=== PATIENT | female | born 1970 | race Caucasian/White ===

== ENCOUNTER 2016-11-12 10:07 | Inpatient (IN) | payer MEDICARE, MEDICAID ==
[~2016-11-12] VITALS: Ht 167.6 cm; Wt 102.9 kg
[~2016-11-12 10:07] MED LIST: CHOL200018 PO; FLUT1AER IH; MUPI15CR TP; OLAN10TA3 PO; OXYB5 PO; ROPI1TAB11 PO
[2016-11-12 12:05] LABS: BASOPHILS # (AUTO) 0.02 K/uL (0.00-0.20); BASOPHILS % (AUTO) 0.2 % (0.0-2.0); EOSINOPHILS # (AUTO) 0.03 K/uL (0.00-0.70); EOSINOPHILS % (AUTO) 0.24 % (1.0-6.0); HEMATOCRIT 42.4 % (36-46); HEMOGLOBIN 14.1 g/dL (12.0-16.0); LYMPHOCYTES # (AUTO) 2.1 K/uL (1.0-4.8); LYMPHOCYTES % (AUTO) 17.7 % (22.0-44.0); MEAN CORPUSCULAR HEMOGLOBIN 29.7 pg (26.0-34.0); MEAN CORPUSCULAR HGB CONC 33.2 G/dL (31.0-37.0); MEAN CORPUSCULAR VOLUME 90 fL (80-100); MONOCYTES # (AUTO) 0.5 K/uL (0.1-1.0); MONOCYTES % (AUTO) 3.9 % (2.0-9.0); NEUTROPHILS # (AUTO) 9.1 K/uL (1.8-7.7); PLATELET COUNT (AUTO) 277 K/uL (150-450); RED BLOOD CELL COUNT(AUTO) 4.73 MIL/uL (4.00-5.20); RED CELL DISTRIBUTION WIDTH 15.2 % (11.5-14.5); WHITE BLOOD COUNT (AUTO) 11.7 K/uL (4.5-11.0)
[2016-11-12 12:47] LABS: ANION GAP 8 mmol/L (8-16); CALCIUM, TOTAL 9.6 mg/dL (8.8-10.5); CARBON DIOXIDE 30 mmol/L (22-29); CHLORIDE 99 mmol/L (98-107); CREATININE 0.68 mg/dL (0.60-1.30); GLOMERULAR FILTR. RATE CALC > 60 mL/min (>60); POTASSIUM 3.7 mmol/L (3.5-5.1); SODIUM SERUM 137 mmol/L (136-145); UREA NITROGEN, BLOOD 5 mg/dL (7-18)
[2016-11-12 12:52] LABS: ALANINE AMINOTRANSFERASE 9 U/L (12-78); ALBUMIN 3.6 g/dL (3.4-5.0); ASPARTATE AMINOTRANSFERASE 16 U/L (15-37); BILIRUBIN,TOTAL 0.2 mg/dL (0.1-1.0); TOTAL PROTEIN, SERUM 7.5 g/dL (6.4-8.2)
[2016-11-12] MEDS ORDERED: LORazepam 2 MG TABLET PO ONE (13:30)
[2016-11-12] MEDS ORDERED: HALOPERIDOL LACTATE 5 MG/ML VIAL IM ONE (14:30)
[2016-11-12] MEDS ORDERED: DiphenhydrAMINE HCL 50 MG/ML VIAL IM ONE (14:30)
[2016-11-12 15:29] LABS: APPEARANCE,URINE CLOUDY (CLEAR); GLUCOSE, URINE (UA) NEGATIVE (NEGATIVE); KETONES,URINE NEGATIVE (NEGATIVE); LEUKOCYTE ESTERASE ,URINE MODERATE (NEGATIVE); OCCULT BLOOD,URINE NEGATIVE (NEGATIVE); PROTEIN,URINE NEGATIVE (NEGATIVE)
[2016-11-12 15:31] LABS: ADD UA MICROSCOPIC YES
[2016-11-12 15:37] LABS: SQUAMOUS EPITHELIAL CELL,UR Many /LPF (None Seen)
[2016-11-12 15:38] LABS: RBC,URINE 0-2 /HPF (0-2)
[2016-11-12] MEDS ORDERED: LEVOFLOXACIN 500 MG TABLET PO ONE (16:00)
[2016-11-12 16:23] VITALS: BP 146/89
[2016-11-12] MEDS: DIVALPROEX SODIUM 500 MG DR TABLET PO SCH (16:58)
[2016-11-12] MEDS: OLANZapine 7.5 MG TABLET PO SCH (20:32)
[2016-11-13] MEDS: ZOLPIDEM TARTRATE 10 MG TABLET PO PRN (00:21)
[2016-11-13] MEDS: LORazepam 2 MG TABLET PO PRN ×4 (00:21→19:53)
[2016-11-13 08:00] VITALS: BP 131/95
[2016-11-13] MEDS: FLUTICASONE/VILANTEROL 100-25 MCG/INH INHALER [14] IH SCH (08:14)
[2016-11-13] MEDS: HALOPERIDOL 5 MG TABLET PO PRN ×3 (08:15→16:38)
[2016-11-13] MEDS: CHOLECALCIFEROL (VIT D3) 2,000 UNITS TABLET PO SCH (08:15)
[2016-11-13] MEDS: OXYBUTYNIN CHLORIDE 5 MG TABLET PO SCH ×2 (08:15→16:38)
[2016-11-13] MEDS: DIVALPROEX SODIUM 500 MG DR TABLET PO SCH ×2 (09:00→16:38)
[2016-11-13] MEDS: NICOTINE 21 MG/24 HOUR PATCH TD SCH (10:06)
[2016-11-13] MEDS: BACITRACIN 28.4 GM OINTMENT TP SCH (10:07)
[2016-11-13] MEDS: LEVOFLOXACIN 500 MG TABLET PO SCH (13:24)
[2016-11-13 16:55] VITALS: BP 139/98
[2016-11-13] MEDS: OLANZapine 7.5 MG TABLET PO SCH (20:45)
[2016-11-14] MEDS: HALOPERIDOL 5 MG TABLET PO PRN ×4 (01:56→17:46)
[2016-11-14] MEDS: ZOLPIDEM TARTRATE 10 MG TABLET PO PRN (01:56)
[2016-11-14] MEDS: DENTURE ADHESIVE 68 GM CREAM DT PRN ×2 (07:37→11:48)
[2016-11-14] MEDS: LORazepam 2 MG TABLET PO PRN ×3 (07:37→17:47)
[2016-11-14 08:00] VITALS: BP 141/100
[2016-11-14] MEDS: OXYBUTYNIN CHLORIDE 5 MG TABLET PO SCH ×2 (08:08→16:14)
[2016-11-14] MEDS: LEVOFLOXACIN 500 MG TABLET PO SCH (08:08)
[2016-11-14] MEDS: CHOLECALCIFEROL (VIT D3) 2,000 UNITS TABLET PO SCH (08:08)
[2016-11-14] MEDS: NICOTINE 21 MG/24 HOUR PATCH TD SCH (08:09)
[2016-11-14] MEDS: FLUTICASONE/VILANTEROL 100-25 MCG/INH INHALER [14] IH SCH (08:10)
[2016-11-14] MEDS: BACITRACIN 28.4 GM OINTMENT TP SCH (08:10)
[2016-11-14] MEDS: DIVALPROEX SODIUM 500 MG DR TABLET PO SCH ×2 (09:00→16:33)
[2016-11-14] MEDS ORDERED: TraMADol HCL 50 MG TABLET PO PRN (16:00)
[2016-11-14] MEDS: IBUPROFEN 600 MG TABLET PO PRN (16:14)
[2016-11-14 16:19] VITALS: BP 118/64
[2016-11-14] MEDS: OLANZapine 7.5 MG TABLET PO SCH (20:21)
[2016-11-15] MEDS: LORazepam 2 MG TABLET PO PRN ×2 (00:25→08:07)
[2016-11-15] MEDS: ZOLPIDEM TARTRATE 10 MG TABLET PO PRN (00:25)
[2016-11-15 02:45] VITALS: BP 135/76
[2016-11-15] MEDS: IBUPROFEN 600 MG TABLET PO PRN (02:45)
[2016-11-15] MEDS: HALOPERIDOL 5 MG TABLET PO PRN (06:03)
[2016-11-15] MEDS: NICOTINE 21 MG/24 HOUR PATCH TD SCH (08:07)
[2016-11-15] MEDS: LEVOFLOXACIN 500 MG TABLET PO SCH (08:07)
[2016-11-15] MEDS: CHOLECALCIFEROL (VIT D3) 2,000 UNITS TABLET PO SCH (08:07)
[2016-11-15] MEDS: OXYBUTYNIN CHLORIDE 5 MG TABLET PO SCH (08:08)
[2016-11-15] MEDS: DIVALPROEX SODIUM 500 MG DR TABLET PO SCH (09:00)
[2016-11-15] MEDS: FLUTICASONE/VILANTEROL 100-25 MCG/INH INHALER [14] IH SCH (09:00)
[2016-11-15] MEDS ORDERED: LEVO500 PO (11:26)
[2016-11-15] MEDS ORDERED: DIVA500T35 PO (11:26)
[2016-11-15] MEDS: DENTURE ADHESIVE 68 GM CREAM DT PRN (11:27)
[2016-11-15] MEDS ORDERED: BACI3.5O22 TP (11:29)
[2017-03-25] MEDS ORDERED: GABA-531 PO (18:50)
== END 2016-11-15 13:45 | disposition home or self-care (01) | DRG 885 ==
LOC: EMS 10:10 → 3EC 15:51
PROVIDERS: ADMIT Psychiatry & Neurology Psychiatry; ATTEND Psychiatry & Neurology Psychiatry
DX: F25.9 Schizoaffective disorder, unspecified (principal); R45.851 Suicidal ideations; R45.850 Homicidal ideations; J45.909 Unspecified asthma, uncomplicated; E11.9 Type 2 diabetes mellitus without complications; I10 Essential (primary) hypertension; G89.29 Other chronic pain; G47.33 Obstructive sleep apnea (adult) (pediatric); G40.909 Epilepsy, unspecified, not intractable, without status epilepticus; J44.9 Chronic obstructive pulmonary disease, unspecified; E66.9 Obesity, unspecified; K21.9 Gastro-esophageal reflux disease without esophagitis; E55.9 Vitamin D deficiency, unspecified; R32 Unspecified urinary incontinence; F17.210 Nicotine dependence, cigarettes, uncomplicated; F15.90 Other stimulant use, unspecified, uncomplicated; Z88.0 Allergy status to penicillin; Z71.6 Tobacco abuse counseling; Z71.51 Drug abuse counseling and surveillance of drug abuser; Z88.1 Allergy status to other antibiotic agents; Z88.8 Allergy status to other drugs, medicaments and biological substances; Z79.899 Other long term (current) drug therapy; Z79.51 Long term (current) use of inhaled steroids; Z90.49 Acquired absence of other specified parts of digestive tract; Z98.890 Other specified postprocedural states; Z98.1 Arthrodesis status; Z91.5 Personal history of self-harm; Z68.36 Body mass index [BMI] 36.0-36.9, adult
CPT/HCPCS: 87086; 94660; 96372; 99285; G0480; J1200; J1630

== ENCOUNTER 2016-11-26 12:11 | Inpatient (IN) | payer MEDICARE, MEDICAID ==
[~2016-11-26] VITALS: Ht 167.6 cm; Wt 105.3 kg
[~2016-11-26 12:11] MED LIST changes: +BACI3.5O22 TP; +DIVA500T35 PO; +LEVO500 PO; -MUPI15CR TP; -ROPI1TAB11 PO
[2016-11-26 13:18] LABS: BASOPHILS % (AUTO) 1.4 % (0.0-2.0); EOSINOPHILS % (AUTO) 1.4 % (1.0-6.0); HEMATOCRIT 39.6 % (36-46); HEMOGLOBIN 12.8 g/dL (12.0-16.0); LYMPHOCYTES # (AUTO) 2.8 K/uL (1.0-4.8); LYMPHOCYTES % (AUTO) 24.1 % (22.0-44.0); MEAN CORPUSCULAR HEMOGLOBIN 29.2 pg (26.0-34.0); MEAN CORPUSCULAR HGB CONC 32.2 G/dL (31.0-37.0); MEAN CORPUSCULAR VOLUME 91 fL (80-100); MONOCYTES # (AUTO) 0.8 K/uL (0.1-1.0); MONOCYTES % (AUTO) 6.9 % (2.0-9.0); NEUTROPHILS # (AUTO) 7.6 K/uL (1.8-7.7); NEUTROPHILS % (AUTO) 66.2 % (40.0-70.0); PLATELET COUNT (AUTO) 293 K/uL (150-450); RED BLOOD CELL COUNT(AUTO) 4.37 MIL/uL (4.00-5.20); RED CELL DISTRIBUTION WIDTH 15.6 % (11.5-14.5); WHITE BLOOD COUNT (AUTO) 11.4 K/uL (4.5-11.0)
[2016-11-26 13:20] LABS: ANION GAP 9 mmol/L (8-16); CALCIUM, TOTAL 8.3 mg/dL (8.8-10.5); CARBON DIOXIDE 28 mmol/L (22-29); CHLORIDE 101 mmol/L (98-107); CREATININE 0.55 mg/dL (0.60-1.30); GLOMERULAR FILTR. RATE CALC > 60 mL/min (>60); POTASSIUM 3.5 mmol/L (3.5-5.1); SODIUM SERUM 138 mmol/L (136-145); UREA NITROGEN, BLOOD 4 mg/dL (7-18)
[2016-11-26 13:26] LABS: ALANINE AMINOTRANSFERASE 12 U/L (12-78); ALBUMIN 3.3 g/dL (3.4-5.0); ASPARTATE AMINOTRANSFERASE 21 U/L (15-37); BILIRUBIN,TOTAL 0.2 mg/dL (0.1-1.0); TOTAL PROTEIN, SERUM 6.9 g/dL (6.4-8.2)
[2016-11-26 13:36] LABS: ACETAMINOPHEN < 2 mcg/mL (10-30)
[2016-11-26 13:53] LABS: SALICYLATE 6.4 mg/dL (2.8-20.0)
[2016-11-26] MEDS ORDERED: BACI30OI6 TP (14:43)
[2016-11-26] MEDS ORDERED: OLAN7.5T2 PO (14:43)
[2016-11-26] MEDS ORDERED: HALOPERIDOL LACTATE 5 MG/ML VIAL IM ONE (14:45)
[2016-11-26] MEDS ORDERED: LORazepam 2 MG/ML VIAL IM ONE (14:45)
[2016-11-26] MEDS ORDERED: DiphenhydrAMINE HCL 50 MG/ML VIAL IM ONE (14:45)
[2016-11-26] MEDS: DIVALPROEX SODIUM 500 MG DR TABLET PO SCH (18:58)
[2016-11-26] MEDS: OLANZapine 10 MG TABLET PO SCH (20:50)
[2016-11-26] MEDS: ZOLPIDEM TARTRATE 10 MG TABLET PO PRN (20:51)
[2016-11-27] MEDS: LORazepam 2 MG TABLET PO PRN ×3 (01:56→14:42)
[2016-11-27] MEDS: HALOPERIDOL 5 MG TABLET PO PRN ×3 (01:56→14:42)
[2016-11-27] MEDS ORDERED: HALOPERIDOL LACTATE 5 MG/ML VIAL IM ONE ×3 (06:15→19:30)
[2016-11-27] MEDS ORDERED: DiphenhydrAMINE HCL 50 MG/ML VIAL IM ONE ×2 (06:15→19:30)
[2016-11-27] MEDS ORDERED: LORazepam 2 MG/ML VIAL IM ONE ×2 (06:15→19:30)
[2016-11-27] MEDS: DIVALPROEX SODIUM 500 MG DR TABLET PO SCH ×2 (09:00→16:18)
[2016-11-27] MEDS: NICOTINE 21 MG/24 HOUR PATCH TD SCH (09:07)
[2016-11-27 09:14] VITALS: BP 145/100
[2016-11-27] MEDS: TraMADol HCL 50 MG TABLET PO PRN (09:14)
[2016-11-27] MEDS ORDERED: MAG HYDROX/AL HYDROX/SIMETH ES 30 ML SUSPENSION UDCUP PO PRN (09:15)
[2016-11-27] MEDS ORDERED: ONDANSETRON HCL 4 MG TABLET PO PRN (09:15)
[2016-11-27] MEDS ORDERED: PETROLATUM,WHITE 71 GM JELLY TP PRN (09:15)
[2016-11-27] MEDS ORDERED: MAGNESIUM HYDROXIDE SUSPENSION 30 ML UDCUP PO PRN (09:15)
[2016-11-27] MEDS ORDERED: BENZOCAINE/MENTHOL LOZENGE MM PRN (09:15)
[2016-11-27] MEDS ORDERED: DENTURE ADHESIVE 68 GM CREAM DT PRN (09:15)
[2016-11-27] MEDS ORDERED: ACETAMINOPHEN 325 MG TABLET PO PRN (09:15)
[2016-11-27] MEDS ORDERED: LOPERAMIDE HCL 2 MG CAPSULE PO PRN (09:15)
[2016-11-27] MEDS ORDERED: BACITRACIN 28.4 GM OINTMENT TP PRN (09:15)
[2016-11-27] MEDS ORDERED: CloNIDine HCL 0.1 MG TABLET PO PRN (09:15)
[2016-11-27] MEDS ORDERED: ALBUTEROL SULFATE HFA 90 MCG/PUFF 8 GM INHALER IH PRN (09:15)
[2016-11-27] MEDS: FLUTICASONE/VILANTEROL 100-25 MCG/INH INHALER [14] IH SCH (11:06)
[2016-11-27] MEDS: CHOLECALCIFEROL (VIT D3) 2,000 UNITS TABLET PO SCH (11:06)
[2016-11-27] MEDS: OXYBUTYNIN CHLORIDE 5 MG TABLET PO SCH ×2 (11:07→16:19)
[2016-11-27] MEDS: IBUPROFEN 600 MG TABLET PO PRN (14:44)
[2016-11-27 17:57] VITALS: BP 116/75
[2016-11-27] MEDS ORDERED: LORazepam 2 MG/ML VIAL ONE (19:36)
[2016-11-27] MEDS ORDERED: HALOPERIDOL LACTATE 5 MG/ML VIAL ONE (19:37)
[2016-11-27] MEDS ORDERED: DiphenhydrAMINE HCL 50 MG/ML VIAL ONE (19:37)
[2016-11-27] MEDS: OLANZapine 10 MG TABLET PO SCH (20:43)
[2016-11-27] MEDS: ZOLPIDEM TARTRATE 10 MG TABLET PO PRN (20:46)
[2016-11-28] MEDS: LORazepam 2 MG TABLET PO PRN ×4 (00:59→20:26)
[2016-11-28] MEDS: HALOPERIDOL 5 MG TABLET PO PRN ×3 (05:49→20:47)
[2016-11-28] MEDS: FLUTICASONE/VILANTEROL 100-25 MCG/INH INHALER [14] IH SCH (09:00)
[2016-11-28] MEDS ORDERED: HALOPERIDOL LACTATE 5 MG/ML VIAL IM ONE ×2 (09:15→21:00)
[2016-11-28] MEDS ORDERED: LORazepam 2 MG/ML VIAL IM ONE ×2 (09:15→21:00)
[2016-11-28] MEDS ORDERED: DiphenhydrAMINE HCL 50 MG/ML VIAL IM ONE (09:15)
[2016-11-28] MEDS: OXYBUTYNIN CHLORIDE 5 MG TABLET PO SCH ×2 (09:33→16:36)
[2016-11-28] MEDS: OMEPRAZOLE 20 MG CAPSULE PO SCH (09:33)
[2016-11-28] MEDS: CHOLECALCIFEROL (VIT D3) 2,000 UNITS TABLET PO SCH (09:33)
[2016-11-28] MEDS: DIVALPROEX SODIUM 500 MG DR TABLET PO SCH ×2 (09:34→16:36)
[2016-11-28] MEDS: DOCUSATE SODIUM 100 MG CAPSULE PO SCH (09:34)
[2016-11-28] MEDS: TraMADol HCL 50 MG TABLET PO PRN ×2 (09:39→17:44)
[2016-11-28] MEDS: NICOTINE 21 MG/24 HOUR PATCH TD SCH (09:47)
[2016-11-28 16:39] VITALS: BP 115/81
[2016-11-28] MEDS: OLANZapine 10 MG TABLET PO SCH (20:23)
[2016-11-28 21:02] VITALS: BP 124/82
[2016-11-29] MEDS: LORazepam 2 MG TABLET PO PRN ×3 (05:14→20:06)
[2016-11-29] MEDS: HALOPERIDOL 5 MG TABLET PO PRN ×3 (05:14→20:06)
[2016-11-29] MEDS: FLUTICASONE/VILANTEROL 100-25 MCG/INH INHALER [14] IH SCH (08:36)
[2016-11-29] MEDS: OMEPRAZOLE 20 MG CAPSULE PO SCH (08:37)
[2016-11-29] MEDS: CHOLECALCIFEROL (VIT D3) 2,000 UNITS TABLET PO SCH (08:37)
[2016-11-29] MEDS: DIVALPROEX SODIUM 500 MG DR TABLET PO SCH ×2 (08:37→16:29)
[2016-11-29] MEDS: OXYBUTYNIN CHLORIDE 5 MG TABLET PO SCH ×2 (08:37→16:29)
[2016-11-29] MEDS: DOCUSATE SODIUM 100 MG CAPSULE PO SCH (08:37)
[2016-11-29] MEDS: NICOTINE 21 MG/24 HOUR PATCH TD SCH (08:38)
[2016-11-29 08:40] VITALS: BP 111/82
[2016-11-29] MEDS: TraMADol HCL 50 MG TABLET PO PRN (08:40)
[2016-11-29 16:09] VITALS: BP 117/78
[2016-11-29] MEDS: OLANZapine 10 MG TABLET PO SCH (22:13)
[2016-11-29] MEDS: ZOLPIDEM TARTRATE 10 MG TABLET PO PRN (22:35)
[2016-11-30 03:27] VITALS: BP 114/73
[2016-11-30] MEDS: HALOPERIDOL 5 MG TABLET PO PRN ×4 (03:28→17:58)
[2016-11-30] MEDS: LORazepam 2 MG TABLET PO PRN ×4 (03:29→17:58)
[2016-11-30] MEDS: DOCUSATE SODIUM 100 MG CAPSULE PO SCH (08:01)
[2016-11-30] MEDS: FLUTICASONE/VILANTEROL 100-25 MCG/INH INHALER [14] IH SCH (08:01)
[2016-11-30] MEDS: OMEPRAZOLE 20 MG CAPSULE PO SCH (08:01)
[2016-11-30] MEDS: OXYBUTYNIN CHLORIDE 5 MG TABLET PO SCH ×2 (08:01→17:19)
[2016-11-30] MEDS: CHOLECALCIFEROL (VIT D3) 2,000 UNITS TABLET PO SCH (08:02)
[2016-11-30] MEDS: DIVALPROEX SODIUM 500 MG DR TABLET PO SCH ×2 (08:02→17:18)
[2016-11-30] MEDS: NICOTINE 21 MG/24 HOUR PATCH TD SCH (08:07)
[2016-11-30 10:10] VITALS: BP 122/93
[2016-11-30] MEDS: TraMADol HCL 50 MG TABLET PO PRN (10:12)
[2016-11-30] MEDS: IBUPROFEN 600 MG TABLET PO PRN (12:48)
[2016-11-30 16:12] VITALS: BP 118/81
[2016-11-30] MEDS: ZOLPIDEM TARTRATE 10 MG TABLET PO PRN (20:15)
[2016-11-30] MEDS: OLANZapine 10 MG TABLET PO SCH (20:15)
[2016-12-01] MEDS: IBUPROFEN 600 MG TABLET PO PRN (01:36)
[2016-12-01] MEDS: LORazepam 2 MG TABLET PO PRN ×2 (03:40→09:19)
[2016-12-01] MEDS: HALOPERIDOL 5 MG TABLET PO PRN ×2 (03:51→09:20)
[2016-12-01] MEDS: OMEPRAZOLE 20 MG CAPSULE PO SCH (09:20)
[2016-12-01] MEDS: DIVALPROEX SODIUM 500 MG DR TABLET PO SCH (09:20)
[2016-12-01] MEDS: DOCUSATE SODIUM 100 MG CAPSULE PO SCH (09:20)
[2016-12-01] MEDS: TraMADol HCL 50 MG TABLET PO PRN (09:20)
[2016-12-01] MEDS: CHOLECALCIFEROL (VIT D3) 2,000 UNITS TABLET PO SCH (09:21)
[2016-12-01] MEDS: FLUTICASONE/VILANTEROL 100-25 MCG/INH INHALER [14] IH SCH (09:21)
[2016-12-01] MEDS: NICOTINE 21 MG/24 HOUR PATCH TD SCH (09:21)
[2016-12-01] MEDS: OXYBUTYNIN CHLORIDE 5 MG TABLET PO SCH (09:21)
[2016-12-01] MEDS ORDERED: OMEP20 PO (11:08)
[2016-12-01] MEDS ORDERED: DSS100 PO (11:09)
[2017-03-25] MEDS ORDERED: GABA-531 PO (18:50)
== END 2016-12-01 11:00 | disposition home or self-care (01) | DRG 885 ==
LOC: EMS 12:14 → EEVIPCON 12:14 → 3EC 18:45
PROVIDERS: ADMIT Psychiatry & Neurology Psychiatry; ATTEND Psychiatry & Neurology Psychiatry
DX: F25.9 Schizoaffective disorder, unspecified (principal); R45.851 Suicidal ideations; E11.9 Type 2 diabetes mellitus without complications; E55.9 Vitamin D deficiency, unspecified; E66.9 Obesity, unspecified; F17.210 Nicotine dependence, cigarettes, uncomplicated; G40.909 Epilepsy, unspecified, not intractable, without status epilepticus; G47.33 Obstructive sleep apnea (adult) (pediatric); G89.29 Other chronic pain; I10 Essential (primary) hypertension; J44.9 Chronic obstructive pulmonary disease, unspecified; Z87.440 Personal history of urinary (tract) infections; J45.909 Unspecified asthma, uncomplicated; K59.00 Constipation, unspecified; L30.9 Dermatitis, unspecified; M19.90 Unspecified osteoarthritis, unspecified site; R32 Unspecified urinary incontinence; Z90.49 Acquired absence of other specified parts of digestive tract; Z71.6 Tobacco abuse counseling; Z91.5 Personal history of self-harm; Z98.1 Arthrodesis status; Z98.890 Other specified postprocedural states; Z88.0 Allergy status to penicillin; Z88.8 Allergy status to other drugs, medicaments and biological substances; Z79.899 Other long term (current) drug therapy; Z56.0 Unemployment, unspecified; Z72.89 Other problems related to lifestyle; Z68.37 Body mass index [BMI] 37.0-37.9, adult; F31.9 Bipolar disorder, unspecified
CPT/HCPCS: 87081; 94660; 96372; 99285; 99406; G0480; G0481; J1200; J1630; J2060; J3535

== ENCOUNTER 2016-12-06 18:29 | Inpatient (IN) | payer MEDICARE, OTHER ==
[~2016-12-06] VITALS: Ht 165.1 cm; Wt 106.6 kg
[~2016-12-06 18:29] MED LIST changes: -BACI3.5O22 TP; +DSS100 PO; -LEVO500 PO; -OLAN10TA3 PO; +OLAN7.5T2 PO; +OMEP20 PO
[2016-12-06 18:56] LABS: GLUCOSE COMMENT 1 Doctor Notified; GLUCOSE,POINT OF CARE 137 MG/DL (70-110)
[2016-12-06] MEDS ORDERED: SODIUM CHLORIDE 0.9% 1,000 ML IV ONE (19:00)
[2016-12-06] MEDS ORDERED: OLAN10TA3 PO (19:04)
[2016-12-06 19:22] LABS: BASOPHILS % (AUTO) 0.7 % (0.0-2.0); EOSINOPHILS % (AUTO) 0.6 % (1.0-6.0); HEMATOCRIT 39.6 % (36-46); HEMOGLOBIN 12.7 g/dL (12.0-16.0); LYMPHOCYTES # (AUTO) 3.6 K/uL (1.0-4.8); LYMPHOCYTES % (AUTO) 26.6 % (22.0-44.0); MEAN CORPUSCULAR HEMOGLOBIN 28.9 pg (26.0-34.0); MEAN CORPUSCULAR VOLUME 90 fL (80-100); MONOCYTES # (AUTO) 0.5 K/uL (0.1-1.0); MONOCYTES % (AUTO) 3.7 % (2.0-9.0); NEUTROPHILS # (AUTO) 9.2 K/uL (1.8-7.7); NEUTROPHILS % (AUTO) 68.4 % (40.0-70.0); RED CELL DISTRIBUTION WIDTH 15.4 % (11.5-14.5); WHITE BLOOD COUNT (AUTO) 13.5 K/uL (4.5-11.0)
[2016-12-06 19:36] LABS: SALICYLATE 4.1 mg/dL (2.8-20.0)
[2016-12-06 19:47] LABS: PLATELET COUNT (AUTO) 232 K/uL (150-450)
[2016-12-06 19:50] LABS: ALANINE AMINOTRANSFERASE 9 U/L (12-78); ALBUMIN 3.4 g/dL (3.4-5.0); ANION GAP 13 mmol/L (8-16); ASPARTATE AMINOTRANSFERASE 15 U/L (15-37); BILIRUBIN,TOTAL 0.2 mg/dL (0.1-1.0); CALCIUM, TOTAL 8.5 mg/dL (8.8-10.5); CARBON DIOXIDE 25 mmol/L (22-29); CHLORIDE 102 mmol/L (98-107); CREATININE 0.57 mg/dL (0.60-1.30); GLOMERULAR FILTR. RATE CALC > 60 mL/min (>60); SODIUM SERUM 140 mmol/L (136-145); UREA NITROGEN, BLOOD 7 mg/dL (7-18)
[2016-12-06 19:57] LABS: POTASSIUM 2.9 mmol/L (3.5-5.1)
[2016-12-06 19:58] LABS: ACETAMINOPHEN < 2 mcg/mL (10-30); VALPROIC ACID 3 mcg/mL (50-100)
[2016-12-06] MEDS ORDERED: POTASSIUM CHL 20 MEQ/D5-0.45NS 1,000 ML IV ONE (20:30)
[2016-12-07] MEDS ORDERED: POTASSIUM CHLORIDE 20 MEQ ER TABLET PO PRN (04:00)
[2016-12-07] MEDS ORDERED: MAGNESIUM HYDROXIDE SUSPENSION 30 ML UDCUP PO PRN (04:00)
[2016-12-07] MEDS: SODIUM CHLORIDE 0.9% 1,000 ML IV SCH ×3 (04:00→21:28)
[2016-12-07] MEDS ORDERED: POTASSIUM CHL 10 MEQ/WATER 50 ML IV PRN (04:00)
[2016-12-07] MEDS ORDERED: ONDANSETRON HCL 4 MG/2 ML VIAL IVP PRN (04:00)
[2016-12-07] MEDS ORDERED: ACETAMINOPHEN 325 MG TABLET PO PRN (04:00)
[2016-12-07] MEDS ORDERED: 0.9% SODIUM CHLORIDE 10 ML SYRINGE IVP PRN (04:00)
[2016-12-07] MEDS: PANTOPRAZOLE SODIUM 40 MG/VIAL IVP SCH (08:49)
[2016-12-07] MEDS: DOCUSATE SODIUM 100 MG CAPSULE PO SCH ×2 (08:50→21:34)
[2016-12-07 11:22] LABS: GLUCOSE,POINT OF CARE 102 MG/DL (70-110)
[2016-12-07 15:52] VITALS: BP 120/74
[2016-12-07] MEDS ORDERED: DENTURE ADHESIVE 68 GM CREAM DT ONE (16:00)
[2016-12-07 17:27] LABS: GLUCOSE,POINT OF CARE 96 MG/DL (70-110)
[2016-12-07 18:59] VITALS: BP 109/64
[2016-12-07 21:09] VITALS: BP 118/68
[2016-12-07 21:26] LABS: ANION GAP 7 mmol/L (8-16); CALCIUM, TOTAL 8.4 mg/dL (8.8-10.5); CARBON DIOXIDE 30 mmol/L (22-29); CHLORIDE 105 mmol/L (98-107); CREATININE 0.63 mg/dL (0.60-1.30); GLOMERULAR FILTR. RATE CALC > 60 mL/min (>60); POTASSIUM 4.2 mmol/L (3.5-5.1); SODIUM SERUM 142 mmol/L (136-145); UREA NITROGEN, BLOOD 7 mg/dL (7-18)
[2016-12-07] MEDS: OxyCODONE HCL/ACETAMINOPHEN 5-325 MG TABLET PO PRN ×2 (21:28→21:33)
[2016-12-07 21:31] LABS: ALANINE AMINOTRANSFERASE 11 U/L (12-78); ASPARTATE AMINOTRANSFERASE 12 U/L (15-37); BILIRUBIN,TOTAL 0.3 mg/dL (0.1-1.0); TOTAL PROTEIN, SERUM 6.4 g/dL (6.4-8.2)
[2016-12-07 23:21] VITALS: BP 116/69
[2016-12-08] VITALS (7 sets, daily range): BP systolic 106–132; BP diastolic 56–76
[2016-12-08 06:33] LABS: BASOPHILS % (AUTO) 0.5 % (0.0-2.0); EOSINOPHILS % (AUTO) 1.5 % (1.0-6.0); HEMATOCRIT 38.2 % (36-46); HEMOGLOBIN 12.3 g/dL (12.0-16.0); LYMPHOCYTES # (AUTO) 3.1 K/uL (1.0-4.8); LYMPHOCYTES % (AUTO) 34.2 % (22.0-44.0); MEAN CORPUSCULAR HEMOGLOBIN 29.7 pg (26.0-34.0); MEAN CORPUSCULAR HGB CONC 32.1 G/dL (31.0-37.0); MEAN CORPUSCULAR VOLUME 92 fL (80-100); MONOCYTES # (AUTO) 0.4 K/uL (0.1-1.0); MONOCYTES % (AUTO) 4.9 % (2.0-9.0); NEUTROPHILS # (AUTO) 5.3 K/uL (1.8-7.7); NEUTROPHILS % (AUTO) 58.9 % (40.0-70.0); PLATELET COUNT (AUTO) 214 K/uL (150-450); RED BLOOD CELL COUNT(AUTO) 4.13 MIL/uL (4.00-5.20); RED CELL DISTRIBUTION WIDTH 16.1 % (11.5-14.5); WHITE BLOOD COUNT (AUTO) 8.9 K/uL (4.5-11.0)
[2016-12-08 06:47] LABS: ANION GAP 4 mmol/L (8-16); CALCIUM, TOTAL 8.4 mg/dL (8.8-10.5); CARBON DIOXIDE 33 mmol/L (22-29); CHLORIDE 106 mmol/L (98-107); GLOMERULAR FILTR. RATE CALC > 60 mL/min (>60); POTASSIUM 4.3 mmol/L (3.5-5.1); SODIUM SERUM 143 mmol/L (136-145); UREA NITROGEN, BLOOD 8 mg/dL (7-18)
[2016-12-08] MEDS: OxyCODONE HCL/ACETAMINOPHEN 5-325 MG TABLET PO PRN ×4 (06:57→20:04)
[2016-12-08] MEDS: SODIUM CHLORIDE 0.9% 1,000 ML IV SCH ×2 (07:01→20:03)
[2016-12-08 07:54] LABS: ALANINE AMINOTRANSFERASE 12 U/L (12-78); ALBUMIN 2.9 g/dL (3.4-5.0); ASPARTATE AMINOTRANSFERASE 19 U/L (15-37); BILIRUBIN,TOTAL 0.4 mg/dL (0.1-1.0); TOTAL PROTEIN, SERUM 6.4 g/dL (6.4-8.2)
[2016-12-08] MEDS: PANTOPRAZOLE SODIUM 40 MG/VIAL IVP SCH (09:19)
[2016-12-08] MEDS: DOCUSATE SODIUM 100 MG CAPSULE PO SCH ×2 (09:19→20:03)
[2016-12-08] MEDS: NICOTINE 21 MG/24 HOUR PATCH TD SCH (10:27)
[2016-12-09 00:28] VITALS: BP 125/85
[2016-12-09] MEDS: OxyCODONE HCL/ACETAMINOPHEN 5-325 MG TABLET PO PRN ×4 (00:31→14:25)
[2016-12-09 05:15] VITALS: BP 134/81
[2016-12-09] MEDS: SODIUM CHLORIDE 0.9% 1,000 ML IV SCH (05:16)
[2016-12-09 07:16] VITALS: BP 136/87
[2016-12-09] MEDS: DOCUSATE SODIUM 100 MG CAPSULE PO SCH (08:16)
[2016-12-09] MEDS: NICOTINE 21 MG/24 HOUR PATCH TD SCH (08:17)
[2016-12-09] MEDS: PANTOPRAZOLE SODIUM 40 MG/VIAL IVP SCH (08:17)
[2016-12-09 11:04] VITALS: BP 142/84
[2017-03-25] MEDS ORDERED: GABA-531 PO (18:50)
== END 2016-12-09 16:24 | disposition home or self-care (01) | DRG 917 ==
LOC: EMS 18:33 → AHU 12-07 15:12 → 5S 12-07 20:40
PROVIDERS: ADMIT Internal Medicine; ATTEND Internal Medicine
DX: T43.591A Poisoning by other antipsychotics and neuroleptics, accidental (unintentional), initial encounter (principal); G92 Toxic encephalopathy; T14.91 Suicide attempt; F29 Unspecified psychosis not due to a substance or known physiological condition; F10.129 Alcohol abuse with intoxication, unspecified; D72.829 Elevated white blood cell count, unspecified; E11.9 Type 2 diabetes mellitus without complications; E87.6 Hypokalemia; F17.210 Nicotine dependence, cigarettes, uncomplicated; F20.9 Schizophrenia, unspecified; I10 Essential (primary) hypertension; J45.909 Unspecified asthma, uncomplicated; F41.9 Anxiety disorder, unspecified; F31.9 Bipolar disorder, unspecified; Z91.5 Personal history of self-harm; Z98.1 Arthrodesis status; Z98.890 Other specified postprocedural states; Z88.0 Allergy status to penicillin; Z88.8 Allergy status to other drugs, medicaments and biological substances; Z79.899 Other long term (current) drug therapy; Z91.09 Other allergy status, other than to drugs and biological substances; Z90.49 Acquired absence of other specified parts of digestive tract; Y92.89 Other specified places as the place of occurrence of the external cause; Y93.89 Activity, other specified; Y99.8 Other external cause status
CPT/HCPCS: 82962; 87081; 93005; 94660; 96361; 96374; 99285; C9113; G0480; G0481; J3480; J7030

== ENCOUNTER 2016-12-10 19:07 | Inpatient (IN) | payer MEDICARE, MEDICAID ==
[~2016-12-10] VITALS: Ht 167.6 cm; Wt 102.7 kg
[~2016-12-10 19:07] MED LIST changes: +OLAN10TA3 PO; -OLAN7.5T2 PO
[2016-12-10] MEDS ORDERED: HALOPERIDOL LACTATE 5 MG/ML VIAL IM ONE (19:45)
[2016-12-10] MEDS ORDERED: LORazepam 2 MG/ML VIAL IM ONE (19:45)
[2016-12-10] MEDS ORDERED: DiphenhydrAMINE HCL 50 MG/ML VIAL IM ONE (19:45)
[2016-12-10 19:56] LABS: BASOPHILS % (AUTO) 0.6 % (0.0-2.0); EOSINOPHILS # (AUTO) 0.06 K/uL (0.00-0.70); EOSINOPHILS % (AUTO) 0.38 % (1.0-6.0); HEMOGLOBIN 16.3 g/dL (12.0-16.0); LYMPHOCYTES % (AUTO) 33.8 % (22.0-44.0); MEAN CORPUSCULAR HGB CONC 33.3 G/dL (31.0-37.0); MEAN CORPUSCULAR VOLUME 90 fL (80-100); MONOCYTES # (AUTO) 0.7 K/uL (0.1-1.0); MONOCYTES % (AUTO) 4.7 % (2.0-9.0); NEUTROPHILS % (AUTO) 60.4 % (40.0-70.0); PLATELET COUNT (AUTO) 55 K/uL (150-450); RED BLOOD CELL COUNT(AUTO) 5.44 MIL/uL (4.00-5.20); RED CELL DISTRIBUTION WIDTH 15.3 % (11.5-14.5); WHITE BLOOD COUNT (AUTO) 14.9 K/uL (4.5-11.0)
[2016-12-10 20:04] LABS: ANION GAP 16 mmol/L (8-16); CALCIUM, TOTAL 9.9 mg/dL (8.8-10.5); CARBON DIOXIDE 26 mmol/L (22-29); CHLORIDE 102 mmol/L (98-107); CREATININE 0.73 mg/dL (0.60-1.30); GLOMERULAR FILTR. RATE CALC > 60 mL/min (>60); POTASSIUM 5.5 mmol/L (3.5-5.1); SODIUM SERUM 144 mmol/L (136-145); UREA NITROGEN, BLOOD 8 mg/dL (7-18)
[2016-12-10 20:09] LABS: ALANINE AMINOTRANSFERASE 13 U/L (12-78); ALBUMIN 4.4 g/dL (3.4-5.0); ASPARTATE AMINOTRANSFERASE 33 U/L (15-37); BILIRUBIN,TOTAL 0.3 mg/dL (0.1-1.0); TOTAL PROTEIN, SERUM 9.1 g/dL (6.4-8.2)
[2016-12-11] MEDS ORDERED: SODIUM POLYSTYRENE SULFONATE 15 GM/60 ML SUSPENSION BOTTLE PO ONE (01:30)
[2016-12-11 06:12] LABS: APPEARANCE,URINE CLOUDY (CLEAR); GLUCOSE, URINE (UA) NEGATIVE (NEGATIVE); KETONES,URINE NEGATIVE (NEGATIVE); LEUKOCYTE ESTERASE ,URINE NEGATIVE (NEGATIVE); OCCULT BLOOD,URINE NEGATIVE (NEGATIVE); PROTEIN,URINE NEGATIVE (NEGATIVE)
[2016-12-11 06:17] LABS: ADD UA MICROSCOPIC NO
[2016-12-11] MEDS ORDERED: HALOPERIDOL LACTATE 5 MG/ML VIAL IM ONE (12:15)
[2016-12-11] MEDS ORDERED: LORazepam 2 MG/ML VIAL IM ONE (12:15)
[2016-12-11 14:56] LABS: GLUCOSE,POINT OF CARE 133 MG/DL (70-110)
[2016-12-11] MEDS: LORazepam 2 MG TABLET PO PRN (20:36)
[2016-12-11] MEDS ORDERED: INFLUENZA VIRUS VACCINE QVS 2016-17 (3YR+)/PF 60 MCG/0.5 ML SYRINGE IM ONE (22:45)
[2016-12-11 23:02] VITALS: BP 138/90
[2016-12-11] MEDS ORDERED: IBUPROFEN 600 MG TABLET PO PRN (23:45)
[2016-12-11] MEDS ORDERED: ACETAMINOPHEN 325 MG TABLET PO PRN (23:45)
[2016-12-12 00:21] VITALS: BP 121/77
[2016-12-12] MEDS ORDERED: MAGNESIUM HYDROXIDE SUSPENSION 30 ML UDCUP PO PRN (08:15)
[2016-12-12] MEDS ORDERED: IBUPROFEN 600 MG TABLET PO PRN (08:15)
[2016-12-12] MEDS ORDERED: BENZOCAINE/MENTHOL LOZENGE MM PRN (08:15)
[2016-12-12] MEDS ORDERED: CloNIDine HCL 0.1 MG TABLET PO PRN (08:15)
[2016-12-12] MEDS ORDERED: MAG HYDROX/AL HYDROX/SIMETH ES 30 ML SUSPENSION UDCUP PO PRN (08:15)
[2016-12-12] MEDS ORDERED: PETROLATUM,WHITE 71 GM JELLY TP PRN (08:15)
[2016-12-12] MEDS ORDERED: BACITRACIN 28.4 GM OINTMENT TP PRN (08:15)
[2016-12-12] MEDS ORDERED: ALBUTEROL SULFATE HFA 90 MCG/PUFF 8 GM INHALER IH PRN (08:15)
[2016-12-12] MEDS ORDERED: ONDANSETRON HCL 4 MG TABLET PO PRN (08:15)
[2016-12-12] MEDS ORDERED: LOPERAMIDE HCL 2 MG CAPSULE PO PRN (08:15)
[2016-12-12] MEDS ORDERED: ACETAMINOPHEN 325 MG TABLET PO PRN (08:15)
[2016-12-12] MEDS: DOCUSATE SODIUM 100 MG CAPSULE PO SCH (08:17)
[2016-12-12] MEDS: FLUTICASONE/VILANTEROL 100-25 MCG/INH INHALER [14] IH SCH (08:17)
[2016-12-12] MEDS: CHOLECALCIFEROL (VIT D3) 1,000 UNITS TABLET PO SCH (08:18)
[2016-12-12] MEDS: OMEPRAZOLE 20 MG CAPSULE PO SCH (08:18)
[2016-12-12] MEDS: OXYBUTYNIN CHLORIDE 5 MG TABLET PO SCH ×2 (08:18→16:14)
[2016-12-12] MEDS: NICOTINE 21 MG/24 HOUR PATCH TD SCH (08:19)
[2016-12-12] MEDS: LORazepam 2 MG TABLET PO PRN (08:20)
[2016-12-12] MEDS ORDERED: SODIUM POLYSTYRENE SULFONATE 15 GM/60 ML SUSPENSION BOTTLE PO ONE (15:00)
[2016-12-12 16:19] VITALS: BP 126/72
[2016-12-12] MEDS ORDERED: DiphenhydrAMINE HCL 50 MG/ML VIAL IM ONE (17:15)
[2016-12-12] MEDS ORDERED: HALOPERIDOL LACTATE 5 MG/ML VIAL IM ONE (17:15)
[2016-12-12] MEDS ORDERED: LORazepam 2 MG/ML VIAL IM ONE (17:15)
[2016-12-13 07:13] LABS: ANION GAP 8 mmol/L (8-16); CALCIUM, TOTAL 9.1 mg/dL (8.8-10.5); CARBON DIOXIDE 33 mmol/L (22-29); CHLORIDE 100 mmol/L (98-107); CREATININE 0.72 mg/dL (0.60-1.30); GLOMERULAR FILTR. RATE CALC > 60 mL/min (>60); POTASSIUM 4.1 mmol/L (3.5-5.1); SODIUM SERUM 141 mmol/L (136-145); UREA NITROGEN, BLOOD 11 mg/dL (7-18)
[2016-12-13 07:17] LABS: BASOPHILS # (AUTO) 0.03 K/uL (0.00-0.20); BASOPHILS % (AUTO) 0.3 % (0.0-2.0); EOSINOPHILS # (AUTO) 0.18 K/uL (0.00-0.70); EOSINOPHILS % (AUTO) 1.56 % (1.0-6.0); HEMATOCRIT 42.2 % (36-46); HEMOGLOBIN 14.6 g/dL (12.0-16.0); MEAN CORPUSCULAR HEMOGLOBIN 30.9 pg (26.0-34.0); MEAN CORPUSCULAR HGB CONC 34.5 G/dL (31.0-37.0); MEAN CORPUSCULAR VOLUME 90 fL (80-100); MONOCYTES # (AUTO) 0.8 K/uL (0.1-1.0); NEUTROPHILS # (AUTO) 7.5 K/uL (1.8-7.7); NEUTROPHILS % (AUTO) 65.2 % (40.0-70.0); PLATELET COUNT (AUTO) 220 K/uL (150-450); RED BLOOD CELL COUNT(AUTO) 4.71 MIL/uL (4.00-5.20); RED CELL DISTRIBUTION WIDTH 16.2 % (11.5-14.5); WHITE BLOOD COUNT (AUTO) 11.5 K/uL (4.5-11.0)
[2016-12-13] MEDS: OMEPRAZOLE 20 MG CAPSULE PO SCH (08:53)
[2016-12-13] MEDS: DOCUSATE SODIUM 100 MG CAPSULE PO SCH (08:53)
[2016-12-13] MEDS: OXYBUTYNIN CHLORIDE 5 MG TABLET PO SCH ×2 (08:54→17:16)
[2016-12-13] MEDS: CHOLECALCIFEROL (VIT D3) 1,000 UNITS TABLET PO SCH (08:54)
[2016-12-13] MEDS: LITHIUM CARBONATE 300 MG CAPSULE PO SCH ×2 (08:55→17:17)
[2016-12-13] MEDS: NICOTINE 21 MG/24 HOUR PATCH TD SCH (09:02)
[2016-12-13] MEDS: FLUTICASONE/VILANTEROL 100-25 MCG/INH INHALER [14] IH SCH (09:32)
[2016-12-13 11:12] VITALS: BP 118/80
[2016-12-13] MEDS: LORazepam 2 MG TABLET PO PRN (12:54)
[2016-12-13] MEDS ORDERED: HALOPERIDOL LACTATE 5 MG/ML VIAL IM ONE (15:30)
[2016-12-13] MEDS ORDERED: LORazepam 2 MG/ML VIAL IM ONE (15:30)
[2016-12-13] MEDS ORDERED: DiphenhydrAMINE HCL 50 MG/ML VIAL IM ONE (15:30)
[2016-12-13] MEDS ORDERED: LORazepam 2 MG/ML VIAL ONE (15:31)
[2016-12-13] MEDS ORDERED: HALOPERIDOL LACTATE 5 MG/ML VIAL ONE (15:31)
[2016-12-13] MEDS ORDERED: DiphenhydrAMINE HCL 50 MG/ML VIAL ONE (15:31)
[2016-12-13 16:00] VITALS: BP 124/82
[2016-12-13] MEDS: ZOLPIDEM TARTRATE 10 MG TABLET PO PRN (22:56)
[2016-12-14] MEDS: DOCUSATE SODIUM 100 MG CAPSULE PO SCH (08:35)
[2016-12-14] MEDS: OMEPRAZOLE 20 MG CAPSULE PO SCH (08:36)
[2016-12-14] MEDS: OXYBUTYNIN CHLORIDE 5 MG TABLET PO SCH ×2 (08:36→15:54)
[2016-12-14] MEDS: CHOLECALCIFEROL (VIT D3) 1,000 UNITS TABLET PO SCH (08:36)
[2016-12-14] MEDS: LITHIUM CARBONATE 300 MG CAPSULE PO SCH ×2 (08:36→15:56)
[2016-12-14] MEDS: FLUTICASONE/VILANTEROL 100-25 MCG/INH INHALER [14] IH SCH (08:37)
[2016-12-14] MEDS: NICOTINE 21 MG/24 HOUR PATCH TD SCH (08:43)
[2016-12-14] MEDS: LORazepam 2 MG TABLET PO PRN ×3 (08:44→21:28)
[2016-12-14 08:45] VITALS: BP 122/81
[2016-12-14] MEDS: TraMADol HCL 50 MG TABLET PO PRN ×2 (08:45→19:26)
[2016-12-14 16:09] VITALS: BP 123/74
[2016-12-14] MEDS: HALOPERIDOL 5 MG TABLET PO PRN ×2 (17:54→23:29)
[2016-12-14] MEDS ORDERED: DICLOFENAC SODIUM 1% 100 GM GEL [2GM] TP PRN (18:30)
[2016-12-14 19:27] VITALS: BP 129/72
[2016-12-14] MEDS: ZOLPIDEM TARTRATE 10 MG TABLET PO PRN (20:22)
[2016-12-15 06:13] VITALS: BP 127/73
[2016-12-15 08:00] VITALS: BP 115/76
[2016-12-15] MEDS: FLUTICASONE/VILANTEROL 100-25 MCG/INH INHALER [14] IH SCH (09:00)
[2016-12-15] MEDS: OXYBUTYNIN CHLORIDE 5 MG TABLET PO SCH (10:08)
[2016-12-15] MEDS: LITHIUM CARBONATE 300 MG CAPSULE PO SCH (10:08)
[2016-12-15] MEDS: DOCUSATE SODIUM 100 MG CAPSULE PO SCH (10:08)
[2016-12-15] MEDS: OMEPRAZOLE 20 MG CAPSULE PO SCH (10:09)
[2016-12-15] MEDS: CHOLECALCIFEROL (VIT D3) 1,000 UNITS TABLET PO SCH (10:10)
[2016-12-15] MEDS: NICOTINE 21 MG/24 HOUR PATCH TD SCH (10:14)
[2016-12-15] MEDS ORDERED: LITH300C3 PO (10:46)
[2017-03-25] MEDS ORDERED: GABA-531 PO (18:50)
== END 2016-12-15 11:00 | disposition home or self-care (01) | DRG 885 ==
LOC: EMS 19:10 → 3EC 12-11 21:16
PROVIDERS: ADMIT Psychiatry & Neurology Psychiatry; ATTEND Psychiatry & Neurology Psychiatry
DX: F25.9 Schizoaffective disorder, unspecified (principal); G40.909 Epilepsy, unspecified, not intractable, without status epilepticus; G47.33 Obstructive sleep apnea (adult) (pediatric); F17.210 Nicotine dependence, cigarettes, uncomplicated; F10.10 Alcohol abuse, uncomplicated; E87.5 Hyperkalemia; E66.9 Obesity, unspecified; F31.9 Bipolar disorder, unspecified; F22 Delusional disorders; E55.9 Vitamin D deficiency, unspecified; E11.9 Type 2 diabetes mellitus without complications; I10 Essential (primary) hypertension; D69.6 Thrombocytopenia, unspecified; J44.9 Chronic obstructive pulmonary disease, unspecified; J45.909 Unspecified asthma, uncomplicated; K59.00 Constipation, unspecified; R32 Unspecified urinary incontinence; F15.90 Other stimulant use, unspecified, uncomplicated; M17.11 Unilateral primary osteoarthritis, right knee; Z78.1 Physical restraint status; Z90.49 Acquired absence of other specified parts of digestive tract; Z91.5 Personal history of self-harm; Z98.1 Arthrodesis status; Z88.0 Allergy status to penicillin; Z88.2 Allergy status to sulfonamides; Z98.890 Other specified postprocedural states; Z68.36 Body mass index [BMI] 36.0-36.9, adult; Z28.21 Immunization not carried out because of patient refusal
CPT/HCPCS: 51702; 82962; 87081; 94660; 96372; 99285; 99406; G0480; J1200; J1630; J2060; J3535

== ENCOUNTER 2016-12-24 18:09 | Inpatient (IN) | payer MEDICARE, MEDICAID ==
[~2016-12-24] VITALS: Ht 167.6 cm; Wt 105.0 kg
[~2016-12-24 18:09] MED LIST changes: -DIVA500T35 PO; -FLUT1AER IH; +LITH300C3 PO; -OLAN10TA3 PO
[2016-12-24 19:17] LABS: GLUCOSE COMMENT 1 Doctor Notified; GLUCOSE,POINT OF CARE 132 MG/DL (70-110)
[2016-12-24 19:22] LABS: BASOPHILS % (AUTO) 0.5 % (0.0-2.0); EOSINOPHILS % (AUTO) 1.6 % (1.0-6.0); HEMATOCRIT 38.3 % (36-46); HEMOGLOBIN 12.3 g/dL (12.0-16.0); LYMPHOCYTES # (AUTO) 4.9 K/uL (1.0-4.8); LYMPHOCYTES % (AUTO) 27.7 % (22.0-44.0); MEAN CORPUSCULAR HEMOGLOBIN 29.2 pg (26.0-34.0); MEAN CORPUSCULAR HGB CONC 32.2 G/dL (31.0-37.0); MEAN CORPUSCULAR VOLUME 91 fL (80-100); MONOCYTES % (AUTO) 5.4 % (2.0-9.0); NEUTROPHILS # (AUTO) 11.4 K/uL (1.8-7.7); NEUTROPHILS % (AUTO) 64.8 % (40.0-70.0); PLATELET COUNT (AUTO) 222 K/uL (150-450); RED BLOOD CELL COUNT(AUTO) 4.21 MIL/uL (4.00-5.20); RED CELL DISTRIBUTION WIDTH 15.7 % (11.5-14.5); WHITE BLOOD COUNT (AUTO) 17.7 K/uL (4.5-11.0)
[2016-12-24 19:33] LABS: PROTHROMBIN TIME 10.7 SEC (9.4-11.6)
[2016-12-24 19:35] LABS: ANION GAP 14 mmol/L (8-16); CALCIUM, TOTAL 7.9 mg/dL (8.8-10.5); CARBON DIOXIDE 22 mmol/L (22-29); CHLORIDE 108 mmol/L (98-107); CREATININE 0.76 mg/dL (0.60-1.30); GLOMERULAR FILTR. RATE CALC > 60 mL/min (>60); POTASSIUM 3.2 mmol/L (3.5-5.1); SODIUM SERUM 144 mmol/L (136-145); UREA NITROGEN, BLOOD 9 mg/dL (7-18)
[2016-12-24 19:37] LABS: SALICYLATE 3.4 mg/dL (2.8-20.0)
[2016-12-24 19:42] LABS: BILIRUBIN,TOTAL 0.1 mg/dL (0.1-1.0)
[2016-12-24 19:43] LABS: ACETAMINOPHEN < 2 mcg/mL (10-30); ALANINE AMINOTRANSFERASE 10 U/L (12-78); ALBUMIN 3.1 g/dL (3.4-5.0); ASPARTATE AMINOTRANSFERASE 15 U/L (15-37); TOTAL PROTEIN, SERUM 6.4 g/dL (6.4-8.2)
[2016-12-24 19:55] LABS: LITHIUM 0.26 mmol/L (0.60-1.20)
[2016-12-24] MEDS ORDERED: POTASSIUM CHLORIDE 10% 40 MEQ/30 ML LIQUID UDCUP PO ONE (20:15)
[2016-12-24 20:43] LABS: APPEARANCE,URINE CLEAR (CLEAR); GLUCOSE, URINE (UA) NEGATIVE (NEGATIVE); KETONES,URINE NEGATIVE (NEGATIVE); LEUKOCYTE ESTERASE ,URINE NEGATIVE (NEGATIVE); OCCULT BLOOD,URINE NEGATIVE (NEGATIVE); PH,URINE 6.5 (5.0-8.0); PROTEIN,URINE NEGATIVE (NEGATIVE)
[2016-12-24 21:17] LABS: RBC,URINE 0-2 /HPF (0-2); SQUAMOUS EPITHELIAL CELL,UR Few /LPF (None Seen); WBC,URINE 0-2 /HPF (0-5)
[2016-12-24] MEDS ORDERED: SODIUM CHLORIDE 0.9% 1,000 ML IV ONE (22:30)
[2016-12-25] MEDS ORDERED: SODIUM CHLORIDE 0.9% 1,000 ML IV ONE (02:00)
[2016-12-25] MEDS: LORazepam 2 MG TABLET PO PRN ×2 (10:54→17:47)
[2016-12-25] MEDS: HALOPERIDOL 5 MG TABLET PO PRN ×2 (10:54→17:47)
[2016-12-26 01:48] VITALS: BP 108/59
[2016-12-26] MEDS ORDERED: PETROLATUM,WHITE 71 GM JELLY TP PRN (07:45)
[2016-12-26] MEDS ORDERED: ONDANSETRON HCL 4 MG TABLET PO PRN (07:45)
[2016-12-26] MEDS ORDERED: MAGNESIUM HYDROXIDE SUSPENSION 30 ML UDCUP PO PRN (07:45)
[2016-12-26] MEDS ORDERED: ALBUTEROL SULFATE HFA 90 MCG/PUFF 8 GM INHALER IH PRN (07:45)
[2016-12-26] MEDS ORDERED: CloNIDine HCL 0.1 MG TABLET PO PRN (07:45)
[2016-12-26] MEDS ORDERED: POTASSIUM CHLORIDE 20 MEQ ER TABLET PO ONE (07:45)
[2016-12-26] MEDS ORDERED: BENZOCAINE/MENTHOL LOZENGE [8 LOZENGES/PACKET] MM PRN (07:45)
[2016-12-26] MEDS ORDERED: BACITRACIN 28.4 GM OINTMENT TP PRN (07:45)
[2016-12-26] MEDS ORDERED: MAG HYDROX/AL HYDROX/SIMETH ES 30 ML SUSPENSION UDCUP PO PRN (07:45)
[2016-12-26] MEDS ORDERED: LOPERAMIDE HCL 2 MG CAPSULE PO PRN (07:45)
[2016-12-26] MEDS ORDERED: ACETAMINOPHEN 325 MG TABLET PO PRN (07:45)
[2016-12-26 08:23] VITALS: BP 116/74
[2016-12-26] MEDS ORDERED: DENTURE ADHESIVE 68 GM CREAM DT PRN (08:45)
[2016-12-26] MEDS ORDERED: CHOLECALCIFEROL (VIT D3) 1,000 UNITS TABLET PO SCH (09:00)
[2016-12-26] MEDS: OXYBUTYNIN CHLORIDE 5 MG TABLET PO SCH ×2 (10:08→16:35)
[2016-12-26] MEDS: OMEPRAZOLE 20 MG CAPSULE PO SCH (10:09)
[2016-12-26] MEDS: CHOLECALCIFEROL (VIT D3) 2,000 UNITS TABLET PO SCH (10:09)
[2016-12-26] MEDS: DOCUSATE SODIUM 100 MG CAPSULE PO SCH (10:10)
[2016-12-26] MEDS ORDERED: HALOPERIDOL LACTATE 5 MG/ML VIAL IM ONE ×2 (11:00→15:45)
[2016-12-26] MEDS ORDERED: DiphenhydrAMINE HCL 50 MG/ML VIAL IM ONE (11:00)
[2016-12-26] MEDS ORDERED: LORazepam 2 MG/ML VIAL IM ONE ×2 (11:00→15:45)
[2016-12-26 16:09] VITALS: BP 110/74
[2016-12-26] MEDS: LITHIUM CARBONATE 300 MG CAPSULE PO SCH (16:35)
[2016-12-26] MEDS ORDERED: DiphenhydrAMINE HCL 50 MG/ML VIAL ONE (20:00)
[2016-12-26] MEDS ORDERED: HALOPERIDOL LACTATE 5 MG/ML VIAL ONE (20:00)
[2016-12-26] MEDS ORDERED: LORazepam 2 MG/ML VIAL ONE (20:00)
[2016-12-26] MEDS: ZOLPIDEM TARTRATE 10 MG TABLET PO PRN (22:09)
[2016-12-27] MEDS: LORazepam 2 MG TABLET PO PRN ×4 (01:42→23:51)
[2016-12-27 01:43] VITALS: BP 101/58
[2016-12-27] MEDS: HALOPERIDOL 5 MG TABLET PO PRN ×4 (02:32→23:51)
[2016-12-27 07:07] LABS: BASOPHILS % (AUTO) 0.8 % (0.0-2.0); HEMATOCRIT 36.2 % (36-46); HEMOGLOBIN 11.6 g/dL (12.0-16.0); LYMPHOCYTES # (AUTO) 3.3 K/uL (1.0-4.8); LYMPHOCYTES % (AUTO) 28.1 % (22.0-44.0); MEAN CORPUSCULAR HEMOGLOBIN 29.7 pg (26.0-34.0); MEAN CORPUSCULAR HGB CONC 32.1 G/dL (31.0-37.0); MEAN CORPUSCULAR VOLUME 93 fL (80-100); MONOCYTES # (AUTO) 0.7 K/uL (0.1-1.0); MONOCYTES % (AUTO) 6.1 % (2.0-9.0); NEUTROPHILS # (AUTO) 7.5 K/uL (1.8-7.7); PLATELET COUNT (AUTO) 242 K/uL (150-450); RED BLOOD CELL COUNT(AUTO) 3.91 MIL/uL (4.00-5.20); RED CELL DISTRIBUTION WIDTH 16.1 % (11.5-14.5); WHITE BLOOD COUNT (AUTO) 11.9 K/uL (4.5-11.0)
[2016-12-27 07:13] LABS: ANION GAP 6 mmol/L (8-16); CALCIUM, TOTAL 8.2 mg/dL (8.8-10.5); CARBON DIOXIDE 31 mmol/L (22-29); CHLORIDE 104 mmol/L (98-107); CREATININE 0.71 mg/dL (0.60-1.30); GLOMERULAR FILTR. RATE CALC > 60 mL/min (>60); POTASSIUM 4.3 mmol/L (3.5-5.1); SODIUM SERUM 141 mmol/L (136-145); UREA NITROGEN, BLOOD 14 mg/dL (7-18)
[2016-12-27 08:11] VITALS: BP 123/76
[2016-12-27] MEDS: OMEPRAZOLE 20 MG CAPSULE PO SCH (11:23)
[2016-12-27] MEDS: OXYBUTYNIN CHLORIDE 5 MG TABLET PO SCH ×2 (11:23→16:28)
[2016-12-27] MEDS: LITHIUM CARBONATE 300 MG CAPSULE PO SCH ×2 (11:23→16:29)
[2016-12-27] MEDS: DOCUSATE SODIUM 100 MG CAPSULE PO SCH (11:23)
[2016-12-27] MEDS: CHOLECALCIFEROL (VIT D3) 2,000 UNITS TABLET PO SCH (11:25)
[2016-12-27] MEDS: TraMADol HCL 50 MG TABLET PO PRN (14:38)
[2016-12-27 14:39] VITALS: BP 123/76
[2016-12-27 16:22] VITALS: BP 102/56
[2016-12-27] MEDS: ZOLPIDEM TARTRATE 10 MG TABLET PO PRN (20:43)
[2016-12-28 00:01] VITALS: BP 121/72
[2016-12-28 08:10] VITALS: BP 124/82
[2016-12-28] MEDS: OXYBUTYNIN CHLORIDE 5 MG TABLET PO SCH ×2 (08:12→16:46)
[2016-12-28] MEDS: DOCUSATE SODIUM 100 MG CAPSULE PO SCH (08:13)
[2016-12-28] MEDS: CHOLECALCIFEROL (VIT D3) 2,000 UNITS TABLET PO SCH (08:13)
[2016-12-28] MEDS: OMEPRAZOLE 20 MG CAPSULE PO SCH (08:14)
[2016-12-28] MEDS: LITHIUM CARBONATE 300 MG CAPSULE PO SCH ×2 (08:15→16:46)
[2016-12-28] MEDS: TraMADol HCL 50 MG TABLET PO PRN ×2 (08:16→14:19)
[2016-12-28] MEDS: HALOPERIDOL 5 MG TABLET PO PRN ×4 (08:16→22:25)
[2016-12-28] MEDS: LORazepam 2 MG TABLET PO PRN ×4 (08:17→22:25)
[2016-12-28] MEDS: IBUPROFEN 600 MG TABLET PO PRN (10:38)
[2016-12-28] MEDS: ZOLPIDEM TARTRATE 10 MG TABLET PO PRN (20:36)
[2016-12-28 22:35] VITALS: BP 131/83
[2016-12-29 01:00] VITALS: BP 126/80
[2016-12-29] MEDS: TraMADol HCL 50 MG TABLET PO PRN ×2 (03:36→13:03)
[2016-12-29] MEDS: IBUPROFEN 600 MG TABLET PO PRN (06:27)
[2016-12-29] MEDS: HALOPERIDOL 5 MG TABLET PO PRN ×4 (08:58→21:11)
[2016-12-29] MEDS: CHOLECALCIFEROL (VIT D3) 2,000 UNITS TABLET PO SCH (08:58)
[2016-12-29] MEDS: LORazepam 2 MG TABLET PO PRN ×4 (08:58→21:11)
[2016-12-29] MEDS: LITHIUM CARBONATE 300 MG CAPSULE PO SCH ×2 (08:58→16:38)
[2016-12-29] MEDS: OMEPRAZOLE 20 MG CAPSULE PO SCH (08:58)
[2016-12-29] MEDS: OXYBUTYNIN CHLORIDE 5 MG TABLET PO SCH ×2 (08:59→16:38)
[2016-12-29] MEDS: DOCUSATE SODIUM 100 MG CAPSULE PO SCH (08:59)
[2016-12-29] MEDS: NICOTINE 21 MG/24 HOUR PATCH TD SCH (11:47)
[2016-12-29 13:53] VITALS: BP 110/54
[2016-12-29 16:00] VITALS: BP 112/74
[2016-12-29 17:15] VITALS: BP 110/82
[2016-12-29] MEDS: ZOLPIDEM TARTRATE 10 MG TABLET PO PRN (20:38)
[2016-12-30 00:01] VITALS: BP 100/71
[2016-12-30] MEDS: IBUPROFEN 600 MG TABLET PO PRN ×2 (00:07→13:57)
[2016-12-30] MEDS: CHOLECALCIFEROL (VIT D3) 2,000 UNITS TABLET PO SCH (09:35)
[2016-12-30] MEDS: OXYBUTYNIN CHLORIDE 5 MG TABLET PO SCH ×2 (09:35→16:08)
[2016-12-30] MEDS: DOCUSATE SODIUM 100 MG CAPSULE PO SCH (09:35)
[2016-12-30] MEDS: TraMADol HCL 50 MG TABLET PO PRN (09:36)
[2016-12-30] MEDS: OMEPRAZOLE 20 MG CAPSULE PO SCH (09:36)
[2016-12-30] MEDS: LITHIUM CARBONATE 300 MG CAPSULE PO SCH ×2 (09:36→16:08)
[2016-12-30] MEDS: LORazepam 2 MG TABLET PO PRN ×2 (09:36→13:57)
[2016-12-30] MEDS: HALOPERIDOL 5 MG TABLET PO PRN ×2 (09:36→13:57)
[2016-12-30] MEDS: NICOTINE 21 MG/24 HOUR PATCH TD SCH (09:40)
[2016-12-30 16:03] VITALS: BP 130/72
[2016-12-30] MEDS ORDERED: DICLOFENAC SODIUM 1% 100 GM GEL [2GM] TP PRN (19:45)
[2016-12-30] MEDS: ZOLPIDEM TARTRATE 10 MG TABLET PO PRN (20:58)
[2016-12-31] MEDS: HALOPERIDOL 5 MG TABLET PO PRN ×2 (00:23→07:49)
[2016-12-31] MEDS: LORazepam 2 MG TABLET PO PRN ×2 (00:23→07:48)
[2016-12-31 07:45] VITALS: BP 118/68
[2016-12-31] MEDS: TraMADol HCL 50 MG TABLET PO PRN (07:47)
[2016-12-31] MEDS: NICOTINE 21 MG/24 HOUR PATCH TD SCH (07:50)
[2016-12-31] MEDS: DOCUSATE SODIUM 100 MG CAPSULE PO SCH (08:32)
[2016-12-31] MEDS: CHOLECALCIFEROL (VIT D3) 2,000 UNITS TABLET PO SCH (08:32)
[2016-12-31] MEDS: OMEPRAZOLE 20 MG CAPSULE PO SCH (08:32)
[2016-12-31] MEDS: OXYBUTYNIN CHLORIDE 5 MG TABLET PO SCH (08:32)
[2016-12-31] MEDS: LITHIUM CARBONATE 300 MG CAPSULE PO SCH (08:33)
[2016-12-31 10:55] VITALS: BP 98/62
== END 2016-12-31 10:45 | disposition home or self-care (01) | DRG 885 ==
LOC: EEVIPCON 18:16 → EMS 18:16 → 3EC 12-25 23:00
PROVIDERS: ADMIT Psychiatry & Neurology Child & Adolescent Psychiatry; ATTEND Psychiatry & Neurology Psychiatry
DX: F25.9 Schizoaffective disorder, unspecified (principal); R45.851 Suicidal ideations; T44.7X2A Poisoning by beta-adrenoreceptor antagonists, intentional self-harm, initial encounter; F41.9 Anxiety disorder, unspecified; J45.909 Unspecified asthma, uncomplicated; E11.9 Type 2 diabetes mellitus without complications; E87.6 Hypokalemia; T43.212A Poisoning by selective serotonin and norepinephrine reuptake inhibitors, intentional self-harm, initial encounter; F31.9 Bipolar disorder, unspecified; G47.33 Obstructive sleep apnea (adult) (pediatric); R32 Unspecified urinary incontinence; G89.29 Other chronic pain; J44.9 Chronic obstructive pulmonary disease, unspecified; E55.9 Vitamin D deficiency, unspecified; E66.9 Obesity, unspecified; G40.909 Epilepsy, unspecified, not intractable, without status epilepticus; M47.9 Spondylosis, unspecified; K59.00 Constipation, unspecified; M17.0 Bilateral primary osteoarthritis of knee; I10 Essential (primary) hypertension; F12.90 Cannabis use, unspecified, uncomplicated; F10.129 Alcohol abuse with intoxication, unspecified; F17.210 Nicotine dependence, cigarettes, uncomplicated; F15.10 Other stimulant abuse, uncomplicated; Z68.34 Body mass index [BMI] 34.0-34.9, adult; Z88.0 Allergy status to penicillin; Z88.2 Allergy status to sulfonamides; Z88.8 Allergy status to other drugs, medicaments and biological substances; Z91.018 Allergy to other foods; Z79.899 Other long term (current) drug therapy; Z98.1 Arthrodesis status; Z98.890 Other specified postprocedural states; Z90.49 Acquired absence of other specified parts of digestive tract; Z88.1 Allergy status to other antibiotic agents; Z71.6 Tobacco abuse counseling; Z71.41 Alcohol abuse counseling and surveillance of alcoholic; Z71.51 Drug abuse counseling and surveillance of drug abuser; Z91.5 Personal history of self-harm; X58.XXXA Exposure to other specified factors, initial encounter; Y93.89 Activity, other specified; Y92.89 Other specified places as the place of occurrence of the external cause; Y99.8 Other external cause status
CPT/HCPCS: 51702; 82962; 87081; 93005; 94660; 99285; G0480; G0481; J1200; J1630; J2060; J3535; J7030

== ENCOUNTER 2016-12-31 18:38 | Emergency (ER) | payer MEDICARE, MEDICAID ==
[~2016-12-31] VITALS: Ht 167.6 cm; Wt 100.0 kg
[2016-12-31 18:59] VITALS: BP 122/76
[2016-12-31 19:02] LABS: GLUCOSE,POINT OF CARE 112 MG/DL (70-110)
== END 2016-12-31 19:45 | disposition left against medical advice (07) ==
LOC: EMS 18:49
DX: R10.9 Unspecified abdominal pain (principal); Z53.21 Procedure and treatment not carried out due to patient leaving prior to being seen by health care provider
CPT/HCPCS: 82962

== ENCOUNTER 2017-01-21 17:34 | Inpatient (IN) | payer MEDICARE, MEDICAID ==
[~2017-01-21] VITALS: Ht 167.6 cm; Wt 103.8 kg
[2017-01-21] MEDS ORDERED: LORazepam 2 MG/ML VIAL IM ONE (18:00)
[2017-01-21] MEDS ORDERED: HALOPERIDOL LACTATE 5 MG/ML VIAL IM ONE (18:00)
[2017-01-21] MEDS ORDERED: DiphenhydrAMINE HCL 50 MG/ML VIAL IM ONE (18:00)
[2017-01-21] MEDS ORDERED: TRAZ-144 PO (18:07)
[2017-01-21] MEDS ORDERED: PROZ10 PO (18:07)
[2017-01-21] MEDS ORDERED: DULO20CA30 PO (18:07)
[2017-01-21 18:17] LABS: BASOPHILS % (AUTO) 0.2 % (0.0-2.0); EOSINOPHILS % (AUTO) 1.7 % (1.0-6.0); HEMATOCRIT 40.9 % (36-46); HEMOGLOBIN 13.2 g/dL (12.0-16.0); LYMPHOCYTES # (AUTO) 4.1 K/uL (1.0-4.8); LYMPHOCYTES % (AUTO) 28.3 % (22.0-44.0); MEAN CORPUSCULAR HEMOGLOBIN 30.1 pg (26.0-34.0); MEAN CORPUSCULAR HGB CONC 32.3 G/dL (31.0-37.0); MEAN CORPUSCULAR VOLUME 93 fL (80-100); MONOCYTES # (AUTO) 0.7 K/uL (0.1-1.0); MONOCYTES % (AUTO) 4.7 % (2.0-9.0); NEUTROPHILS # (AUTO) 9.5 K/uL (1.8-7.7); NEUTROPHILS % (AUTO) 65.1 % (40.0-70.0); PLATELET COUNT (AUTO) 314 K/uL (150-450); RED BLOOD CELL COUNT(AUTO) 4.38 MIL/uL (4.00-5.20); RED CELL DISTRIBUTION WIDTH 15.3 % (11.5-14.5); WHITE BLOOD COUNT (AUTO) 14.6 K/uL (4.5-11.0)
[2017-01-21 18:27] LABS: ANION GAP 9 mmol/L (8-16); CALCIUM, TOTAL 8.6 mg/dL (8.8-10.5); CARBON DIOXIDE 28 mmol/L (22-29); CHLORIDE 103 mmol/L (98-107); CREATININE 0.69 mg/dL (0.60-1.30); GLOMERULAR FILTR. RATE CALC > 60 mL/min (>60); POTASSIUM 3.8 mmol/L (3.5-5.1); SODIUM SERUM 140 mmol/L (136-145); UREA NITROGEN, BLOOD 9 mg/dL (7-18)
[2017-01-21 18:34] LABS: ALANINE AMINOTRANSFERASE 8 U/L (12-78); ALBUMIN 3.4 g/dL (3.4-5.0); ASPARTATE AMINOTRANSFERASE 14 U/L (15-37); BILIRUBIN,TOTAL 0.2 mg/dL (0.1-1.0); TOTAL PROTEIN, SERUM 7.1 g/dL (6.4-8.2)
[2017-01-21 18:45] LABS: VALPROIC ACID < 3 mcg/mL (50-100)
[2017-01-22 02:29] VITALS: BP 106/61
[2017-01-22] MEDS: DULoxetine HCL 20 MG CAPSULE PO SCH (08:50)
[2017-01-22] MEDS: FLUoxetine HCL 10 MG CAPSULE PO SCH (08:50)
[2017-01-22] MEDS: LITHIUM CARBONATE 300 MG CAPSULE PO SCH ×2 (08:50→17:24)
[2017-01-22 13:16] LABS: ADD UA MICROSCOPIC YES; APPEARANCE,URINE CLEAR (CLEAR); GLUCOSE, URINE (UA) NEGATIVE (NEGATIVE); KETONES,URINE NEGATIVE (NEGATIVE); LEUKOCYTE ESTERASE ,URINE TRACE (NEGATIVE); OCCULT BLOOD,URINE NEGATIVE (NEGATIVE); PROTEIN,URINE NEGATIVE (NEGATIVE)
[2017-01-22 13:20] LABS: RBC,URINE None Seen /HPF (0-2); SQUAMOUS EPITHELIAL CELL,UR Few /LPF (None Seen); WBC,URINE 0-2 /HPF (0-5)
[2017-01-22 14:03] VITALS: BP 142/68
[2017-01-22] MEDS ORDERED: DENTURE ADHESIVE 68 GM CREAM DT PRN (15:15)
[2017-01-22 16:00] VITALS: BP 135/78
[2017-01-22] MEDS ORDERED: LORazepam 2 MG/ML VIAL ONE (17:06)
[2017-01-22] MEDS ORDERED: HALOPERIDOL LACTATE 5 MG/ML VIAL ONE (17:06)
[2017-01-22] MEDS ORDERED: DiphenhydrAMINE HCL 50 MG/ML VIAL ONE (17:06)
[2017-01-22] MEDS ORDERED: HALOPERIDOL LACTATE 5 MG/ML VIAL IM ONE (17:15)
[2017-01-22] MEDS ORDERED: LORazepam 2 MG/ML VIAL IM ONE (17:15)
[2017-01-22] MEDS ORDERED: DiphenhydrAMINE HCL 50 MG/ML VIAL IM ONE (17:15)
[2017-01-22] MEDS: OXYBUTYNIN CHLORIDE 5 MG TABLET PO SCH (17:24)
[2017-01-22 18:04] VITALS: BP 135/78
[2017-01-22] MEDS ORDERED: MAG HYDROX/AL HYDROX/SIMETH ES 30 ML SUSPENSION UDCUP PO PRN (19:00)
[2017-01-22] MEDS ORDERED: ONDANSETRON HCL 4 MG TABLET PO PRN (19:00)
[2017-01-22] MEDS ORDERED: ALBUTEROL SULFATE HFA 90 MCG/PUFF 8 GM INHALER IH PRN (19:00)
[2017-01-22] MEDS ORDERED: LOPERAMIDE HCL 2 MG CAPSULE PO PRN (19:00)
[2017-01-22] MEDS ORDERED: BACITRACIN 28.4 GM OINTMENT TP PRN (19:00)
[2017-01-22] MEDS ORDERED: PETROLATUM,WHITE 71 GM JELLY TP PRN (19:00)
[2017-01-22] MEDS ORDERED: MAGNESIUM HYDROXIDE SUSPENSION 30 ML UDCUP PO PRN (19:00)
[2017-01-22] MEDS ORDERED: CloNIDine HCL 0.1 MG TABLET PO PRN (19:00)
[2017-01-22] MEDS ORDERED: BENZOCAINE/MENTHOL LOZENGE [8 LOZENGES/PACKET] MM PRN (19:15)
[2017-01-22] MEDS: TraZODone HCL 50 MG TABLET PO SCH (21:26)
[2017-01-22] MEDS: HALOPERIDOL 5 MG TABLET PO PRN (21:26)
[2017-01-22] MEDS: LORazepam 2 MG TABLET PO PRN (21:27)
[2017-01-22] MEDS: ZOLPIDEM TARTRATE 10 MG TABLET PO PRN (22:00)
[2017-01-23 01:31] VITALS: BP 126/76
[2017-01-23] MEDS: FLUoxetine HCL 10 MG CAPSULE PO SCH (08:32)
[2017-01-23] MEDS: OMEPRAZOLE 20 MG CAPSULE PO SCH (08:32)
[2017-01-23] MEDS: DULoxetine HCL 20 MG CAPSULE PO SCH (08:32)
[2017-01-23] MEDS: CHOLECALCIFEROL (VIT D3) 1,000 UNITS TABLET PO SCH (08:32)
[2017-01-23] MEDS: DOCUSATE SODIUM 100 MG CAPSULE PO SCH (08:33)
[2017-01-23] MEDS: OXYBUTYNIN CHLORIDE 5 MG TABLET PO SCH ×2 (08:33→16:26)
[2017-01-23] MEDS: LITHIUM CARBONATE 300 MG CAPSULE PO SCH ×2 (08:33→16:26)
[2017-01-23] MEDS ORDERED: DOCUSATE SODIUM 100 MG CAPSULE PO SCH (09:00)
[2017-01-23] MEDS ORDERED: OMEPRAZOLE 20 MG CAPSULE PO SCH (09:00)
[2017-01-23 09:57] LABS: HEMOGLOBIN A1C 5.9 % (4.5-6.2)
[2017-01-23 10:05] LABS: ANION GAP 5 mmol/L (8-16); CALCIUM, TOTAL 9.1 mg/dL (8.8-10.5); CARBON DIOXIDE 32 mmol/L (22-29); CHLORIDE 100 mmol/L (98-107); CHOL/HDL RATIO 2.6 (3.9-5.7); CREATININE 0.61 mg/dL (0.60-1.30); GLOMERULAR FILTR. RATE CALC > 60 mL/min (>60); POTASSIUM 4.6 mmol/L (3.5-5.1); SODIUM SERUM 137 mmol/L (136-145); THYROID STIMULATING HORMONE 1.56 uIU/mL (0.36-3.74); UREA NITROGEN, BLOOD 9 mg/dL (7-18)
[2017-01-23 10:12] LABS: BASOPHILS # (AUTO) 0.08 K/uL (0.00-0.20); BASOPHILS % (AUTO) 0.7 % (0.0-2.0); EOSINOPHILS # (AUTO) 0.16 K/uL (0.00-0.70); EOSINOPHILS % (AUTO) 1.36 % (1.0-6.0); HEMATOCRIT 37.3 % (36-46); HEMOGLOBIN 12.6 g/dL (12.0-16.0); LYMPHOCYTES # (AUTO) 2.4 K/uL (1.0-4.8); LYMPHOCYTES % (AUTO) 20.8 % (22.0-44.0); MEAN CORPUSCULAR HEMOGLOBIN 30.9 pg (26.0-34.0); MEAN CORPUSCULAR HGB CONC 33.7 G/dL (31.0-37.0); MEAN CORPUSCULAR VOLUME 92 fL (80-100); MONOCYTES # (AUTO) 0.7 K/uL (0.1-1.0); MONOCYTES % (AUTO) 6.2 % (2.0-9.0); NEUTROPHILS # (AUTO) 8.2 K/uL (1.8-7.7); NEUTROPHILS % (AUTO) 70.9 % (40.0-70.0); PLATELET COUNT (AUTO) 265 K/uL (150-450); RED BLOOD CELL COUNT(AUTO) 4.07 MIL/uL (4.00-5.20); RED CELL DISTRIBUTION WIDTH 16.2 % (11.5-14.5); WHITE BLOOD COUNT (AUTO) 11.5 K/uL (4.5-11.0)
[2017-01-23] MEDS ORDERED: IBUPROFEN 600 MG TABLET PO PRN (14:45)
[2017-01-23] MEDS: LORazepam 2 MG TABLET PO PRN ×2 (15:43→22:23)
[2017-01-23] MEDS: HALOPERIDOL 5 MG TABLET PO PRN ×2 (15:44→22:23)
[2017-01-23 16:03] VITALS: BP 120/78
[2017-01-23] MEDS: TraZODone HCL 50 MG TABLET PO SCH (20:48)
[2017-01-23 22:21] VITALS: BP 114/65
[2017-01-24] MEDS: LORazepam 2 MG TABLET PO PRN ×2 (09:02→18:45)
[2017-01-24] MEDS: LITHIUM CARBONATE 300 MG CAPSULE PO SCH ×2 (09:03→17:02)
[2017-01-24] MEDS: CHOLECALCIFEROL (VIT D3) 1,000 UNITS TABLET PO SCH (09:03)
[2017-01-24] MEDS: OMEPRAZOLE 20 MG CAPSULE PO SCH (09:03)
[2017-01-24] MEDS: HALOPERIDOL 5 MG TABLET PO PRN ×2 (09:04→18:45)
[2017-01-24] MEDS: DOCUSATE SODIUM 100 MG CAPSULE PO SCH (09:04)
[2017-01-24] MEDS: FLUoxetine HCL 10 MG CAPSULE PO SCH (09:05)
[2017-01-24] MEDS: DULoxetine HCL 20 MG CAPSULE PO SCH (09:05)
[2017-01-24] MEDS: OXYBUTYNIN CHLORIDE 5 MG TABLET PO SCH ×2 (09:05→17:02)
[2017-01-24 10:41] VITALS: BP 128/78
[2017-01-24] MEDS ORDERED: GuaiFENesin/D-METHORPHAN [SUGAR-FREE] 200-20MG/10 ML SYRUP UDCUP PO PRN (11:45)
[2017-01-24] MEDS ORDERED: HydrOXYzine PAMOATE 50 MG CAPSULE PO PRN (11:45)
[2017-01-24 16:46] VITALS: BP 109/74
[2017-01-24] MEDS: THIAMINE HCL 100 MG TABLET PO SCH (17:02)
[2017-01-24] MEDS: MUPIROCIN CALCIUM 2% 22 GM OINTMENT NASAL SCH (17:04)
[2017-01-24] MEDS: OLANZapine 10 MG RAPDIS TABLET PO SCH (17:04)
[2017-01-24] MEDS ORDERED: LITH300C3 PO (17:19)
[2017-01-24] MEDS ORDERED: NALT50 PO (17:19)
[2017-01-24] MEDS ORDERED: ROPI1TAB38 PO (17:19)
[2017-01-24] MEDS ORDERED: TRAZ150 PO (17:19)
[2017-01-24] MEDS ORDERED: FLUO-191 PO (17:19)
[2017-01-24] MEDS ORDERED: OLAN10TA22 PO ×2 (17:19)
[2017-01-24 18:43] VITALS: BP 114/70
[2017-01-24] MEDS ORDERED: OLANZapine 10 MG RAPDIS TABLET PO SCH (21:00)
[2017-01-24] MEDS ORDERED: TraZODone HCL 150 MG TABLET PO SCH (21:00)
[2017-01-24] MEDS ORDERED: ROPINIRole HCL 1 MG TABLET PO SCH (21:00)
[2017-01-24] MEDS: ZOLPIDEM TARTRATE 10 MG TABLET PO PRN (21:12)
[2017-01-25 08:02] VITALS: BP 132/76
[2017-01-25] MEDS ORDERED: NALTREXONE HCL 50 MG TABLET PO SCH (09:00)
[2017-01-25] MEDS ORDERED: MULTIVITAMINS WITH MINERALS, THERAPEUTIC TABLET PO SCH (09:00)
[2017-01-25] MEDS ORDERED: FOLIC ACID 1 MG TABLET PO SCH (09:00)
[2017-01-25] MEDS ORDERED: FLUoxetine HCL 20 MG CAPSULE PO SCH (09:00)
[2017-01-25] MEDS: LORazepam 2 MG TABLET PO PRN (09:21)
[2017-01-25] MEDS: DOCUSATE SODIUM 100 MG CAPSULE PO SCH (09:24)
[2017-01-25] MEDS: CHOLECALCIFEROL (VIT D3) 1,000 UNITS TABLET PO SCH (09:25)
[2017-01-25] MEDS: OMEPRAZOLE 20 MG CAPSULE PO SCH (09:25)
[2017-01-25] MEDS: MUPIROCIN CALCIUM 2% 22 GM OINTMENT NASAL SCH (09:27)
[2017-01-25] MEDS: OXYBUTYNIN CHLORIDE 5 MG TABLET PO SCH (09:27)
[2017-01-25] MEDS: LITHIUM CARBONATE 300 MG CAPSULE PO SCH (09:28)
[2017-01-25] MEDS: THIAMINE HCL 100 MG TABLET PO SCH (09:28)
[2017-01-25] MEDS: OLANZapine 10 MG RAPDIS TABLET PO SCH (09:28)
[2017-01-25] MEDS: HALOPERIDOL 5 MG TABLET PO PRN (09:29)
[2017-01-25] MEDS ORDERED: MUPI1OIN4 NS (10:24)
[2017-01-25] MEDS ORDERED: OXYB5 PO (10:24)
[2017-01-25] MEDS ORDERED: CHOL200016 PO (10:24)
[2017-01-25] MEDS ORDERED: OMEP20 PO (10:24)
[2017-01-25] MEDS ORDERED: DSS100 PO (10:24)
== END 2017-01-25 11:00 | disposition home or self-care (01) | DRG 885 ==
LOC: EEVIPCON 17:38 → EMS 17:38 → 3EC 01-22 12:44
PROVIDERS: ADMIT Psychiatry & Neurology Psychiatry; ATTEND Psychiatry & Neurology Psychiatry
DX: F25.9 Schizoaffective disorder, unspecified (principal); R45.851 Suicidal ideations; F41.9 Anxiety disorder, unspecified; J45.909 Unspecified asthma, uncomplicated; F31.9 Bipolar disorder, unspecified; E11.9 Type 2 diabetes mellitus without complications; I10 Essential (primary) hypertension; F17.210 Nicotine dependence, cigarettes, uncomplicated; G89.29 Other chronic pain; M25.561 Pain in right knee; K21.9 Gastro-esophageal reflux disease without esophagitis; M19.90 Unspecified osteoarthritis, unspecified site; S83.206A Unspecified tear of unspecified meniscus, current injury, right knee, initial encounter; E66.9 Obesity, unspecified; J44.9 Chronic obstructive pulmonary disease, unspecified; G40.909 Epilepsy, unspecified, not intractable, without status epilepticus; K59.00 Constipation, unspecified; E55.9 Vitamin D deficiency, unspecified; R32 Unspecified urinary incontinence; G47.33 Obstructive sleep apnea (adult) (pediatric); Z88.0 Allergy status to penicillin; Z88.2 Allergy status to sulfonamides; Z88.8 Allergy status to other drugs, medicaments and biological substances; Z91.018 Allergy to other foods; Z79.899 Other long term (current) drug therapy; Z98.1 Arthrodesis status; Z98.890 Other specified postprocedural states; Z90.49 Acquired absence of other specified parts of digestive tract; Z22.322 Carrier or suspected carrier of Methicillin resistant Staphylococcus aureus; Z91.19 Patient's noncompliance with other medical treatment and regimen; Z68.36 Body mass index [BMI] 36.0-36.9, adult; Z72.89 Other problems related to lifestyle; Z71.41 Alcohol abuse counseling and surveillance of alcoholic; Z87.81 Personal history of (healed) traumatic fracture; Z91.5 Personal history of self-harm; X58.XXXA Exposure to other specified factors, initial encounter; Y93.89 Activity, other specified; Y92.89 Other specified places as the place of occurrence of the external cause; Y99.8 Other external cause status
CPT/HCPCS: 82306; 82652; 83036; 83735; 84100; 84443; 87081; 94660; 96372; 99285; G0480; J1200; J1630; J2060

== ENCOUNTER 2017-01-25 19:53 | Emergency (ER) | payer MEDICARE, OTHER ==
[~2017-01-25] VITALS: Ht 167.6 cm; Wt 103.0 kg
[~2017-01-25 19:53] MED LIST changes: +CHOL200016 PO; +DULO20CA30 PO; +FLUO-191 PO; +MUPI1OIN4 NS; +NALT50 PO; +OLAN10TA22 PO; +PROZ10 PO; +ROPI1TAB38 PO; +TRAZ-144 PO; +TRAZ150 PO
[2017-01-25 20:22] LABS: GLUCOSE,POINT OF CARE 171 MG/DL (70-110)
[2017-01-25 21:15] LABS: BASOPHILS % (AUTO) 0.2 % (0.0-2.0); EOSINOPHILS % (AUTO) 0.2 % (1.0-6.0); HEMATOCRIT 43.1 % (36-46); HEMOGLOBIN 13.8 g/dL (12.0-16.0); LYMPHOCYTES # (AUTO) 2.3 K/uL (1.0-4.8); LYMPHOCYTES % (AUTO) 15.9 % (22.0-44.0); MEAN CORPUSCULAR HEMOGLOBIN 29.9 pg (26.0-34.0); MEAN CORPUSCULAR VOLUME 94 fL (80-100); MONOCYTES # (AUTO) 0.9 K/uL (0.1-1.0); NEUTROPHILS # (AUTO) 11.3 K/uL (1.8-7.7); NEUTROPHILS % (AUTO) 77.7 % (40.0-70.0); PLATELET COUNT (AUTO) 315 K/uL (150-450); RED BLOOD CELL COUNT(AUTO) 4.61 MIL/uL (4.00-5.20); RED CELL DISTRIBUTION WIDTH 15.8 % (11.5-14.5); WHITE BLOOD COUNT (AUTO) 14.6 K/uL (4.5-11.0)
[2017-01-25 21:24] LABS: ANION GAP 10 mmol/L (8-16); CALCIUM, TOTAL 9.6 mg/dL (8.8-10.5); CARBON DIOXIDE 30 mmol/L (22-29); CHLORIDE 105 mmol/L (98-107); CREATININE 0.57 mg/dL (0.60-1.30); GLOMERULAR FILTR. RATE CALC > 60 mL/min (>60); POTASSIUM 3.8 mmol/L (3.5-5.1); SODIUM SERUM 145 mmol/L (136-145); UREA NITROGEN, BLOOD 4 mg/dL (7-18)
[2017-01-25 21:30] LABS: ALANINE AMINOTRANSFERASE 12 U/L (12-78); ALBUMIN 3.5 g/dL (3.4-5.0); ASPARTATE AMINOTRANSFERASE 20 U/L (15-37); BILIRUBIN,TOTAL 0.2 mg/dL (0.1-1.0); TOTAL PROTEIN, SERUM 7.8 g/dL (6.4-8.2)
[2017-01-25 22:31] VITALS: BP 113/78
== END 2017-01-25 23:22 | disposition home or self-care (01) ==
LOC: EMS 19:56
DX: F20.9 Schizophrenia, unspecified (principal); F10.10 Alcohol abuse, uncomplicated; F31.9 Bipolar disorder, unspecified; J45.909 Unspecified asthma, uncomplicated; E11.9 Type 2 diabetes mellitus without complications; I10 Essential (primary) hypertension; F17.210 Nicotine dependence, cigarettes, uncomplicated; Z88.1 Allergy status to other antibiotic agents; Z88.0 Allergy status to penicillin; Z88.2 Allergy status to sulfonamides; Z88.8 Allergy status to other drugs, medicaments and biological substances; Y90.6 Blood alcohol level of 120-199 mg/100 ml
CPT/HCPCS: 36415; 80053; 80307; 82962; 85025; 99285; G0480

== ENCOUNTER 2017-01-31 12:47 | Inpatient (IN) | payer MEDICARE, MEDICAID ==
[~2017-01-31] VITALS: Ht 167.6 cm; Wt 109.4 kg
[~2017-01-31 12:47] MED LIST changes: -CHOL200018 PO; -DULO20CA30 PO; -PROZ10 PO; -TRAZ-144 PO
[2017-01-31] MEDS ORDERED: MAG HYDROX/AL HYDROX/SIMETH ES 30 ML SUSPENSION UDCUP PO PRN (13:15)
[2017-01-31] MEDS ORDERED: GuaiFENesin/D-METHORPHAN [SUGAR-FREE] 200-20MG/10 ML SYRUP UDCUP PO PRN (13:15)
[2017-01-31] MEDS ORDERED: LOPERAMIDE HCL 2 MG CAPSULE PO PRN (13:15)
[2017-01-31] MEDS ORDERED: CYANOCOBALAMIN 1,000 MCG/ML VIAL IM ONE (13:15)
[2017-01-31] MEDS ORDERED: LORazepam 2 MG TABLET PO PRN (13:15)
[2017-01-31] MEDS ORDERED: ACETAMINOPHEN 325 MG TABLET PO PRN (13:15)
[2017-01-31] MEDS ORDERED: MAGNESIUM HYDROXIDE SUSPENSION 30 ML UDCUP PO PRN (13:15)
[2017-01-31 19:00] VITALS: BP 115/62
[2017-01-31 19:41] LABS: BASOPHILS % (AUTO) 0.5 % (0.0-2.0); EOSINOPHILS % (AUTO) 1.5 % (1.0-6.0); LYMPHOCYTES # (AUTO) 3.8 K/uL (1.0-4.8); LYMPHOCYTES % (AUTO) 23.5 % (22.0-44.0); MEAN CORPUSCULAR HEMOGLOBIN 30.3 pg (26.0-34.0); MEAN CORPUSCULAR HGB CONC 32.5 G/dL (31.0-37.0); MEAN CORPUSCULAR VOLUME 93 fL (80-100); MONOCYTES # (AUTO) 0.7 K/uL (0.1-1.0); MONOCYTES % (AUTO) 4.3 % (2.0-9.0); NEUTROPHILS # (AUTO) 11.4 K/uL (1.8-7.7); NEUTROPHILS % (AUTO) 70.2 % (40.0-70.0); PLATELET COUNT (AUTO) 252 K/uL (150-450); RED BLOOD CELL COUNT(AUTO) 4.28 MIL/uL (4.00-5.20); RED CELL DISTRIBUTION WIDTH 15.4 % (11.5-14.5); WHITE BLOOD COUNT (AUTO) 16.2 K/uL (4.5-11.0)
[2017-01-31] MEDS ORDERED: DENTURE ADHESIVE 68 GM CREAM DT PRN (19:45)
[2017-01-31 19:50] LABS: ANION GAP 11 mmol/L (8-16); CALCIUM, TOTAL 8.7 mg/dL (8.8-10.5); CARBON DIOXIDE 24 mmol/L (22-29); CHLORIDE 103 mmol/L (98-107); CREATININE 0.66 mg/dL (0.60-1.30); GLOMERULAR FILTR. RATE CALC > 60 mL/min (>60); POTASSIUM 4.2 mmol/L (3.5-5.1); SODIUM SERUM 138 mmol/L (136-145); UREA NITROGEN, BLOOD 9 mg/dL (7-18)
[2017-01-31 19:54] LABS: ALANINE AMINOTRANSFERASE 12 U/L (12-78); ALBUMIN 3.5 g/dL (3.4-5.0); ASPARTATE AMINOTRANSFERASE 19 U/L (15-37); BILIRUBIN,TOTAL 0.3 mg/dL (0.1-1.0); TOTAL PROTEIN, SERUM 7.6 g/dL (6.4-8.2)
[2017-01-31 20:00] VITALS: BP 118/65
[2017-01-31] MEDS: THIAMINE HCL 100 MG TABLET PO SCH (20:15)
[2017-01-31] MEDS: ROPINIRole HCL 1 MG TABLET PO SCH (20:16)
[2017-01-31] MEDS: OLANZapine 10 MG RAPDIS TABLET PO SCH (20:16)
[2017-01-31] MEDS: ACAMPROSATE CALCIUM 333 MG DR TABLET PO SCH (20:16)
[2017-01-31] MEDS ORDERED: -PHARMACY VACCINE NOTE- MISC ONE ×2 (20:45)
[2017-01-31 20:56] LABS: APPEARANCE,URINE CLEAR (CLEAR); GLUCOSE, URINE (UA) NEGATIVE (NEGATIVE); KETONES,URINE NEGATIVE (NEGATIVE); LEUKOCYTE ESTERASE ,URINE NEGATIVE (NEGATIVE); OCCULT BLOOD,URINE NEGATIVE (NEGATIVE); PH,URINE 6.5 (5.0-8.0); PROTEIN,URINE NEGATIVE (NEGATIVE)
[2017-01-31 20:57] LABS: ADD UA MICROSCOPIC NO
[2017-01-31 21:00] VITALS: BP 116/61
[2017-02-01] VITALS (8 sets, daily range): BP systolic 104–140; BP diastolic 60–87
[2017-02-01] MEDS: ZOLPIDEM TARTRATE 10 MG TABLET PO PRN ×2 (02:33→23:45)
[2017-02-01] MEDS: OMEPRAZOLE 20 MG CAPSULE PO SCH (08:23)
[2017-02-01] MEDS: ACAMPROSATE CALCIUM 333 MG DR TABLET PO SCH ×3 (08:23→16:54)
[2017-02-01] MEDS: THIAMINE HCL 100 MG TABLET PO SCH ×2 (08:24→16:53)
[2017-02-01] MEDS: OXYBUTYNIN CHLORIDE 5 MG TABLET PO SCH ×2 (08:24→17:45)
[2017-02-01] MEDS: MULTIVITAMINS WITH MINERALS, THERAPEUTIC TABLET PO SCH (08:24)
[2017-02-01] MEDS: DOCUSATE SODIUM 100 MG CAPSULE PO SCH (08:24)
[2017-02-01] MEDS: CHOLECALCIFEROL (VIT D3) 1,000 UNITS TABLET PO SCH (08:24)
[2017-02-01] MEDS: FOLIC ACID 1 MG TABLET PO SCH (08:24)
[2017-02-01] MEDS: LORazepam 2 MG TABLET PO SCH ×4 (08:24→20:04)
[2017-02-01] MEDS: FLUoxetine HCL 20 MG CAPSULE PO SCH (08:25)
[2017-02-01] MEDS: OLANZapine 5 MG RAPDIS TABLET PO PRN (08:27)
[2017-02-01] MEDS: OLANZapine 10 MG RAPDIS TABLET PO SCH ×3 (10:09→20:04)
[2017-02-01] MEDS ORDERED: HALOPERIDOL LACTATE 5 MG/ML VIAL IM ONE (17:00)
[2017-02-01] MEDS ORDERED: DiphenhydrAMINE HCL 50 MG/ML VIAL IM ONE (17:00)
[2017-02-01] MEDS: ROPINIRole HCL 1 MG TABLET PO SCH (20:04)
[2017-02-01] MEDS: LORazepam 2 MG TABLET PO PRN (23:45)
[2017-02-02 01:39] VITALS: BP 127/71
[2017-02-02] MEDS: LORazepam 2 MG TABLET PO PRN ×2 (03:40→15:15)
[2017-02-02] MEDS: HydrOXYzine PAMOATE 50 MG CAPSULE PO PRN (05:53)
[2017-02-02] MEDS: FOLIC ACID 1 MG TABLET PO SCH (07:58)
[2017-02-02] MEDS: MULTIVITAMINS WITH MINERALS, THERAPEUTIC TABLET PO SCH (07:58)
[2017-02-02] MEDS: CHOLECALCIFEROL (VIT D3) 1,000 UNITS TABLET PO SCH (07:58)
[2017-02-02] MEDS: OMEPRAZOLE 20 MG CAPSULE PO SCH (07:58)
[2017-02-02] MEDS: DOCUSATE SODIUM 100 MG CAPSULE PO SCH (07:58)
[2017-02-02] MEDS: FLUoxetine HCL 20 MG CAPSULE PO SCH (07:59)
[2017-02-02] MEDS: THIAMINE HCL 100 MG TABLET PO SCH ×2 (07:59→17:44)
[2017-02-02] MEDS: LORazepam 2 MG TABLET PO SCH ×4 (07:59→20:50)
[2017-02-02] MEDS: ACAMPROSATE CALCIUM 333 MG DR TABLET PO SCH ×3 (07:59→17:44)
[2017-02-02] MEDS: OXYBUTYNIN CHLORIDE 5 MG TABLET PO SCH ×2 (08:00→17:44)
[2017-02-02] MEDS: OLANZapine 10 MG RAPDIS TABLET PO SCH ×3 (08:00→20:50)
[2017-02-02 08:26] VITALS: BP 111/69
[2017-02-02] MEDS ORDERED: LORazepam 2 MG/ML VIAL IM ONE (12:00)
[2017-02-02] MEDS ORDERED: DiphenhydrAMINE HCL 50 MG/ML VIAL IM ONE (12:00)
[2017-02-02] MEDS ORDERED: HALOPERIDOL LACTATE 5 MG/ML VIAL IM ONE (12:00)
[2017-02-02] MEDS: NICOTINE 21 MG/24 HOUR PATCH TD SCH (15:25)
[2017-02-02 17:55] VITALS: BP 129/77
[2017-02-02] MEDS: ZOLPIDEM TARTRATE 10 MG TABLET PO PRN (20:50)
[2017-02-02] MEDS: ROPINIRole HCL 1 MG TABLET PO SCH (20:50)
[2017-02-03 00:22] VITALS: BP 142/84
[2017-02-03] MEDS: HydrOXYzine PAMOATE 50 MG CAPSULE PO PRN (00:27)
[2017-02-03] MEDS: LORazepam 2 MG TABLET PO PRN ×2 (00:27→05:33)
[2017-02-03] MEDS: IBUPROFEN 600 MG TABLET PO PRN (05:34)
[2017-02-03] MEDS: LORazepam 1 MG TABLET PO SCH ×4 (07:56→20:39)
[2017-02-03 08:00] VITALS: BP 103/66
[2017-02-03] MEDS: CHOLECALCIFEROL (VIT D3) 1,000 UNITS TABLET PO SCH (08:00)
[2017-02-03] MEDS: THIAMINE HCL 100 MG TABLET PO SCH ×2 (08:01→16:45)
[2017-02-03] MEDS: OLANZapine 10 MG RAPDIS TABLET PO SCH ×3 (08:01→20:40)
[2017-02-03] MEDS: OXYBUTYNIN CHLORIDE 5 MG TABLET PO SCH ×2 (08:02→16:46)
[2017-02-03] MEDS: MULTIVITAMINS WITH MINERALS, THERAPEUTIC TABLET PO SCH (08:02)
[2017-02-03] MEDS: FLUoxetine HCL 20 MG CAPSULE PO SCH (08:02)
[2017-02-03] MEDS: OMEPRAZOLE 20 MG CAPSULE PO SCH (08:02)
[2017-02-03] MEDS: NALTREXONE HCL 50 MG TABLET PO SCH (08:02)
[2017-02-03] MEDS: DOCUSATE SODIUM 100 MG CAPSULE PO SCH (08:02)
[2017-02-03] MEDS: FOLIC ACID 1 MG TABLET PO SCH (08:03)
[2017-02-03] MEDS: NICOTINE 21 MG/24 HOUR PATCH TD SCH (08:03)
[2017-02-03] MEDS: ACAMPROSATE CALCIUM 333 MG DR TABLET PO SCH ×3 (08:03→16:45)
[2017-02-03] MEDS ORDERED: LOPERAMIDE HCL 2 MG CAPSULE PO PRN (13:15)
[2017-02-03 16:13] VITALS: BP 147/98
[2017-02-03] MEDS: ROPINIRole HCL 1 MG TABLET PO SCH (20:39)
[2017-02-03] MEDS: LORazepam 1 MG TABLET PO PRN ×2 (21:01→21:13)
[2017-02-03] MEDS: PROMETHAZINE HCL 25 MG TABLET PO PRN (21:11)
[2017-02-03] MEDS ORDERED: DiphenhydrAMINE HCL 50 MG/ML VIAL IM ONE ×2 (21:15→22:45)
[2017-02-03] MEDS ORDERED: HALOPERIDOL LACTATE 5 MG/ML VIAL IM ONE ×2 (21:15→22:45)
[2017-02-03] MEDS ORDERED: LORazepam 2 MG/ML VIAL IM ONE ×2 (21:15→22:45)
[2017-02-03] MEDS ORDERED: DiphenhydrAMINE HCL 50 MG/ML VIAL ONE (21:18)
[2017-02-03] MEDS ORDERED: LORazepam 2 MG/ML VIAL ONE (21:18)
[2017-02-03] MEDS ORDERED: HALOPERIDOL LACTATE 5 MG/ML VIAL ONE (21:18)
[2017-02-04 00:57] VITALS: BP 143/91
[2017-02-04] MEDS: ZOLPIDEM TARTRATE 10 MG TABLET PO PRN (01:10)
[2017-02-04] MEDS: LORazepam 1 MG TABLET PO PRN ×4 (01:11→17:58)
[2017-02-04] MEDS: OLANZapine 5 MG RAPDIS TABLET PO PRN ×2 (02:40→11:53)
[2017-02-04] MEDS: HydrOXYzine PAMOATE 50 MG CAPSULE PO PRN ×3 (02:40→15:13)
[2017-02-04] MEDS: OMEPRAZOLE 20 MG CAPSULE PO SCH (08:07)
[2017-02-04] MEDS: FLUoxetine HCL 20 MG CAPSULE PO SCH (08:08)
[2017-02-04] MEDS: MULTIVITAMINS WITH MINERALS, THERAPEUTIC TABLET PO SCH (08:08)
[2017-02-04] MEDS: FOLIC ACID 1 MG TABLET PO SCH (08:08)
[2017-02-04] MEDS: DOCUSATE SODIUM 100 MG CAPSULE PO SCH (08:08)
[2017-02-04] MEDS: NALTREXONE HCL 50 MG TABLET PO SCH (08:08)
[2017-02-04] MEDS: ACAMPROSATE CALCIUM 333 MG DR TABLET PO SCH ×3 (08:08→17:59)
[2017-02-04] MEDS: OXYBUTYNIN CHLORIDE 5 MG TABLET PO SCH ×2 (08:08→17:58)
[2017-02-04] MEDS: PROMETHAZINE HCL 25 MG TABLET PO PRN ×2 (08:09→12:13)
[2017-02-04] MEDS: THIAMINE HCL 100 MG TABLET PO SCH ×2 (08:09→17:58)
[2017-02-04] MEDS: CHOLECALCIFEROL (VIT D3) 1,000 UNITS TABLET PO SCH (08:10)
[2017-02-04] MEDS: DISULFIRAM 250 MG TABLET PO SCH (08:11)
[2017-02-04] MEDS: OLANZapine 10 MG RAPDIS TABLET PO SCH ×3 (08:12→21:28)
[2017-02-04] MEDS: NICOTINE 21 MG/24 HOUR PATCH TD SCH (08:16)
[2017-02-04 09:00] VITALS: BP 120/66
[2017-02-04 16:54] VITALS: BP 139/98
[2017-02-04] MEDS ORDERED: DiphenhydrAMINE HCL 50 MG/ML VIAL IM ONE (19:45)
[2017-02-04] MEDS ORDERED: LORazepam 2 MG/ML VIAL IM ONE (19:45)
[2017-02-04] MEDS ORDERED: HALOPERIDOL LACTATE 5 MG/ML VIAL IM ONE (19:45)
[2017-02-04 19:49] VITALS: BP 122/71
[2017-02-04] MEDS ORDERED: DiphenhydrAMINE HCL 50 MG/ML VIAL ONE (19:52)
[2017-02-04] MEDS ORDERED: HALOPERIDOL LACTATE 5 MG/ML VIAL ONE (19:52)
[2017-02-04] MEDS: ROPINIRole HCL 1 MG TABLET PO SCH (21:30)
[2017-02-05 08:00] VITALS: BP 124/80
[2017-02-05 08:25] LABS: BASOPHILS % (AUTO) 0.5 % (0.0-2.0); EOSINOPHILS % (AUTO) 1.3 % (1.0-6.0); HEMATOCRIT 36.6 % (36-46); HEMOGLOBIN 11.8 g/dL (12.0-16.0); LYMPHOCYTES # (AUTO) 2.4 K/uL (1.0-4.8); LYMPHOCYTES % (AUTO) 18.9 % (22.0-44.0); MEAN CORPUSCULAR HEMOGLOBIN 30.6 pg (26.0-34.0); MEAN CORPUSCULAR HGB CONC 32.2 G/dL (31.0-37.0); MEAN CORPUSCULAR VOLUME 95 fL (80-100); MONOCYTES # (AUTO) 0.5 K/uL (0.1-1.0); MONOCYTES % (AUTO) 4.3 % (2.0-9.0); NEUTROPHILS # (AUTO) 9.6 K/uL (1.8-7.7); PLATELET COUNT (AUTO) 325 K/uL (150-450); RED BLOOD CELL COUNT(AUTO) 3.85 MIL/uL (4.00-5.20); RED CELL DISTRIBUTION WIDTH 15.9 % (11.5-14.5); WHITE BLOOD COUNT (AUTO) 12.8 K/uL (4.5-11.0)
[2017-02-05] MEDS: CHOLECALCIFEROL (VIT D3) 1,000 UNITS TABLET PO SCH (08:33)
[2017-02-05] MEDS: NALTREXONE HCL 50 MG TABLET PO SCH (08:33)
[2017-02-05] MEDS: MULTIVITAMINS WITH MINERALS, THERAPEUTIC TABLET PO SCH (08:33)
[2017-02-05] MEDS: HydrOXYzine PAMOATE 50 MG CAPSULE PO PRN ×2 (08:33→12:44)
[2017-02-05] MEDS: FOLIC ACID 1 MG TABLET PO SCH (08:34)
[2017-02-05] MEDS: THIAMINE HCL 100 MG TABLET PO SCH ×2 (08:34→16:28)
[2017-02-05] MEDS: OLANZapine 10 MG RAPDIS TABLET PO SCH ×3 (08:34→20:21)
[2017-02-05] MEDS: OMEPRAZOLE 20 MG CAPSULE PO SCH (08:34)
[2017-02-05] MEDS: OXYBUTYNIN CHLORIDE 5 MG TABLET PO SCH ×2 (08:34→16:27)
[2017-02-05] MEDS: DOCUSATE SODIUM 100 MG CAPSULE PO SCH (08:34)
[2017-02-05] MEDS: DISULFIRAM 250 MG TABLET PO SCH (08:35)
[2017-02-05] MEDS: ACAMPROSATE CALCIUM 333 MG DR TABLET PO SCH ×3 (08:35→16:27)
[2017-02-05] MEDS: FLUoxetine HCL 20 MG CAPSULE PO SCH (08:35)
[2017-02-05] MEDS: PROMETHAZINE HCL 25 MG TABLET PO PRN ×2 (08:37→12:44)
[2017-02-05] MEDS: NICOTINE 21 MG/24 HOUR PATCH TD SCH (08:38)
[2017-02-05] MEDS: OLANZapine 5 MG RAPDIS TABLET PO PRN (11:54)
[2017-02-05] MEDS ORDERED: LORazepam 2 MG/ML VIAL IM ONE (16:30)
[2017-02-05] MEDS ORDERED: HALOPERIDOL LACTATE 5 MG/ML VIAL IM ONE (16:30)
[2017-02-05] MEDS ORDERED: DiphenhydrAMINE HCL 50 MG/ML VIAL IM ONE (16:30)
[2017-02-05 17:30] VITALS: BP 139/79
[2017-02-05] MEDS: ROPINIRole HCL 1 MG TABLET PO SCH (20:21)
[2017-02-05] MEDS: ZOLPIDEM TARTRATE 10 MG TABLET PO PRN (21:48)
[2017-02-05] MEDS: LORazepam 1 MG TABLET PO PRN (22:21)
[2017-02-06] MEDS: OLANZapine 5 MG RAPDIS TABLET PO PRN ×2 (02:04→12:52)
[2017-02-06 02:14] VITALS: BP 148/105
[2017-02-06] MEDS: LORazepam 1 MG TABLET PO PRN ×3 (02:26→12:51)
[2017-02-06 08:00] VITALS: BP 110/70
[2017-02-06] MEDS: CHOLECALCIFEROL (VIT D3) 1,000 UNITS TABLET PO SCH (08:37)
[2017-02-06] MEDS: DOCUSATE SODIUM 100 MG CAPSULE PO SCH (08:37)
[2017-02-06] MEDS: THIAMINE HCL 100 MG TABLET PO SCH ×2 (08:37→16:25)
[2017-02-06] MEDS: DISULFIRAM 250 MG TABLET PO SCH (08:37)
[2017-02-06] MEDS: OXYBUTYNIN CHLORIDE 5 MG TABLET PO SCH ×2 (08:37→16:25)
[2017-02-06] MEDS: FLUoxetine HCL 20 MG CAPSULE PO SCH (08:38)
[2017-02-06] MEDS: MULTIVITAMINS WITH MINERALS, THERAPEUTIC TABLET PO SCH (08:38)
[2017-02-06] MEDS: OMEPRAZOLE 20 MG CAPSULE PO SCH (08:38)
[2017-02-06] MEDS: OLANZapine 10 MG RAPDIS TABLET PO SCH ×3 (08:38→20:18)
[2017-02-06] MEDS: ACAMPROSATE CALCIUM 333 MG DR TABLET PO SCH ×3 (08:38→16:24)
[2017-02-06] MEDS: PROMETHAZINE HCL 25 MG TABLET PO PRN ×2 (08:38→12:51)
[2017-02-06] MEDS: NALTREXONE HCL 50 MG TABLET PO SCH (08:38)
[2017-02-06] MEDS: FOLIC ACID 1 MG TABLET PO SCH (08:39)
[2017-02-06] MEDS: NICOTINE 21 MG/24 HOUR PATCH TD SCH (08:44)
[2017-02-06] MEDS ORDERED: DiphenhydrAMINE HCL 50 MG/ML VIAL IM ONE ×2 (17:15)
[2017-02-06] MEDS ORDERED: HALOPERIDOL LACTATE 5 MG/ML VIAL IM ONE ×2 (17:15)
[2017-02-06] MEDS ORDERED: LORazepam 2 MG/ML VIAL IM ONE ×2 (17:15)
[2017-02-06] MEDS ORDERED: LORazepam 2 MG/ML VIAL ONE (17:18)
[2017-02-06] MEDS ORDERED: HALOPERIDOL LACTATE 5 MG/ML VIAL ONE (17:18)
[2017-02-06] MEDS ORDERED: DiphenhydrAMINE HCL 50 MG/ML VIAL ONE (17:19)
[2017-02-06 18:37] VITALS: BP 132/81
[2017-02-06] MEDS: ROPINIRole HCL 1 MG TABLET PO SCH (20:19)
[2017-02-07] MEDS: LORazepam 1 MG TABLET PO PRN ×2 (01:42→11:07)
[2017-02-07] MEDS: ZOLPIDEM TARTRATE 10 MG TABLET PO PRN (01:42)
[2017-02-07 05:52] VITALS: BP 130/78
[2017-02-07 08:30] VITALS: BP 129/84
[2017-02-07] MEDS: THIAMINE HCL 100 MG TABLET PO SCH (08:49)
[2017-02-07] MEDS: DOCUSATE SODIUM 100 MG CAPSULE PO SCH (08:49)
[2017-02-07] MEDS: OMEPRAZOLE 20 MG CAPSULE PO SCH (08:50)
[2017-02-07] MEDS: FLUoxetine HCL 20 MG CAPSULE PO SCH (08:50)
[2017-02-07] MEDS: MULTIVITAMINS WITH MINERALS, THERAPEUTIC TABLET PO SCH (08:50)
[2017-02-07] MEDS: FOLIC ACID 1 MG TABLET PO SCH (08:50)
[2017-02-07] MEDS: CHOLECALCIFEROL (VIT D3) 1,000 UNITS TABLET PO SCH (08:51)
[2017-02-07] MEDS: ACAMPROSATE CALCIUM 333 MG DR TABLET PO SCH ×2 (08:52→12:29)
[2017-02-07] MEDS: OXYBUTYNIN CHLORIDE 5 MG TABLET PO SCH (08:52)
[2017-02-07] MEDS: DISULFIRAM 250 MG TABLET PO SCH (08:53)
[2017-02-07] MEDS: NALTREXONE HCL 50 MG TABLET PO SCH (08:54)
[2017-02-07] MEDS: OLANZapine 10 MG RAPDIS TABLET PO SCH (08:59)
[2017-02-07] MEDS: NICOTINE 21 MG/24 HOUR PATCH TD SCH (09:02)
[2017-02-07] MEDS: IBUPROFEN 600 MG TABLET PO PRN (11:06)
[2017-02-07] MEDS ORDERED: OLAN10TA22 PO ×2 (11:31)
[2017-02-07] MEDS ORDERED: ROPI1TAB38 PO (11:31)
[2017-02-07] MEDS ORDERED: FLUO-191 PO (11:31)
[2017-02-07] MEDS ORDERED: NALT50 PO (11:31)
[2017-02-07] MEDS ORDERED: ACAM333T7 PO (11:31)
[2017-02-07] MEDS ORDERED: DISU250 PO (11:31)
[2017-02-07] MEDS ORDERED: VARE1TAB21 PO (11:47)
[2017-02-07 12:00] VITALS: BP 130/79
[2017-03-25] MEDS ORDERED: GABA-531 PO (18:50)
== END 2017-02-07 15:05 | disposition home or self-care (01) | DRG 885 ==
LOC: 3EC 18:45
PROVIDERS: ADMIT Psychiatry & Neurology Psychiatry; ATTEND Psychiatry & Neurology Psychiatry
PROC: 5A09557 Assistance with Respiratory Ventilation, Greater than 96 Consecutive Hours, Continuous Positive Airway Pressure (ICD-10-PCS; principal; 2017-01-31)
PROC: GZHZZZZ Group Psychotherapy (ICD-10-PCS; 2017-01-31)
PROC: GZ51ZZZ Individual Psychotherapy, Behavioral (ICD-10-PCS; 2017-01-31)
DX: F25.0 Schizoaffective disorder, bipolar type (principal); E55.9 Vitamin D deficiency, unspecified; G25.81 Restless legs syndrome; K21.9 Gastro-esophageal reflux disease without esophagitis; E11.9 Type 2 diabetes mellitus without complications; G47.30 Sleep apnea, unspecified; F17.210 Nicotine dependence, cigarettes, uncomplicated; F19.10 Other psychoactive substance abuse, uncomplicated; M19.90 Unspecified osteoarthritis, unspecified site; Z88.1 Allergy status to other antibiotic agents; Z88.8 Allergy status to other drugs, medicaments and biological substances; Z91.02 Food additives allergy status; Z88.0 Allergy status to penicillin; Z79.891 Long term (current) use of opiate analgesic; Z72.89 Other problems related to lifestyle
CPT/HCPCS: 80307; 87081; 93005; 94660; G0480; J1200; J1630; J2060; J3420

== ENCOUNTER 2017-02-10 17:11 | Emergency (ER) | payer MEDICARE, OTHER ==
[~2017-02-10] VITALS: Ht 167.6 cm; Wt 100.0 kg
[~2017-02-10 17:11] MED LIST changes: +ACAM333T7 PO; +DISU250 PO; -LITH300C3 PO; -MUPI1OIN4 NS; -TRAZ150 PO; +VARE1TAB21 PO
[2017-02-10 18:02] LABS: BASOPHILS % (AUTO) 0.3 % (0.0-2.0); EOSINOPHILS % (AUTO) 2.6 % (1.0-6.0); HEMATOCRIT 42.5 % (36-46); HEMOGLOBIN 13.6 g/dL (12.0-16.0); LYMPHOCYTES % (AUTO) 30.7 % (22.0-44.0); MEAN CORPUSCULAR HEMOGLOBIN 30.1 pg (26.0-34.0); MEAN CORPUSCULAR HGB CONC 32.1 G/dL (31.0-37.0); MEAN CORPUSCULAR VOLUME 94 fL (80-100); MONOCYTES # (AUTO) 1.1 K/uL (0.1-1.0); MONOCYTES % (AUTO) 6.9 % (2.0-9.0); NEUTROPHILS # (AUTO) 9.6 K/uL (1.8-7.7); NEUTROPHILS % (AUTO) 59.5 % (40.0-70.0); PLATELET COUNT (AUTO) 401 K/uL (150-450); RED BLOOD CELL COUNT(AUTO) 4.53 MIL/uL (4.00-5.20); RED CELL DISTRIBUTION WIDTH 15.3 % (11.5-14.5); WHITE BLOOD COUNT (AUTO) 16.2 K/uL (4.5-11.0)
[2017-02-10 18:09] LABS: ANION GAP 10 mmol/L (8-16); CALCIUM, TOTAL 8.8 mg/dL (8.8-10.5); CARBON DIOXIDE 28 mmol/L (22-29); CHLORIDE 105 mmol/L (98-107); CREATININE 0.76 mg/dL (0.60-1.30); GLOMERULAR FILTR. RATE CALC > 60 mL/min (>60); POTASSIUM 3.3 mmol/L (3.5-5.1); SODIUM SERUM 143 mmol/L (136-145); UREA NITROGEN, BLOOD 13 mg/dL (7-18)
[2017-02-10 18:14] LABS: ALANINE AMINOTRANSFERASE 21 U/L (12-78); ALBUMIN 3.7 g/dL (3.4-5.0); ASPARTATE AMINOTRANSFERASE 17 U/L (15-37); BILIRUBIN,TOTAL 0.2 mg/dL (0.1-1.0); TOTAL PROTEIN, SERUM 7.7 g/dL (6.4-8.2)
[2017-02-10 18:37] LABS: SALICYLATE 3.6 mg/dL (2.8-20.0)
[2017-02-10 18:57] LABS: ACETAMINOPHEN < 2 mcg/mL (10-30)
[2017-02-10 19:39] LABS: GLUCOSE,POINT OF CARE 133 MG/DL (70-110)
[2017-02-10 23:23] VITALS: BP 111/61
== END 2017-02-10 23:39 | disposition home or self-care (01) ==
LOC: EMS 17:13
DX: F10.129 Alcohol abuse with intoxication, unspecified (principal); J45.909 Unspecified asthma, uncomplicated; F41.9 Anxiety disorder, unspecified; E11.9 Type 2 diabetes mellitus without complications; I10 Essential (primary) hypertension; F17.210 Nicotine dependence, cigarettes, uncomplicated; Y90.8 Blood alcohol level of 240 mg/100 ml or more; Z88.0 Allergy status to penicillin; Z88.1 Allergy status to other antibiotic agents; Z91.018 Allergy to other foods
CPT/HCPCS: 36415; 80053; 80307; 82962; 83735; 85025; 93005; 94660; 99285; G0480; G0481

== ENCOUNTER 2017-02-14 16:36 | Inpatient (IN) | payer MEDICARE, MEDICAID ==
[~2017-02-14] VITALS: Ht 165.1 cm; Wt 114.0 kg
[2017-02-14] MEDS ORDERED: SODIUM CHLORIDE 0.9% 1,000 ML IV ONE (17:15)
[2017-02-14 17:27] LABS: BASOPHILS % (AUTO) 0.3 % (0.0-2.0); HEMATOCRIT 42.8 % (36-46); HEMOGLOBIN 13.7 g/dL (12.0-16.0); LYMPHOCYTES # (AUTO) 5.2 K/uL (1.0-4.8); LYMPHOCYTES % (AUTO) 25.9 % (22.0-44.0); MEAN CORPUSCULAR HEMOGLOBIN 30.1 pg (26.0-34.0); MEAN CORPUSCULAR VOLUME 94 fL (80-100); MONOCYTES # (AUTO) 0.8 K/uL (0.1-1.0); MONOCYTES % (AUTO) 3.8 % (2.0-9.0); NEUTROPHILS # (AUTO) 13.8 K/uL (1.8-7.7); PLATELET COUNT (AUTO) 348 K/uL (150-450); RED BLOOD CELL COUNT(AUTO) 4.55 MIL/uL (4.00-5.20); WHITE BLOOD COUNT (AUTO) 20.1 K/uL (4.5-11.0)
[2017-02-14 17:30] LABS: UREA NITROGEN, BLOOD 7 mg/dL (7-18)
[2017-02-14] MEDS ORDERED: HALOPERIDOL LACTATE 5 MG/ML VIAL IM ONE (17:30)
[2017-02-14] MEDS ORDERED: DiphenhydrAMINE HCL 50 MG/ML VIAL IM ONE (17:30)
[2017-02-14] MEDS ORDERED: LORazepam 2 MG/ML VIAL IM ONE (17:30)
[2017-02-14 18:27] LABS: SALICYLATE 3.5 mg/dL (2.8-20.0)
[2017-02-14 18:47] LABS: ALANINE AMINOTRANSFERASE 15 U/L (12-78); ALBUMIN 3.7 g/dL (3.4-5.0); BILIRUBIN,TOTAL 0.1 mg/dL (0.1-1.0); TOTAL PROTEIN, SERUM 7.4 g/dL (6.4-8.2)
[2017-02-14 18:50] LABS: ASPARTATE AMINOTRANSFERASE 59 U/L (15-37)
[2017-02-14 18:59] LABS: ACETAMINOPHEN 2 mcg/mL (10-30)
[2017-02-14 19:02] LABS: POTASSIUM 3.3 mmol/L (3.5-5.1)
[2017-02-14 19:03] LABS: SODIUM SERUM 141 mmol/L (136-145)
[2017-02-14 19:04] LABS: ANION GAP 12 mmol/L (8-16); CARBON DIOXIDE 26 mmol/L (22-29); CHLORIDE 103 mmol/L (98-107)
[2017-02-14 19:05] LABS: CREATININE 0.64 mg/dL (0.60-1.30); GLOMERULAR FILTR. RATE CALC > 60 mL/min (>60)
[2017-02-14 19:06] LABS: CALCIUM, TOTAL 9.4 mg/dL (8.8-10.5)
[2017-02-14] MEDS ORDERED: POTASSIUM CHLORIDE 20 MEQ ER TABLET PO ONE (19:45)
[2017-02-15 02:20] LABS: APPEARANCE,URINE CLEAR (CLEAR); GLUCOSE, URINE (UA) NEGATIVE (NEGATIVE); KETONES,URINE NEGATIVE (NEGATIVE); LEUKOCYTE ESTERASE ,URINE NEGATIVE (NEGATIVE); OCCULT BLOOD,URINE NEGATIVE (NEGATIVE); PH,URINE 6.5 (5.0-8.0); PROTEIN,URINE NEGATIVE (NEGATIVE)
[2017-02-15 02:23] LABS: ADD UA MICROSCOPIC NO
[2017-02-15] MEDS: LORazepam 2 MG TABLET PO PRN ×2 (08:16→10:15)
[2017-02-15 08:39] VITALS: BP 129/88
[2017-02-15 09:31] LABS: BASOPHILS % (AUTO) 0.3 % (0.0-2.0); EOSINOPHILS % (AUTO) 1.8 % (1.0-6.0); HEMATOCRIT 40.8 % (36-46); HEMOGLOBIN 13.2 g/dL (12.0-16.0); LYMPHOCYTES # (AUTO) 3.1 K/uL (1.0-4.8); LYMPHOCYTES % (AUTO) 20.6 % (22.0-44.0); MEAN CORPUSCULAR HEMOGLOBIN 30.5 pg (26.0-34.0); MEAN CORPUSCULAR HGB CONC 32.4 G/dL (31.0-37.0); MEAN CORPUSCULAR VOLUME 94 fL (80-100); MONOCYTES # (AUTO) 0.6 K/uL (0.1-1.0); MONOCYTES % (AUTO) 3.7 % (2.0-9.0); NEUTROPHILS # (AUTO) 10.9 K/uL (1.8-7.7); NEUTROPHILS % (AUTO) 73.6 % (40.0-70.0); PLATELET COUNT (AUTO) 348 K/uL (150-450); RED BLOOD CELL COUNT(AUTO) 4.34 MIL/uL (4.00-5.20); RED CELL DISTRIBUTION WIDTH 15.4 % (11.5-14.5); WHITE BLOOD COUNT (AUTO) 14.8 K/uL (4.5-11.0)
[2017-02-15 09:47] LABS: CHOL/HDL RATIO 2.5 (3.9-5.7)
[2017-02-15] MEDS: OLANZapine 5 MG RAPDIS TABLET PO PRN (10:14)
[2017-02-15] MEDS ORDERED: BUPRENORPHINE 5 MCG/HOUR PATCH TD SCH (11:15)
[2017-02-15] MEDS ORDERED: LOPERAMIDE HCL 2 MG CAPSULE PO PRN ×2 (12:00)
[2017-02-15] MEDS ORDERED: CYANOCOBALAMIN 1,000 MCG/ML VIAL IM ONE (12:00)
[2017-02-15] MEDS ORDERED: ACETAMINOPHEN 325 MG TABLET PO PRN (12:00)
[2017-02-15] MEDS ORDERED: GuaiFENesin/D-METHORPHAN [SUGAR-FREE] 200-20MG/10 ML SYRUP UDCUP PO PRN (12:00)
[2017-02-15 13:06] VITALS: BP_SYST 139
[2017-02-15] MEDS: ACAMPROSATE CALCIUM 333 MG DR TABLET PO SCH ×2 (13:35→16:13)
[2017-02-15] MEDS: DIAZEPAM 10 MG TABLET PO PRN ×3 (13:46→18:52)
[2017-02-15 14:01] VITALS: BP 114/53
[2017-02-15] MEDS: MAG HYDROX/AL HYDROX/SIMETH ES 30 ML SUSPENSION UDCUP PO PRN (14:05)
[2017-02-15 15:02] VITALS: BP 109/79
[2017-02-15 16:00] VITALS: BP 129/94
[2017-02-15] MEDS: OXYBUTYNIN CHLORIDE 5 MG TABLET PO SCH (16:15)
[2017-02-15] MEDS: DICLOFENAC SODIUM 75 MG DR TABLET PO SCH (16:15)
[2017-02-15] MEDS: THIAMINE HCL 100 MG TABLET PO SCH (16:15)
[2017-02-15] MEDS: OLANZapine 10 MG RAPDIS TABLET PO SCH ×2 (16:16→21:09)
[2017-02-15 16:38] VITALS: BP 129/94
[2017-02-15] MEDS: ROPINIRole HCL 1 MG TABLET PO SCH (21:09)
[2017-02-15] MEDS: ZOLPIDEM TARTRATE 10 MG TABLET PO PRN (22:54)
[2017-02-16] MEDS: DIAZEPAM 10 MG TABLET PO PRN ×3 (03:30→23:35)
[2017-02-16] MEDS ORDERED: -PHARMACY VACCINE NOTE- MISC ONE ×2 (04:30)
[2017-02-16 06:13] VITALS: BP 134/89
[2017-02-16] MEDS: ACAMPROSATE CALCIUM 333 MG DR TABLET PO SCH ×3 (08:15→17:41)
[2017-02-16] MEDS: DICLOFENAC SODIUM 75 MG DR TABLET PO SCH ×2 (08:16→17:41)
[2017-02-16] MEDS: MULTIVITAMINS WITH MINERALS, THERAPEUTIC TABLET PO SCH (08:16)
[2017-02-16] MEDS: OXYBUTYNIN CHLORIDE 5 MG TABLET PO SCH ×2 (08:17→17:41)
[2017-02-16] MEDS: FLUoxetine HCL 20 MG CAPSULE PO SCH (08:17)
[2017-02-16] MEDS: FOLIC ACID 1 MG TABLET PO SCH (08:17)
[2017-02-16] MEDS: OLANZapine 10 MG RAPDIS TABLET PO SCH ×3 (08:17→20:15)
[2017-02-16] MEDS: THIAMINE HCL 100 MG TABLET PO SCH ×2 (08:18→17:40)
[2017-02-16 08:23] VITALS: BP 143/92
[2017-02-16] MEDS: DIAZEPAM 10 MG TABLET PO SCH ×4 (09:00→20:16)
[2017-02-16] MEDS ORDERED: DENTURE ADHESIVE 68 GM CREAM DT PRN (10:45)
[2017-02-16 12:03] VITALS: BP 134/90
[2017-02-16 16:12] VITALS: BP 126/75
[2017-02-16 16:13] VITALS: BP 126/75
[2017-02-16] MEDS: ZOLPIDEM TARTRATE 10 MG TABLET PO PRN (20:15)
[2017-02-16] MEDS: ROPINIRole HCL 1 MG TABLET PO SCH (20:16)
[2017-02-17] MEDS: DIAZEPAM 10 MG TABLET PO PRN ×2 (03:22→05:41)
[2017-02-17] MEDS: ACAMPROSATE CALCIUM 333 MG DR TABLET PO SCH ×3 (08:44→16:06)
[2017-02-17] MEDS: OXYBUTYNIN CHLORIDE 5 MG TABLET PO SCH ×2 (08:44→16:05)
[2017-02-17] MEDS: DICLOFENAC SODIUM 75 MG DR TABLET PO SCH ×2 (08:44→16:06)
[2017-02-17] MEDS: MULTIVITAMINS WITH MINERALS, THERAPEUTIC TABLET PO SCH (08:47)
[2017-02-17] MEDS: OLANZapine 10 MG RAPDIS TABLET PO SCH ×3 (08:47→19:54)
[2017-02-17] MEDS: FLUoxetine HCL 20 MG CAPSULE PO SCH (08:47)
[2017-02-17] MEDS: FOLIC ACID 1 MG TABLET PO SCH (08:47)
[2017-02-17] MEDS: THIAMINE HCL 100 MG TABLET PO SCH ×2 (08:48→16:05)
[2017-02-17] MEDS: NICOTINE 21 MG/24 HOUR PATCH TD SCH (08:48)
[2017-02-17] MEDS: DIAZEPAM 10 MG TABLET PO SCH ×4 (08:48→20:26)
[2017-02-17 10:40] VITALS: BP 125/70
[2017-02-17] MEDS ORDERED: DiphenhydrAMINE HCL 50 MG/ML VIAL IM ONE (11:45)
[2017-02-17] MEDS ORDERED: HALOPERIDOL LACTATE 5 MG/ML VIAL IM ONE (11:45)
[2017-02-17] MEDS: MAG HYDROX/AL HYDROX/SIMETH ES 30 ML SUSPENSION UDCUP PO PRN (15:07)
[2017-02-17 16:13] VITALS: BP 133/103
[2017-02-17 16:52] VITALS: BP 137/91
[2017-02-17] MEDS: ROPINIRole HCL 1 MG TABLET PO SCH (19:54)
[2017-02-17] MEDS: DICLOFENAC SODIUM 1% 100 GM GEL [2GM] TP SCH (20:05)
[2017-02-17] MEDS: ZOLPIDEM TARTRATE 10 MG TABLET PO PRN (20:07)
[2017-02-17] MEDS: HydrOXYzine PAMOATE 50 MG CAPSULE PO PRN (22:34)
[2017-02-18] MEDS: DIAZEPAM 10 MG TABLET PO PRN (01:53)
[2017-02-18] MEDS ORDERED: DIAZEPAM 5 MG TABLET PO PRN (07:00)
[2017-02-18 07:31] LABS: HEMATOCRIT 36.2 % (36-46); HEMOGLOBIN 11.9 g/dL (12.0-16.0); MEAN CORPUSCULAR HEMOGLOBIN 30.8 pg (26.0-34.0); MEAN CORPUSCULAR HGB CONC 32.9 G/dL (31.0-37.0); MEAN CORPUSCULAR VOLUME 94 fL (80-100); PLATELET COUNT (AUTO) 251 K/uL (150-450); RED BLOOD CELL COUNT(AUTO) 3.87 MIL/uL (4.00-5.20); RED CELL DISTRIBUTION WIDTH 15.3 % (11.5-14.5); WHITE BLOOD COUNT (AUTO) 11.5 K/uL (4.5-11.0)
[2017-02-18 07:39] LABS: ANION GAP 7 mmol/L (8-16); CALCIUM, TOTAL 8.7 mg/dL (8.8-10.5); CARBON DIOXIDE 30 mmol/L (22-29); CHLORIDE 103 mmol/L (98-107); CREATININE 0.66 mg/dL (0.60-1.30); GLOMERULAR FILTR. RATE CALC > 60 mL/min (>60); POTASSIUM 4.5 mmol/L (3.5-5.1); SODIUM SERUM 140 mmol/L (136-145); UREA NITROGEN, BLOOD 10 mg/dL (7-18)
[2017-02-18] MEDS: THIAMINE HCL 100 MG TABLET PO SCH ×2 (08:21→17:46)
[2017-02-18] MEDS: PROMETHAZINE HCL 25 MG TABLET PO PRN (08:21)
[2017-02-18] MEDS: FOLIC ACID 1 MG TABLET PO SCH (08:21)
[2017-02-18] MEDS: DIAZEPAM 5 MG TABLET PO SCH ×4 (08:21→20:33)
[2017-02-18] MEDS: ACAMPROSATE CALCIUM 333 MG DR TABLET PO SCH ×3 (08:22→17:46)
[2017-02-18] MEDS: MULTIVITAMINS WITH MINERALS, THERAPEUTIC TABLET PO SCH (08:22)
[2017-02-18] MEDS: OXYBUTYNIN CHLORIDE 5 MG TABLET PO SCH ×2 (08:22→17:46)
[2017-02-18] MEDS: FLUoxetine HCL 20 MG CAPSULE PO SCH (08:22)
[2017-02-18] MEDS: NICOTINE 21 MG/24 HOUR PATCH TD SCH (08:26)
[2017-02-18] MEDS: OLANZapine 10 MG RAPDIS TABLET PO SCH ×3 (08:27→20:33)
[2017-02-18 08:40] VITALS: BP 108/72
[2017-02-18 09:17] LABS: BAND NEUTROPHILS % (MANUAL) 2 % (1-5); BASOPHILS % (MANUAL) 1 % (0-2); EOSINOPHILS % (MANUAL) 1 % (1-6); LYMPHOCYTES % (MANUAL) 25 % (22-44); RBC MORPHOLOGY COMMENT NORMAL RBC MORPH; TOTAL CELLS COUNTED 100
[2017-02-18] MEDS: DICLOFENAC SODIUM 1% 100 GM GEL [2GM] TP SCH ×2 (09:20→17:46)
[2017-02-18] MEDS: DICLOFENAC SODIUM 75 MG DR TABLET PO SCH ×2 (09:20→17:46)
[2017-02-18] MEDS: HydrOXYzine PAMOATE 50 MG CAPSULE PO PRN (10:04)
[2017-02-18] MEDS: OLANZapine 5 MG RAPDIS TABLET PO PRN (10:05)
[2017-02-18 16:15] VITALS: BP 139/71
[2017-02-18] MEDS: MAG HYDROX/AL HYDROX/SIMETH ES 30 ML SUSPENSION UDCUP PO PRN (16:15)
[2017-02-18] MEDS: ROPINIRole HCL 1 MG TABLET PO SCH (20:33)
[2017-02-18] MEDS: ZOLPIDEM TARTRATE 10 MG TABLET PO PRN (20:33)
[2017-02-18] MEDS ORDERED: HALOPERIDOL LACTATE 5 MG/ML VIAL ONE (21:51)
[2017-02-18] MEDS ORDERED: HALOPERIDOL LACTATE 5 MG/ML VIAL IM ONE (23:00)
[2017-02-19] MEDS: MAG HYDROX/AL HYDROX/SIMETH ES 30 ML SUSPENSION UDCUP PO PRN ×4 (03:03→20:50)
[2017-02-19 07:08] LABS: IRON, SERUM 43 mcg/dL (50-175); TOTAL IRON BINDING CAPACITY 299 mcg/dL (250-450)
[2017-02-19 07:20] LABS: ALANINE AMINOTRANSFERASE 28 U/L (12-78); ASPARTATE AMINOTRANSFERASE 56 U/L (15-37); BILIRUBIN,TOTAL 0.1 mg/dL (0.1-1.0)
[2017-02-19] MEDS: PROMETHAZINE HCL 25 MG TABLET PO PRN ×2 (07:40→11:58)
[2017-02-19] MEDS: HydrOXYzine PAMOATE 50 MG CAPSULE PO PRN (07:40)
[2017-02-19] MEDS: DIAZEPAM 5 MG TABLET PO PRN ×2 (07:40→11:56)
[2017-02-19 07:51] LABS: BILIRUBIN,DIRECT < 0.05 mg/dL (0.00-0.20)
[2017-02-19] MEDS: DICLOFENAC SODIUM 75 MG DR TABLET PO SCH ×2 (08:06→16:39)
[2017-02-19] MEDS: ACAMPROSATE CALCIUM 333 MG DR TABLET PO SCH ×3 (08:06→16:39)
[2017-02-19] MEDS: FOLIC ACID 1 MG TABLET PO SCH (08:07)
[2017-02-19] MEDS: FLUoxetine HCL 20 MG CAPSULE PO SCH (08:07)
[2017-02-19] MEDS: THIAMINE HCL 100 MG TABLET PO SCH ×2 (08:07→16:39)
[2017-02-19] MEDS: OXYBUTYNIN CHLORIDE 5 MG TABLET PO SCH ×2 (08:07→16:39)
[2017-02-19] MEDS: MULTIVITAMINS WITH MINERALS, THERAPEUTIC TABLET PO SCH (08:07)
[2017-02-19] MEDS: OLANZapine 10 MG RAPDIS TABLET PO SCH ×3 (08:08→20:02)
[2017-02-19] MEDS: NICOTINE 21 MG/24 HOUR PATCH TD SCH (08:08)
[2017-02-19 08:42] VITALS: BP 130/73
[2017-02-19] MEDS: DICLOFENAC SODIUM 1% 100 GM GEL [2GM] TP SCH ×2 (10:21→16:40)
[2017-02-19] MEDS: OLANZapine 5 MG RAPDIS TABLET PO PRN (11:56)
[2017-02-19] MEDS ORDERED: HALOPERIDOL LACTATE 5 MG/ML VIAL IM ONE ×2 (15:30→21:00)
[2017-02-19] MEDS ORDERED: DiphenhydrAMINE HCL 50 MG/ML VIAL IM ONE ×2 (15:30→21:00)
[2017-02-19 16:05] VITALS: BP 139/76
[2017-02-19] MEDS: ROPINIRole HCL 1 MG TABLET PO SCH (20:02)
[2017-02-19] MEDS: ZOLPIDEM TARTRATE 10 MG TABLET PO PRN (20:02)
[2017-02-19] MEDS ORDERED: LORazepam 2 MG/ML VIAL ONE (20:53)
[2017-02-19] MEDS ORDERED: LORazepam 2 MG/ML VIAL IM ONE (21:00)
[2017-02-20 00:07] VITALS: BP 139/73
[2017-02-20] MEDS: DIAZEPAM 5 MG TABLET PO PRN ×2 (00:07→06:05)
[2017-02-20] MEDS: HydrOXYzine PAMOATE 50 MG CAPSULE PO PRN ×2 (07:33→11:42)
[2017-02-20] MEDS: OLANZapine 5 MG RAPDIS TABLET PO PRN ×2 (07:33→11:42)
[2017-02-20] MEDS: PROMETHAZINE HCL 25 MG TABLET PO PRN ×2 (07:33→11:42)
[2017-02-20 08:00] VITALS: BP 137/86
[2017-02-20] MEDS: FLUoxetine HCL 20 MG CAPSULE PO SCH (08:46)
[2017-02-20] MEDS: OLANZapine 10 MG RAPDIS TABLET PO SCH ×3 (08:47→22:37)
[2017-02-20] MEDS: FOLIC ACID 1 MG TABLET PO SCH (08:47)
[2017-02-20] MEDS: THIAMINE HCL 100 MG TABLET PO SCH ×2 (08:47→16:46)
[2017-02-20] MEDS: MULTIVITAMINS WITH MINERALS, THERAPEUTIC TABLET PO SCH (08:47)
[2017-02-20] MEDS: ACAMPROSATE CALCIUM 333 MG DR TABLET PO SCH ×3 (08:48→16:45)
[2017-02-20] MEDS: OXYBUTYNIN CHLORIDE 5 MG TABLET PO SCH ×2 (08:48→16:46)
[2017-02-20] MEDS: DICLOFENAC SODIUM 1% 100 GM GEL [2GM] TP SCH ×2 (08:49→16:45)
[2017-02-20] MEDS: DICLOFENAC SODIUM 75 MG DR TABLET PO SCH ×2 (08:49→16:46)
[2017-02-20] MEDS: NICOTINE 21 MG/24 HOUR PATCH TD SCH (08:49)
[2017-02-20] MEDS: MAGNESIUM HYDROXIDE SUSPENSION 30 ML UDCUP PO PRN ×2 (08:54→14:04)
[2017-02-20] MEDS ORDERED: DiphenhydrAMINE HCL 50 MG/ML VIAL ONE (10:24)
[2017-02-20] MEDS ORDERED: HALOPERIDOL LACTATE 5 MG/ML VIAL ONE (10:24)
[2017-02-20] MEDS: MAG HYDROX/AL HYDROX/SIMETH ES 30 ML SUSPENSION UDCUP PO PRN (10:27)
[2017-02-20] MEDS ORDERED: HALOPERIDOL LACTATE 5 MG/ML VIAL IM ONE ×2 (10:45→17:45)
[2017-02-20] MEDS ORDERED: DiphenhydrAMINE HCL 50 MG/ML VIAL IM ONE ×2 (10:45→17:45)
[2017-02-20] MEDS: OMEPRAZOLE 20 MG CAPSULE PO SCH (16:47)
[2017-02-20 19:24] VITALS: BP 142/94
[2017-02-20] MEDS: ROPINIRole HCL 1 MG TABLET PO SCH (22:37)
[2017-02-20] MEDS: ZOLPIDEM TARTRATE 10 MG TABLET PO PRN (22:53)
[2017-02-21] MEDS ORDERED: DiphenhydrAMINE HCL 50 MG/ML VIAL IM ONE ×2 (04:00→15:00)
[2017-02-21] MEDS ORDERED: HALOPERIDOL LACTATE 5 MG/ML VIAL IM ONE ×2 (04:00→15:00)
[2017-02-21 05:30] VITALS: BP 120/83
[2017-02-21 08:24] VITALS: BP 129/83
[2017-02-21] MEDS: OXYBUTYNIN CHLORIDE 5 MG TABLET PO SCH ×2 (09:21→16:16)
[2017-02-21] MEDS: ACAMPROSATE CALCIUM 333 MG DR TABLET PO SCH ×3 (09:21→16:15)
[2017-02-21] MEDS: THIAMINE HCL 100 MG TABLET PO SCH ×2 (09:22→16:16)
[2017-02-21] MEDS: FLUoxetine HCL 20 MG CAPSULE PO SCH (09:22)
[2017-02-21] MEDS: FOLIC ACID 1 MG TABLET PO SCH (09:22)
[2017-02-21] MEDS: MULTIVITAMINS WITH MINERALS, THERAPEUTIC TABLET PO SCH (09:22)
[2017-02-21] MEDS: OMEPRAZOLE 20 MG CAPSULE PO SCH ×2 (09:22→16:16)
[2017-02-21] MEDS: OLANZapine 10 MG RAPDIS TABLET PO SCH ×2 (09:23→16:15)
[2017-02-21] MEDS: DICLOFENAC SODIUM 75 MG DR TABLET PO SCH ×2 (09:24→16:16)
[2017-02-21] MEDS: NICOTINE 21 MG/24 HOUR PATCH TD SCH (09:24)
[2017-02-21] MEDS: DICLOFENAC SODIUM 1% 100 GM GEL [2GM] TP SCH ×2 (09:25→16:43)
[2017-02-21] MEDS: MAG HYDROX/AL HYDROX/SIMETH ES 30 ML SUSPENSION UDCUP PO PRN (09:44)
[2017-02-21] MEDS ORDERED: LORazepam 0.5 MG TABLET PO PRN (09:45)
[2017-02-21] MEDS ORDERED: LORazepam 2 MG/ML VIAL IM ONE (15:00)
[2017-02-21 16:07] VITALS: BP 116/72
[2017-02-21] MEDS ORDERED: FLUO-191 PO (16:27)
[2017-02-21] MEDS ORDERED: ACAM333T7 PO (16:27)
[2017-02-21] MEDS ORDERED: OLAN10TA22 PO ×2 (16:27)
[2017-02-21] MEDS ORDERED: ROPI1TAB38 PO (16:27)
[2017-02-21] MEDS ORDERED: DICL50TA9 PO (17:43)
[2017-02-21] MEDS ORDERED: DICL2100G TP (17:45)
[2017-02-21] MEDS ORDERED: PHENAZOPYRIDINE HCL 100 MG TABLET PO SCH (18:30)
[2017-03-25] MEDS ORDERED: GABA-531 PO (18:50)
== END 2017-02-21 19:15 | DRG 885 ==
LOC: EMS 16:39 → 3EC 22:30
PROVIDERS: ADMIT Psychiatry & Neurology Psychiatry; ATTEND Psychiatry & Neurology Psychiatry
PROC: 5A09457 Assistance with Respiratory Ventilation, 24-96 Consecutive Hours, Continuous Positive Airway Pressure (ICD-10-PCS; principal; 2017-02-15)
PROC: GZ51ZZZ Individual Psychotherapy, Behavioral (ICD-10-PCS; 2017-02-15)
DX: F25.9 Schizoaffective disorder, unspecified (principal); R45.851 Suicidal ideations; Z68.41 Body mass index [BMI] 40.0-44.9, adult; F17.210 Nicotine dependence, cigarettes, uncomplicated; J44.9 Chronic obstructive pulmonary disease, unspecified; E55.9 Vitamin D deficiency, unspecified; G40.909 Epilepsy, unspecified, not intractable, without status epilepticus; G47.33 Obstructive sleep apnea (adult) (pediatric); E66.9 Obesity, unspecified; M19.90 Unspecified osteoarthritis, unspecified site; F31.9 Bipolar disorder, unspecified; J45.909 Unspecified asthma, uncomplicated; I10 Essential (primary) hypertension; E10.9 Type 1 diabetes mellitus without complications; E87.6 Hypokalemia; D72.829 Elevated white blood cell count, unspecified; K59.00 Constipation, unspecified; M25.561 Pain in right knee; R32 Unspecified urinary incontinence; G47.00 Insomnia, unspecified; E58 Dietary calcium deficiency; Z71.6 Tobacco abuse counseling; Z71.41 Alcohol abuse counseling and surveillance of alcoholic; Z90.49 Acquired absence of other specified parts of digestive tract; Z79.899 Other long term (current) drug therapy; Z91.19 Patient's noncompliance with other medical treatment and regimen; Z98.1 Arthrodesis status; Z88.8 Allergy status to other drugs, medicaments and biological substances; Z88.0 Allergy status to penicillin; Z78.1 Physical restraint status; Z88.5 Allergy status to narcotic agent; Z98.891 History of uterine scar from previous surgery; Z91.018 Allergy to other foods
CPT/HCPCS: 83540; 83550; 84132; 84443; 85007; 87081; 93005; 94660; 96360; 96372; 99285; 99406; G0480; G0481; J1200; J1630; J2060; J3420; J7030

== ENCOUNTER 2017-03-03 18:55 | Emergency (ER) | payer MEDICARE, OTHER ==
[~2017-03-03] VITALS: Ht 167.6 cm; Wt 122.7 kg
[~2017-03-03 18:55] MED LIST changes: -CHOL200016 PO; +DICL2100G TP; +DICL50TA9 PO; -DISU250 PO; -DSS100 PO; -NALT50 PO; -VARE1TAB21 PO
[2017-03-03 19:23] LABS: BASOPHILS % (AUTO) 0.6 % (0.0-2.0); EOSINOPHILS % (AUTO) 2.1 % (1.0-6.0); HEMATOCRIT 36.4 % (36-46); HEMOGLOBIN 11.7 g/dL (12.0-16.0); LYMPHOCYTES # (AUTO) 3.2 K/uL (1.0-4.8); LYMPHOCYTES % (AUTO) 28.7 % (22.0-44.0); MEAN CORPUSCULAR HEMOGLOBIN 30.2 pg (26.0-34.0); MEAN CORPUSCULAR HGB CONC 32.1 G/dL (31.0-37.0); MEAN CORPUSCULAR VOLUME 94 fL (80-100); MONOCYTES # (AUTO) 0.8 K/uL (0.1-1.0); MONOCYTES % (AUTO) 7.3 % (2.0-9.0); NEUTROPHILS # (AUTO) 6.9 K/uL (1.8-7.7); NEUTROPHILS % (AUTO) 61.3 % (40.0-70.0); PLATELET COUNT (AUTO) 345 K/uL (150-450); RED BLOOD CELL COUNT(AUTO) 3.88 MIL/uL (4.00-5.20); RED CELL DISTRIBUTION WIDTH 15.3 % (11.5-14.5); WHITE BLOOD COUNT (AUTO) 11.3 K/uL (4.5-11.0)
[2017-03-03] MEDS ORDERED: HALOPERIDOL LACTATE 5 MG/ML VIAL IM ONE (19:30)
[2017-03-03] MEDS ORDERED: LORazepam 2 MG/ML VIAL IM ONE (19:30)
[2017-03-03] MEDS ORDERED: DiphenhydrAMINE HCL 50 MG/ML VIAL IM ONE (19:30)
[2017-03-03 19:32] LABS: ANION GAP 10 mmol/L (8-16); CALCIUM, TOTAL 8.3 mg/dL (8.8-10.5); CARBON DIOXIDE 28 mmol/L (22-29); CHLORIDE 98 mmol/L (98-107); CREATININE 0.71 mg/dL (0.60-1.30); GLOMERULAR FILTR. RATE CALC > 60 mL/min (>60); POTASSIUM 3.9 mmol/L (3.5-5.1); SODIUM SERUM 136 mmol/L (136-145); UREA NITROGEN, BLOOD 8 mg/dL (7-18)
[2017-03-03 19:37] LABS: ALANINE AMINOTRANSFERASE 22 U/L (12-78); ALBUMIN 3.6 g/dL (3.4-5.0); ASPARTATE AMINOTRANSFERASE 22 U/L (15-37); BILIRUBIN,TOTAL 0.2 mg/dL (0.1-1.0); TOTAL PROTEIN, SERUM 7.1 g/dL (6.4-8.2)
[2017-03-03 21:28] VITALS: BP 129/72
[2017-03-25] MEDS ORDERED: GABA-531 PO (18:50)
== END 2017-03-03 21:34 | disposition home or self-care (01) ==
LOC: EEVIPCON 18:59 → EMS 18:59
DX: F25.9 Schizoaffective disorder, unspecified (principal); M25.561 Pain in right knee; E11.9 Type 2 diabetes mellitus without complications; I10 Essential (primary) hypertension; F31.9 Bipolar disorder, unspecified; F41.9 Anxiety disorder, unspecified; J45.909 Unspecified asthma, uncomplicated; F17.210 Nicotine dependence, cigarettes, uncomplicated; Z88.0 Allergy status to penicillin; Z88.1 Allergy status to other antibiotic agents; Z91.018 Allergy to other foods
CPT/HCPCS: 36415; 80053; 80307; 85025; 96372; 99284; G0480; J1200; J1630; J2060; 82962

== ENCOUNTER 2017-03-16 14:33 | Emergency (ER) | payer MEDICARE, OTHER ==
[~2017-03-16] VITALS: Ht 167.6 cm; Wt 113.6 kg
[2017-03-16] MEDS ORDERED: VARE1TAB22 PO (14:50)
[2017-03-16] MEDS ORDERED: OXYB5 PO (14:50)
[2017-03-16] MEDS ORDERED: PRED-284 PO (14:50)
[2017-03-16] MEDS ORDERED: ATOR10TA84 PO (14:50)
[2017-03-16] MEDS ORDERED: CIPR-278 PO (14:50)
[2017-03-16] MEDS ORDERED: ALPR0.5T8 PO (14:50)
[2017-03-16] MEDS ORDERED: ONDA4 PO (14:50)
[2017-03-16] MEDS ORDERED: TRAZ-147 PO (14:50)
[2017-03-16] MEDS ORDERED: LORazepam 2 MG TABLET PO ONE (15:00)
[2017-03-16 15:20] LABS: BASOPHILS % (AUTO) 0.3 % (0.0-2.0); EOSINOPHILS % (AUTO) 0 % (1.0-6.0); HEMATOCRIT 40.5 % (36-46); HEMOGLOBIN 13.2 g/dL (12.0-16.0); LYMPHOCYTES # (AUTO) 1.2 K/uL (1.0-4.8); LYMPHOCYTES % (AUTO) 7.9 % (22.0-44.0); MEAN CORPUSCULAR HEMOGLOBIN 30.8 pg (26.0-34.0); MEAN CORPUSCULAR HGB CONC 32.6 G/dL (31.0-37.0); MEAN CORPUSCULAR VOLUME 94 fL (80-100); MONOCYTES # (AUTO) 0.1 K/uL (0.1-1.0); MONOCYTES % (AUTO) 0.6 % (2.0-9.0); NEUTROPHILS # (AUTO) 13.6 K/uL (1.8-7.7); PLATELET COUNT (AUTO) 375 K/uL (150-450); RED BLOOD CELL COUNT(AUTO) 4.29 MIL/uL (4.00-5.20); RED CELL DISTRIBUTION WIDTH 15.2 % (11.5-14.5)
[2017-03-16 15:21] LABS: NEUTROPHILS % (AUTO) 91.2 % (40.0-70.0)
[2017-03-16 15:52] LABS: ANION GAP 21 mmol/L (8-16); CALCIUM, TOTAL 8.7 mg/dL (8.8-10.5); CARBON DIOXIDE 16 mmol/L (22-29); CHLORIDE 97 mmol/L (98-107); CREATININE 0.85 mg/dL (0.60-1.30); GLOMERULAR FILTR. RATE CALC > 60 mL/min (>60); POTASSIUM 3.6 mmol/L (3.5-5.1); SODIUM SERUM 134 mmol/L (136-145); UREA NITROGEN, BLOOD 10 mg/dL (7-18)
[2017-03-16 15:56] LABS: ALANINE AMINOTRANSFERASE 33 U/L (12-78); ASPARTATE AMINOTRANSFERASE 35 U/L (15-37); BILIRUBIN,TOTAL 0.2 mg/dL (0.1-1.0); TOTAL PROTEIN, SERUM 7.7 g/dL (6.4-8.2)
[2017-03-16 17:31] VITALS: BP 125/89
[2017-03-25] MEDS ORDERED: GABA-531 PO (18:50)
== END 2017-03-16 17:34 | disposition home or self-care (01) ==
LOC: EMS 14:36
DX: F20.9 Schizophrenia, unspecified (principal); F31.9 Bipolar disorder, unspecified; F41.9 Anxiety disorder, unspecified; E11.9 Type 2 diabetes mellitus without complications; I10 Essential (primary) hypertension; J45.909 Unspecified asthma, uncomplicated; F17.210 Nicotine dependence, cigarettes, uncomplicated; Z88.0 Allergy status to penicillin; Z88.1 Allergy status to other antibiotic agents; Z88.2 Allergy status to sulfonamides; Z91.018 Allergy to other foods
CPT/HCPCS: 36415; 80053; 80307; 82962; 85025; 99284; G0480

== ENCOUNTER 2017-03-16 19:47 | Inpatient (IN) | payer MEDICARE, MEDICAID ==
[~2017-03-16] VITALS: Ht 167.6 cm; Wt 113.3 kg
[~2017-03-16 19:47] MED LIST changes: +ALPR0.5T8 PO; +ATOR10TA84 PO; +CIPR-278 PO; +ONDA4 PO; +PRED-284 PO; +TRAZ-147 PO; +VARE1TAB22 PO
[2017-03-16 20:06] LABS: GLUCOSE,POINT OF CARE 228 MG/DL (70-110)
[2017-03-16 20:43] LABS: SALICYLATE 3.6 mg/dL (2.8-20.0)
[2017-03-16 20:45] LABS: ACETAMINOPHEN 50 mcg/mL (10-30); ALANINE AMINOTRANSFERASE 30 U/L (12-78); ALBUMIN 3.7 g/dL (3.4-5.0); ANION GAP 19 mmol/L (8-16); ASPARTATE AMINOTRANSFERASE 29 U/L (15-37); BILIRUBIN,TOTAL 0.1 mg/dL (0.1-1.0); CALCIUM, TOTAL 8.3 mg/dL (8.8-10.5); CARBON DIOXIDE 18 mmol/L (22-29); CHLORIDE 96 mmol/L (98-107); CREATININE 0.79 mg/dL (0.60-1.30); GLOMERULAR FILTR. RATE CALC > 60 mL/min (>60); SODIUM SERUM 133 mmol/L (136-145); TOTAL PROTEIN, SERUM 7.1 g/dL (6.4-8.2); UREA NITROGEN, BLOOD 10 mg/dL (7-18)
[2017-03-16 20:49] LABS: POTASSIUM 2.9 mmol/L (3.5-5.1)
[2017-03-16] MEDS ORDERED: POTASSIUM CHLORIDE 20 MEQ ER TABLET PO ONE (21:15)
[2017-03-16 21:27] LABS: BASOPHILS # (AUTO) 0.02 K/uL (0.00-0.20); BASOPHILS % (AUTO) 0.1 % (0.0-2.0); EOSINOPHILS # (AUTO) 0.01 K/uL (0.00-0.70); EOSINOPHILS % (AUTO) 0.05 % (1.0-6.0); HEMATOCRIT 38.5 % (36-46); HEMOGLOBIN 12.7 g/dL (12.0-16.0); LYMPHOCYTES # (AUTO) 2.8 K/uL (1.0-4.8); LYMPHOCYTES % (AUTO) 15.4 % (22.0-44.0); MEAN CORPUSCULAR HEMOGLOBIN 30.8 pg (26.0-34.0); MEAN CORPUSCULAR HGB CONC 32.9 G/dL (31.0-37.0); MEAN CORPUSCULAR VOLUME 94 fL (80-100); MONOCYTES # (AUTO) 0.6 K/uL (0.1-1.0); MONOCYTES % (AUTO) 3.4 % (2.0-9.0); NEUTROPHILS # (AUTO) 14.6 K/uL (1.8-7.7); PLATELET COUNT (AUTO) 390 K/uL (150-450); RED BLOOD CELL COUNT(AUTO) 4.11 MIL/uL (4.00-5.20); RED CELL DISTRIBUTION WIDTH 14.7 % (11.5-14.5); WHITE BLOOD COUNT (AUTO) 18.1 K/uL (4.5-11.0)
[2017-03-16] MEDS ORDERED: HALOPERIDOL 5 MG TABLET PO PRN (22:45)
[2017-03-16] MEDS ORDERED: LORazepam 2 MG TABLET PO PRN (22:45)
[2017-03-17 01:12] LABS: CHOL/HDL RATIO 2.9 (3.9-5.7)
[2017-03-17] MEDS ORDERED: DiphenhydrAMINE HCL 50 MG/ML VIAL IM ONE (09:30)
[2017-03-17] MEDS ORDERED: LORazepam 2 MG/ML VIAL IM ONE (09:30)
[2017-03-17] MEDS ORDERED: HALOPERIDOL LACTATE 5 MG/ML VIAL IM ONE (09:30)
[2017-03-17 09:38] VITALS: BP 131/93
[2017-03-17] MEDS ORDERED: DENTURE ADHESIVE 68 GM CREAM DT PRN (10:45)
[2017-03-17] MEDS: NICOTINE 21 MG/24 HOUR PATCH TD SCH (10:59)
[2017-03-17 13:06] LABS: ADD UA MICROSCOPIC YES; APPEARANCE,URINE CLOUDY (CLEAR); GLUCOSE, URINE (UA) NEGATIVE (NEGATIVE); KETONES,URINE NEGATIVE (NEGATIVE); LEUKOCYTE ESTERASE ,URINE LARGE (NEGATIVE); OCCULT BLOOD,URINE SMALL (NEGATIVE); PROTEIN,URINE NEGATIVE (NEGATIVE)
[2017-03-17 13:17] LABS: SQUAMOUS EPITHELIAL CELL,UR Many /LPF (None Seen); WBC,URINE 26-50 /HPF (0-5)
[2017-03-17] MEDS ORDERED: ACETAMINOPHEN 325 MG TABLET PO PRN (14:30)
[2017-03-17] MEDS ORDERED: OLANZapine 5 MG RAPDIS TABLET PO PRN (14:30)
[2017-03-17] MEDS ORDERED: LOPERAMIDE HCL 2 MG CAPSULE PO PRN (14:30)
[2017-03-17] MEDS ORDERED: MAGNESIUM HYDROXIDE SUSPENSION 30 ML UDCUP PO PRN (14:30)
[2017-03-17] MEDS ORDERED: PROMETHAZINE HCL 25 MG TABLET PO PRN (14:30)
[2017-03-17] MEDS ORDERED: GuaiFENesin/D-METHORPHAN [SUGAR-FREE] 200-20MG/10 ML SYRUP UDCUP PO PRN (14:30)
[2017-03-17] MEDS ORDERED: MAG HYDROX/AL HYDROX/SIMETH ES 30 ML SUSPENSION UDCUP PO PRN (14:30)
[2017-03-17] MEDS: THIAMINE HCL 100 MG TABLET PO SCH (16:01)
[2017-03-17] MEDS: ACAMPROSATE CALCIUM 333 MG DR TABLET PO SCH (16:02)
[2017-03-17] MEDS: OLANZapine 10 MG RAPDIS TABLET PO SCH ×2 (16:02→20:17)
[2017-03-17 16:30] VITALS: BP 133/95
[2017-03-17] MEDS: ALBUTEROL SULFATE 2.5 MG/0.5 ML NEB SOLUTION NEB PRN ×2 (16:50→18:51)
[2017-03-17 17:15] VITALS: BP 133/95
[2017-03-17] MEDS ORDERED: DIAZEPAM 10 MG TABLET PO PRN (17:15)
[2017-03-17 18:15] VITALS: BP 130/87
[2017-03-17 19:20] VITALS: BP 127/69
[2017-03-17 20:05] VITALS: BP 129/78
[2017-03-17] MEDS: CIPROFLOXACIN HCL 250 MG TABLET PO SCH (20:18)
[2017-03-17] MEDS: ROPINIRole HCL 1 MG TABLET PO SCH (20:18)
[2017-03-17] MEDS: TraZODone HCL 100 MG TABLET PO SCH (20:19)
[2017-03-18 06:18] VITALS: BP 130/90
[2017-03-18] MEDS ORDERED: DIAZEPAM 10 MG TABLET PO PRN (07:00)
[2017-03-18 08:28] VITALS: BP 124/76
[2017-03-18] MEDS: FLUoxetine HCL 20 MG CAPSULE PO SCH (08:50)
[2017-03-18] MEDS: OLANZapine 10 MG RAPDIS TABLET PO SCH ×2 (08:50→21:36)
[2017-03-18] MEDS: DIAZEPAM 10 MG TABLET PO SCH ×4 (08:51→21:37)
[2017-03-18] MEDS: MULTIVITAMINS WITH MINERALS, THERAPEUTIC TABLET PO SCH (08:51)
[2017-03-18] MEDS: THIAMINE HCL 100 MG TABLET PO SCH ×2 (08:51→17:36)
[2017-03-18] MEDS: FOLIC ACID 1 MG TABLET PO SCH (08:51)
[2017-03-18] MEDS: CIPROFLOXACIN HCL 250 MG TABLET PO SCH ×2 (08:52→17:35)
[2017-03-18] MEDS: HydrOXYzine PAMOATE 50 MG CAPSULE PO PRN (08:56)
[2017-03-18] MEDS: ACAMPROSATE CALCIUM 333 MG DR TABLET PO SCH ×3 (09:00→17:34)
[2017-03-18] MEDS: NICOTINE 21 MG/24 HOUR PATCH TD SCH (09:03)
[2017-03-18 09:11] VITALS: BP 124/76
[2017-03-18] MEDS ORDERED: GuaiFENesin/D-METHORPHAN/PHENYLEPH 5 ML LIQUID ORAL.SYG PO PRN (09:30)
[2017-03-18] MEDS ORDERED: OXYBUTYNIN CHLORIDE 5 MG TABLET PO SCH (11:00)
[2017-03-18] MEDS: GABAPENTIN 100 MG CAPSULE PO SCH ×3 (12:09→21:37)
[2017-03-18] MEDS: OXYBUTYNIN CHLORIDE 5 MG TABLET PO SCH ×2 (12:11→17:35)
[2017-03-18] MEDS: TraZODone HCL 50 MG TABLET PO SCH ×2 (12:11→17:36)
[2017-03-18] MEDS: ALBUTEROL SULFATE 2.5 MG/0.5 ML NEB SOLUTION NEB PRN (15:17)
[2017-03-18 17:15] VITALS: BP 124/68
[2017-03-18 17:22] VITALS: BP 124/68
[2017-03-18] MEDS: OLANZapine 5 MG RAPDIS TABLET PO SCH (17:37)
[2017-03-18] MEDS ORDERED: HALOPERIDOL LACTATE 5 MG/ML VIAL ONE (17:56)
[2017-03-18] MEDS ORDERED: DiphenhydrAMINE HCL 50 MG/ML VIAL ONE (17:56)
[2017-03-18] MEDS ORDERED: DiphenhydrAMINE HCL 50 MG/ML VIAL IM ONE (18:00)
[2017-03-18] MEDS ORDERED: HALOPERIDOL LACTATE 5 MG/ML VIAL IM ONE (18:00)
[2017-03-18] MEDS ORDERED: DICL75TA5 PO (18:03)
[2017-03-18] MEDS ORDERED: 0.9% SODIUM CHLORIDE 5 ML NEB SOLUTION NEB ONE (20:25)
[2017-03-18 21:05] VITALS: BP 122/72
[2017-03-18] MEDS: TraZODone HCL 100 MG TABLET PO SCH (21:36)
[2017-03-18] MEDS: ROPINIRole HCL 1 MG TABLET PO SCH (21:37)
[2017-03-19 04:59] VITALS: BP 145/85
[2017-03-19 06:41] LABS: BASOPHILS % (AUTO) 0.2 % (0.0-2.0); EOSINOPHILS % (AUTO) 2.3 % (1.0-6.0); HEMATOCRIT 39.9 % (36-46); HEMOGLOBIN 13.2 g/dL (12.0-16.0); MEAN CORPUSCULAR HEMOGLOBIN 31.3 pg (26.0-34.0); MEAN CORPUSCULAR VOLUME 95 fL (80-100); MONOCYTES # (AUTO) 0.5 K/uL (0.1-1.0); MONOCYTES % (AUTO) 5.2 % (2.0-9.0); NEUTROPHILS % (AUTO) 61.3 % (40.0-70.0); PLATELET COUNT (AUTO) 251 K/uL (150-450); RED BLOOD CELL COUNT(AUTO) 4.21 MIL/uL (4.00-5.20); RED CELL DISTRIBUTION WIDTH 15.1 % (11.5-14.5); WHITE BLOOD COUNT (AUTO) 9.8 K/uL (4.5-11.0)
[2017-03-19 06:59] LABS: ANION GAP 6 mmol/L (8-16); CALCIUM, TOTAL 9.3 mg/dL (8.8-10.5); CARBON DIOXIDE 33 mmol/L (22-29); CHLORIDE 99 mmol/L (98-107); GLOMERULAR FILTR. RATE CALC > 60 mL/min (>60); POTASSIUM 4.2 mmol/L (3.5-5.1); SODIUM SERUM 138 mmol/L (136-145); UREA NITROGEN, BLOOD 9 mg/dL (7-18)
[2017-03-19 07:25] LABS: HEMOGLOBIN A1C 5.9 % (4.5-6.2)
[2017-03-19] MEDS: GABAPENTIN 100 MG CAPSULE PO SCH ×4 (08:30→20:07)
[2017-03-19] MEDS: OLANZapine 5 MG RAPDIS TABLET PO SCH ×2 (08:30→16:09)
[2017-03-19] MEDS: FOLIC ACID 1 MG TABLET PO SCH (08:31)
[2017-03-19] MEDS: THIAMINE HCL 100 MG TABLET PO SCH ×2 (08:31→16:08)
[2017-03-19] MEDS: MULTIVITAMINS WITH MINERALS, THERAPEUTIC TABLET PO SCH (08:34)
[2017-03-19] MEDS: TraZODone HCL 50 MG TABLET PO SCH ×3 (08:34→16:09)
[2017-03-19] MEDS: FLUoxetine HCL 20 MG CAPSULE PO SCH (08:35)
[2017-03-19] MEDS: OXYBUTYNIN CHLORIDE 5 MG TABLET PO SCH ×3 (08:36→16:08)
[2017-03-19] MEDS: CIPROFLOXACIN HCL 250 MG TABLET PO SCH ×2 (08:36→16:09)
[2017-03-19] MEDS: ACAMPROSATE CALCIUM 333 MG DR TABLET PO SCH ×3 (08:37→16:08)
[2017-03-19] MEDS: DIAZEPAM 10 MG TABLET PO SCH ×4 (08:37→20:07)
[2017-03-19] MEDS: NICOTINE 21 MG/24 HOUR PATCH TD SCH (08:44)
[2017-03-19 10:23] VITALS: BP 128/75
[2017-03-19] MEDS: IBUPROFEN 600 MG TABLET PO PRN ×2 (10:23→17:20)
[2017-03-19] MEDS: HydrOXYzine PAMOATE 50 MG CAPSULE PO PRN (10:46)
[2017-03-19 11:23] VITALS: BP 118/70
[2017-03-19 17:00] VITALS: BP 122/76
[2017-03-19] MEDS ORDERED: HALOPERIDOL LACTATE 5 MG/ML VIAL IM ONE (17:00)
[2017-03-19] MEDS ORDERED: DiphenhydrAMINE HCL 50 MG/ML VIAL IM ONE (17:00)
[2017-03-19] MEDS: TraZODone HCL 100 MG TABLET PO SCH (20:07)
[2017-03-19] MEDS: ROPINIRole HCL 1 MG TABLET PO SCH (20:07)
[2017-03-19] MEDS: OLANZapine 10 MG RAPDIS TABLET PO SCH (20:07)
[2017-03-19] MEDS: ZOLPIDEM TARTRATE 10 MG TABLET PO PRN (21:09)
[2017-03-20 06:31] VITALS: BP 124/73
[2017-03-20 06:32] VITALS: BP 124/73
[2017-03-20] MEDS ORDERED: DIAZEPAM 5 MG TABLET PO PRN (07:00)
[2017-03-20] MEDS: NICOTINE 21 MG/24 HOUR PATCH TD SCH (09:00)
[2017-03-20] MEDS: ACAMPROSATE CALCIUM 333 MG DR TABLET PO SCH ×3 (10:42→16:34)
[2017-03-20] MEDS: CIPROFLOXACIN HCL 250 MG TABLET PO SCH ×2 (10:43→16:36)
[2017-03-20] MEDS: FOLIC ACID 1 MG TABLET PO SCH (10:51)
[2017-03-20] MEDS: OXYBUTYNIN CHLORIDE 5 MG TABLET PO SCH ×3 (10:51→16:36)
[2017-03-20] MEDS: GABAPENTIN 100 MG CAPSULE PO SCH ×4 (10:51→20:32)
[2017-03-20] MEDS: THIAMINE HCL 100 MG TABLET PO SCH ×2 (10:52→16:35)
[2017-03-20] MEDS: FLUoxetine HCL 20 MG CAPSULE PO SCH (10:52)
[2017-03-20] MEDS: OLANZapine 5 MG RAPDIS TABLET PO SCH ×2 (10:53→16:39)
[2017-03-20] MEDS ORDERED: HALOPERIDOL LACTATE 5 MG/ML VIAL ONE (10:55)
[2017-03-20] MEDS ORDERED: DiphenhydrAMINE HCL 50 MG/ML VIAL ONE (10:55)
[2017-03-20] MEDS ORDERED: HALOPERIDOL LACTATE 5 MG/ML VIAL IM ONE ×2 (11:00→18:15)
[2017-03-20] MEDS ORDERED: DiphenhydrAMINE HCL 50 MG/ML VIAL IM ONE ×2 (11:00→18:15)
[2017-03-20] MEDS: TraZODone HCL 50 MG TABLET PO SCH ×3 (11:07→16:36)
[2017-03-20] MEDS: DIAZEPAM 5 MG TABLET PO SCH ×4 (11:21→20:34)
[2017-03-20] MEDS: MULTIVITAMINS WITH MINERALS, THERAPEUTIC TABLET PO SCH (11:23)
[2017-03-20 12:02] VITALS: BP 137/79
[2017-03-20] MEDS: IBUPROFEN 600 MG TABLET PO PRN (12:02)
[2017-03-20 16:58] VITALS: BP 136/94
[2017-03-20 17:02] VITALS: BP 136/95
[2017-03-20 17:11] VITALS: BP 136/95
[2017-03-20] MEDS: OLANZapine 10 MG RAPDIS TABLET PO SCH (20:31)
[2017-03-20] MEDS: TraZODone HCL 100 MG TABLET PO SCH (20:32)
[2017-03-20] MEDS: ROPINIRole HCL 1 MG TABLET PO SCH (20:32)
[2017-03-20] MEDS: ZOLPIDEM TARTRATE 10 MG TABLET PO PRN (21:45)
[2017-03-21 05:46] VITALS: BP 133/85
[2017-03-21] MEDS ORDERED: DIAZEPAM 5 MG TABLET PO PRN (07:00)
[2017-03-21] MEDS: OXYBUTYNIN CHLORIDE 5 MG TABLET PO SCH ×3 (08:56→16:23)
[2017-03-21] MEDS: ACAMPROSATE CALCIUM 333 MG DR TABLET PO SCH ×3 (08:56→16:19)
[2017-03-21] MEDS: FOLIC ACID 1 MG TABLET PO SCH (08:57)
[2017-03-21] MEDS: FLUoxetine HCL 20 MG CAPSULE PO SCH (08:57)
[2017-03-21] MEDS: THIAMINE HCL 100 MG TABLET PO SCH ×2 (08:57→16:29)
[2017-03-21] MEDS: MULTIVITAMINS WITH MINERALS, THERAPEUTIC TABLET PO SCH (08:57)
[2017-03-21] MEDS: GABAPENTIN 100 MG CAPSULE PO SCH ×2 (08:57→13:10)
[2017-03-21] MEDS: OLANZapine 5 MG RAPDIS TABLET PO SCH ×2 (08:58→16:21)
[2017-03-21] MEDS: NICOTINE 21 MG/24 HOUR PATCH TD SCH (08:59)
[2017-03-21 09:00] VITALS: BP 128/100
[2017-03-21] MEDS: TraZODone HCL 50 MG TABLET PO SCH ×3 (09:00→16:25)
[2017-03-21] MEDS: IBUPROFEN 600 MG TABLET PO PRN (12:25)
[2017-03-21] MEDS ORDERED: DICLOFENAC SODIUM 1% 100 GM GEL [2GM] TP PRN (15:15)
[2017-03-21 16:01] VITALS: BP 126/75
[2017-03-21] MEDS ORDERED: FLUO-191 PO (16:17)
[2017-03-21] MEDS ORDERED: OLAN10TA22 PO (16:17)
[2017-03-21] MEDS ORDERED: TRAZ-147 PO (16:17)
[2017-03-21] MEDS ORDERED: TRAZ-144 PO (16:17)
[2017-03-21] MEDS ORDERED: ROPI1TAB38 PO (16:17)
[2017-03-21] MEDS ORDERED: ACAM333T7 PO (16:17)
[2017-03-21] MEDS ORDERED: GABA-529 PO (16:17)
[2017-03-21] MEDS ORDERED: OLAN5Z PO (16:17)
[2017-03-21] MEDS: GABAPENTIN 300 MG CAPSULE PO SCH ×2 (16:29→20:26)
[2017-03-21 18:00] VITALS: BP 132/84
[2017-03-21] MEDS: OLANZapine 10 MG RAPDIS TABLET PO SCH (20:26)
[2017-03-21] MEDS: ROPINIRole HCL 1 MG TABLET PO SCH (20:26)
[2017-03-21] MEDS: TraZODone HCL 100 MG TABLET PO SCH (20:26)
[2017-03-21] MEDS: ZOLPIDEM TARTRATE 10 MG TABLET PO PRN (20:59)
[2017-03-22 06:32] VITALS: BP 123/57
[2017-03-22 06:42] LABS: HEMATOCRIT 37.3 % (36-46); HEMOGLOBIN 12.6 g/dL (12.0-16.0); MEAN CORPUSCULAR HEMOGLOBIN 31.1 pg (26.0-34.0); MEAN CORPUSCULAR HGB CONC 33.8 G/dL (31.0-37.0); MEAN CORPUSCULAR VOLUME 92 fL (80-100); PLATELET COUNT (AUTO) 255 K/uL (150-450); RED BLOOD CELL COUNT(AUTO) 4.06 MIL/uL (4.00-5.20); RED CELL DISTRIBUTION WIDTH 15.3 % (11.5-14.5); WHITE BLOOD COUNT (AUTO) 11.6 K/uL (4.5-11.0)
[2017-03-22 07:03] LABS: ANION GAP 9 mmol/L (8-16); CALCIUM, TOTAL 8.8 mg/dL (8.8-10.5); CARBON DIOXIDE 28 mmol/L (22-29); CHLORIDE 101 mmol/L (98-107); CREATININE 0.63 mg/dL (0.60-1.30); GLOMERULAR FILTR. RATE CALC > 60 mL/min (>60); PHOSPHORUS 4.4 mg/dL (2.5-4.9); POTASSIUM 4.4 mmol/L (3.5-5.1); SODIUM SERUM 138 mmol/L (136-145); UREA NITROGEN, BLOOD 13 mg/dL (7-18)
[2017-03-22 08:00] VITALS: BP 146/96
[2017-03-22] MEDS: TraZODone HCL 50 MG TABLET PO SCH ×2 (08:21→12:10)
[2017-03-22] MEDS: GABAPENTIN 300 MG CAPSULE PO SCH ×2 (08:21→12:10)
[2017-03-22] MEDS: MULTIVITAMINS WITH MINERALS, THERAPEUTIC TABLET PO SCH (08:21)
[2017-03-22] MEDS: FLUoxetine HCL 20 MG CAPSULE PO SCH (08:22)
[2017-03-22] MEDS: OXYBUTYNIN CHLORIDE 5 MG TABLET PO SCH ×2 (08:22→12:10)
[2017-03-22] MEDS: FOLIC ACID 1 MG TABLET PO SCH (08:22)
[2017-03-22] MEDS: ACAMPROSATE CALCIUM 333 MG DR TABLET PO SCH ×2 (08:23→12:09)
[2017-03-22] MEDS: THIAMINE HCL 100 MG TABLET PO SCH (08:23)
[2017-03-22] MEDS: OLANZapine 5 MG RAPDIS TABLET PO SCH (08:24)
[2017-03-22 08:26] VITALS: BP 146/96
[2017-03-22] MEDS: IBUPROFEN 600 MG TABLET PO PRN (08:26)
[2017-03-22] MEDS: NICOTINE 21 MG/24 HOUR PATCH TD SCH (08:33)
[2017-03-22 10:16] LABS: BAND NEUTROPHILS % (MANUAL) 14 % (1-5); EOSINOPHILS % (MANUAL) 2 % (1-6); LYMPHOCYTES % (MANUAL) 25 % (22-44); RBC MORPHOLOGY COMMENT NORMAL RBC MORPH; TOTAL CELLS COUNTED 100
[2017-03-22] MEDS ORDERED: MAGNESIUM OXIDE 400 MG TABLET PO ONE ×3 (11:00→17:00)
== END 2017-03-22 14:31 | disposition home or self-care (01) | DRG 885 ==
LOC: EMS 19:51 → 3EC 03-17 08:56
PROVIDERS: ADMIT Psychiatry & Neurology Psychiatry; ATTEND Psychiatry & Neurology Psychiatry
PROC: 5A09457 Assistance with Respiratory Ventilation, 24-96 Consecutive Hours, Continuous Positive Airway Pressure (ICD-10-PCS; principal; 2017-03-18)
DX: F25.9 Schizoaffective disorder, unspecified (principal); G93.41 Metabolic encephalopathy; F19.20 Other psychoactive substance dependence, uncomplicated; N39.0 Urinary tract infection, site not specified; E87.1 Hypo-osmolality and hyponatremia; F17.200 Nicotine dependence, unspecified, uncomplicated; J44.9 Chronic obstructive pulmonary disease, unspecified; G47.30 Sleep apnea, unspecified; R32 Unspecified urinary incontinence; E55.9 Vitamin D deficiency, unspecified; G25.81 Restless legs syndrome; R10.13 Epigastric pain; K59.00 Constipation, unspecified; Z88.0 Allergy status to penicillin; Z88.8 Allergy status to other drugs, medicaments and biological substances; Z91.14 Patient's other noncompliance with medication regimen; E87.6 Hypokalemia; R56.9 Unspecified convulsions; G47.33 Obstructive sleep apnea (adult) (pediatric); M19.90 Unspecified osteoarthritis, unspecified site; G47.00 Insomnia, unspecified; F10.929 Alcohol use, unspecified with intoxication, unspecified; Y90.4 Blood alcohol level of 80-99 mg/100 ml; M25.561 Pain in right knee; E83.42 Hypomagnesemia; B96.89 Other specified bacterial agents as the cause of diseases classified elsewhere
CPT/HCPCS: 82962; 83036; 83735; 84100; 84132; 85007; 87081; 87086; 93005; 94640; 94660; 99285; G0480; G0481; J1200; J1630; J2060

== ENCOUNTER → 2017-03-25 | Emergency (ER) | payer MEDICARE, OTHER ==
[~2017-03-25] VITALS: Ht 177.8 cm; Wt 109.1 kg
[~2017-03-25] MED LIST changes: -ALPR0.5T8 PO; -ATOR10TA84 PO; -CIPR-278 PO; -DICL50TA9 PO; +DiphenhydrAMINE HCL 50 MG/ML VIAL IM ONE; +GABA-529 PO; +GABA-531 PO; +HALOPERIDOL LACTATE 5 MG/ML VIAL IM ONE; +LORazepam 2 MG/ML VIAL IM ONE; +OLAN5Z PO; -OMEP20 PO; -ONDA4 PO; -PRED-284 PO; +TRAZ-144 PO; -VARE1TAB22 PO
[2017-03-25 17:42] LABS: BASOPHILS % (AUTO) 0.4 % (0.0-2.0); EOSINOPHILS % (AUTO) 1.5 % (1.0-6.0); HEMATOCRIT 39.2 % (36-46); HEMOGLOBIN 13.3 g/dL (12.0-16.0); LYMPHOCYTES # (AUTO) 4.1 K/uL (1.0-4.8); LYMPHOCYTES % (AUTO) 25.8 % (22.0-44.0); MEAN CORPUSCULAR HEMOGLOBIN 31.4 pg (26.0-34.0); MEAN CORPUSCULAR HGB CONC 33.8 G/dL (31.0-37.0); MEAN CORPUSCULAR VOLUME 93 fL (80-100); MONOCYTES # (AUTO) 0.8 K/uL (0.1-1.0); MONOCYTES % (AUTO) 4.8 % (2.0-9.0); NEUTROPHILS # (AUTO) 10.7 K/uL (1.8-7.7); NEUTROPHILS % (AUTO) 67.5 % (40.0-70.0); PLATELET COUNT (AUTO) 337 K/uL (150-450); RED BLOOD CELL COUNT(AUTO) 4.23 MIL/uL (4.00-5.20); RED CELL DISTRIBUTION WIDTH 15.6 % (11.5-14.5); WHITE BLOOD COUNT (AUTO) 15.9 K/uL (4.5-11.0)
[2017-03-25 17:57] LABS: ANION GAP 12 mmol/L (8-16); CALCIUM, TOTAL 8.6 mg/dL (8.8-10.5); CARBON DIOXIDE 27 mmol/L (22-29); CHLORIDE 101 mmol/L (98-107); CREATININE 0.91 mg/dL (0.60-1.30); GLOMERULAR FILTR. RATE CALC > 60 mL/min (>60); POTASSIUM 4.1 mmol/L (3.5-5.1); SODIUM SERUM 140 mmol/L (136-145); UREA NITROGEN, BLOOD 15 mg/dL (7-18)
[2017-03-25 18:02] LABS: ALANINE AMINOTRANSFERASE 25 U/L (12-78); ASPARTATE AMINOTRANSFERASE 19 U/L (15-37); BILIRUBIN,TOTAL 0.4 mg/dL (0.1-1.0); TOTAL PROTEIN, SERUM 7.4 g/dL (6.4-8.2)
[2017-03-25 18:25] LABS: ALBUMIN 3.9 g/dL (3.4-5.0)
[2017-03-25 22:09] VITALS: BP 130/84
== END | disposition home or self-care (01) ==
LOC: EMS 15:49
DX: F25.9 Schizoaffective disorder, unspecified (principal); F31.9 Bipolar disorder, unspecified; F41.9 Anxiety disorder, unspecified; E11.9 Type 2 diabetes mellitus without complications; J45.909 Unspecified asthma, uncomplicated; I10 Essential (primary) hypertension; F17.210 Nicotine dependence, cigarettes, uncomplicated; Z88.0 Allergy status to penicillin; Z88.8 Allergy status to other drugs, medicaments and biological substances; Z88.1 Allergy status to other antibiotic agents; Z88.2 Allergy status to sulfonamides; Z91.018 Allergy to other foods
CPT/HCPCS: 36415; 80053; 80307; 85025; 96372; 99285; G0480; J1200; J1630; J2060

== ENCOUNTER 2017-04-16 09:58 | Emergency (ER) | payer MEDICARE, OTHER ==
[~2017-04-16] VITALS: Ht 167.6 cm; Wt 104.5 kg
[~2017-04-16 09:58] MED LIST changes: -DiphenhydrAMINE HCL 50 MG/ML VIAL IM ONE; -GABA-529 PO; -HALOPERIDOL LACTATE 5 MG/ML VIAL IM ONE; -LORazepam 2 MG/ML VIAL IM ONE
[2017-04-16 10:22] LABS: GLUCOSE,POINT OF CARE 168 MG/DL (70-110)
[2017-04-16] MEDS ORDERED: HALOPERIDOL LACTATE 5 MG/ML VIAL IM ONE (11:15)
[2017-04-16] MEDS ORDERED: LORazepam 2 MG/ML VIAL IM ONE (11:15)
[2017-04-16] MEDS ORDERED: KETOROLAC TROMETHAMINE 30 MG/ML VIAL IM ONE (11:15)
[2017-04-16 13:17] VITALS: BP 133/88
== END 2017-04-16 13:21 | disposition home or self-care (01) ==
LOC: EMS 10:02
DX: M25.561 Pain in right knee (principal); M19.90 Unspecified osteoarthritis, unspecified site; F25.9 Schizoaffective disorder, unspecified; F41.9 Anxiety disorder, unspecified; J45.909 Unspecified asthma, uncomplicated; F31.9 Bipolar disorder, unspecified; E11.9 Type 2 diabetes mellitus without complications; I10 Essential (primary) hypertension; F17.210 Nicotine dependence, cigarettes, uncomplicated; Z88.0 Allergy status to penicillin; Z88.1 Allergy status to other antibiotic agents; Z88.8 Allergy status to other drugs, medicaments and biological substances; Z91.018 Allergy to other foods
CPT/HCPCS: 82962; 96372; 99284; J1630; J1885; J2060

== ENCOUNTER 2017-04-18 10:01 | Emergency (ER) | payer MEDICARE, OTHER ==
[~2017-04-18] VITALS: Ht 162.6 cm; Wt 104.5 kg
[~2017-04-18 10:01] MED LIST changes: -OXYB5 PO; -ROPI1TAB38 PO
[2017-04-18 10:52] LABS: BASOPHILS % (AUTO) 0.4 % (0.0-2.0); EOSINOPHILS % (AUTO) 1.2 % (1.0-6.0); HEMATOCRIT 39.5 % (36-46); HEMOGLOBIN 13.2 g/dL (12.0-16.0); LYMPHOCYTES # (AUTO) 2.1 K/uL (1.0-4.8); LYMPHOCYTES % (AUTO) 17.4 % (22.0-44.0); MEAN CORPUSCULAR HEMOGLOBIN 30.4 pg (26.0-34.0); MEAN CORPUSCULAR HGB CONC 33.5 G/dL (31.0-37.0); MEAN CORPUSCULAR VOLUME 91 fL (80-100); MONOCYTES # (AUTO) 0.4 K/uL (0.1-1.0); MONOCYTES % (AUTO) 3.3 % (2.0-9.0); NEUTROPHILS # (AUTO) 9.5 K/uL (1.8-7.7); NEUTROPHILS % (AUTO) 77.7 % (40.0-70.0); PLATELET COUNT (AUTO) 349 K/uL (150-450); RED BLOOD CELL COUNT(AUTO) 4.35 MIL/uL (4.00-5.20); RED CELL DISTRIBUTION WIDTH 14.4 % (11.5-14.5); WHITE BLOOD COUNT (AUTO) 12.3 K/uL (4.5-11.0)
[2017-04-18 11:03] LABS: ANION GAP 10 mmol/L (8-16); CALCIUM, TOTAL 8.6 mg/dL (8.8-10.5); CARBON DIOXIDE 29 mmol/L (22-29); CHLORIDE 102 mmol/L (98-107); CREATININE 0.74 mg/dL (0.60-1.30); GLOMERULAR FILTR. RATE CALC > 60 mL/min (>60); POTASSIUM 4.1 mmol/L (3.5-5.1); SODIUM SERUM 141 mmol/L (136-145); UREA NITROGEN, BLOOD 5 mg/dL (7-18)
[2017-04-18 11:10] LABS: ALBUMIN 3.4 g/dL (3.4-5.0); ASPARTATE AMINOTRANSFERASE 18 U/L (15-37); BILIRUBIN,TOTAL 0.2 mg/dL (0.1-1.0); TOTAL PROTEIN, SERUM 7.1 g/dL (6.4-8.2)
[2017-04-18 11:19] LABS: ALANINE AMINOTRANSFERASE 11 U/L (12-78)
[2017-04-18] MEDS ORDERED: KETOROLAC TROMETHAMINE 60 MG/2 ML VIAL IM ONE (11:30)
[2017-04-18] MEDS ORDERED: LORazepam 1 MG TABLET PO ONE (15:15)
[2017-04-18 15:55] VITALS: BP 111/79
== END 2017-04-18 15:59 | disposition home or self-care (01) ==
LOC: EMS 10:04
DX: F31.9 Bipolar disorder, unspecified (principal); F20.9 Schizophrenia, unspecified; F41.9 Anxiety disorder, unspecified; M25.561 Pain in right knee; E11.9 Type 2 diabetes mellitus without complications; I10 Essential (primary) hypertension; J45.909 Unspecified asthma, uncomplicated; F17.210 Nicotine dependence, cigarettes, uncomplicated; Z88.0 Allergy status to penicillin; Z88.1 Allergy status to other antibiotic agents; Z91.018 Allergy to other foods
CPT/HCPCS: 36415; 51702; 80053; 80307; 82962; 85025; 96372; 99284; G0480; J1885

== ENCOUNTER 2017-04-27 10:37 | Emergency (ER) | payer MEDICARE, OTHER | END 2017-04-27 10:54 | disposition left against medical advice (07) | LOC: EMS 10:41 | DX: M25.569 Pain in unspecified knee (principal); Z53.21 Procedure and treatment not carried out due to patient leaving prior to being seen by health care provider ==

== ENCOUNTER 2017-04-27 12:49 | Emergency (ER) | payer MEDICARE, OTHER ==
[~2017-04-27] VITALS: Ht 167.6 cm; Wt 147.7 kg
[2017-04-27 13:32] LABS: GLUCOSE,POINT OF CARE 106 MG/DL (70-110)
[2017-04-27 15:40] VITALS: BP 127/86
[2017-04-27] MEDS ORDERED: NAPROXEN 250 MG TABLET PO ONE (16:00)
== END 2017-04-27 16:44 | disposition home or self-care (01) ==
LOC: EMS 12:53
DX: M25.561 Pain in right knee (principal); E11.9 Type 2 diabetes mellitus without complications; I10 Essential (primary) hypertension; J45.909 Unspecified asthma, uncomplicated; F17.210 Nicotine dependence, cigarettes, uncomplicated; Z88.0 Allergy status to penicillin; Z88.1 Allergy status to other antibiotic agents; Z91.018 Allergy to other foods
CPT/HCPCS: 82962; 99283

== ENCOUNTER 2017-05-14 09:30 | Emergency (ER) | payer MEDICARE, OTHER ==
[~2017-05-14] VITALS: Ht 167.6 cm; Wt 104.5 kg
[2017-05-14 10:27] LABS: GLUCOSE,POINT OF CARE 131 MG/DL (70-110)
[2017-05-14] MEDS ORDERED: LORazepam 2 MG/ML VIAL ONE (11:06)
[2017-05-14] MEDS ORDERED: LORazepam 2 MG/ML VIAL IM ONE (11:15)
[2017-05-14] MEDS ORDERED: HYDROCODONE/ACETAMINOPHEN 5-325 MG TABLET PO ONE (13:00)
[2017-05-14 13:45] VITALS: BP 149/91
== END 2017-05-14 13:48 | disposition home or self-care (01) ==
LOC: EMS 09:33
DX: M25.561 Pain in right knee (principal); G89.29 Other chronic pain; E11.9 Type 2 diabetes mellitus without complications; J45.909 Unspecified asthma, uncomplicated; I10 Essential (primary) hypertension; F17.210 Nicotine dependence, cigarettes, uncomplicated; Z88.0 Allergy status to penicillin; Z88.1 Allergy status to other antibiotic agents; Z88.2 Allergy status to sulfonamides; Z88.8 Allergy status to other drugs, medicaments and biological substances; Z91.018 Allergy to other foods
CPT/HCPCS: 82962; 96372; 99283; J2060

== ENCOUNTER 2017-05-28 10:00 | Emergency (ER) | payer MEDICARE, OTHER ==
[~2017-05-28] VITALS: Ht 167.6 cm; Wt 104.5 kg
[~2017-05-28 10:00] MED LIST changes: -OLAN5Z PO; -TRAZ-144 PO
[2017-05-28] MEDS ORDERED: HALOPERIDOL 5 MG TABLET PO ONE (11:45)
[2017-05-28 12:14] VITALS: BP 149/90
[2017-05-28 12:27] LABS: BASOPHILS # (AUTO) 0.02 K/uL (0.00-0.20); BASOPHILS % (AUTO) 0.2 % (0.0-2.0); EOSINOPHILS # (AUTO) 0.05 K/uL (0.00-0.70); EOSINOPHILS % (AUTO) 0.45 % (1.0-6.0); HEMATOCRIT 41.8 % (36-46); HEMOGLOBIN 13.8 g/dL (12.0-16.0); LYMPHOCYTES # (AUTO) 2.2 K/uL (1.0-4.8); LYMPHOCYTES % (AUTO) 18.7 % (22.0-44.0); MEAN CORPUSCULAR HEMOGLOBIN 29.8 pg (26.0-34.0); MEAN CORPUSCULAR VOLUME 90 fL (80-100); MONOCYTES # (AUTO) 0.6 K/uL (0.1-1.0); MONOCYTES % (AUTO) 5.1 % (2.0-9.0); NEUTROPHILS # (AUTO) 8.8 K/uL (1.8-7.7); NEUTROPHILS % (AUTO) 75.6 % (40.0-70.0); PLATELET COUNT (AUTO) 298 K/uL (150-450); RED BLOOD CELL COUNT(AUTO) 4.63 MIL/uL (4.00-5.20); RED CELL DISTRIBUTION WIDTH 15.3 % (11.5-14.5); WHITE BLOOD COUNT (AUTO) 11.7 K/uL (4.5-11.0)
[2017-05-28 12:34] LABS: ANION GAP 12 mmol/L (8-16); CALCIUM, TOTAL 9.5 mg/dL (8.8-10.5); CARBON DIOXIDE 29 mmol/L (22-29); CHLORIDE 105 mmol/L (98-107); CREATININE 0.58 mg/dL (0.60-1.30); GLOMERULAR FILTR. RATE CALC > 60 mL/min (>60); POTASSIUM 3.8 mmol/L (3.5-5.1); SODIUM SERUM 146 mmol/L (136-145); UREA NITROGEN, BLOOD 13 mg/dL (7-18)
[2017-05-28 12:40] LABS: ALANINE AMINOTRANSFERASE 9 U/L (12-78); ALBUMIN 3.4 g/dL (3.4-5.0); ASPARTATE AMINOTRANSFERASE 20 U/L (15-37); BILIRUBIN,TOTAL 0.3 mg/dL (0.1-1.0)
== END 2017-05-28 12:42 | disposition home or self-care (01) ==
LOC: EMS 10:03 → EEVIPCON 10:03 → EMS 12:42
DX: F25.9 Schizoaffective disorder, unspecified (principal); F31.9 Bipolar disorder, unspecified; F17.210 Nicotine dependence, cigarettes, uncomplicated; J45.909 Unspecified asthma, uncomplicated; E11.9 Type 2 diabetes mellitus without complications; I10 Essential (primary) hypertension; F41.9 Anxiety disorder, unspecified; Z88.1 Allergy status to other antibiotic agents; Z88.0 Allergy status to penicillin; Z88.2 Allergy status to sulfonamides; Z88.8 Allergy status to other drugs, medicaments and biological substances; Z91.018 Allergy to other foods
CPT/HCPCS: 36415; 80053; 85025; 99284; G0480

== ENCOUNTER 2017-07-18 08:58 | Emergency (ER) | payer MEDICARE, OTHER ==
[~2017-07-18] VITALS: Ht 167.6 cm; Wt 102.3 kg
[~2017-07-18 08:58] MED LIST changes: -ACAM333T7 PO; -DICL2100G TP; +DSS100 PO; +OMEP20 PO; +OXYB5 PO; +ROPI1TAB11 PO
[2017-07-18] MEDS ORDERED: METF500T4 PO (09:07)
[2017-07-18 09:12] LABS: GLUCOSE,POINT OF CARE 119 MG/DL (70-110)
[2017-07-18] MEDS ORDERED: LOPERAMIDE HCL 2 MG CAPSULE PO ONE (10:30)
[2017-07-18 11:56] VITALS: BP 138/85
== END 2017-07-18 12:00 | disposition home or self-care (01) ==
LOC: EMS 09:02
DX: M25.561 Pain in right knee (principal); R19.7 Diarrhea, unspecified; J45.909 Unspecified asthma, uncomplicated; E11.9 Type 2 diabetes mellitus without complications; I10 Essential (primary) hypertension; F17.210 Nicotine dependence, cigarettes, uncomplicated; Z88.0 Allergy status to penicillin; Z88.2 Allergy status to sulfonamides; Z88.1 Allergy status to other antibiotic agents; Z88.8 Allergy status to other drugs, medicaments and biological substances; Z91.018 Allergy to other foods
CPT/HCPCS: 82962; 99284

== ENCOUNTER 2017-07-18 23:13 | Emergency (ER) | payer MEDICARE, OTHER ==
[~2017-07-18] VITALS: Ht 157.5 cm; Wt 102.0 kg
[~2017-07-18 23:13] MED LIST changes: +METF500T4 PO
[2017-07-19 00:54] LABS: ANION GAP 11 mmol/L (8-16); CALCIUM, TOTAL 8.7 mg/dL (8.8-10.5); CARBON DIOXIDE 26 mmol/L (22-29); CHLORIDE 102 mmol/L (98-107); CREATININE 0.65 mg/dL (0.60-1.30); GLOMERULAR FILTR. RATE CALC > 60 mL/min (>60); POTASSIUM 4.5 mmol/L (3.5-5.1); SODIUM SERUM 139 mmol/L (136-145); UREA NITROGEN, BLOOD 4 mg/dL (7-18)
[2017-07-19 01:01] LABS: ALANINE AMINOTRANSFERASE 9 U/L (12-78); ALBUMIN 3.3 g/dL (3.4-5.0); ASPARTATE AMINOTRANSFERASE 18 U/L (15-37); BILIRUBIN,TOTAL 0.3 mg/dL (0.1-1.0); TOTAL PROTEIN, SERUM 6.8 g/dL (6.4-8.2)
[2017-07-19 01:26] LABS: BASOPHILS # (AUTO) 0.05 K/uL (0.00-0.20); BASOPHILS % (AUTO) 0.3 % (0.0-2.0); EOSINOPHILS % (AUTO) 2.22 % (1.0-6.0); HEMATOCRIT 41.8 % (36-46); HEMOGLOBIN 13.8 g/dL (12.0-16.0); LYMPHOCYTES % (AUTO) 29.1 % (22.0-44.0); MEAN CORPUSCULAR HEMOGLOBIN 29.7 pg (26.0-34.0); MEAN CORPUSCULAR HGB CONC 33.1 G/dL (31.0-37.0); MEAN CORPUSCULAR VOLUME 90 fL (80-100); MONOCYTES # (AUTO) 0.6 K/uL (0.1-1.0); MONOCYTES % (AUTO) 4.7 % (2.0-9.0); NEUTROPHILS # (AUTO) 8.8 K/uL (1.8-7.7); NEUTROPHILS % (AUTO) 63.7 % (40.0-70.0); PLATELET COUNT (AUTO) 181 K/uL (150-450); RED BLOOD CELL COUNT(AUTO) 4.65 MIL/uL (4.00-5.20); RED CELL DISTRIBUTION WIDTH 16.1 % (11.5-14.5)
[2017-07-19 06:01] VITALS: BP 99/62
[2017-07-19 06:04] LABS: APPEARANCE,URINE CLEAR (CLEAR); GLUCOSE, URINE (UA) NEGATIVE (NEGATIVE); KETONES,URINE NEGATIVE (NEGATIVE); LEUKOCYTE ESTERASE ,URINE NEGATIVE (NEGATIVE); OCCULT BLOOD,URINE NEGATIVE (NEGATIVE); PROTEIN,URINE NEGATIVE (NEGATIVE)
[2017-07-19 06:17] LABS: RBC,URINE None Seen /HPF (0-2); WBC,URINE None Seen /HPF (0-5)
== END 2017-07-19 06:32 | disposition home or self-care (01) ==
LOC: EMS 23:20
DX: R45.851 Suicidal ideations (principal); F15.10 Other stimulant abuse, uncomplicated; J45.909 Unspecified asthma, uncomplicated; I10 Essential (primary) hypertension; E11.9 Type 2 diabetes mellitus without complications; F41.9 Anxiety disorder, unspecified; F31.9 Bipolar disorder, unspecified; F20.9 Schizophrenia, unspecified; F17.210 Nicotine dependence, cigarettes, uncomplicated; Z88.0 Allergy status to penicillin; Z88.2 Allergy status to sulfonamides; Z88.8 Allergy status to other drugs, medicaments and biological substances
CPT/HCPCS: 36415; 51701; 71010; 80053; 80307; 81001; 85025; 94660; 99285; G0480

== ENCOUNTER 2017-07-24 15:19 | Inpatient (IN) | payer MEDICARE, MEDICAID ==
[~2017-07-24] VITALS: Ht 167.6 cm; Wt 101.4 kg
[2017-07-24 16:19] LABS: GLUCOSE,POINT OF CARE 113 MG/DL (70-110)
[2017-07-24 16:42] LABS: EOSINOPHILS % (AUTO) 0.3 % (1.0-6.0); HEMATOCRIT 44.3 % (36-46); HEMOGLOBIN 14.7 g/dL (12.0-16.0); LYMPHOCYTES # (AUTO) 2.3 K/uL (1.0-4.8); LYMPHOCYTES % (AUTO) 15.5 % (22.0-44.0); MEAN CORPUSCULAR HEMOGLOBIN 29.8 pg (26.0-34.0); MEAN CORPUSCULAR HGB CONC 33.3 G/dL (31.0-37.0); MEAN CORPUSCULAR VOLUME 90 fL (80-100); MONOCYTES # (AUTO) 0.6 K/uL (0.1-1.0); MONOCYTES % (AUTO) 4.2 % (2.0-9.0); PLATELET COUNT (AUTO) 327 K/uL (150-450); RED BLOOD CELL COUNT(AUTO) 4.94 MIL/uL (4.00-5.20); RED CELL DISTRIBUTION WIDTH 16.5 % (11.5-14.5)
[2017-07-24 16:53] LABS: ANION GAP 10 mmol/L (8-16); CALCIUM, TOTAL 9.3 mg/dL (8.8-10.5); CARBON DIOXIDE 30 mmol/L (22-29); CHLORIDE 102 mmol/L (98-107); GLOMERULAR FILTR. RATE CALC > 60 mL/min (>60); POTASSIUM 3.8 mmol/L (3.5-5.1); SODIUM SERUM 142 mmol/L (136-145); UREA NITROGEN, BLOOD 7 mg/dL (7-18)
[2017-07-24 17:02] LABS: ALANINE AMINOTRANSFERASE 13 U/L (12-78); ALBUMIN 3.6 g/dL (3.4-5.0); ASPARTATE AMINOTRANSFERASE 21 U/L (15-37); BILIRUBIN,TOTAL 0.3 mg/dL (0.1-1.0); TOTAL PROTEIN, SERUM 7.4 g/dL (6.4-8.2)
[2017-07-24 17:16] LABS: ACETAMINOPHEN < 2 mcg/mL (10-30)
[2017-07-24 17:22] LABS: SALICYLATE 6.5 mg/dL (2.8-20.0)
[2017-07-25 01:50] LABS: APPEARANCE,URINE CLEAR (CLEAR); GLUCOSE, URINE (UA) NEGATIVE (NEGATIVE); KETONES,URINE NEGATIVE (NEGATIVE); LEUKOCYTE ESTERASE ,URINE NEGATIVE (NEGATIVE); OCCULT BLOOD,URINE NEGATIVE (NEGATIVE); PROTEIN,URINE NEGATIVE (NEGATIVE)
[2017-07-25 02:04] LABS: RBC,URINE 0-2 /HPF (0-2); SQUAMOUS EPITHELIAL CELL,UR Rare /LPF (None Seen); WBC,URINE 0-2 /HPF (0-5)
[2017-07-25 08:46] LABS: CHOL/HDL RATIO 3.2 (3.9-5.7)
[2017-07-25] MEDS: LORazepam 2 MG TABLET PO PRN (13:31)
[2017-07-25 18:43] LABS: GLUCOSE,POINT OF CARE 98 MG/DL (70-110)
[2017-07-25] MEDS ORDERED: HALOPERIDOL LACTATE 5 MG/ML VIAL ONE (20:41)
[2017-07-25] MEDS ORDERED: LORazepam 2 MG/ML VIAL ONE (20:42)
[2017-07-25] MEDS ORDERED: DiphenhydrAMINE HCL 50 MG/ML VIAL ONE (20:42)
[2017-07-25] MEDS ORDERED: LORazepam 2 MG/ML VIAL IM ONE (20:45)
[2017-07-25] MEDS ORDERED: DiphenhydrAMINE HCL 50 MG/ML VIAL IM ONE (20:45)
[2017-07-25] MEDS ORDERED: HALOPERIDOL LACTATE 5 MG/ML VIAL IM ONE (20:45)
[2017-07-26 08:05] VITALS: BP 116/76
[2017-07-26] MEDS ORDERED: IBUPROFEN 600 MG TABLET PO PRN (08:15)
[2017-07-26] MEDS ORDERED: CloNIDine HCL 0.1 MG TABLET PO PRN (08:15)
[2017-07-26] MEDS ORDERED: ACETAMINOPHEN 325 MG TABLET PO PRN (08:15)
[2017-07-26] MEDS ORDERED: ALBUTEROL SULFATE HFA 90 MCG/PUFF 8 GM INHALER IH PRN (08:15)
[2017-07-26] MEDS ORDERED: MAGNESIUM HYDROXIDE SUSPENSION 30 ML UDCUP PO PRN (08:15)
[2017-07-26] MEDS ORDERED: BACITRACIN 28.4 GM OINTMENT TP PRN (08:15)
[2017-07-26] MEDS ORDERED: MAG HYDROX/AL HYDROX/SIMETH ES 30 ML SUSPENSION UDCUP PO PRN (08:15)
[2017-07-26] MEDS ORDERED: LOPERAMIDE HCL 2 MG CAPSULE PO PRN (08:15)
[2017-07-26] MEDS ORDERED: PETROLATUM,WHITE 71 GM JELLY TP PRN (08:15)
[2017-07-26] MEDS ORDERED: ONDANSETRON HCL 4 MG TABLET PO PRN (08:15)
[2017-07-26] MEDS ORDERED: BENZOCAINE/MENTHOL LOZENGE [8 LOZENGES/PACKET] MM PRN (08:30)
[2017-07-26] MEDS: OXYBUTYNIN CHLORIDE 5 MG TABLET PO SCH ×2 (08:48→16:58)
[2017-07-26] MEDS: MetFORMIN HCL 500 MG TABLET PO SCH (08:48)
[2017-07-26] MEDS: DOCUSATE SODIUM 100 MG CAPSULE PO SCH (08:48)
[2017-07-26] MEDS: OMEPRAZOLE 20 MG CAPSULE PO SCH (08:49)
[2017-07-26] MEDS ORDERED: DENTURE ADHESIVE 68 GM CREAM DT PRN (09:45)
[2017-07-26 16:32] VITALS: BP 109/79
[2017-07-26] MEDS: NICOTINE 21 MG/24 HOUR PATCH TD SCH (17:54)
[2017-07-26] MEDS: LORazepam 2 MG TABLET PO PRN (18:01)
[2017-07-26] MEDS: HALOPERIDOL 5 MG TABLET PO PRN (18:01)
[2017-07-26] MEDS: OLANZapine 10 MG RAPDIS TABLET PO SCH (21:53)
[2017-07-26] MEDS: TraZODone HCL 100 MG TABLET PO SCH (21:53)
[2017-07-26] MEDS: ROPINIRole HCL 1 MG TABLET PO SCH (21:54)
[2017-07-27] MEDS: ZOLPIDEM TARTRATE 10 MG TABLET PO PRN ×2 (01:40→20:02)
[2017-07-27] MEDS: MetFORMIN HCL 500 MG TABLET PO SCH (07:01)
[2017-07-27] MEDS: OXYBUTYNIN CHLORIDE 5 MG TABLET PO SCH ×2 (08:26→16:22)
[2017-07-27] MEDS: GABAPENTIN 300 MG CAPSULE PO SCH ×3 (08:26→16:22)
[2017-07-27] MEDS: OMEPRAZOLE 20 MG CAPSULE PO SCH (08:27)
[2017-07-27] MEDS: DOCUSATE SODIUM 100 MG CAPSULE PO SCH (08:28)
[2017-07-27] MEDS: NICOTINE 21 MG/24 HOUR PATCH TD SCH (08:28)
[2017-07-27 09:19] VITALS: BP 110/19
[2017-07-27 16:10] VITALS: BP 111/78
[2017-07-27] MEDS: LORazepam 2 MG TABLET PO PRN ×2 (16:22→17:29)
[2017-07-27] MEDS: HALOPERIDOL 5 MG TABLET PO PRN ×2 (16:23→17:29)
[2017-07-27] MEDS: ROPINIRole HCL 1 MG TABLET PO SCH (20:02)
[2017-07-27] MEDS: TraZODone HCL 100 MG TABLET PO SCH (20:02)
[2017-07-27] MEDS: OLANZapine 10 MG RAPDIS TABLET PO SCH (20:02)
[2017-07-28 01:24] VITALS: BP 103/65
[2017-07-28] MEDS: LORazepam 2 MG TABLET PO PRN ×4 (01:26→23:43)
[2017-07-28] MEDS: HALOPERIDOL 5 MG TABLET PO PRN (01:38)
[2017-07-28 08:10] VITALS: BP 120/88
[2017-07-28] MEDS: MetFORMIN HCL 500 MG TABLET PO SCH (08:16)
[2017-07-28] MEDS: OMEPRAZOLE 20 MG CAPSULE PO SCH (08:16)
[2017-07-28] MEDS: DOCUSATE SODIUM 100 MG CAPSULE PO SCH (08:16)
[2017-07-28] MEDS: GABAPENTIN 300 MG CAPSULE PO SCH ×3 (08:17→16:24)
[2017-07-28] MEDS: OXYBUTYNIN CHLORIDE 5 MG TABLET PO SCH ×2 (08:17→16:24)
[2017-07-28] MEDS: NICOTINE 21 MG/24 HOUR PATCH TD SCH (08:21)
[2017-07-28 16:24] VITALS: BP 122/88
[2017-07-28] MEDS: OLANZapine 10 MG RAPDIS TABLET PO SCH (20:42)
[2017-07-28] MEDS: ROPINIRole HCL 1 MG TABLET PO SCH (20:43)
[2017-07-28] MEDS: TraZODone HCL 100 MG TABLET PO SCH (20:43)
[2017-07-28] MEDS: ZOLPIDEM TARTRATE 10 MG TABLET PO PRN (21:03)
[2017-07-29] MEDS: HALOPERIDOL 5 MG TABLET PO PRN ×2 (00:45→09:48)
[2017-07-29] MEDS: MetFORMIN HCL 500 MG TABLET PO SCH (07:01)
[2017-07-29] MEDS: LORazepam 2 MG TABLET PO PRN (07:08)
[2017-07-29 07:14] LABS: HEMATOCRIT 42.5 % (36-46); HEMOGLOBIN 13.9 g/dL (12.0-16.0); MEAN CORPUSCULAR HEMOGLOBIN 29.8 pg (26.0-34.0); MEAN CORPUSCULAR HGB CONC 32.8 G/dL (31.0-37.0); MEAN CORPUSCULAR VOLUME 91 fL (80-100); PLATELET COUNT (AUTO) 242 K/uL (150-450); RED BLOOD CELL COUNT(AUTO) 4.68 MIL/uL (4.00-5.20); WHITE BLOOD COUNT (AUTO) 10.2 K/uL (4.5-11.0)
[2017-07-29 07:34] LABS: ANION GAP 9 mmol/L (8-16); CARBON DIOXIDE 32 mmol/L (22-29); CHLORIDE 101 mmol/L (98-107); CREATININE 0.59 mg/dL (0.60-1.30); GLOMERULAR FILTR. RATE CALC > 60 mL/min (>60); PHOSPHORUS 3.5 mg/dL (2.5-4.9); POTASSIUM 4.9 mmol/L (3.5-5.1); SODIUM SERUM 142 mmol/L (136-145); UREA NITROGEN, BLOOD 8 mg/dL (7-18)
[2017-07-29 09:00] VITALS: BP 105/61
[2017-07-29] MEDS: DOCUSATE SODIUM 100 MG CAPSULE PO SCH (09:11)
[2017-07-29] MEDS: GABAPENTIN 300 MG CAPSULE PO SCH ×2 (09:11→12:33)
[2017-07-29] MEDS: OMEPRAZOLE 20 MG CAPSULE PO SCH (09:11)
[2017-07-29] MEDS: OXYBUTYNIN CHLORIDE 5 MG TABLET PO SCH (09:11)
[2017-07-29] MEDS: NICOTINE 21 MG/24 HOUR PATCH TD SCH (09:15)
[2017-07-29 09:33] LABS: BAND NEUTROPHILS % (MANUAL) 1 % (1-5); EOSINOPHILS % (MANUAL) 1 % (1-6); LYMPHOCYTES % (MANUAL) 27 % (22-44); TOTAL CELLS COUNTED 100
[2017-07-29 09:34] LABS: RBC MORPHOLOGY COMMENT NORMAL RBC MORPH
[2017-07-29] MEDS ORDERED: MAGNESIUM OXIDE 400 MG TABLET PO SCH (12:15)
[2017-07-29] MEDS ORDERED: FLUO-191 PO (14:10)
[2017-07-29] MEDS ORDERED: TRAZ-147 PO (14:10)
[2017-07-29] MEDS ORDERED: OLAN10TA6 PO (14:10)
[2017-07-29] MEDS ORDERED: MAGOX PO (14:35)
[2017-07-29 16:09] VITALS: BP 115/65
[2017-07-30] MEDS ORDERED: FLUoxetine HCL 20 MG CAPSULE PO SCH (09:00)
== END 2017-07-29 16:30 | disposition home or self-care (01) | DRG 885 ==
LOC: EMS 15:22 → 3EC 07-25 18:23
PROVIDERS: ADMIT Psychiatry & Neurology Psychiatry; ATTEND Psychiatry & Neurology Psychiatry
DX: F33.2 Major depressive disorder, recurrent severe without psychotic features (principal); D69.6 Thrombocytopenia, unspecified; R45.851 Suicidal ideations; F20.9 Schizophrenia, unspecified; F15.20 Other stimulant dependence, uncomplicated; E11.9 Type 2 diabetes mellitus without complications; K21.9 Gastro-esophageal reflux disease without esophagitis; G25.81 Restless legs syndrome; J44.9 Chronic obstructive pulmonary disease, unspecified; M54.5 Low back pain; I10 Essential (primary) hypertension; F17.210 Nicotine dependence, cigarettes, uncomplicated; E66.9 Obesity, unspecified; F41.9 Anxiety disorder, unspecified; F60.3 Borderline personality disorder; G40.909 Epilepsy, unspecified, not intractable, without status epilepticus; G47.33 Obstructive sleep apnea (adult) (pediatric); M19.90 Unspecified osteoarthritis, unspecified site; E55.9 Vitamin D deficiency, unspecified; Z71.6 Tobacco abuse counseling; Z91.5 Personal history of self-harm; Z88.1 Allergy status to other antibiotic agents; Z88.0 Allergy status to penicillin; Z88.8 Allergy status to other drugs, medicaments and biological substances; Z91.018 Allergy to other foods; Z79.84 Long term (current) use of oral hypoglycemic drugs; Z79.899 Other long term (current) drug therapy; Z90.49 Acquired absence of other specified parts of digestive tract; Z98.891 History of uterine scar from previous surgery; Z81.8 Family history of other mental and behavioral disorders; Z98.1 Arthrodesis status; Z68.36 Body mass index [BMI] 36.0-36.9, adult
CPT/HCPCS: 82962; 83735; 84100; 85007; 87081; 93005; 94660; 99285; G0480; G0481; J1200; J1630; J2060

== ENCOUNTER 2017-08-09 10:22 | Emergency (ER) | payer MEDICARE, OTHER ==
[~2017-08-09] VITALS: Ht 167.6 cm; Wt 90.9 kg
[~2017-08-09 10:22] MED LIST changes: +MAGOX PO; -OLAN10TA22 PO; +OLAN10TA6 PO
[2017-08-09] MEDS ORDERED: HALOPERIDOL 5 MG TABLET PO ONE (11:00)
[2017-08-09] MEDS ORDERED: LORazepam 2 MG/ML VIAL IM ONE (11:00)
[2017-08-09] MEDS ORDERED: LORazepam 2 MG TABLET PO ONE (11:00)
[2017-08-09] MEDS ORDERED: HALOPERIDOL LACTATE 5 MG/ML VIAL IM ONE (11:00)
[2017-08-09 11:13] VITALS: BP 122/89
[2017-08-09] MEDS ORDERED: DICL75TA5 PO (13:19)
[2017-08-09] MEDS ORDERED: LOPE2 PO (13:19)
[2017-08-09] MEDS ORDERED: ATOR10TA84 PO (13:19)
[2017-08-10] MEDS ORDERED: ALBU8HFA4 IH (03:07)
== END 2017-08-09 11:30 | disposition home or self-care (01) ==
LOC: EMS 10:26
DX: F31.9 Bipolar disorder, unspecified (principal); E11.9 Type 2 diabetes mellitus without complications; F20.9 Schizophrenia, unspecified; F41.9 Anxiety disorder, unspecified; I10 Essential (primary) hypertension; J45.909 Unspecified asthma, uncomplicated; F17.210 Nicotine dependence, cigarettes, uncomplicated; Z76.0 Encounter for issue of repeat prescription; Z88.0 Allergy status to penicillin; Z88.1 Allergy status to other antibiotic agents; Z88.2 Allergy status to sulfonamides; Z91.018 Allergy to other foods
CPT/HCPCS: 96372; 99284; J1630; J2060; 82962

== ENCOUNTER 2017-08-09 12:53 | Inpatient (IN) | payer MEDICARE, OTHER ==
[~2017-08-09] VITALS: Ht 167.6 cm; Wt 103.2 kg
[2017-08-09] MEDS ORDERED: ATOR10TA84 PO (13:19)
[2017-08-09] MEDS ORDERED: DICL75TA5 PO (13:19)
[2017-08-09] MEDS ORDERED: LOPE2 PO (13:19)
[2017-08-09 13:22] LABS: GLUCOSE,POINT OF CARE 109 MG/DL (70-110)
[2017-08-09 13:56] LABS: BASOPHILS % (AUTO) 0.5 % (0.0-2.0); EOSINOPHILS % (AUTO) 1.1 % (1.0-6.0); HEMOGLOBIN 12.9 g/dL (12.0-16.0); LYMPHOCYTES # (AUTO) 1.9 K/uL (1.0-4.8); LYMPHOCYTES % (AUTO) 19.6 % (22.0-44.0); MEAN CORPUSCULAR HEMOGLOBIN 30.4 pg (26.0-34.0); MEAN CORPUSCULAR VOLUME 89 fL (80-100); MONOCYTES # (AUTO) 0.5 K/uL (0.1-1.0); MONOCYTES % (AUTO) 4.8 % (2.0-9.0); NEUTROPHILS # (AUTO) 7.3 K/uL (1.8-7.7); PLATELET COUNT (AUTO) 304 K/uL (150-450); RED BLOOD CELL COUNT(AUTO) 4.25 MIL/uL (4.00-5.20); RED CELL DISTRIBUTION WIDTH 16.8 % (11.5-14.5)
[2017-08-09] MEDS ORDERED: SODIUM CHLORIDE 0.9% 1,000 ML IV ONE ×3 (14:15→18:30)
[2017-08-09 14:20] LABS: ALANINE AMINOTRANSFERASE 13 U/L (12-78); ALBUMIN 3.6 g/dL (3.4-5.0); ALKALINE PHOSPHATASE 129 U/L (46-116); ANION GAP 16 mmol/L (8-16); ASPARTATE AMINOTRANSFERASE 30 U/L (15-37); BILIRUBIN,TOTAL 0.9 mg/dL (0.1-1.0); CALCIUM, TOTAL 8.7 mg/dL (8.8-10.5); CARBON DIOXIDE 21 mmol/L (22-29); CHLORIDE 100 mmol/L (98-107); CREATININE 0.99 mg/dL (0.60-1.30); GLOMERULAR FILTR. RATE CALC 60 mL/min (>60); GLUCOSE,RANDOM 99 mg/dL (70-110); LIPASE 171 U/L (73-393); SODIUM SERUM 137 mmol/L (136-145); TOTAL PROTEIN, SERUM 7.2 g/dL (6.4-8.2); UREA NITROGEN, BLOOD 7 mg/dL (7-18)
[2017-08-09 14:24] LABS: POTASSIUM 2.7 mmol/L (3.5-5.1)
[2017-08-09 14:33] LABS: ACETAMINOPHEN < 2 mcg/mL (10-30)
[2017-08-09 14:37] LABS: SALICYLATE 12.4 mg/dL (2.8-20.0)
[2017-08-09] MEDS ORDERED: POTASSIUM CHLORIDE 20 MEQ ER TABLET PO ONE (14:45)
[2017-08-09] MEDS ORDERED: DEXTROSE 50%-WATER 25 GM/50 ML SYRINGE IVP PRN (17:45)
[2017-08-09] MEDS ORDERED: ALBUTEROL SULFATE 2.5 MG/0.5 ML NEB SOLUTION NEB PRN (17:45)
[2017-08-09] MEDS ORDERED: MAGNESIUM HYDROXIDE SUSPENSION 30 ML UDCUP PO PRN (17:45)
[2017-08-09] MEDS ORDERED: IPRATROPIUM BROMIDE 0.5 MG/2.5 ML NEB SOLUTION NEB PRN (17:45)
[2017-08-09] MEDS ORDERED: BISACODYL 10 MG RECTAL RECTAL SUPPOSITORY PR PRN (17:45)
[2017-08-09 18:00] LABS: ANION GAP 17 mmol/L (8-16); CALCIUM, TOTAL 8.4 mg/dL (8.8-10.5); CARBON DIOXIDE 20 mmol/L (22-29); CHLORIDE 100 mmol/L (98-107); CREATININE 1.48 mg/dL (0.60-1.30); GLOMERULAR FILTR. RATE CALC 37 mL/min (>60); GLUCOSE,RANDOM 90 mg/dL (70-110); POTASSIUM 3.1 mmol/L (3.5-5.1); SODIUM SERUM 137 mmol/L (136-145); UREA NITROGEN, BLOOD 8 mg/dL (7-18)
[2017-08-09] MEDS: PANTOPRAZOLE SODIUM 40 MG DR TABLET PO SCH (18:01)
[2017-08-09 18:07] LABS: ALANINE AMINOTRANSFERASE 14 U/L (12-78); ALBUMIN 3.6 g/dL (3.4-5.0); ALKALINE PHOSPHATASE 128 U/L (46-116); ASPARTATE AMINOTRANSFERASE 32 U/L (15-37); BILIRUBIN,TOTAL 1.2 mg/dL (0.1-1.0); SALICYLATE 17.9 mg/dL (2.8-20.0); TOTAL PROTEIN, SERUM 7.2 g/dL (6.4-8.2)
[2017-08-09 18:18] LABS: ACETAMINOPHEN < 2 mcg/mL (10-30)
[2017-08-09] MEDS: SODIUM CHLORIDE 0.9% 1,000 ML IV SCH (19:37)
[2017-08-09 20:18] VITALS: BP 97/66
[2017-08-09] MEDS: ATORVASTATIN CALCIUM 10 MG TABLET PO SCH (21:36)
[2017-08-09] MEDS: INSULIN ASPART 100 UNITS/ML SQ PRN (21:39)
[2017-08-09 23:03] LABS: SALICYLATE 12.8 mg/dL (2.8-20.0)
[2017-08-10] VITALS (7 sets, daily range): BP systolic 84–127; BP diastolic 43–90
[2017-08-10] MEDS ORDERED: ALBU8HFA4 IH (03:07)
[2017-08-10] MEDS: SODIUM CHLORIDE 0.9% 1,000 ML IV SCH ×3 (03:16→23:53)
[2017-08-10 03:27] LABS: GLUCOMETER DEV NAME(LOC) 5N 1M; GLUCOSE,POINT OF CARE 150 MG/DL (70-110)
[2017-08-10 05:45] LABS: BASOPHILS # (AUTO) 0.02 K/uL (0.00-0.20); BASOPHILS % (AUTO) 0.3 % (0.0-2.0); EOSINOPHILS # (AUTO) 0.15 K/uL (0.00-0.70); EOSINOPHILS % (AUTO) 2.17 % (1.0-6.0); HEMATOCRIT 34.2 % (36-46); HEMOGLOBIN 11.2 g/dL (12.0-16.0); LYMPHOCYTES # (AUTO) 1.4 K/uL (1.0-4.8); LYMPHOCYTES % (AUTO) 21.2 % (22.0-44.0); MEAN CORPUSCULAR HEMOGLOBIN 30.3 pg (26.0-34.0); MEAN CORPUSCULAR HGB CONC 32.8 G/dL (31.0-37.0); MEAN CORPUSCULAR VOLUME 92 fL (80-100); MONOCYTES # (AUTO) 0.6 K/uL (0.1-1.0); MONOCYTES % (AUTO) 8.8 % (2.0-9.0); NEUTROPHILS # (AUTO) 4.6 K/uL (1.8-7.7); NEUTROPHILS % (AUTO) 67.5 % (40.0-70.0); PLATELET COUNT (AUTO) 252 K/uL (150-450); RED BLOOD CELL COUNT(AUTO) 3.71 MIL/uL (4.00-5.20); RED CELL DISTRIBUTION WIDTH 17.4 % (11.5-14.5)
[2017-08-10 06:53] LABS: ALBUMIN 2.5 g/dL (3.4-5.0); BILIRUBIN,TOTAL 0.8 mg/dL (0.1-1.0); CALCIUM, TOTAL 7.5 mg/dL (8.8-10.5); CREATININE 1.34 mg/dL (0.60-1.30); MAGNESIUM 1.3 mg/dL (1.80-2.40); POTASSIUM 3.4 mmol/L (3.5-5.1); TOTAL PROTEIN, SERUM 5.3 g/dL (6.4-8.2)
[2017-08-10] MEDS: PANTOPRAZOLE SODIUM 40 MG DR TABLET PO SCH (09:05)
[2017-08-10] MEDS: DOCUSATE SODIUM 100 MG CAPSULE PO SCH (09:05)
[2017-08-10] MEDS: MAGNESIUM OXIDE 400 MG TABLET PO SCH (09:06)
[2017-08-10] MEDS: INSULIN ASPART 100 UNITS/ML SQ PRN (12:44)
[2017-08-10] MEDS ORDERED: ACETAMINOPHEN 325 MG TABLET PO ONE (14:00)
[2017-08-10] MEDS ORDERED: MAGNESIUM SULFATE 2 GM in DEXTROSE 5%-WATER 50 ML IV ONE (14:00)
[2017-08-10] MEDS ORDERED: POTASSIUM CHLORIDE 20 MEQ ER TABLET PO ONE (19:45)
[2017-08-10 20:38] LABS: GLUCOMETER DEV NAME(LOC) 5N 2R; GLUCOSE,POINT OF CARE 119 MG/DL (70-110)
[2017-08-10 20:38] LABS: GLUCOMETER DEV NAME(LOC) 5N 1M; GLUCOSE,POINT OF CARE 97 MG/DL (70-110)
[2017-08-10 20:42] LABS: GLUCOMETER DEV NAME(LOC) 5N 1M; GLUCOSE,POINT OF CARE 109 MG/DL (70-110)
[2017-08-10 20:43] LABS: GLUCOMETER DEV NAME(LOC) 5N 1M; GLUCOSE,POINT OF CARE 120 MG/DL (70-110)
[2017-08-10] MEDS: ATORVASTATIN CALCIUM 10 MG TABLET PO SCH (20:49)
[2017-08-11 00:04] VITALS: BP 93/55
[2017-08-11 05:13] VITALS: BP 118/71
[2017-08-11] MEDS: PANTOPRAZOLE SODIUM 40 MG DR TABLET PO SCH (09:00)
[2017-08-11] MEDS: DOCUSATE SODIUM 100 MG CAPSULE PO SCH (09:00)
[2017-08-11] MEDS: MAGNESIUM OXIDE 400 MG TABLET PO SCH (09:00)
[2017-08-11] MEDS: SODIUM CHLORIDE 0.9% 1,000 ML IV SCH ×2 (09:45→12:51)
[2017-08-11 12:08] LABS: GLUCOMETER DEV NAME(LOC) 5N 2R; GLUCOSE,POINT OF CARE 89 MG/DL (70-110)
[2017-08-11 14:09] LABS: BASOPHILS # (AUTO) 0.01 K/uL (0.00-0.20); BASOPHILS % (AUTO) 0.2 % (0.0-2.0); EOSINOPHILS # (AUTO) 0.18 K/uL (0.00-0.70); EOSINOPHILS % (AUTO) 2.03 % (1.0-6.0); HEMATOCRIT 38.4 % (36-46); HEMOGLOBIN 12.5 g/dL (12.0-16.0); LYMPHOCYTES # (AUTO) 1.4 K/uL (1.0-4.8); LYMPHOCYTES % (AUTO) 15.7 % (22.0-44.0); MEAN CORPUSCULAR HGB CONC 32.6 G/dL (31.0-37.0); MEAN CORPUSCULAR VOLUME 92 fL (80-100); MONOCYTES # (AUTO) 0.6 K/uL (0.1-1.0); MONOCYTES % (AUTO) 6.8 % (2.0-9.0); NEUTROPHILS # (AUTO) 6.5 K/uL (1.8-7.7); NEUTROPHILS % (AUTO) 75.3 % (40.0-70.0); PLATELET COUNT (AUTO) 244 K/uL (150-450); RED BLOOD CELL COUNT(AUTO) 4.18 MIL/uL (4.00-5.20); RED CELL DISTRIBUTION WIDTH 18.1 % (11.5-14.5)
[2017-08-11 14:23] LABS: ANION GAP 4 mmol/L (8-16); CALCIUM, TOTAL 8.1 mg/dL (8.8-10.5); CARBON DIOXIDE 26 mmol/L (22-29); CHLORIDE 110 mmol/L (98-107); CREATININE 0.92 mg/dL (0.60-1.30); GLOMERULAR FILTR. RATE CALC > 60 mL/min (>60); GLUCOSE,RANDOM 114 mg/dL (70-110); POTASSIUM 4.1 mmol/L (3.5-5.1); SODIUM SERUM 140 mmol/L (136-145); UREA NITROGEN, BLOOD 9 mg/dL (7-18)
[2017-08-11 15:18] VITALS: BP 127/72
[2017-08-11 19:40] VITALS: BP 113/60
[2017-08-11] MEDS: ATORVASTATIN CALCIUM 10 MG TABLET PO SCH (20:07)
[2017-08-12 00:13] VITALS: BP 122/76
[2017-08-12] MEDS: SODIUM CHLORIDE 0.9% 1,000 ML IV SCH ×2 (05:14→15:45)
[2017-08-12 08:51] VITALS: BP 136/72
[2017-08-12] MEDS: DOCUSATE SODIUM 100 MG CAPSULE PO SCH (09:00)
[2017-08-12] MEDS: MAGNESIUM OXIDE 400 MG TABLET PO SCH (09:00)
[2017-08-12] MEDS: PANTOPRAZOLE SODIUM 40 MG DR TABLET PO SCH (09:00)
[2017-08-12] MEDS ORDERED: DENTURE ADHESIVE 68 GM CREAM DT PRN (11:00)
[2017-08-12 16:43] VITALS: BP 125/62
[2017-08-12 19:42] VITALS: BP 117/64
[2017-08-12 20:12] LABS: GLUCOMETER DEV NAME(LOC) 5N 1M; GLUCOSE,POINT OF CARE 130 MG/DL (70-110)
== END 2017-08-12 20:00 | DRG 918 ==
LOC: EMS 12:54 → 5N 16:38
PROVIDERS: ADMIT Internal Medicine; ATTEND Internal Medicine
DX: T39.392A Poisoning by other nonsteroidal anti-inflammatory drugs [NSAID], intentional self-harm, initial encounter (principal); E11.21 Type 2 diabetes mellitus with diabetic nephropathy; K74.60 Unspecified cirrhosis of liver; E87.6 Hypokalemia; E78.5 Hyperlipidemia, unspecified; G25.81 Restless legs syndrome; F17.200 Nicotine dependence, unspecified, uncomplicated; F32.9 Major depressive disorder, single episode, unspecified; F20.9 Schizophrenia, unspecified; F41.1 Generalized anxiety disorder; Z88.0 Allergy status to penicillin; I10 Essential (primary) hypertension; J45.909 Unspecified asthma, uncomplicated; Z79.899 Other long term (current) drug therapy; Z81.8 Family history of other mental and behavioral disorders; Z82.49 Family history of ischemic heart disease and other diseases of the circulatory system; Z83.3 Family history of diabetes mellitus; Z91.5 Personal history of self-harm; Z98.1 Arthrodesis status; Y92.89 Other specified places as the place of occurrence of the external cause; Z22.322 Carrier or suspected carrier of Methicillin resistant Staphylococcus aureus; Z88.1 Allergy status to other antibiotic agents; Z88.2 Allergy status to sulfonamides; Z88.8 Allergy status to other drugs, medicaments and biological substances
CPT/HCPCS: 82948; 82962; 83735; 87081; 93005; 94660; 96360; 96361; 99285; G0480; G0481; J3475; J7030; J7060

== ENCOUNTER 2017-08-12 20:00 | Inpatient (IN) | payer MEDICARE, MEDICAID ==
[~2017-08-12 20:00] MED LIST changes: +ALBU8HFA4 IH; +ATOR10TA84 PO; +DICL75TA5 PO; +LOPE2 PO
[2017-08-12 20:30] VITALS: BP 136/78
[2017-08-12] MEDS ORDERED: LORazepam 2 MG/ML VIAL IM ONE (20:45)
[2017-08-12] MEDS ORDERED: LORazepam 2 MG/ML VIAL ONE (20:45)
[2017-08-12] MEDS ORDERED: HALOPERIDOL LACTATE 5 MG/ML VIAL ONE (20:45)
[2017-08-12] MEDS ORDERED: DiphenhydrAMINE HCL 50 MG/ML VIAL IM ONE (20:45)
[2017-08-12] MEDS ORDERED: HALOPERIDOL LACTATE 5 MG/ML VIAL IM ONE (20:45)
[2017-08-12] MEDS ORDERED: DiphenhydrAMINE HCL 50 MG/ML VIAL ONE (20:46)
[2017-08-12] MEDS ORDERED: DENTURE ADHESIVE 68 GM CREAM DT PRN (21:15)
[2017-08-12] MEDS: OLANZapine 10 MG RAPDIS TABLET PO SCH (21:36)
[2017-08-12] MEDS: TraZODone HCL 100 MG TABLET PO SCH ×2 (21:36→21:42)
[2017-08-12] MEDS: GABAPENTIN 300 MG CAPSULE PO SCH (21:37)
[2017-08-13] MEDS ORDERED: ALBUTEROL SULFATE HFA 90 MCG/PUFF 8 GM INHALER IH PRN (06:45)
[2017-08-13 08:24] LABS: BASOPHILS % (AUTO) 0.2 % (0.0-2.0); EOSINOPHILS % (AUTO) 1.7 % (1.0-6.0); HEMATOCRIT 35.5 % (36-46); HEMOGLOBIN 12.2 g/dL (12.0-16.0); LYMPHOCYTES # (AUTO) 1.9 K/uL (1.0-4.8); LYMPHOCYTES % (AUTO) 23.2 % (22.0-44.0); MEAN CORPUSCULAR HEMOGLOBIN 30.6 pg (26.0-34.0); MEAN CORPUSCULAR HGB CONC 34.3 G/dL (31.0-37.0); MEAN CORPUSCULAR VOLUME 89 fL (80-100); MONOCYTES # (AUTO) 0.5 K/uL (0.1-1.0); MONOCYTES % (AUTO) 5.8 % (2.0-9.0); NEUTROPHILS # (AUTO) 5.5 K/uL (1.8-7.7); NEUTROPHILS % (AUTO) 69.1 % (40.0-70.0); PLATELET COUNT (AUTO) 283 K/uL (150-450); RED BLOOD CELL COUNT(AUTO) 3.98 MIL/uL (4.00-5.20); RED CELL DISTRIBUTION WIDTH 17.2 % (11.5-14.5)
[2017-08-13 08:43] LABS: ALANINE AMINOTRANSFERASE 13 U/L (12-78); ALBUMIN 2.8 g/dL (3.4-5.0); ALKALINE PHOSPHATASE 99 U/L (46-116); ANION GAP 8 mmol/L (8-16); ASPARTATE AMINOTRANSFERASE 25 U/L (15-37); BILIRUBIN,TOTAL 0.3 mg/dL (0.1-1.0); CALCIUM, TOTAL 8.7 mg/dL (8.8-10.5); CARBON DIOXIDE 27 mmol/L (22-29); CHLORIDE 108 mmol/L (98-107); GLOMERULAR FILTR. RATE CALC > 60 mL/min (>60); GLUCOSE,RANDOM 87 mg/dL (70-110); POTASSIUM 3.8 mmol/L (3.5-5.1); SODIUM SERUM 143 mmol/L (136-145); TOTAL PROTEIN, SERUM 5.7 g/dL (6.4-8.2); UREA NITROGEN, BLOOD 6 mg/dL (7-18)
[2017-08-13] MEDS: NICOTINE 14 MG/24 HOUR PATCH TD SCH (09:00)
[2017-08-13] MEDS: OMEPRAZOLE 20 MG CAPSULE PO SCH (09:00)
[2017-08-13] MEDS: OXYBUTYNIN CHLORIDE 5 MG TABLET PO SCH ×2 (09:00→17:02)
[2017-08-13] MEDS: GABAPENTIN 300 MG CAPSULE PO SCH ×3 (09:00→17:02)
[2017-08-13] MEDS: FLUoxetine HCL 20 MG CAPSULE PO SCH (09:00)
[2017-08-13] MEDS: DOCUSATE SODIUM 100 MG CAPSULE PO SCH (09:00)
[2017-08-13 13:36] VITALS: BP 138/76
[2017-08-13] MEDS: LORazepam 2 MG TABLET PO PRN (17:03)
[2017-08-13] MEDS: HALOPERIDOL 5 MG TABLET PO PRN (17:03)
[2017-08-13 18:09] VITALS: BP 148/90
[2017-08-13] MEDS: ROPINIRole HCL 1 MG TABLET PO SCH (22:13)
[2017-08-13] MEDS: OLANZapine 10 MG RAPDIS TABLET PO SCH (22:14)
[2017-08-13] MEDS: TraZODone HCL 100 MG TABLET PO SCH (22:15)
[2017-08-14] MEDS: OMEPRAZOLE 20 MG CAPSULE PO SCH (09:41)
[2017-08-14] MEDS: GABAPENTIN 300 MG CAPSULE PO SCH ×3 (09:41→16:23)
[2017-08-14] MEDS: NICOTINE 14 MG/24 HOUR PATCH TD SCH (09:41)
[2017-08-14] MEDS: OXYBUTYNIN CHLORIDE 5 MG TABLET PO SCH ×2 (09:42→16:25)
[2017-08-14] MEDS: FLUoxetine HCL 20 MG CAPSULE PO SCH (09:42)
[2017-08-14] MEDS: DOCUSATE SODIUM 100 MG CAPSULE PO SCH (09:42)
[2017-08-14] MEDS: HALOPERIDOL 5 MG TABLET PO PRN ×3 (10:07→22:02)
[2017-08-14] MEDS: LORazepam 2 MG TABLET PO PRN ×3 (10:08→22:02)
[2017-08-14 11:13] VITALS: BP 132/94
[2017-08-14] MEDS: MUPIROCIN CALCIUM 2% 22 GM OINTMENT NASAL SCH (16:25)
[2017-08-14] MEDS: TraZODone HCL 100 MG TABLET PO SCH (22:01)
[2017-08-14] MEDS: OLANZapine 10 MG RAPDIS TABLET PO SCH (22:01)
[2017-08-14] MEDS: ROPINIRole HCL 1 MG TABLET PO SCH (22:02)
[2017-08-14 22:06] VITALS: BP 135/77
[2017-08-14] MEDS: ZOLPIDEM TARTRATE 10 MG TABLET PO PRN (22:40)
[2017-08-15 01:00] VITALS: BP 137/75
[2017-08-15 09:00] VITALS: BP 130/89
[2017-08-15] MEDS: LORazepam 2 MG TABLET PO PRN ×3 (09:02→19:45)
[2017-08-15] MEDS: HALOPERIDOL 5 MG TABLET PO PRN ×2 (09:02→19:45)
[2017-08-15] MEDS: OXYBUTYNIN CHLORIDE 5 MG TABLET PO SCH ×2 (09:02→17:53)
[2017-08-15] MEDS: GABAPENTIN 300 MG CAPSULE PO SCH ×3 (09:02→17:54)
[2017-08-15] MEDS: OMEPRAZOLE 20 MG CAPSULE PO SCH (09:02)
[2017-08-15] MEDS: DOCUSATE SODIUM 100 MG CAPSULE PO SCH (09:02)
[2017-08-15] MEDS: FLUoxetine HCL 20 MG CAPSULE PO SCH (09:03)
[2017-08-15] MEDS: NICOTINE 14 MG/24 HOUR PATCH TD SCH (09:06)
[2017-08-15] MEDS: MUPIROCIN CALCIUM 2% 22 GM OINTMENT NASAL SCH ×2 (12:16→17:53)
[2017-08-15 18:13] VITALS: BP 136/85
[2017-08-15] MEDS: TraZODone HCL 100 MG TABLET PO SCH (20:15)
[2017-08-15] MEDS: OLANZapine 10 MG RAPDIS TABLET PO SCH (20:15)
[2017-08-15] MEDS: ROPINIRole HCL 1 MG TABLET PO SCH (20:15)
[2017-08-16] MEDS: LORazepam 2 MG TABLET PO PRN ×3 (07:50→23:57)
[2017-08-16] MEDS: DOCUSATE SODIUM 100 MG CAPSULE PO SCH (07:50)
[2017-08-16] MEDS: NICOTINE 14 MG/24 HOUR PATCH TD SCH (07:50)
[2017-08-16] MEDS: HALOPERIDOL 5 MG TABLET PO PRN ×3 (07:51→23:58)
[2017-08-16] MEDS: FLUoxetine HCL 20 MG CAPSULE PO SCH (07:51)
[2017-08-16] MEDS: GABAPENTIN 300 MG CAPSULE PO SCH ×3 (07:51→16:24)
[2017-08-16] MEDS: OMEPRAZOLE 20 MG CAPSULE PO SCH (07:51)
[2017-08-16] MEDS: MUPIROCIN CALCIUM 2% 22 GM OINTMENT NASAL SCH ×2 (07:51→16:25)
[2017-08-16] MEDS: OXYBUTYNIN CHLORIDE 5 MG TABLET PO SCH ×2 (08:02→16:24)
[2017-08-16 08:03] VITALS: BP 150/91
[2017-08-16] MEDS ORDERED: ACETAMINOPHEN 325 MG TABLET PO PRN (11:00)
[2017-08-16] MEDS: IBUPROFEN 400 MG TABLET PO PRN ×2 (11:17→23:57)
[2017-08-16 16:08] VITALS: BP 144/76
[2017-08-16] MEDS: ZOLPIDEM TARTRATE 10 MG TABLET PO PRN (20:15)
[2017-08-16] MEDS: TraZODone HCL 100 MG TABLET PO SCH (20:15)
[2017-08-16] MEDS: ROPINIRole HCL 1 MG TABLET PO SCH (20:16)
[2017-08-16] MEDS: OLANZapine 10 MG RAPDIS TABLET PO SCH (20:16)
[2017-08-16 23:58] VITALS: BP 138/85
[2017-08-17] MEDS: MUPIROCIN CALCIUM 2% 22 GM OINTMENT NASAL SCH (08:44)
[2017-08-17] MEDS: DOCUSATE SODIUM 100 MG CAPSULE PO SCH (08:45)
[2017-08-17] MEDS: GABAPENTIN 300 MG CAPSULE PO SCH (08:45)
[2017-08-17] MEDS: OXYBUTYNIN CHLORIDE 5 MG TABLET PO SCH (08:45)
[2017-08-17] MEDS: OMEPRAZOLE 20 MG CAPSULE PO SCH (08:46)
[2017-08-17] MEDS: FLUoxetine HCL 20 MG CAPSULE PO SCH (08:46)
[2017-08-17] MEDS: NICOTINE 14 MG/24 HOUR PATCH TD SCH (08:47)
[2017-08-17] MEDS: LORazepam 2 MG TABLET PO PRN (08:49)
[2017-08-17] MEDS: HALOPERIDOL 5 MG TABLET PO PRN (08:49)
[2017-08-17] MEDS ORDERED: MUPI1OIN4 NS (09:23)
== END 2017-08-17 10:20 | disposition home or self-care (01) | DRG 885 ==
LOC: 3EC 20:00
PROVIDERS: ADMIT Psychiatry & Neurology Psychiatry; ATTEND Psychiatry & Neurology Psychiatry
DX: F20.9 Schizophrenia, unspecified (principal); F33.2 Major depressive disorder, recurrent severe without psychotic features; R45.851 Suicidal ideations; F15.20 Other stimulant dependence, uncomplicated; K74.60 Unspecified cirrhosis of liver; E11.9 Type 2 diabetes mellitus without complications; Z81.8 Family history of other mental and behavioral disorders; Z81.1 Family history of alcohol abuse and dependence; F60.3 Borderline personality disorder; Z63.9 Problem related to primary support group, unspecified; E78.5 Hyperlipidemia, unspecified; F17.200 Nicotine dependence, unspecified, uncomplicated; F41.9 Anxiety disorder, unspecified; G40.909 Epilepsy, unspecified, not intractable, without status epilepticus; G47.33 Obstructive sleep apnea (adult) (pediatric); J44.9 Chronic obstructive pulmonary disease, unspecified; K59.09 Other constipation; M19.90 Unspecified osteoarthritis, unspecified site; R32 Unspecified urinary incontinence; Z79.899 Other long term (current) drug therapy; E55.9 Vitamin D deficiency, unspecified; M25.569 Pain in unspecified knee; Z72.89 Other problems related to lifestyle; Z71.6 Tobacco abuse counseling; Z88.0 Allergy status to penicillin; Z88.2 Allergy status to sulfonamides; Z88.8 Allergy status to other drugs, medicaments and biological substances; Z91.048 Other nonmedicinal substance allergy status
CPT/HCPCS: 87081; 94660; J1200; J1630; J2060

== ENCOUNTER 2017-09-12 11:54 | Inpatient (IN) | payer MEDICARE, MEDICAID ==
[~2017-09-12] VITALS: Ht 162.6 cm; Wt 96.4 kg
[~2017-09-12 11:54] MED LIST changes: -ATOR10TA84 PO; -DICL75TA5 PO; -LOPE2 PO; -MAGOX PO; -METF500T4 PO; +MUPI1OIN4 NS
[2017-09-12] MEDS ORDERED: LORazepam 2 MG/ML VIAL IM ONE (13:00)
[2017-09-12] MEDS ORDERED: HALOPERIDOL LACTATE 5 MG/ML VIAL IM ONE (13:00)
[2017-09-12] MEDS ORDERED: DiphenhydrAMINE HCL 50 MG/ML VIAL IM ONE (13:00)
[2017-09-12 13:26] LABS: BASOPHILS % (AUTO) 0.8 % (0.0-2.0); EOSINOPHILS % (AUTO) 0.8 % (1.0-6.0); HEMATOCRIT 43.3 % (36-46); HEMOGLOBIN 14.6 g/dL (12.0-16.0); LYMPHOCYTES # (AUTO) 2.2 K/uL (1.0-4.8); MEAN CORPUSCULAR HGB CONC 33.6 G/dL (31.0-37.0); MEAN CORPUSCULAR VOLUME 92 fL (80-100); MONOCYTES # (AUTO) 0.5 K/uL (0.1-1.0); MONOCYTES % (AUTO) 3.4 % (2.0-9.0); NEUTROPHILS # (AUTO) 10.9 K/uL (1.8-7.7); PLATELET COUNT (AUTO) 312 K/uL (150-450); RED BLOOD CELL COUNT(AUTO) 4.69 MIL/uL (4.00-5.20); RED CELL DISTRIBUTION WIDTH 15.1 % (11.5-14.5); WHITE BLOOD COUNT (AUTO) 13.8 K/uL (4.5-11.0)
[2017-09-12] MEDS ORDERED: ZOLPIDEM TARTRATE 10 MG TABLET PO PRN (13:30)
[2017-09-12 13:37] LABS: ANION GAP 14 mmol/L (8-16); CALCIUM, TOTAL 8.9 mg/dL (8.8-10.5); CARBON DIOXIDE 26 mmol/L (22-29); CHLORIDE 100 mmol/L (98-107); CREATININE 0.92 mg/dL (0.60-1.30); GLOMERULAR FILTR. RATE CALC > 60 mL/min (>60); POTASSIUM 3.4 mmol/L (3.5-5.1); SODIUM SERUM 140 mmol/L (136-145); UREA NITROGEN, BLOOD 12 mg/dL (7-18)
[2017-09-12 13:43] LABS: ALANINE AMINOTRANSFERASE 12 U/L (12-78); ALBUMIN 3.8 g/dL (3.4-5.0); ASPARTATE AMINOTRANSFERASE 46 U/L (15-37); BILIRUBIN,TOTAL 0.4 mg/dL (0.1-1.0)
[2017-09-12 15:22] LABS: GLUCOSE COMMENT 1 Doctor Notified; GLUCOSE,POINT OF CARE 104 MG/DL (70-110)
[2017-09-12] MEDS: OLANZapine 10 MG RAPDIS TABLET PO SCH (21:12)
[2017-09-12] MEDS: TraZODone HCL 100 MG TABLET PO SCH (21:12)
[2017-09-13] MEDS ORDERED: PETROLATUM,WHITE 71 GM JELLY TP PRN (09:15)
[2017-09-13] MEDS ORDERED: ONDANSETRON HCL 4 MG TABLET PO PRN (09:15)
[2017-09-13] MEDS ORDERED: LOPERAMIDE HCL 2 MG CAPSULE PO PRN (09:15)
[2017-09-13] MEDS ORDERED: POTASSIUM CHLORIDE 20 MEQ ER TABLET PO ONE (09:15)
[2017-09-13] MEDS ORDERED: IBUPROFEN 600 MG TABLET PO PRN (09:15)
[2017-09-13] MEDS ORDERED: MAG HYDROX/AL HYDROX/SIMETH ES 30 ML SUSPENSION UDCUP PO PRN (09:15)
[2017-09-13] MEDS ORDERED: ACETAMINOPHEN 325 MG TABLET PO PRN (09:15)
[2017-09-13] MEDS ORDERED: CloNIDine HCL 0.1 MG TABLET PO PRN (09:15)
[2017-09-13] MEDS ORDERED: BACITRACIN 28.4 GM OINTMENT TP PRN (09:15)
[2017-09-13] MEDS ORDERED: MAGNESIUM HYDROXIDE SUSPENSION 30 ML UDCUP PO PRN (09:15)
[2017-09-13] MEDS ORDERED: ALBUTEROL SULFATE HFA 90 MCG/PUFF 8 GM INHALER IH PRN (09:15)
[2017-09-13 10:14] LABS: CHOL/HDL RATIO 3.1 (3.9-5.7)
[2017-09-13] MEDS: FLUoxetine HCL 20 MG CAPSULE PO SCH (10:39)
[2017-09-13] MEDS ORDERED: BENZOCAINE/MENTHOL LOZENGE [8 LOZENGES/PACKET] MM PRN (11:30)
[2017-09-13] MEDS ORDERED: LORazepam 2 MG/ML VIAL IM ONE (13:00)
[2017-09-13] MEDS ORDERED: HALOPERIDOL LACTATE 5 MG/ML VIAL IM ONE (13:00)
[2017-09-13] MEDS ORDERED: DiphenhydrAMINE HCL 50 MG/ML VIAL IM ONE (13:00)
[2017-09-13] MEDS: NICOTINE 21 MG/24 HOUR PATCH TD SCH (13:17)
[2017-09-13] MEDS ORDERED: -PHARMACY VACCINE NOTE- MISC ONE ×2 (14:00)
[2017-09-13] MEDS ORDERED: INFLUENZA VIRUS VACCINE QVS 2017-18 (3YR+)/PF 60 MCG/0.5 ML SYRINGE IM ONE (14:00)
[2017-09-13 16:45] VITALS: BP 136/84
[2017-09-13] MEDS: OXYBUTYNIN CHLORIDE 5 MG TABLET PO SCH (17:22)
[2017-09-13] MEDS: TraZODone HCL 100 MG TABLET PO SCH (20:47)
[2017-09-13] MEDS: ROPINIRole HCL 1 MG TABLET PO SCH (20:47)
[2017-09-13] MEDS: OLANZapine 10 MG RAPDIS TABLET PO SCH (20:47)
[2017-09-14] MEDS: NICOTINE 21 MG/24 HOUR PATCH TD SCH (08:39)
[2017-09-14] MEDS: DOCUSATE SODIUM 100 MG CAPSULE PO SCH (08:39)
[2017-09-14] MEDS: OMEPRAZOLE 20 MG CAPSULE PO SCH (08:39)
[2017-09-14] MEDS: FLUoxetine HCL 20 MG CAPSULE PO SCH (08:39)
[2017-09-14] MEDS: OXYBUTYNIN CHLORIDE 5 MG TABLET PO SCH ×2 (08:40→18:22)
[2017-09-14] MEDS: CHOLECALCIFEROL (VIT D3) 1,000 UNITS TABLET PO SCH (08:40)
[2017-09-14] MEDS: HALOPERIDOL 5 MG TABLET PO PRN (08:43)
[2017-09-14] MEDS: LORazepam 2 MG TABLET PO PRN (08:44)
[2017-09-14] MEDS ORDERED: IBUPROFEN 400 MG TABLET PO PRN (15:00)
[2017-09-14] MEDS ORDERED: ACETAMINOPHEN 325 MG TABLET PO PRN (15:00)
[2017-09-14] MEDS ORDERED: LORazepam 2 MG/ML VIAL ONE (15:38)
[2017-09-14] MEDS ORDERED: DiphenhydrAMINE HCL 50 MG/ML VIAL ONE (15:39)
[2017-09-14] MEDS ORDERED: HALOPERIDOL LACTATE 5 MG/ML VIAL ONE (15:39)
[2017-09-14] MEDS ORDERED: LORazepam 2 MG/ML VIAL IM ONE (15:45)
[2017-09-14] MEDS ORDERED: HALOPERIDOL LACTATE 5 MG/ML VIAL IVP ONE (15:45)
[2017-09-14] MEDS ORDERED: DiphenhydrAMINE HCL 50 MG/ML VIAL IM ONE (15:45)
[2017-09-14] MEDS ORDERED: HALOPERIDOL LACTATE 5 MG/ML VIAL IM ONE (16:00)
[2017-09-14] MEDS: ROPINIRole HCL 1 MG TABLET PO SCH (21:23)
[2017-09-14] MEDS: TraZODone HCL 100 MG TABLET PO SCH (21:23)
[2017-09-14] MEDS: OLANZapine 10 MG RAPDIS TABLET PO SCH (21:24)
[2017-09-15] MEDS: HALOPERIDOL 5 MG TABLET PO PRN ×2 (07:54→15:15)
[2017-09-15] MEDS: LORazepam 2 MG TABLET PO PRN ×2 (07:54→15:15)
[2017-09-15] MEDS: NICOTINE 21 MG/24 HOUR PATCH TD SCH (07:54)
[2017-09-15] MEDS: CHOLECALCIFEROL (VIT D3) 1,000 UNITS TABLET PO SCH (07:55)
[2017-09-15] MEDS: OXYBUTYNIN CHLORIDE 5 MG TABLET PO SCH ×2 (07:55→17:27)
[2017-09-15] MEDS: FLUoxetine HCL 20 MG CAPSULE PO SCH (07:55)
[2017-09-15] MEDS: OMEPRAZOLE 20 MG CAPSULE PO SCH (07:55)
[2017-09-15] MEDS: DOCUSATE SODIUM 100 MG CAPSULE PO SCH (07:56)
[2017-09-15 08:05] VITALS: BP 129/91
[2017-09-15] MEDS: MUPIROCIN CALCIUM 2% 22 GM OINTMENT NASAL SCH (17:36)
[2017-09-15] MEDS: TraZODone HCL 100 MG TABLET PO SCH (21:13)
[2017-09-15] MEDS: ROPINIRole HCL 1 MG TABLET PO SCH (21:13)
[2017-09-15] MEDS: OLANZapine 10 MG RAPDIS TABLET PO SCH (21:14)
[2017-09-16] MEDS: OXYBUTYNIN CHLORIDE 5 MG TABLET PO SCH (08:11)
[2017-09-16] MEDS: FLUoxetine HCL 20 MG CAPSULE PO SCH (08:11)
[2017-09-16] MEDS: HALOPERIDOL 5 MG TABLET PO PRN (08:11)
[2017-09-16] MEDS: CHOLECALCIFEROL (VIT D3) 1,000 UNITS TABLET PO SCH (08:11)
[2017-09-16] MEDS: OMEPRAZOLE 20 MG CAPSULE PO SCH (08:11)
[2017-09-16] MEDS: LORazepam 2 MG TABLET PO PRN (08:11)
[2017-09-16] MEDS: DOCUSATE SODIUM 100 MG CAPSULE PO SCH (08:12)
[2017-09-16] MEDS: NICOTINE 21 MG/24 HOUR PATCH TD SCH (09:33)
[2017-09-16] MEDS: MUPIROCIN CALCIUM 2% 22 GM OINTMENT NASAL SCH (09:34)
[2017-09-16 09:57] VITALS: BP 124/92
[2017-09-16] MEDS ORDERED: DENTURE ADHESIVE 68 GM CREAM DT PRN (10:00)
[2017-09-16] MEDS ORDERED: VITAD1000 PO (10:26)
== END 2017-09-16 11:30 | disposition home or self-care (01) | DRG 885 ==
LOC: EMS 11:54 → 3EC 09-13 10:51
PROVIDERS: ADMIT Psychiatry & Neurology Psychiatry; ATTEND Psychiatry & Neurology Psychiatry
DX: F33.2 Major depressive disorder, recurrent severe without psychotic features (principal); R45.851 Suicidal ideations; F25.9 Schizoaffective disorder, unspecified; E11.9 Type 2 diabetes mellitus without complications; E78.5 Hyperlipidemia, unspecified; E87.6 Hypokalemia; F12.90 Cannabis use, unspecified, uncomplicated; F15.10 Other stimulant abuse, uncomplicated; F17.200 Nicotine dependence, unspecified, uncomplicated; G25.81 Restless legs syndrome; G47.33 Obstructive sleep apnea (adult) (pediatric); I10 Essential (primary) hypertension; J44.9 Chronic obstructive pulmonary disease, unspecified; K21.9 Gastro-esophageal reflux disease without esophagitis; K59.09 Other constipation; M19.90 Unspecified osteoarthritis, unspecified site; R32 Unspecified urinary incontinence; R74.0 Nonspecific elevation of levels of transaminase and lactic acid dehydrogenase [LDH]; Z81.8 Family history of other mental and behavioral disorders; Z91.5 Personal history of self-harm; Z98.1 Arthrodesis status
CPT/HCPCS: 82962; 87081; 94660; 96372; 99285; G0480; J1200; J1630; J2060

== ENCOUNTER 2017-09-28 12:52 | Inpatient (IN) | payer MEDICARE, MEDICAID ==
[~2017-09-28] VITALS: Ht 162.6 cm; Wt 97.8 kg
[~2017-09-28 12:52] MED LIST changes: -GABA-531 PO; +VITAD1000 PO
[2017-09-28] MEDS ORDERED: HALOPERIDOL LACTATE 5 MG/ML VIAL ONE (13:13)
[2017-09-28] MEDS ORDERED: DiphenhydrAMINE HCL 50 MG/ML VIAL ONE (13:13)
[2017-09-28] MEDS ORDERED: LORazepam 2 MG/ML VIAL ONE (13:13)
[2017-09-28] MEDS ORDERED: LORazepam 2 MG/ML VIAL IM ONE (13:15)
[2017-09-28] MEDS ORDERED: HALOPERIDOL LACTATE 5 MG/ML VIAL IM ONE (13:15)
[2017-09-28] MEDS ORDERED: DiphenhydrAMINE HCL 50 MG/ML VIAL IM ONE (13:15)
[2017-09-28 13:41] LABS: GLUCOSE,POINT OF CARE 108 MG/DL (70-110)
[2017-09-28 14:35] LABS: BASOPHILS % (AUTO) 0.4 % (0.0-2.0); EOSINOPHILS % (AUTO) 0.4 % (1.0-6.0); HEMATOCRIT 42.6 % (36-46); HEMOGLOBIN 14.3 g/dL (12.0-16.0); LYMPHOCYTES # (AUTO) 2.6 K/uL (1.0-4.8); LYMPHOCYTES % (AUTO) 19.8 % (22.0-44.0); MEAN CORPUSCULAR HEMOGLOBIN 30.9 pg (26.0-34.0); MEAN CORPUSCULAR HGB CONC 33.5 G/dL (31.0-37.0); MEAN CORPUSCULAR VOLUME 92 fL (80-100); MONOCYTES # (AUTO) 0.5 K/uL (0.1-1.0); MONOCYTES % (AUTO) 4.1 % (2.0-9.0); NEUTROPHILS # (AUTO) 9.8 K/uL (1.8-7.7); NEUTROPHILS % (AUTO) 75.3 % (40.0-70.0); PLATELET COUNT (AUTO) 259 K/uL (150-450); RED BLOOD CELL COUNT(AUTO) 4.62 MIL/uL (4.00-5.20)
[2017-09-28 14:43] LABS: ANION GAP 14 mmol/L (8-16); CALCIUM, TOTAL 9.2 mg/dL (8.8-10.5); CARBON DIOXIDE 23 mmol/L (22-29); CHLORIDE 104 mmol/L (98-107); CREATININE 0.67 mg/dL (0.60-1.30); GLOMERULAR FILTR. RATE CALC > 60 mL/min (>60); POTASSIUM 3.3 mmol/L (3.5-5.1); SODIUM SERUM 141 mmol/L (136-145); UREA NITROGEN, BLOOD 5 mg/dL (7-18)
[2017-09-28 14:48] LABS: ALANINE AMINOTRANSFERASE 15 U/L (12-78); ALBUMIN 3.5 g/dL (3.4-5.0); ASPARTATE AMINOTRANSFERASE 29 U/L (15-37); BILIRUBIN,TOTAL 0.3 mg/dL (0.1-1.0); TOTAL PROTEIN, SERUM 7.6 g/dL (6.4-8.2)
[2017-09-28 14:49] LABS: ACETAMINOPHEN < 2 mcg/mL (10-30)
[2017-09-28 15:25] LABS: SALICYLATE 5.9 mg/dL (2.8-20.0)
[2017-09-28] MEDS ORDERED: OLANZapine 5 MG RAPDIS TABLET PO PRN (17:45)
[2017-09-28] MEDS ORDERED: ACETAMINOPHEN 325 MG TABLET PO PRN (17:45)
[2017-09-28] MEDS ORDERED: LOPERAMIDE HCL 2 MG CAPSULE PO PRN (17:45)
[2017-09-28] MEDS ORDERED: ZOLPIDEM TARTRATE 10 MG TABLET PO PRN (17:45)
[2017-09-28] MEDS ORDERED: PROMETHAZINE HCL 25 MG TABLET PO PRN (17:45)
[2017-09-28] MEDS ORDERED: HydrOXYzine PAMOATE 50 MG CAPSULE PO PRN (17:45)
[2017-09-28] MEDS ORDERED: MAG HYDROX/AL HYDROX/SIMETH ES 30 ML SUSPENSION UDCUP PO PRN (17:45)
[2017-09-28] MEDS ORDERED: MAGNESIUM HYDROXIDE SUSPENSION 30 ML UDCUP PO PRN (17:45)
[2017-09-28] MEDS ORDERED: GuaiFENesin/D-METHORPHAN [SUGAR-FREE] 200-20MG/10 ML SYRUP UDCUP PO PRN (17:45)
[2017-09-28] MEDS: OLANZapine 5 MG RAPDIS TABLET PO SCH (21:23)
[2017-09-28] MEDS: THIAMINE HCL 100 MG TABLET PO SCH (23:18)
[2017-09-29 00:18] VITALS: BP 138/91
[2017-09-29] MEDS ORDERED: INFLUENZA VIRUS VACCINE QVS 2017-18 (3YR+)/PF 60 MCG/0.5 ML SYRINGE IM ONE (00:30)
[2017-09-29] MEDS: LORazepam 2 MG TABLET PO PRN (07:48)
[2017-09-29 08:00] VITALS: BP 135/86
[2017-09-29] MEDS: MULTIVITAMINS WITH MINERALS, THERAPEUTIC TABLET PO SCH (08:03)
[2017-09-29] MEDS: THIAMINE HCL 100 MG TABLET PO SCH ×2 (08:03→18:00)
[2017-09-29] MEDS: FLUoxetine HCL 20 MG CAPSULE PO SCH (08:03)
[2017-09-29] MEDS: FOLIC ACID 1 MG TABLET PO SCH (08:04)
[2017-09-29] MEDS ORDERED: DENTURE ADHESIVE 68 GM CREAM DT PRN (12:15)
[2017-09-29] MEDS ORDERED: ALBUTEROL SULFATE HFA 90 MCG/PUFF 8 GM INHALER IH PRN (16:30)
[2017-09-29] MEDS: OXYBUTYNIN CHLORIDE 5 MG TABLET PO SCH (18:00)
[2017-09-29] MEDS: TraZODone HCL 100 MG TABLET PO SCH ×2 (20:41→20:50)
[2017-09-29] MEDS: OLANZapine 5 MG RAPDIS TABLET PO SCH (20:44)
[2017-09-29] MEDS ORDERED: ROPINIRole HCL 1 MG TABLET PO SCH ×2 (21:00)
[2017-09-30 07:17] LABS: HEMOGLOBIN A1C 5.7 % (4.5-6.2)
[2017-09-30 07:39] LABS: ALANINE AMINOTRANSFERASE 16 U/L (12-78); ALBUMIN 3.2 g/dL (3.4-5.0); ANION GAP 7 mmol/L (8-16); ASPARTATE AMINOTRANSFERASE 19 U/L (15-37); BILIRUBIN,TOTAL 0.2 mg/dL (0.1-1.0); CALCIUM, TOTAL 9.1 mg/dL (8.8-10.5); CARBON DIOXIDE 31 mmol/L (22-29); CHLORIDE 102 mmol/L (98-107); CHOL/HDL RATIO 4.1 (3.9-5.7); CREATININE 0.77 mg/dL (0.60-1.30); GLOMERULAR FILTR. RATE CALC > 60 mL/min (>60); POTASSIUM 4.6 mmol/L (3.5-5.1); SODIUM SERUM 140 mmol/L (136-145); THYROID STIMULATING HORMONE 1.19 uIU/mL (0.36-3.74); TOTAL PROTEIN, SERUM 6.5 g/dL (6.4-8.2); UREA NITROGEN, BLOOD 11 mg/dL (7-18)
[2017-09-30] MEDS ORDERED: OMEPRAZOLE 20 MG CAPSULE PO SCH (09:00)
[2017-09-30] MEDS ORDERED: DOCUSATE SODIUM 100 MG CAPSULE PO SCH (09:00)
[2017-09-30] MEDS ORDERED: CHOLECALCIFEROL (VIT D3) 1,000 UNITS TABLET PO SCH (09:00)
[2017-09-30] MEDS ORDERED: NALTREXONE HCL 50 MG TABLET PO SCH (09:00)
[2017-09-30] MEDS: FLUoxetine HCL 20 MG CAPSULE PO SCH (09:53)
[2017-09-30] MEDS: OXYBUTYNIN CHLORIDE 5 MG TABLET PO SCH ×2 (09:54→18:01)
[2017-09-30] MEDS: FOLIC ACID 1 MG TABLET PO SCH (09:54)
[2017-09-30] MEDS: MULTIVITAMINS WITH MINERALS, THERAPEUTIC TABLET PO SCH (09:55)
[2017-09-30] MEDS: THIAMINE HCL 100 MG TABLET PO SCH ×2 (09:55→18:02)
[2017-09-30] MEDS: LORazepam 2 MG TABLET PO PRN (09:58)
[2017-09-30 12:57] VITALS: BP 139/80
[2017-09-30] MEDS ORDERED: TRAZ-147 PO (15:27)
[2017-09-30] MEDS ORDERED: OLAN5TAB30 PO (15:27)
[2017-09-30] MEDS ORDERED: NALT50TA PO (15:27)
[2017-09-30] MEDS ORDERED: FLUO-191 PO (15:27)
[2017-09-30] MEDS ORDERED: ROPI1TAB38 PO (15:27)
== END 2017-09-30 18:45 | disposition home or self-care (01) | DRG 885 ==
LOC: EMS 12:55 → 3EC 22:18
PROVIDERS: ADMIT Psychiatry & Neurology Psychiatry; ATTEND Psychiatry & Neurology Psychiatry
DX: F25.0 Schizoaffective disorder, bipolar type (principal); E11.9 Type 2 diabetes mellitus without complications; D72.829 Elevated white blood cell count, unspecified; E55.9 Vitamin D deficiency, unspecified; E78.5 Hyperlipidemia, unspecified; F17.210 Nicotine dependence, cigarettes, uncomplicated; Z28.21 Immunization not carried out because of patient refusal; G25.81 Restless legs syndrome; G47.33 Obstructive sleep apnea (adult) (pediatric); G89.4 Chronic pain syndrome; I10 Essential (primary) hypertension; J44.9 Chronic obstructive pulmonary disease, unspecified; K21.9 Gastro-esophageal reflux disease without esophagitis; K59.09 Other constipation; M19.90 Unspecified osteoarthritis, unspecified site; R32 Unspecified urinary incontinence; Z91.19 Patient's noncompliance with other medical treatment and regimen; Z91.5 Personal history of self-harm; Z88.0 Allergy status to penicillin; Z98.1 Arthrodesis status; F41.9 Anxiety disorder, unspecified; Z59.9 Problem related to housing and economic circumstances, unspecified; Z63.9 Problem related to primary support group, unspecified; Z90.49 Acquired absence of other specified parts of digestive tract; Z88.1 Allergy status to other antibiotic agents; Z88.2 Allergy status to sulfonamides; F60.3 Borderline personality disorder
CPT/HCPCS: 82962; 83036; 84439; 84443; 86592; 87081; 93005; 94660; 96372; 99285; G0480; G0481; J1200; J1630; J2060

== ENCOUNTER 2017-10-04 14:05 | Inpatient (IN) | payer MEDICARE, MEDICAID ==
[~2017-10-04] VITALS: Ht 167.6 cm; Wt 96.2 kg
[~2017-10-04 14:05] MED LIST changes: -MUPI1OIN4 NS; +NALT50TA PO; -OLAN10TA6 PO; +OLAN5TAB30 PO; -ROPI1TAB11 PO; +ROPI1TAB38 PO
[2017-10-04 15:02] LABS: BASOPHILS % (AUTO) 0.1 % (0.0-2.0); EOSINOPHILS % (AUTO) 1.1 % (1.0-6.0); HEMATOCRIT 46.4 % (36-46); HEMOGLOBIN 15.3 g/dL (12.0-16.0); LYMPHOCYTES # (AUTO) 2.3 K/uL (1.0-4.8); LYMPHOCYTES % (AUTO) 14.9 % (22.0-44.0); MEAN CORPUSCULAR HEMOGLOBIN 30.5 pg (26.0-34.0); MEAN CORPUSCULAR HGB CONC 32.9 G/dL (31.0-37.0); MEAN CORPUSCULAR VOLUME 93 fL (80-100); MONOCYTES # (AUTO) 0.8 K/uL (0.1-1.0); MONOCYTES % (AUTO) 5.4 % (2.0-9.0); NEUTROPHILS # (AUTO) 12.3 K/uL (1.8-7.7); NEUTROPHILS % (AUTO) 78.5 % (40.0-70.0); PLATELET COUNT (AUTO) 223 K/uL (150-450); RED CELL DISTRIBUTION WIDTH 14.8 % (11.5-14.5)
[2017-10-04 15:27] LABS: ANION GAP 13 mmol/L (8-16); CALCIUM, TOTAL 9.1 mg/dL (8.8-10.5); CARBON DIOXIDE 25 mmol/L (22-29); CHLORIDE 101 mmol/L (98-107); GLOMERULAR FILTR. RATE CALC > 60 mL/min (>60); GLUCOSE,RANDOM 124 mg/dL (70-110); SODIUM SERUM 139 mmol/L (136-145); UREA NITROGEN, BLOOD 4 mg/dL (7-18)
[2017-10-04 15:32] LABS: ALANINE AMINOTRANSFERASE 17 U/L (12-78); ALBUMIN 3.8 g/dL (3.4-5.0); ALKALINE PHOSPHATASE 140 U/L (46-116); ASPARTATE AMINOTRANSFERASE 21 U/L (15-37); BILIRUBIN,TOTAL 0.2 mg/dL (0.1-1.0)
[2017-10-04 15:46] LABS: SALICYLATE 5.9 mg/dL (2.8-20.0)
[2017-10-04 16:01] LABS: ACETAMINOPHEN < 2 mcg/mL (10-30)
[2017-10-04] MEDS ORDERED: ZOLPIDEM TARTRATE 10 MG TABLET PO PRN (16:15)
[2017-10-04 17:27] LABS: GLUCOSE,POINT OF CARE 93 MG/DL (70-110)
[2017-10-04 17:49] LABS: AMPHET/METH SCREEN,URINE POSITIVE (NEGATIVE); BARBITURATE SCREEN, URINE NEGATIVE (NEGATIVE); BENZODIAZEPINES SCREEN,URINE NEGATIVE (NEGATIVE); CANNABINOID SCREEN,URINE NEGATIVE (NEGATIVE); COCAINE SCREEN,URINE NEGATIVE (NEGATIVE); METHADONE SCREEN, URINE NEGATIVE (NEGATIVE); OPIATE SCREEN,URINE NEGATIVE (NEGATIVE)
[2017-10-04 17:53] LABS: PHENCYCLIDINE SCREEN,URINE NEGATIVE (NEGATIVE)
[2017-10-04 20:05] VITALS: BP 134/93
[2017-10-04] MEDS ORDERED: ALBUTEROL SULFATE HFA 90 MCG/PUFF 8 GM INHALER IH PRN (20:15)
[2017-10-04] MEDS ORDERED: DENTURE ADHESIVE 68 GM CREAM DT PRN (20:15)
[2017-10-04] MEDS ORDERED: INFLUENZA VIRUS VACCINE QVS 2017-18 (3YR+)/PF 60 MCG/0.5 ML SYRINGE IM ONE (20:30)
[2017-10-04] MEDS: ROPINIRole HCL 1 MG TABLET PO SCH (21:03)
[2017-10-04 21:45] LABS: PLATELET MORPHOLOGY COMMENT LARGE PLTS PRESENT
[2017-10-05] MEDS: HALOPERIDOL 5 MG TABLET PO PRN (08:00)
[2017-10-05] MEDS: CHOLECALCIFEROL (VIT D3) 1,000 UNITS TABLET PO SCH (08:00)
[2017-10-05] MEDS: LORazepam 2 MG TABLET PO PRN (08:01)
[2017-10-05] MEDS: OXYBUTYNIN CHLORIDE 5 MG TABLET PO SCH ×2 (08:01→16:41)
[2017-10-05] MEDS: OMEPRAZOLE 20 MG CAPSULE PO SCH (08:01)
[2017-10-05 08:32] VITALS: BP 92/63
[2017-10-05] MEDS ORDERED: FLUTICASONE PROPIONATE 50 MCG/SPRAY 16 GM NASAL SPRAY NASAL PRN (11:15)
[2017-10-05] MEDS: LORATADINE 10 MG TABLET PO SCH (12:19)
[2017-10-05] MEDS: ROPINIRole HCL 1 MG TABLET PO SCH (20:11)
[2017-10-05 22:09] VITALS: BP 108/64
[2017-10-06 03:05] VITALS: BP 116/76
[2017-10-06] MEDS: LORazepam 2 MG TABLET PO PRN ×3 (03:07→17:51)
[2017-10-06] MEDS: HALOPERIDOL 5 MG TABLET PO PRN ×3 (03:12→17:51)
[2017-10-06] MEDS: CHOLECALCIFEROL (VIT D3) 1,000 UNITS TABLET PO SCH (07:57)
[2017-10-06] MEDS: OMEPRAZOLE 20 MG CAPSULE PO SCH (07:57)
[2017-10-06] MEDS: LORATADINE 10 MG TABLET PO SCH (07:57)
[2017-10-06] MEDS: OXYBUTYNIN CHLORIDE 5 MG TABLET PO SCH ×2 (07:58→17:51)
[2017-10-06] MEDS ORDERED: LORazepam 2 MG/ML VIAL IM ONE (20:00)
[2017-10-06] MEDS ORDERED: HALOPERIDOL LACTATE 5 MG/ML VIAL IM ONE (20:00)
[2017-10-06] MEDS ORDERED: DiphenhydrAMINE HCL 50 MG/ML VIAL IM ONE (20:00)
[2017-10-06] MEDS: ROPINIRole HCL 1 MG TABLET PO SCH (21:26)
[2017-10-07 08:58] VITALS: BP 107/54
[2017-10-07] MEDS: CHOLECALCIFEROL (VIT D3) 1,000 UNITS TABLET PO SCH (09:35)
[2017-10-07] MEDS: OMEPRAZOLE 20 MG CAPSULE PO SCH (09:35)
[2017-10-07] MEDS: LORATADINE 10 MG TABLET PO SCH (09:35)
[2017-10-07] MEDS: OXYBUTYNIN CHLORIDE 5 MG TABLET PO SCH ×2 (09:35→17:42)
[2017-10-07] MEDS: HALOPERIDOL 5 MG TABLET PO PRN (15:11)
[2017-10-07] MEDS: LORazepam 2 MG TABLET PO PRN (15:11)
[2017-10-07] MEDS: ROPINIRole HCL 1 MG TABLET PO SCH (20:44)
[2017-10-08 07:08] LABS: BASOPHILS % (AUTO) 0.5 % (0.0-2.0); EOSINOPHILS % (AUTO) 1.2 % (1.0-6.0); HEMATOCRIT 39.6 % (36-46); HEMOGLOBIN 13.4 g/dL (12.0-16.0); LYMPHOCYTES # (AUTO) 2.8 K/uL (1.0-4.8); LYMPHOCYTES % (AUTO) 26.3 % (22.0-44.0); MEAN CORPUSCULAR HEMOGLOBIN 31.1 pg (26.0-34.0); MEAN CORPUSCULAR HGB CONC 33.8 G/dL (31.0-37.0); MEAN CORPUSCULAR VOLUME 92 fL (80-100); MONOCYTES # (AUTO) 0.5 K/uL (0.1-1.0); MONOCYTES % (AUTO) 4.9 % (2.0-9.0); NEUTROPHILS # (AUTO) 7.2 K/uL (1.8-7.7); NEUTROPHILS % (AUTO) 67.1 % (40.0-70.0); PLATELET COUNT (AUTO) 229 K/uL (150-450); RED BLOOD CELL COUNT(AUTO) 4.29 MIL/uL (4.00-5.20); RED CELL DISTRIBUTION WIDTH 14.8 % (11.5-14.5)
[2017-10-08] MEDS: LORazepam 2 MG TABLET PO PRN ×2 (08:36→13:31)
[2017-10-08] MEDS: HALOPERIDOL 5 MG TABLET PO PRN ×2 (08:44→13:31)
[2017-10-08] MEDS: CHOLECALCIFEROL (VIT D3) 1,000 UNITS TABLET PO SCH (09:30)
[2017-10-08] MEDS: LORATADINE 10 MG TABLET PO SCH (09:30)
[2017-10-08] MEDS: OXYBUTYNIN CHLORIDE 5 MG TABLET PO SCH ×2 (09:30→16:28)
[2017-10-08] MEDS: OMEPRAZOLE 20 MG CAPSULE PO SCH (09:30)
[2017-10-08] MEDS ORDERED: LORazepam 2 MG/ML VIAL ONE (16:09)
[2017-10-08] MEDS ORDERED: HALOPERIDOL LACTATE 5 MG/ML VIAL ONE (16:09)
[2017-10-08] MEDS ORDERED: DiphenhydrAMINE HCL 50 MG/ML VIAL ONE (16:10)
[2017-10-08] MEDS ORDERED: LORazepam 2 MG/ML VIAL IM ONE (16:15)
[2017-10-08] MEDS ORDERED: HALOPERIDOL LACTATE 5 MG/ML VIAL IM ONE (16:15)
[2017-10-08] MEDS ORDERED: DiphenhydrAMINE HCL 50 MG/ML VIAL IM ONE (16:15)
[2017-10-08] MEDS: ROPINIRole HCL 1 MG TABLET PO SCH (20:42)
[2017-10-08] MEDS: OLANZapine 7.5 MG TABLET PO SCH (20:43)
[2017-10-09] MEDS: CHOLECALCIFEROL (VIT D3) 1,000 UNITS TABLET PO SCH (08:03)
[2017-10-09] MEDS: HALOPERIDOL 5 MG TABLET PO PRN ×3 (08:03→16:12)
[2017-10-09] MEDS: OMEPRAZOLE 20 MG CAPSULE PO SCH (08:03)
[2017-10-09] MEDS: LORazepam 2 MG TABLET PO PRN ×3 (08:03→16:11)
[2017-10-09] MEDS: OXYBUTYNIN CHLORIDE 5 MG TABLET PO SCH ×2 (10:37→16:12)
[2017-10-09] MEDS: LORATADINE 10 MG TABLET PO SCH (10:37)
[2017-10-09] MEDS: OLANZapine 7.5 MG TABLET PO SCH (20:16)
[2017-10-09] MEDS: ROPINIRole HCL 1 MG TABLET PO SCH (20:16)
[2017-10-10] MEDS: CHOLECALCIFEROL (VIT D3) 1,000 UNITS TABLET PO SCH (08:02)
[2017-10-10] MEDS: LORazepam 2 MG TABLET PO PRN (08:03)
[2017-10-10] MEDS: HALOPERIDOL 5 MG TABLET PO PRN (08:03)
[2017-10-10] MEDS: OXYBUTYNIN CHLORIDE 5 MG TABLET PO SCH (08:03)
[2017-10-10] MEDS: LORATADINE 10 MG TABLET PO SCH (08:03)
[2017-10-10] MEDS: OMEPRAZOLE 20 MG CAPSULE PO SCH (08:03)
[2017-10-10 08:27] VITALS: BP 117/88
== END 2017-10-10 12:30 | disposition home or self-care (01) | DRG 885 ==
LOC: EMS 14:07 → 3EC 17:48 → EMS 18:16
PROVIDERS: ADMIT Psychiatry & Neurology Psychiatry; ATTEND Psychiatry & Neurology Psychiatry
PROC: 5A09557 Assistance with Respiratory Ventilation, Greater than 96 Consecutive Hours, Continuous Positive Airway Pressure (ICD-10-PCS; principal; 2017-10-04)
DX: F25.9 Schizoaffective disorder, unspecified (principal); E11.9 Type 2 diabetes mellitus without complications; D72.829 Elevated white blood cell count, unspecified; E78.5 Hyperlipidemia, unspecified; F12.90 Cannabis use, unspecified, uncomplicated; F15.90 Other stimulant use, unspecified, uncomplicated; G25.81 Restless legs syndrome; G47.33 Obstructive sleep apnea (adult) (pediatric); I10 Essential (primary) hypertension; J44.9 Chronic obstructive pulmonary disease, unspecified; K21.9 Gastro-esophageal reflux disease without esophagitis; K59.09 Other constipation; M19.90 Unspecified osteoarthritis, unspecified site; R32 Unspecified urinary incontinence; T50.902A Poisoning by unspecified drugs, medicaments and biological substances, intentional self-harm, initial encounter; Z79.899 Other long term (current) drug therapy; Z87.891 Personal history of nicotine dependence; Z91.5 Personal history of self-harm; Z98.1 Arthrodesis status; Z88.0 Allergy status to penicillin; Z88.2 Allergy status to sulfonamides; Z88.8 Allergy status to other drugs, medicaments and biological substances; Z28.21 Immunization not carried out because of patient refusal
CPT/HCPCS: 82962; 87081; 93005; 94660; 99285; G0480; G0481; J1200; J1630; J2060

== ENCOUNTER 2017-10-29 11:54 | Inpatient (IN) | payer MEDICARE, MEDICAID ==
[~2017-10-29] VITALS: Ht 162.6 cm; Wt 98.1 kg
[~2017-10-29 11:54] MED LIST changes: -ALBU8HFA4 IH; -FLUO-191 PO; -NALT50TA PO; -TRAZ-147 PO
[2017-10-29] MEDS ORDERED: CHLO100T24 PO (12:12)
[2017-10-29] MEDS ORDERED: ATOR10TA84 PO (12:12)
[2017-10-29] MEDS ORDERED: METO50 PO (12:12)
[2017-10-29 12:23] LABS: BASOPHILS % (AUTO) 0.3 % (0.0-2.0); EOSINOPHILS % (AUTO) 0.9 % (1.0-6.0); HEMATOCRIT 41.9 % (36-46); HEMOGLOBIN 14.2 g/dL (12.0-16.0); LYMPHOCYTES # (AUTO) 2.1 K/uL (1.0-4.8); LYMPHOCYTES % (AUTO) 18.8 % (22.0-44.0); MEAN CORPUSCULAR HEMOGLOBIN 31.4 pg (26.0-34.0); MEAN CORPUSCULAR VOLUME 93 fL (80-100); MONOCYTES # (AUTO) 0.5 K/uL (0.1-1.0); MONOCYTES % (AUTO) 4.1 % (2.0-9.0); NEUTROPHILS # (AUTO) 8.7 K/uL (1.8-7.7); NEUTROPHILS % (AUTO) 75.9 % (40.0-70.0); PLATELET COUNT (AUTO) 287 K/uL (150-450); RED BLOOD CELL COUNT(AUTO) 4.53 MIL/uL (4.00-5.20); RED CELL DISTRIBUTION WIDTH 15.1 % (11.5-14.5)
[2017-10-29 12:39] LABS: AMPHET/METH SCREEN,URINE POSITIVE (NEGATIVE); BARBITURATE SCREEN, URINE NEGATIVE (NEGATIVE); BENZODIAZEPINES SCREEN,URINE NEGATIVE (NEGATIVE); CANNABINOID SCREEN,URINE NEGATIVE (NEGATIVE); COCAINE SCREEN,URINE NEGATIVE (NEGATIVE); METHADONE SCREEN, URINE NEGATIVE (NEGATIVE); OPIATE SCREEN,URINE NEGATIVE (NEGATIVE)
[2017-10-29 12:40] LABS: ANION GAP 7 mmol/L (8-16); CALCIUM, TOTAL 9.4 mg/dL (8.8-10.5); CARBON DIOXIDE 29 mmol/L (22-29); CHLORIDE 102 mmol/L (98-107); CREATININE 0.76 mg/dL (0.60-1.30); GLOMERULAR FILTR. RATE CALC > 60 mL/min (>60); GLUCOSE,RANDOM 97 mg/dL (70-110); SODIUM SERUM 138 mmol/L (136-145); UREA NITROGEN, BLOOD 6 mg/dL (7-18)
[2017-10-29 12:41] LABS: PHENCYCLIDINE SCREEN,URINE NEGATIVE (NEGATIVE)
[2017-10-29 12:42] LABS: GLUCOSE,POINT OF CARE 99 MG/DL (70-110)
[2017-10-29] MEDS ORDERED: HALOPERIDOL LACTATE 5 MG/ML VIAL IM ONE (12:45)
[2017-10-29] MEDS ORDERED: LORazepam 2 MG/ML VIAL IM ONE (12:45)
[2017-10-29] MEDS ORDERED: DiphenhydrAMINE HCL 50 MG/ML VIAL IM ONE (12:45)
[2017-10-29 12:46] LABS: ALANINE AMINOTRANSFERASE 14 U/L (12-78); ALBUMIN 3.7 g/dL (3.4-5.0); ALKALINE PHOSPHATASE 167 U/L (46-116); ASPARTATE AMINOTRANSFERASE 26 U/L (15-37); BILIRUBIN,TOTAL 0.1 mg/dL (0.1-1.0); TOTAL PROTEIN, SERUM 7.6 g/dL (6.4-8.2)
[2017-10-30 08:09] LABS: CHOL/HDL RATIO 3.3 (3.9-5.7)
[2017-10-30] MEDS: HALOPERIDOL 5 MG TABLET PO PRN (14:51)
[2017-10-30] MEDS: LORazepam 2 MG TABLET PO PRN (14:51)
[2017-10-30] MEDS ORDERED: ACETAMINOPHEN 325 MG TABLET PO ONE (16:30)
[2017-10-31] MEDS: LORazepam 2 MG TABLET PO PRN ×2 (09:57→14:25)
[2017-10-31] MEDS: HALOPERIDOL 5 MG TABLET PO PRN ×2 (09:57→14:25)
[2017-10-31 11:38] LABS: GLUCOSE,POINT OF CARE 92 MG/DL (70-110)
[2017-10-31] MEDS ORDERED: IBUPROFEN 400 MG TABLET PO PRN (20:30)
[2017-10-31] MEDS ORDERED: ACETAMINOPHEN 325 MG TABLET PO PRN (20:30)
[2017-10-31] MEDS: ATORVASTATIN CALCIUM 10 MG TABLET PO SCH (21:00)
[2017-11-01 09:30] VITALS: BP 121/77
[2017-11-01] MEDS: DOCUSATE SODIUM 100 MG CAPSULE PO SCH (09:36)
[2017-11-01] MEDS: OMEPRAZOLE 20 MG CAPSULE PO SCH (09:36)
[2017-11-01] MEDS: CHOLECALCIFEROL (VIT D3) 1,000 UNITS TABLET PO SCH (09:36)
[2017-11-01] MEDS: OXYBUTYNIN CHLORIDE 5 MG TABLET PO SCH ×2 (09:36→17:47)
[2017-11-01] MEDS: METOPROLOL TARTRATE 50 MG TABLET PO SCH ×2 (09:37→17:00)
[2017-11-01] MEDS: HALOPERIDOL 5 MG TABLET PO PRN ×2 (09:37→17:49)
[2017-11-01] MEDS: LORazepam 2 MG TABLET PO PRN ×2 (09:37→17:49)
[2017-11-01] MEDS ORDERED: DENTURE ADHESIVE 68 GM CREAM DT PRN (10:30)
[2017-11-01] MEDS: NICOTINE 21 MG/24 HOUR PATCH TD SCH (11:23)
[2017-11-01 16:07] VITALS: BP 105/61
[2017-11-01] MEDS: ATORVASTATIN CALCIUM 10 MG TABLET PO SCH (20:11)
[2017-11-01] MEDS: ZOLPIDEM TARTRATE 10 MG TABLET PO PRN (21:38)
[2017-11-02] MEDS: CHOLECALCIFEROL (VIT D3) 1,000 UNITS TABLET PO SCH (08:52)
[2017-11-02] MEDS: OMEPRAZOLE 20 MG CAPSULE PO SCH (08:52)
[2017-11-02] MEDS: DOCUSATE SODIUM 100 MG CAPSULE PO SCH (08:52)
[2017-11-02] MEDS: OXYBUTYNIN CHLORIDE 5 MG TABLET PO SCH ×2 (08:53→16:20)
[2017-11-02] MEDS: HALOPERIDOL 5 MG TABLET PO PRN ×2 (08:53→14:37)
[2017-11-02] MEDS: LORazepam 2 MG TABLET PO PRN ×2 (08:53→14:37)
[2017-11-02 08:55] VITALS: BP 125/83
[2017-11-02] MEDS: METOPROLOL TARTRATE 50 MG TABLET PO SCH ×2 (08:55→17:00)
[2017-11-02] MEDS: NICOTINE 21 MG/24 HOUR PATCH TD SCH (08:55)
[2017-11-02] MEDS ORDERED: RISP1 PO (10:20)
[2017-11-02] MEDS ORDERED: FLUO-191 PO (10:20)
[2017-11-02] MEDS: FLUoxetine HCL 20 MG CAPSULE PO SCH (11:38)
[2017-11-02] MEDS: ChlorproMAZINE HCL 100 MG TABLET PO SCH (20:35)
[2017-11-02] MEDS: ZOLPIDEM TARTRATE 10 MG TABLET PO PRN (20:35)
[2017-11-02] MEDS: ATORVASTATIN CALCIUM 10 MG TABLET PO SCH (20:36)
[2017-11-02] MEDS: RisperiDONE 1 MG TABLET PO SCH (20:36)
[2017-11-02] MEDS: OLANZapine 5 MG RAPDIS TABLET PO SCH (20:36)
[2017-11-02 21:02] VITALS: BP 123/78
[2017-11-03] MEDS: LORazepam 2 MG TABLET PO PRN ×3 (03:11→18:32)
[2017-11-03] MEDS: HALOPERIDOL 5 MG TABLET PO PRN ×3 (03:12→18:32)
[2017-11-03 08:20] VITALS: BP 121/70
[2017-11-03] MEDS: OXYBUTYNIN CHLORIDE 5 MG TABLET PO SCH ×2 (08:28→16:03)
[2017-11-03] MEDS: OMEPRAZOLE 20 MG CAPSULE PO SCH (08:28)
[2017-11-03] MEDS: METOPROLOL TARTRATE 50 MG TABLET PO SCH ×2 (08:28→16:03)
[2017-11-03] MEDS: CHOLECALCIFEROL (VIT D3) 1,000 UNITS TABLET PO SCH (08:29)
[2017-11-03] MEDS: FLUoxetine HCL 20 MG CAPSULE PO SCH (08:29)
[2017-11-03] MEDS: DOCUSATE SODIUM 100 MG CAPSULE PO SCH (08:41)
[2017-11-03] MEDS: NICOTINE 21 MG/24 HOUR PATCH TD SCH (08:42)
[2017-11-03 16:50] VITALS: BP 134/90
[2017-11-03] MEDS: ChlorproMAZINE HCL 100 MG TABLET PO SCH (20:19)
[2017-11-03] MEDS: RisperiDONE 1 MG TABLET PO SCH (20:20)
[2017-11-03] MEDS: ATORVASTATIN CALCIUM 10 MG TABLET PO SCH (20:20)
[2017-11-03] MEDS: OLANZapine 5 MG RAPDIS TABLET PO SCH (20:20)
[2017-11-04] MEDS ORDERED: OLAN7.5T2 PO (08:05)
[2017-11-04] MEDS: CHOLECALCIFEROL (VIT D3) 1,000 UNITS TABLET PO SCH (08:12)
[2017-11-04] MEDS: OMEPRAZOLE 20 MG CAPSULE PO SCH (08:12)
[2017-11-04] MEDS: FLUoxetine HCL 20 MG CAPSULE PO SCH (08:12)
[2017-11-04] MEDS: DOCUSATE SODIUM 100 MG CAPSULE PO SCH (08:12)
[2017-11-04] MEDS: OXYBUTYNIN CHLORIDE 5 MG TABLET PO SCH (08:13)
[2017-11-04] MEDS: METOPROLOL TARTRATE 50 MG TABLET PO SCH (08:13)
[2017-11-04 08:29] VITALS: BP 130/91
[2017-11-04] MEDS: NICOTINE 21 MG/24 HOUR PATCH TD SCH (08:29)
== END 2017-11-04 10:00 | disposition home or self-care (01) | DRG 885 ==
LOC: EMS 11:59 → 3EC 10-31 19:56
PROVIDERS: ADMIT Psychiatry & Neurology Psychiatry; ATTEND Psychiatry & Neurology Psychiatry
DX: F25.9 Schizoaffective disorder, unspecified (principal); E11.9 Type 2 diabetes mellitus without complications; D72.829 Elevated white blood cell count, unspecified; F12.90 Cannabis use, unspecified, uncomplicated; E78.5 Hyperlipidemia, unspecified; F17.210 Nicotine dependence, cigarettes, uncomplicated; J44.9 Chronic obstructive pulmonary disease, unspecified; K21.9 Gastro-esophageal reflux disease without esophagitis; K59.09 Other constipation; G25.81 Restless legs syndrome; G47.33 Obstructive sleep apnea (adult) (pediatric); I10 Essential (primary) hypertension; M19.90 Unspecified osteoarthritis, unspecified site; R32 Unspecified urinary incontinence; J45.909 Unspecified asthma, uncomplicated; Z98.1 Arthrodesis status; Z90.49 Acquired absence of other specified parts of digestive tract; Z88.0 Allergy status to penicillin; Z88.2 Allergy status to sulfonamides; Z88.8 Allergy status to other drugs, medicaments and biological substances; Z91.018 Allergy to other foods
CPT/HCPCS: 82962; 94660; 96372; 99285; G0480; J1200; J1630; J2060

== ENCOUNTER 2017-11-28 15:32 | Inpatient (IN) | payer MEDICARE, MEDICAID ==
[~2017-11-28] VITALS: Ht 167.6 cm; Wt 97.3 kg
[~2017-11-28 15:32] MED LIST changes: +ATOR10TA84 PO; +CHLO100T24 PO; +FLUO-191 PO; +METO50 PO; -OLAN5TAB30 PO; +OLAN7.5T2 PO; +RISP1 PO; -ROPI1TAB38 PO
[2017-11-28 15:52] LABS: GLUCOSE,POINT OF CARE 148 MG/DL (70-110)
[2017-11-28 16:33] LABS: BASOPHILS % (AUTO) 0.7 % (0.0-2.0); EOSINOPHILS % (AUTO) 1.5 % (1.0-6.0); HEMATOCRIT 37.3 % (36-46); HEMOGLOBIN 12.5 g/dL (12.0-16.0); LYMPHOCYTES # (AUTO) 2.5 K/uL (1.0-4.8); LYMPHOCYTES % (AUTO) 17.3 % (22.0-44.0); MEAN CORPUSCULAR HEMOGLOBIN 30.4 pg (26.0-34.0); MEAN CORPUSCULAR HGB CONC 33.3 G/dL (31.0-37.0); MEAN CORPUSCULAR VOLUME 91 fL (80-100); MONOCYTES # (AUTO) 0.6 K/uL (0.1-1.0); MONOCYTES % (AUTO) 4.1 % (2.0-9.0); NEUTROPHILS % (AUTO) 76.4 % (40.0-70.0); PLATELET COUNT (AUTO) 363 K/uL (150-450); RED CELL DISTRIBUTION WIDTH 15.1 % (11.5-14.5)
[2017-11-28 16:44] LABS: AMPHET/METH SCREEN,URINE POSITIVE (NEGATIVE); BARBITURATE SCREEN, URINE NEGATIVE (NEGATIVE); BENZODIAZEPINES SCREEN,URINE NEGATIVE (NEGATIVE); CANNABINOID SCREEN,URINE POSITIVE (NEGATIVE); COCAINE SCREEN,URINE NEGATIVE (NEGATIVE); METHADONE SCREEN, URINE NEGATIVE (NEGATIVE); OPIATE SCREEN,URINE NEGATIVE (NEGATIVE)
[2017-11-28 16:57] LABS: PHENCYCLIDINE SCREEN,URINE NEGATIVE (NEGATIVE)
[2017-11-28 17:07] LABS: SALICYLATE 5.5 mg/dL (2.8-20.0)
[2017-11-28 17:08] LABS: ANION GAP 12 mmol/L (8-16); CALCIUM, TOTAL 8.4 mg/dL (8.8-10.5); CARBON DIOXIDE 24 mmol/L (22-29); CHLORIDE 103 mmol/L (98-107); CREATININE 0.85 mg/dL (0.60-1.30); GLOMERULAR FILTR. RATE CALC > 60 mL/min (>60); GLUCOSE,RANDOM 144 mg/dL (70-110); POTASSIUM 3.7 mmol/L (3.5-5.1); SODIUM SERUM 139 mmol/L (136-145); UREA NITROGEN, BLOOD 6 mg/dL (7-18)
[2017-11-28 17:14] LABS: ALANINE AMINOTRANSFERASE 8 U/L (12-78); ALBUMIN 3.5 g/dL (3.4-5.0); ALKALINE PHOSPHATASE 135 U/L (46-116); ASPARTATE AMINOTRANSFERASE 17 U/L (15-37); BILIRUBIN,TOTAL 0.2 mg/dL (0.1-1.0); TOTAL PROTEIN, SERUM 7.2 g/dL (6.4-8.2)
[2017-11-28] MEDS ORDERED: LORazepam 2 MG TABLET PO PRN (17:15)
[2017-11-28] MEDS ORDERED: ZOLPIDEM TARTRATE 10 MG TABLET PO PRN ×2 (17:15→21:30)
[2017-11-28] MEDS ORDERED: OLANZapine 5 MG RAPDIS TABLET PO PRN (17:15)
[2017-11-28] MEDS ORDERED: HydrOXYzine PAMOATE 50 MG CAPSULE PO PRN (17:15)
[2017-11-28] MEDS ORDERED: MAG HYDROX/AL HYDROX/SIMETH ES 30 ML SUSPENSION UDCUP PO PRN (17:15)
[2017-11-28] MEDS ORDERED: PROMETHAZINE HCL 25 MG TABLET PO PRN (17:15)
[2017-11-28] MEDS ORDERED: MAGNESIUM HYDROXIDE SUSPENSION 30 ML UDCUP PO PRN (17:15)
[2017-11-28] MEDS ORDERED: ACETAMINOPHEN 325 MG TABLET PO PRN (17:15)
[2017-11-28] MEDS ORDERED: LOPERAMIDE HCL 2 MG CAPSULE PO PRN (17:15)
[2017-11-28] MEDS ORDERED: GuaiFENesin/D-METHORPHAN [SUGAR-FREE] 200-20MG/10 ML SYRUP UDCUP PO PRN (17:15)
[2017-11-28] MEDS ORDERED: SODIUM CHLORIDE 0.9% 1,000 ML IV ONE (17:30)
[2017-11-28 17:35] LABS: BILIRUBIN,URINE NEGATIVE (NEGATIVE); GLUCOSE, URINE (UA) NEGATIVE (NEGATIVE); KETONES,URINE NEGATIVE (NEGATIVE); LEUKOCYTE ESTERASE ,URINE NEGATIVE (NEGATIVE); NITRATE,URINE NEGATIVE (NEGATIVE); OCCULT BLOOD,URINE NEGATIVE (NEGATIVE); PROTEIN,URINE NEGATIVE (NEGATIVE); UROBILINOGEN,URINE 0.2 mg/dL (<=1.0)
[2017-11-28 17:49] LABS: APPEARANCE,URINE CLEAR (CLEAR)
[2017-11-28 19:08] LABS: ACETAMINOPHEN < 2 mcg/mL (10-30)
[2017-11-28] MEDS ORDERED: OLANZapine 5 MG RAPDIS TABLET PO SCH (21:00)
[2017-11-28] MEDS ORDERED: THIAMINE HCL 100 MG TABLET PO SCH (21:00)
[2017-11-29] MEDS ORDERED: IBUPROFEN 400 MG TABLET PO PRN (08:15)
[2017-11-29] MEDS ORDERED: ACETAMINOPHEN 325 MG TABLET PO PRN (08:15)
[2017-11-29] MEDS ORDERED: FOLIC ACID 1 MG TABLET PO SCH (09:00)
[2017-11-29] MEDS ORDERED: MULTIVITAMINS WITH MINERALS, THERAPEUTIC TABLET PO SCH (09:00)
[2017-11-29] MEDS ORDERED: FLUoxetine HCL 10 MG CAPSULE PO SCH (09:00)
[2017-11-29] MEDS: DOCUSATE SODIUM 100 MG CAPSULE PO SCH (09:21)
[2017-11-29] MEDS: CHOLECALCIFEROL (VIT D3) 1,000 UNITS TABLET PO SCH (09:23)
[2017-11-29] MEDS: LORazepam 2 MG TABLET PO PRN (10:21)
[2017-11-29] MEDS: ATORVASTATIN CALCIUM 10 MG TABLET PO SCH (21:00)
[2017-11-30] MEDS: CHOLECALCIFEROL (VIT D3) 1,000 UNITS TABLET PO SCH (09:00)
[2017-11-30] MEDS: DOCUSATE SODIUM 100 MG CAPSULE PO SCH (09:00)
[2017-11-30] MEDS: LORazepam 2 MG TABLET PO PRN (09:57)
[2017-11-30] MEDS: FLUoxetine HCL 20 MG CAPSULE PO SCH (10:18)
[2017-11-30] MEDS ORDERED: ACETAMINOPHEN 325 MG TABLET PO PRN (16:45)
[2017-11-30] MEDS ORDERED: IBUPROFEN 400 MG TABLET PO PRN (16:45)
[2017-11-30] MEDS ORDERED: ALBUTEROL SULFATE HFA 90 MCG/PUFF 8 GM INHALER IH PRN (16:45)
[2017-11-30] MEDS: METOPROLOL TARTRATE 50 MG TABLET PO SCH (17:00)
[2017-11-30] MEDS: ChlorproMAZINE HCL 100 MG TABLET PO SCH (21:59)
[2017-11-30] MEDS: OLANZapine 7.5 MG TABLET PO SCH (22:00)
[2017-11-30] MEDS: RisperiDONE 1 MG TABLET PO SCH (22:00)
[2017-11-30] MEDS: OXYBUTYNIN CHLORIDE 5 MG TABLET PO SCH (22:00)
[2017-11-30] MEDS: ATORVASTATIN CALCIUM 10 MG TABLET PO SCH (22:19)
[2017-12-01] MEDS: METOPROLOL TARTRATE 50 MG TABLET PO SCH ×2 (09:00→16:44)
[2017-12-01] MEDS: OXYBUTYNIN CHLORIDE 5 MG TABLET PO SCH ×2 (09:12→16:44)
[2017-12-01] MEDS: CHOLECALCIFEROL (VIT D3) 1,000 UNITS TABLET PO SCH (09:12)
[2017-12-01] MEDS: FLUoxetine HCL 20 MG CAPSULE PO SCH (09:12)
[2017-12-01] MEDS: OMEPRAZOLE 20 MG CAPSULE PO SCH (09:12)
[2017-12-01 09:17] VITALS: BP 96/65
[2017-12-01] MEDS: DOCUSATE SODIUM 100 MG CAPSULE PO SCH (09:20)
[2017-12-01] MEDS: HALOPERIDOL 5 MG TABLET PO PRN (10:24)
[2017-12-01] MEDS: LORazepam 2 MG TABLET PO PRN (10:24)
[2017-12-01 16:21] VITALS: BP 117/63
[2017-12-01] MEDS: ChlorproMAZINE HCL 100 MG TABLET PO SCH (21:12)
[2017-12-01] MEDS: ATORVASTATIN CALCIUM 10 MG TABLET PO SCH (21:12)
[2017-12-01] MEDS: OLANZapine 7.5 MG TABLET PO SCH (21:12)
[2017-12-01] MEDS: RisperiDONE 1 MG TABLET PO SCH (21:13)
[2017-12-02] MEDS ORDERED: -PHARMACY VACCINE NOTE- MISC ONE (02:45)
[2017-12-02] MEDS: METOPROLOL TARTRATE 50 MG TABLET PO SCH ×2 (09:00→17:26)
[2017-12-02] MEDS: CHOLECALCIFEROL (VIT D3) 1,000 UNITS TABLET PO SCH (09:42)
[2017-12-02] MEDS: OMEPRAZOLE 20 MG CAPSULE PO SCH (09:42)
[2017-12-02] MEDS: OXYBUTYNIN CHLORIDE 5 MG TABLET PO SCH ×2 (09:42→17:26)
[2017-12-02] MEDS: DOCUSATE SODIUM 100 MG CAPSULE PO SCH (09:42)
[2017-12-02] MEDS: FLUoxetine HCL 20 MG CAPSULE PO SCH (09:42)
[2017-12-02] MEDS: LORazepam 2 MG TABLET PO PRN ×2 (09:43→18:00)
[2017-12-02] MEDS: DENTURE ADHESIVE 68 GM CREAM DT PRN (09:44)
[2017-12-02] MEDS: HALOPERIDOL 5 MG TABLET PO PRN ×2 (09:46→18:01)
[2017-12-02 16:17] VITALS: BP 121/85
[2017-12-02] MEDS: ChlorproMAZINE HCL 100 MG TABLET PO SCH (20:08)
[2017-12-02] MEDS: OLANZapine 7.5 MG TABLET PO SCH (20:08)
[2017-12-02] MEDS: ATORVASTATIN CALCIUM 10 MG TABLET PO SCH (20:08)
[2017-12-02] MEDS: RisperiDONE 1 MG TABLET PO SCH (20:08)
[2017-12-03] MEDS: OMEPRAZOLE 20 MG CAPSULE PO SCH (08:41)
[2017-12-03] MEDS: OXYBUTYNIN CHLORIDE 5 MG TABLET PO SCH ×2 (08:41→16:39)
[2017-12-03] MEDS: DOCUSATE SODIUM 100 MG CAPSULE PO SCH (08:41)
[2017-12-03] MEDS: CHOLECALCIFEROL (VIT D3) 1,000 UNITS TABLET PO SCH (08:42)
[2017-12-03] MEDS: FLUoxetine HCL 20 MG CAPSULE PO SCH (08:43)
[2017-12-03] MEDS: METOPROLOL TARTRATE 50 MG TABLET PO SCH ×2 (09:00→16:39)
[2017-12-03] MEDS: DENTURE ADHESIVE 68 GM CREAM DT PRN (10:59)
[2017-12-03 16:35] VITALS: BP 140/78
[2017-12-03] MEDS: LORazepam 2 MG TABLET PO PRN (18:15)
[2017-12-03] MEDS: OLANZapine 7.5 MG TABLET PO SCH (21:55)
[2017-12-03] MEDS: ChlorproMAZINE HCL 100 MG TABLET PO SCH (21:55)
[2017-12-03] MEDS: ATORVASTATIN CALCIUM 10 MG TABLET PO SCH (21:55)
[2017-12-03] MEDS: RisperiDONE 1 MG TABLET PO SCH (21:56)
[2017-12-04 08:32] VITALS: BP 127/87
[2017-12-04] MEDS: CHOLECALCIFEROL (VIT D3) 1,000 UNITS TABLET PO SCH (08:38)
[2017-12-04] MEDS: OXYBUTYNIN CHLORIDE 5 MG TABLET PO SCH ×2 (08:38→16:19)
[2017-12-04] MEDS: METOPROLOL TARTRATE 50 MG TABLET PO SCH ×2 (08:38→17:00)
[2017-12-04] MEDS: OMEPRAZOLE 20 MG CAPSULE PO SCH (08:39)
[2017-12-04] MEDS: FLUoxetine HCL 20 MG CAPSULE PO SCH (08:40)
[2017-12-04] MEDS: DOCUSATE SODIUM 100 MG CAPSULE PO SCH (09:00)
[2017-12-04] MEDS: LORazepam 2 MG TABLET PO PRN ×2 (10:55→16:16)
[2017-12-04] MEDS: DENTURE ADHESIVE 68 GM CREAM DT PRN (10:56)
[2017-12-04] MEDS: HALOPERIDOL 5 MG TABLET PO PRN (16:16)
[2017-12-04 16:38] VITALS: BP 111/72
[2017-12-04] MEDS: OLANZapine 7.5 MG TABLET PO SCH (20:05)
[2017-12-04] MEDS: ChlorproMAZINE HCL 100 MG TABLET PO SCH (20:05)
[2017-12-04] MEDS: ATORVASTATIN CALCIUM 10 MG TABLET PO SCH (20:06)
[2017-12-04] MEDS: RisperiDONE 1 MG TABLET PO SCH (20:06)
[2017-12-05] MEDS: LORazepam 2 MG TABLET PO PRN (07:50)
[2017-12-05] MEDS: OMEPRAZOLE 20 MG CAPSULE PO SCH (07:51)
[2017-12-05] MEDS: DOCUSATE SODIUM 100 MG CAPSULE PO SCH (07:51)
[2017-12-05] MEDS: HALOPERIDOL 5 MG TABLET PO PRN (07:51)
[2017-12-05] MEDS: CHOLECALCIFEROL (VIT D3) 1,000 UNITS TABLET PO SCH (07:51)
[2017-12-05] MEDS: OXYBUTYNIN CHLORIDE 5 MG TABLET PO SCH (07:52)
[2017-12-05] MEDS: FLUoxetine HCL 20 MG CAPSULE PO SCH (07:52)
[2017-12-05 08:00] VITALS: BP 119/76
[2017-12-05] MEDS: METOPROLOL TARTRATE 50 MG TABLET PO SCH (08:16)
== END 2017-12-05 10:45 | disposition home or self-care (01) | DRG 885 ==
LOC: EMS 15:39 → 3EC 11-30 12:59
PROVIDERS: ADMIT Psychiatry & Neurology Psychiatry; ATTEND Psychiatry & Neurology Psychiatry
PROC: 5A09357 Assistance with Respiratory Ventilation, Less than 24 Consecutive Hours, Continuous Positive Airway Pressure (ICD-10-PCS; principal; 2017-11-30)
DX: F25.1 Schizoaffective disorder, depressive type (principal); D69.6 Thrombocytopenia, unspecified; E11.9 Type 2 diabetes mellitus without complications; D72.829 Elevated white blood cell count, unspecified; E55.9 Vitamin D deficiency, unspecified; E78.5 Hyperlipidemia, unspecified; F12.90 Cannabis use, unspecified, uncomplicated; F15.10 Other stimulant abuse, uncomplicated; F17.200 Nicotine dependence, unspecified, uncomplicated; G25.81 Restless legs syndrome; G47.33 Obstructive sleep apnea (adult) (pediatric); I10 Essential (primary) hypertension; J44.9 Chronic obstructive pulmonary disease, unspecified; K21.9 Gastro-esophageal reflux disease without esophagitis; M19.90 Unspecified osteoarthritis, unspecified site; R32 Unspecified urinary incontinence; K59.09 Other constipation; F60.3 Borderline personality disorder; Z88.0 Allergy status to penicillin; Z88.2 Allergy status to sulfonamides; Z71.6 Tobacco abuse counseling; Z88.8 Allergy status to other drugs, medicaments and biological substances; Z91.018 Allergy to other foods; Z91.14 Patient's other noncompliance with medication regimen; Z91.19 Patient's noncompliance with other medical treatment and regimen; Z98.1 Arthrodesis status; Z79.899 Other long term (current) drug therapy; Z98.891 History of uterine scar from previous surgery; Z90.49 Acquired absence of other specified parts of digestive tract; Z71.41 Alcohol abuse counseling and surveillance of alcoholic
CPT/HCPCS: 82962; 94660; 99285; 99406; G0480; G0481; J7030

== ENCOUNTER 2017-12-26 17:20 | Inpatient (IN) | payer MEDICARE, MEDICAID ==
[~2017-12-26] VITALS: Ht 162.6 cm; Wt 100.2 kg
[2017-12-26] MEDS ORDERED: DiphenhydrAMINE HCL 50 MG/ML VIAL IM ONE (17:45)
[2017-12-26] MEDS ORDERED: LORazepam 2 MG/ML VIAL IM ONE (17:45)
[2017-12-26] MEDS ORDERED: HALOPERIDOL LACTATE 5 MG/ML VIAL IM ONE (17:45)
[2017-12-26 19:29] LABS: BASOPHILS % (AUTO) 1.3 % (0.0-2.0); EOSINOPHILS % (AUTO) 1.7 % (1.0-6.0); HEMATOCRIT 36.7 % (36-46); HEMOGLOBIN 12.4 g/dL (12.0-16.0); LYMPHOCYTES # (AUTO) 3.3 K/uL (1.0-4.8); LYMPHOCYTES % (AUTO) 27.3 % (22.0-44.0); MEAN CORPUSCULAR HEMOGLOBIN 30.6 pg (26.0-34.0); MEAN CORPUSCULAR HGB CONC 33.9 G/dL (31.0-37.0); MEAN CORPUSCULAR VOLUME 91 fL (80-100); MONOCYTES # (AUTO) 0.8 K/uL (0.1-1.0); MONOCYTES % (AUTO) 6.4 % (2.0-9.0); NEUTROPHILS # (AUTO) 7.6 K/uL (1.8-7.7); NEUTROPHILS % (AUTO) 63.3 % (40.0-70.0); PLATELET COUNT (AUTO) 333 K/uL (150-450); RED BLOOD CELL COUNT(AUTO) 4.05 MIL/uL (4.00-5.20); RED CELL DISTRIBUTION WIDTH 14.8 % (11.5-14.5)
[2017-12-26 19:37] LABS: AMPHET/METH SCREEN,URINE POSITIVE (NEGATIVE); BARBITURATE SCREEN, URINE NEGATIVE (NEGATIVE); BENZODIAZEPINES SCREEN,URINE NEGATIVE (NEGATIVE); CANNABINOID SCREEN,URINE NEGATIVE (NEGATIVE); COCAINE SCREEN,URINE NEGATIVE (NEGATIVE); METHADONE SCREEN, URINE NEGATIVE (NEGATIVE); OPIATE SCREEN,URINE NEGATIVE (NEGATIVE)
[2017-12-26 19:38] LABS: PHENCYCLIDINE SCREEN,URINE NEGATIVE (NEGATIVE)
[2017-12-26 19:53] LABS: SALICYLATE 4.8 mg/dL (2.8-20.0)
[2017-12-26 20:33] LABS: ANION GAP 10 mmol/L (8-16); CALCIUM, TOTAL 8.7 mg/dL (8.8-10.5); CARBON DIOXIDE 26 mmol/L (22-29); CHLORIDE 101 mmol/L (98-107); CREATININE 0.67 mg/dL (0.60-1.30); GLOMERULAR FILTR. RATE CALC > 60 mL/min (>60); GLUCOSE,RANDOM 117 mg/dL (70-110); POTASSIUM 3.4 mmol/L (3.5-5.1); SODIUM SERUM 137 mmol/L (136-145); UREA NITROGEN, BLOOD 10 mg/dL (7-18)
[2017-12-26 20:34] LABS: ALANINE AMINOTRANSFERASE 14 U/L (12-78); ALBUMIN 3.4 g/dL (3.4-5.0); ALKALINE PHOSPHATASE 144 U/L (46-116); ASPARTATE AMINOTRANSFERASE 17 U/L (15-37); BILIRUBIN,TOTAL 0.2 mg/dL (0.1-1.0); TOTAL PROTEIN, SERUM 7.1 g/dL (6.4-8.2)
[2017-12-26 20:36] LABS: ACETAMINOPHEN < 2 mcg/mL (10-30)
[2017-12-26] MEDS: ChlorproMAZINE HCL 100 MG TABLET PO SCH (21:09)
[2017-12-27 06:52] LABS: GLUCOSE,POINT OF CARE 79 MG/DL (70-110)
[2017-12-27] MEDS ORDERED: ACETAMINOPHEN 325 MG TABLET PO PRN (07:15)
[2017-12-27] MEDS ORDERED: DiphenhydrAMINE HCL 50 MG/ML VIAL IM ONE (08:50)
[2017-12-27] MEDS ORDERED: LORazepam 2 MG/ML VIAL IM ONE (08:50)
[2017-12-27] MEDS: OXYBUTYNIN CHLORIDE 5 MG TABLET PO SCH ×2 (09:00→16:40)
[2017-12-27 09:38] VITALS: BP 118/80
[2017-12-27 10:02] VITALS: BP 118/99
[2017-12-27] MEDS: DOCUSATE SODIUM 100 MG CAPSULE PO SCH (11:51)
[2017-12-27] MEDS: OMEPRAZOLE 20 MG CAPSULE PO SCH (11:52)
[2017-12-27 16:29] VITALS: BP 102/68
[2017-12-27] MEDS: LORazepam 2 MG TABLET PO PRN (19:52)
[2017-12-27] MEDS: ChlorproMAZINE HCL 100 MG TABLET PO SCH (20:50)
[2017-12-27] MEDS: ATORVASTATIN CALCIUM 10 MG TABLET PO SCH (20:51)
[2017-12-28] MEDS: ZOLPIDEM TARTRATE 10 MG TABLET PO PRN (00:14)
[2017-12-28] MEDS: LORazepam 2 MG TABLET PO PRN ×4 (00:15→22:15)
[2017-12-28] MEDS: OXYBUTYNIN CHLORIDE 5 MG TABLET PO SCH ×2 (09:03→16:37)
[2017-12-28] MEDS: DOCUSATE SODIUM 100 MG CAPSULE PO SCH (09:03)
[2017-12-28] MEDS: OMEPRAZOLE 20 MG CAPSULE PO SCH (09:03)
[2017-12-28] MEDS ORDERED: LORazepam 2 MG/ML VIAL IM ONE (15:30)
[2017-12-28 16:29] VITALS: BP 126/78
[2017-12-28] MEDS ORDERED: DENTURE ADHESIVE 68 GM CREAM DT PRN (19:30)
[2017-12-28] MEDS: ATORVASTATIN CALCIUM 10 MG TABLET PO SCH (20:43)
[2017-12-28] MEDS: ChlorproMAZINE HCL 100 MG TABLET PO SCH (20:43)
[2017-12-29] MEDS: ZOLPIDEM TARTRATE 10 MG TABLET PO PRN (00:04)
[2017-12-29 06:44] LABS: BASOPHILS % (AUTO) 0.8 % (0.0-2.0); EOSINOPHILS % (AUTO) 2.6 % (1.0-6.0); HEMATOCRIT 34.7 % (36-46); HEMOGLOBIN 11.9 g/dL (12.0-16.0); LYMPHOCYTES # (AUTO) 3.2 K/uL (1.0-4.8); LYMPHOCYTES % (AUTO) 27.8 % (22.0-44.0); MEAN CORPUSCULAR HGB CONC 34.1 G/dL (31.0-37.0); MEAN CORPUSCULAR VOLUME 91 fL (80-100); MONOCYTES # (AUTO) 0.7 K/uL (0.1-1.0); MONOCYTES % (AUTO) 6.3 % (2.0-9.0); NEUTROPHILS # (AUTO) 7.1 K/uL (1.8-7.7); NEUTROPHILS % (AUTO) 62.5 % (40.0-70.0); PLATELET COUNT (AUTO) 305 K/uL (150-450); RED BLOOD CELL COUNT(AUTO) 3.82 MIL/uL (4.00-5.20); RED CELL DISTRIBUTION WIDTH 14.9 % (11.5-14.5)
[2017-12-29] MEDS: DOCUSATE SODIUM 100 MG CAPSULE PO SCH (08:27)
[2017-12-29] MEDS: OMEPRAZOLE 20 MG CAPSULE PO SCH (08:27)
[2017-12-29] MEDS: OXYBUTYNIN CHLORIDE 5 MG TABLET PO SCH ×2 (08:28→16:19)
[2017-12-29] MEDS ORDERED: BISACODYL 5 MG EC TABLET PO PRN (10:15)
[2017-12-29] MEDS: LORazepam 2 MG TABLET PO PRN ×2 (11:43→20:51)
[2017-12-29] MEDS ORDERED: LORazepam 2 MG/ML VIAL ONE (12:10)
[2017-12-29] MEDS ORDERED: LORazepam 2 MG/ML VIAL IM ONE (12:15)
[2017-12-29 16:16] VITALS: BP 127/78
[2017-12-29] MEDS: ChlorproMAZINE HCL 100 MG TABLET PO SCH (20:51)
[2017-12-29] MEDS: ATORVASTATIN CALCIUM 10 MG TABLET PO SCH (20:52)
[2017-12-29 22:34] LABS: APPEARANCE,URINE CLEAR (CLEAR); BILIRUBIN,URINE NEGATIVE (NEGATIVE); GLUCOSE, URINE (UA) NEGATIVE (NEGATIVE); KETONES,URINE NEGATIVE (NEGATIVE); LEUKOCYTE ESTERASE ,URINE NEGATIVE (NEGATIVE); NITRATE,URINE NEGATIVE (NEGATIVE); OCCULT BLOOD,URINE NEGATIVE (NEGATIVE); PROTEIN,URINE NEGATIVE (NEGATIVE); UROBILINOGEN,URINE 0.2 mg/dL (<=1.0)
[2017-12-29 23:16] LABS: BACTERIA,URINE None Seen /HPF (None Seen); RBC,URINE None Seen /HPF (0-2); SQUAMOUS EPITHELIAL CELL,UR Rare /LPF (None Seen); WBC,URINE None Seen /HPF (0-5)
[2017-12-30] MEDS ORDERED: SODIUM CHLORIDE 0.9% 1,000 ML IV ONE ×2 (06:00→06:14)
[2017-12-30 07:55] VITALS: BP 128/82
[2017-12-30] MEDS: DOCUSATE SODIUM 100 MG CAPSULE PO SCH (11:36)
[2017-12-30] MEDS: OMEPRAZOLE 20 MG CAPSULE PO SCH (11:36)
[2017-12-30] MEDS: LORazepam 2 MG TABLET PO PRN ×2 (11:37→17:02)
[2017-12-30] MEDS: OXYBUTYNIN CHLORIDE 5 MG TABLET PO SCH ×2 (11:37→16:12)
[2017-12-30] MEDS: ChlorproMAZINE HCL 100 MG TABLET PO SCH (20:16)
[2017-12-30] MEDS: ATORVASTATIN CALCIUM 10 MG TABLET PO SCH (20:16)
[2017-12-30] MEDS: ZOLPIDEM TARTRATE 10 MG TABLET PO PRN (20:16)
[2017-12-31] MEDS ORDERED: PROPOFOL 1% 20 ML VIAL IVP ONE (05:50)
[2017-12-31] MEDS ORDERED: LIDOCAINE HCL/PF 2% 5 ML VIAL IM ONE (05:50)
[2017-12-31] MEDS: DOCUSATE SODIUM 100 MG CAPSULE PO SCH (08:01)
[2017-12-31] MEDS: OMEPRAZOLE 20 MG CAPSULE PO SCH (08:02)
[2017-12-31] MEDS: LORazepam 2 MG TABLET PO PRN ×3 (08:02→17:21)
[2017-12-31] MEDS: ChlorproMAZINE HCL 50 MG TABLET PO PRN ×3 (08:02→17:21)
[2017-12-31] MEDS: OXYBUTYNIN CHLORIDE 5 MG TABLET PO SCH ×2 (08:02→17:00)
[2017-12-31 08:47] VITALS: BP 111/69
[2017-12-31 16:11] VITALS: BP 124/79
[2017-12-31] MEDS: ChlorproMAZINE HCL 100 MG TABLET PO SCH (20:02)
[2017-12-31] MEDS: ATORVASTATIN CALCIUM 10 MG TABLET PO SCH (20:02)
[2017-12-31] MEDS: ZOLPIDEM TARTRATE 10 MG TABLET PO PRN (20:26)
[2018-01-01] MEDS: OXYBUTYNIN CHLORIDE 5 MG TABLET PO SCH ×2 (08:19→16:53)
[2018-01-01] MEDS: OMEPRAZOLE 20 MG CAPSULE PO SCH (08:21)
[2018-01-01] MEDS: LORazepam 2 MG TABLET PO PRN ×3 (08:22→17:53)
[2018-01-01] MEDS: DOCUSATE SODIUM 100 MG CAPSULE PO SCH (08:37)
[2018-01-01] MEDS ORDERED: MAGNESIUM CITRATE 300 ML ORAL SOLUTION PO PRN (14:30)
[2018-01-01] MEDS: IBUPROFEN 400 MG TABLET PO PRN (14:49)
[2018-01-01 15:49] VITALS: BP 116/68
[2018-01-01 16:26] VITALS: BP 112/63
[2018-01-01] MEDS: ChlorproMAZINE HCL 50 MG TABLET PO PRN (17:56)
[2018-01-01] MEDS: ATORVASTATIN CALCIUM 10 MG TABLET PO SCH (20:25)
[2018-01-01] MEDS: ChlorproMAZINE HCL 100 MG TABLET PO SCH (20:25)
[2018-01-01] MEDS: ZOLPIDEM TARTRATE 10 MG TABLET PO PRN (20:35)
[2018-01-02] MEDS: LORazepam 2 MG TABLET PO PRN ×3 (02:10→20:38)
[2018-01-02] MEDS: ChlorproMAZINE HCL 50 MG TABLET PO PRN (02:12)
[2018-01-02 02:13] VITALS: BP 107/71
[2018-01-02] MEDS: OXYBUTYNIN CHLORIDE 5 MG TABLET PO SCH ×2 (09:03→15:56)
[2018-01-02] MEDS: OMEPRAZOLE 20 MG CAPSULE PO SCH (09:03)
[2018-01-02] MEDS: DOCUSATE SODIUM 100 MG CAPSULE PO SCH (09:03)
[2018-01-02] MEDS ORDERED: LORazepam 2 MG/ML VIAL IM ONE ×2 (10:45→15:45)
[2018-01-02] MEDS ORDERED: DiphenhydrAMINE HCL 50 MG/ML VIAL IM ONE ×2 (10:45→15:45)
[2018-01-02] MEDS ORDERED: DiphenhydrAMINE HCL 50 MG/ML VIAL ONE (10:46)
[2018-01-02] MEDS ORDERED: LORazepam 2 MG/ML VIAL ONE (10:46)
[2018-01-02 12:44] VITALS: BP 122/76
[2018-01-02] MEDS: ChlorproMAZINE HCL 100 MG TABLET PO SCH (20:38)
[2018-01-02] MEDS: ATORVASTATIN CALCIUM 10 MG TABLET PO SCH (20:38)
[2018-01-02] MEDS: ZOLPIDEM TARTRATE 10 MG TABLET PO PRN (20:38)
[2018-01-02] MEDS ORDERED: PEG 3350/NA SULF,BICARB,CL/KCL 4000 ML SOLUTION PO ONE (21:00)
[2018-01-02] MEDS ORDERED: ACETAMINOPHEN 325 MG TABLET PO PRN (23:15)
[2018-01-03 03:10] VITALS: BP 100/74
[2018-01-03] MEDS: ChlorproMAZINE HCL 50 MG TABLET PO PRN ×3 (03:10→14:44)
[2018-01-03] MEDS: LORazepam 2 MG TABLET PO PRN ×4 (03:10→19:56)
[2018-01-03] MEDS: OXYBUTYNIN CHLORIDE 5 MG TABLET PO SCH ×2 (09:08→16:16)
[2018-01-03] MEDS: OMEPRAZOLE 20 MG CAPSULE PO SCH (09:09)
[2018-01-03] MEDS: DOCUSATE SODIUM 100 MG CAPSULE PO SCH (09:09)
[2018-01-03] MEDS: IBUPROFEN 400 MG TABLET PO PRN ×2 (17:20→17:30)
[2018-01-03 17:30] VITALS: BP 110/67
[2018-01-03] MEDS: ChlorproMAZINE HCL 100 MG TABLET PO SCH (21:15)
[2018-01-03] MEDS: ZOLPIDEM TARTRATE 10 MG TABLET PO PRN (21:16)
[2018-01-03] MEDS: ATORVASTATIN CALCIUM 10 MG TABLET PO SCH (21:16)
[2018-01-04 06:25] VITALS: BP 98/69
[2018-01-04] MEDS: LORazepam 2 MG TABLET PO PRN ×3 (06:27→16:11)
[2018-01-04] MEDS: OMEPRAZOLE 20 MG CAPSULE PO SCH (08:15)
[2018-01-04] MEDS: OXYBUTYNIN CHLORIDE 5 MG TABLET PO SCH ×2 (08:15→16:12)
[2018-01-04] MEDS: DOCUSATE SODIUM 100 MG CAPSULE PO SCH (08:17)
[2018-01-04] MEDS ORDERED: MAGN296S PO (10:41)
[2018-01-04] MEDS: ChlorproMAZINE HCL 50 MG TABLET PO PRN (12:07)
[2018-01-04] MEDS: IBUPROFEN 400 MG TABLET PO PRN (12:07)
[2018-01-04] MEDS ORDERED: BARIUM SULFATE 0.1% SUSPENSION 450 ML BOTTLE ONE (13:42)
[2018-01-04 16:49] VITALS: BP 109/76
[2018-01-04 18:28] VITALS: BP 115/73
== END 2018-01-04 18:15 | disposition short-term general hospital (02) | DRG 885 ==
LOC: EMS 17:21 → 3EC 12-27 08:45
PROVIDERS: ADMIT Psychiatry & Neurology Psychiatry; ATTEND Psychiatry & Neurology Psychiatry
PROC: 5A09457 Assistance with Respiratory Ventilation, 24-96 Consecutive Hours, Continuous Positive Airway Pressure (ICD-10-PCS; 2017-12-27)
PROC: 0DC68ZZ Extirpation of Matter from Stomach, Via Natural or Artificial Opening Endoscopic (ICD-10-PCS; principal; 2017-12-30 07:30)
DX: F25.0 Schizoaffective disorder, bipolar type (principal); D69.6 Thrombocytopenia, unspecified; T18.2XXA Foreign body in stomach, initial encounter; Z78.1 Physical restraint status; E11.9 Type 2 diabetes mellitus without complications; E55.9 Vitamin D deficiency, unspecified; E78.5 Hyperlipidemia, unspecified; E87.6 Hypokalemia; F12.90 Cannabis use, unspecified, uncomplicated; G25.81 Restless legs syndrome; G47.33 Obstructive sleep apnea (adult) (pediatric); T39.392A Poisoning by other nonsteroidal anti-inflammatory drugs [NSAID], intentional self-harm, initial encounter; T47.4X2A Poisoning by other laxatives, intentional self-harm, initial encounter; I10 Essential (primary) hypertension; F32.9 Major depressive disorder, single episode, unspecified; F19.10 Other psychoactive substance abuse, uncomplicated; F41.9 Anxiety disorder, unspecified; J44.9 Chronic obstructive pulmonary disease, unspecified; K21.9 Gastro-esophageal reflux disease without esophagitis; M19.90 Unspecified osteoarthritis, unspecified site; R32 Unspecified urinary incontinence; F17.210 Nicotine dependence, cigarettes, uncomplicated; Z91.5 Personal history of self-harm; Z98.1 Arthrodesis status; Y92.89 Other specified places as the place of occurrence of the external cause; Z88.0 Allergy status to penicillin; Z88.2 Allergy status to sulfonamides; Z88.8 Allergy status to other drugs, medicaments and biological substances; Z71.51 Drug abuse counseling and surveillance of drug abuser; Z79.899 Other long term (current) drug therapy
CPT/HCPCS: 74019; 74022; 74176; 82962; 87081; 88300; 94660; 96372; 97162; 99291; G0480; G0481; J1200; J1630; J2060; J2704; J3230; J3490; J7030

== ENCOUNTER 2018-01-04 18:25 | Inpatient (IN) | payer MEDICARE, OTHER ==
[~2018-01-04 18:25] MED LIST changes: +MAGN296S PO; -METO50 PO; -OLAN7.5T2 PO; -RISP1 PO; -VITAD1000 PO
[2018-01-04 19:49] VITALS: BP 104/60
[2018-01-04] MEDS ORDERED: ONDANSETRON HCL 4 MG/2 ML VIAL IVP PRN (20:45)
[2018-01-04] MEDS ORDERED: MAGNESIUM HYDROXIDE SUSPENSION 30 ML UDCUP PO PRN (20:45)
[2018-01-04] MEDS ORDERED: ZOLPIDEM TARTRATE 5 MG TABLET PO PRN (20:45)
[2018-01-04] MEDS ORDERED: BISACODYL 10 MG RECTAL RECTAL SUPPOSITORY PR PRN (20:45)
[2018-01-04] MEDS: ChlorproMAZINE HCL 100 MG TABLET PO SCH (22:12)
[2018-01-04] MEDS: DOCUSATE SODIUM 100 MG CAPSULE PO SCH (22:12)
[2018-01-04] MEDS: OXYBUTYNIN CHLORIDE 5 MG TABLET PO SCH (22:12)
[2018-01-04] MEDS: ATORVASTATIN CALCIUM 10 MG TABLET PO SCH (22:13)
[2018-01-04 23:00] VITALS: BP 97/70
[2018-01-05] MEDS ORDERED: ChlorproMAZINE HCL 50 MG TABLET PO PRN (00:45)
[2018-01-05] MEDS ORDERED: ZOLPIDEM TARTRATE 10 MG TABLET PO PRN (00:45)
[2018-01-05 04:49] VITALS: BP 113/72
[2018-01-05 08:36] VITALS: BP 127/52
[2018-01-05] MEDS: PANTOPRAZOLE SODIUM 40 MG DR TABLET PO SCH (08:37)
[2018-01-05] MEDS: OXYBUTYNIN CHLORIDE 5 MG TABLET PO SCH ×2 (08:37→20:24)
[2018-01-05] MEDS: DOCUSATE SODIUM 100 MG CAPSULE PO SCH ×2 (08:38→20:24)
[2018-01-05] MEDS: MAGNESIUM CITRATE 300 ML ORAL SOLUTION PO SCH (08:39)
[2018-01-05] MEDS ORDERED: MAGNESIUM CITRATE 300 ML ORAL SOLUTION PO SCH (09:00)
[2018-01-05] MEDS ORDERED: OMEPRAZOLE 20 MG CAPSULE PO SCH (09:00)
[2018-01-05] MEDS ORDERED: DOCUSATE SODIUM 100 MG CAPSULE PO SCH (09:00)
[2018-01-05 11:00] VITALS: BP 119/71
[2018-01-05] MEDS: LORazepam 2 MG TABLET PO PRN ×3 (11:22→21:12)
[2018-01-05] MEDS: ACETAMINOPHEN 325 MG TABLET PO PRN ×2 (11:25→21:15)
[2018-01-05] MEDS ORDERED: PEG 3350/NA SULF,BICARB,CL/KCL 4000 ML SOLUTION PO ONE (12:30)
[2018-01-05 15:02] VITALS: BP 96/62
[2018-01-05 19:11] VITALS: BP 112/56
[2018-01-05] MEDS: ChlorproMAZINE HCL 100 MG TABLET PO SCH (20:24)
[2018-01-05] MEDS: ATORVASTATIN CALCIUM 10 MG TABLET PO SCH (20:24)
[2018-01-06 00:06] VITALS: BP 114/73
[2018-01-06 04:30] VITALS: BP 120/80
[2018-01-06] MEDS ORDERED: SODIUM CHLORIDE 0.9% 1,000 ML IV ONE ×2 (07:52→09:00)
[2018-01-06 08:11] VITALS: BP 123/70
[2018-01-06] MEDS: MAGNESIUM CITRATE 300 ML ORAL SOLUTION PO SCH (08:29)
[2018-01-06] MEDS: DOCUSATE SODIUM 100 MG CAPSULE PO SCH (09:00)
[2018-01-06 10:59] VITALS: BP 117/67
[2018-01-06] MEDS: PANTOPRAZOLE SODIUM 40 MG DR TABLET PO SCH (11:49)
[2018-01-06] MEDS: OXYBUTYNIN CHLORIDE 5 MG TABLET PO SCH (11:49)
[2018-01-06] MEDS: LORazepam 2 MG TABLET PO PRN (11:51)
[2018-01-06] MEDS ORDERED: LIDOCAINE HCL/PF 2% 5 ML VIAL INJ ONE (12:00)
[2018-01-06] MEDS ORDERED: PROPOFOL 1% 20 ML VIAL IVP ONE (12:00)
== END 2018-01-06 14:25 | disposition home or self-care (01) | DRG 395 ==
LOC: 6N 18:25
PROVIDERS: ADMIT Internal Medicine; ATTEND Internal Medicine
PROC: 5A09357 Assistance with Respiratory Ventilation, Less than 24 Consecutive Hours, Continuous Positive Airway Pressure (ICD-10-PCS; 2018-01-05)
PROC: 5A09357 Assistance with Respiratory Ventilation, Less than 24 Consecutive Hours, Continuous Positive Airway Pressure (ICD-10-PCS; 2018-01-06)
PROC: 0DJD8ZZ Inspection of Lower Intestinal Tract, Via Natural or Artificial Opening Endoscopic (ICD-10-PCS; principal; 2018-01-06 10:00)
DX: T18.4XXA Foreign body in colon, initial encounter (principal); E55.9 Vitamin D deficiency, unspecified; G47.33 Obstructive sleep apnea (adult) (pediatric); J44.9 Chronic obstructive pulmonary disease, unspecified; R32 Unspecified urinary incontinence; E78.5 Hyperlipidemia, unspecified; F12.90 Cannabis use, unspecified, uncomplicated; G25.81 Restless legs syndrome; I10 Essential (primary) hypertension; K21.9 Gastro-esophageal reflux disease without esophagitis; M19.90 Unspecified osteoarthritis, unspecified site; K59.00 Constipation, unspecified; Z88.0 Allergy status to penicillin; Z88.2 Allergy status to sulfonamides; Z88.8 Allergy status to other drugs, medicaments and biological substances; Z91.018 Allergy to other foods; Z79.899 Other long term (current) drug therapy; Z90.49 Acquired absence of other specified parts of digestive tract; X58.XXXA Exposure to other specified factors, initial encounter; Y93.89 Activity, other specified; Y92.89 Other specified places as the place of occurrence of the external cause; Y99.8 Other external cause status
CPT/HCPCS: 74018; 87081; 94660; J2704; J3490; J7030

== ENCOUNTER 2018-02-24 14:04 | Emergency (ER) | payer MEDICARE, OTHER ==
[~2018-02-24] VITALS: Ht 170.2 cm; Wt 100.0 kg
[~2018-02-24 14:04] MED LIST changes: -FLUO-191 PO; -MAGN296S PO
[2018-02-24] MEDS ORDERED: DiphenhydrAMINE HCL 25 MG CAPSULE PO ONE (15:00)
[2018-02-24] MEDS ORDERED: HALOPERIDOL 5 MG TABLET PO ONE (15:15)
[2018-02-24] MEDS ORDERED: LORazepam 2 MG TABLET PO ONE (15:15)
[2018-02-24 15:22] LABS: BASOPHILS % (AUTO) 0.4 % (0.0-2.0); EOSINOPHILS % (AUTO) 0.5 % (1.0-6.0); HEMATOCRIT 39.5 % (36-46); HEMOGLOBIN 13.5 g/dL (12.0-16.0); LYMPHOCYTES # (AUTO) 2.5 K/uL (1.0-4.8); LYMPHOCYTES % (AUTO) 19.9 % (22.0-44.0); MEAN CORPUSCULAR HEMOGLOBIN 31.2 pg (26.0-34.0); MEAN CORPUSCULAR HGB CONC 34.2 G/dL (31.0-37.0); MEAN CORPUSCULAR VOLUME 91 fL (80-100); MONOCYTES # (AUTO) 0.7 K/uL (0.1-1.0); MONOCYTES % (AUTO) 5.6 % (2.0-9.0); NEUTROPHILS # (AUTO) 9.4 K/uL (1.8-7.7); NEUTROPHILS % (AUTO) 73.6 % (40.0-70.0); PLATELET COUNT (AUTO) 335 K/uL (150-450); RED BLOOD CELL COUNT(AUTO) 4.33 MIL/uL (4.00-5.20); RED CELL DISTRIBUTION WIDTH 14.2 % (11.5-14.5)
[2018-02-24 15:28] LABS: ANION GAP 8 mmol/L (8-16); CARBON DIOXIDE 29 mmol/L (22-29); CHLORIDE 98 mmol/L (98-107); CREATININE 0.89 mg/dL (0.60-1.30); GLOMERULAR FILTR. RATE CALC > 60 mL/min (>60); GLUCOSE,RANDOM 101 mg/dL (70-110); POTASSIUM 3.4 mmol/L (3.5-5.1); SODIUM SERUM 135 mmol/L (136-145); UREA NITROGEN, BLOOD 13 mg/dL (7-18)
[2018-02-24 15:34] LABS: ALANINE AMINOTRANSFERASE 15 U/L (12-78); ALBUMIN 4.2 g/dL (3.4-5.0); ALKALINE PHOSPHATASE 153 U/L (46-116); ASPARTATE AMINOTRANSFERASE 21 U/L (15-37); BILIRUBIN,TOTAL 0.3 mg/dL (0.1-1.0); TOTAL PROTEIN, SERUM 8.6 g/dL (6.4-8.2)
[2018-02-24] MEDS ORDERED: POTASSIUM CHLORIDE 20 MEQ ER TABLET PO ONE (16:15)
[2018-02-24] MEDS ORDERED: PERMETHRIN 5% 60 GM CREAM TP ONE (17:00)
[2018-02-24 17:33] LABS: AMPHET/METH SCREEN,URINE POSITIVE (NEGATIVE); BARBITURATE SCREEN, URINE NEGATIVE (NEGATIVE); BENZODIAZEPINES SCREEN,URINE NEGATIVE (NEGATIVE); CANNABINOID SCREEN,URINE NEGATIVE (NEGATIVE); COCAINE SCREEN,URINE NEGATIVE (NEGATIVE); METHADONE SCREEN, URINE NEGATIVE (NEGATIVE); OPIATE SCREEN,URINE NEGATIVE (NEGATIVE)
[2018-02-24 17:35] LABS: PHENCYCLIDINE SCREEN,URINE NEGATIVE (NEGATIVE)
[2018-02-24 20:37] LABS: GLUCOSE,POINT OF CARE 99 MG/DL (70-110)
[2018-02-25] MEDS ORDERED: LORazepam 2 MG TABLET PO PRN ×2 (10:45→11:00)
[2018-02-25] MEDS ORDERED: ZOLPIDEM TARTRATE 10 MG TABLET PO PRN ×2 (10:45→11:00)
[2018-02-25] MEDS ORDERED: HALOPERIDOL 5 MG TABLET PO PRN ×2 (10:45→11:00)
[2018-02-25 13:11] LABS: APPEARANCE,URINE CLEAR (CLEAR); BILIRUBIN,URINE NEGATIVE (NEGATIVE); GLUCOSE, URINE (UA) NEGATIVE (NEGATIVE); OCCULT BLOOD,URINE NEGATIVE (NEGATIVE); PROTEIN,URINE NEGATIVE (NEGATIVE)
[2018-02-25 13:12] LABS: KETONES,URINE NEGATIVE (NEGATIVE); LEUKOCYTE ESTERASE ,URINE TRACE (NEGATIVE); NITRATE,URINE NEGATIVE (NEGATIVE); UROBILINOGEN,URINE 0.2 mg/dL (<=1.0)
[2018-02-25 13:15] LABS: BACTERIA,URINE Few /HPF (None Seen); RBC,URINE 0-2 /HPF (0-2); SQUAMOUS EPITHELIAL CELL,UR Many /LPF (None Seen)
[2018-02-25 16:26] VITALS: BP 95/55
== END 2018-02-25 17:47 | disposition home or self-care (01) ==
LOC: EMS 14:05
DX: F25.9 Schizoaffective disorder, unspecified (principal); E11.9 Type 2 diabetes mellitus without complications; F31.9 Bipolar disorder, unspecified; F41.9 Anxiety disorder, unspecified; I10 Essential (primary) hypertension; J45.909 Unspecified asthma, uncomplicated; F17.210 Nicotine dependence, cigarettes, uncomplicated; Z88.0 Allergy status to penicillin; Z88.2 Allergy status to sulfonamides; Z79.899 Other long term (current) drug therapy
CPT/HCPCS: 36415; 80053; 80307; 81001; 82962; 85025; 99285; G0480; 94660

== ENCOUNTER 2018-03-03 12:07 | Inpatient (IN) | payer MEDICARE, MEDICAID ==
[~2018-03-03] VITALS: Ht 167.6 cm; Wt 97.7 kg
[2018-03-03] MEDS ORDERED: METO50 PO (12:40)
[2018-03-03] MEDS ORDERED: HYD25 PO (12:40)
[2018-03-03] MEDS ORDERED: LORazepam 2 MG/ML VIAL IM ONE (13:15)
[2018-03-03] MEDS ORDERED: HALOPERIDOL LACTATE 5 MG/ML VIAL IM ONE (13:15)
[2018-03-03] MEDS ORDERED: DiphenhydrAMINE HCL 50 MG/ML VIAL IM ONE (13:15)
[2018-03-03 13:18] LABS: AMPHET/METH SCREEN,URINE POSITIVE (NEGATIVE); BARBITURATE SCREEN, URINE NEGATIVE (NEGATIVE); BENZODIAZEPINES SCREEN,URINE NEGATIVE (NEGATIVE); CANNABINOID SCREEN,URINE NEGATIVE (NEGATIVE); COCAINE SCREEN,URINE NEGATIVE (NEGATIVE); METHADONE SCREEN, URINE NEGATIVE (NEGATIVE); OPIATE SCREEN,URINE NEGATIVE (NEGATIVE)
[2018-03-03 13:22] LABS: BASOPHILS % (AUTO) 0.4 % (0.0-2.0); HEMATOCRIT 38.4 % (36-46); HEMOGLOBIN 13.1 g/dL (12.0-16.0); LYMPHOCYTES # (AUTO) 2.2 K/uL (1.0-4.8); LYMPHOCYTES % (AUTO) 19.8 % (22.0-44.0); MEAN CORPUSCULAR HEMOGLOBIN 30.9 pg (26.0-34.0); MEAN CORPUSCULAR HGB CONC 34.2 G/dL (31.0-37.0); MEAN CORPUSCULAR VOLUME 91 fL (80-100); MONOCYTES # (AUTO) 0.5 K/uL (0.1-1.0); MONOCYTES % (AUTO) 4.3 % (2.0-9.0); NEUTROPHILS % (AUTO) 73.5 % (40.0-70.0); PLATELET COUNT (AUTO) 321 K/uL (150-450); RED BLOOD CELL COUNT(AUTO) 4.24 MIL/uL (4.00-5.20)
[2018-03-03 13:41] LABS: ANION GAP 5 mmol/L (8-16); CALCIUM, TOTAL 8.5 mg/dL (8.8-10.5); CARBON DIOXIDE 31 mmol/L (22-29); CHLORIDE 103 mmol/L (98-107); CREATININE 0.81 mg/dL (0.60-1.30); GLOMERULAR FILTR. RATE CALC > 60 mL/min (>60); GLUCOSE,RANDOM 115 mg/dL (70-110); POTASSIUM 3.7 mmol/L (3.5-5.1); SODIUM SERUM 139 mmol/L (136-145); UREA NITROGEN, BLOOD 11 mg/dL (7-18)
[2018-03-03 13:43] LABS: PHENCYCLIDINE SCREEN,URINE NEGATIVE (NEGATIVE)
[2018-03-03] MEDS ORDERED: ZOLPIDEM TARTRATE 10 MG TABLET PO PRN (13:45)
[2018-03-03 13:47] LABS: ALANINE AMINOTRANSFERASE 15 U/L (12-78); ALBUMIN 3.5 g/dL (3.4-5.0); ALKALINE PHOSPHATASE 145 U/L (46-116); ASPARTATE AMINOTRANSFERASE 16 U/L (15-37); BILIRUBIN,TOTAL 0.2 mg/dL (0.1-1.0); TOTAL PROTEIN, SERUM 7.4 g/dL (6.4-8.2)
[2018-03-03] MEDS: OXYBUTYNIN CHLORIDE 5 MG TABLET PO SCH (21:47)
[2018-03-03] MEDS: ATORVASTATIN CALCIUM 10 MG TABLET PO SCH (21:47)
[2018-03-03] MEDS: METOPROLOL TARTRATE 50 MG TABLET PO SCH (21:58)
[2018-03-04 07:39] LABS: CHOL/HDL RATIO 3.3 (3.9-5.7); CHOLESTEROL 180 mg/dL (131-200); HDL CHOLESTEROL 54 mg/dL (40-60); LDL CHOL (CALC.) 95 mg/dL (0-130); TRIGLYCERIDES 153 mg/dL (15-150)
[2018-03-04] MEDS: METOPROLOL TARTRATE 50 MG TABLET PO SCH ×2 (08:39→21:56)
[2018-03-04] MEDS: LORazepam 2 MG TABLET PO PRN (08:39)
[2018-03-04] MEDS: DOCUSATE SODIUM 100 MG CAPSULE PO SCH (08:40)
[2018-03-04] MEDS: HALOPERIDOL 5 MG TABLET PO PRN (08:40)
[2018-03-04] MEDS: OMEPRAZOLE 20 MG CAPSULE PO SCH (09:07)
[2018-03-04] MEDS: OXYBUTYNIN CHLORIDE 5 MG TABLET PO SCH ×2 (09:08→21:57)
[2018-03-04] MEDS: ATORVASTATIN CALCIUM 10 MG TABLET PO SCH (21:57)
[2018-03-05] MEDS: OXYBUTYNIN CHLORIDE 5 MG TABLET PO SCH (08:39)
[2018-03-05] MEDS: OMEPRAZOLE 20 MG CAPSULE PO SCH (08:39)
[2018-03-05] MEDS: DOCUSATE SODIUM 100 MG CAPSULE PO SCH (08:39)
[2018-03-05] MEDS: METOPROLOL TARTRATE 50 MG TABLET PO SCH (08:39)
[2018-03-05] MEDS: HALOPERIDOL 5 MG TABLET PO PRN ×2 (16:16→21:40)
[2018-03-05] MEDS: LORazepam 2 MG TABLET PO PRN ×2 (16:16→21:40)
[2018-03-05 19:40] VITALS: BP 125/78
[2018-03-05] MEDS ORDERED: DENTURE ADHESIVE 68 GM CREAM DT PRN (19:45)
[2018-03-05] MEDS: ATORVASTATIN CALCIUM 10 MG TABLET PO SCH (20:54)
[2018-03-05] MEDS ORDERED: ACETAMINOPHEN 325 MG TABLET PO PRN (22:45)
[2018-03-05] MEDS ORDERED: IBUPROFEN 400 MG TABLET PO PRN (22:45)
[2018-03-06] MEDS: OXYBUTYNIN CHLORIDE 5 MG TABLET PO SCH ×2 (09:21→20:17)
[2018-03-06] MEDS: METOPROLOL TARTRATE 50 MG TABLET PO SCH ×2 (09:21→17:00)
[2018-03-06] MEDS: DOCUSATE SODIUM 100 MG CAPSULE PO SCH (09:22)
[2018-03-06] MEDS: OMEPRAZOLE 20 MG CAPSULE PO SCH (09:22)
[2018-03-06] MEDS: LORazepam 2 MG TABLET PO PRN ×2 (09:26→20:47)
[2018-03-06] MEDS: HALOPERIDOL 5 MG TABLET PO PRN (09:26)
[2018-03-06 10:47] VITALS: BP 142/75
[2018-03-06] MEDS: ATORVASTATIN CALCIUM 10 MG TABLET PO SCH (20:16)
[2018-03-06] MEDS: ChlorproMAZINE HCL 100 MG TABLET PO SCH (20:17)
[2018-03-06 21:02] VITALS: BP 144/86
[2018-03-07] MEDS: OMEPRAZOLE 20 MG CAPSULE PO SCH (09:56)
[2018-03-07] MEDS: DOCUSATE SODIUM 100 MG CAPSULE PO SCH (09:56)
[2018-03-07] MEDS: OXYBUTYNIN CHLORIDE 5 MG TABLET PO SCH ×2 (09:56→18:29)
[2018-03-07] MEDS: METOPROLOL TARTRATE 50 MG TABLET PO SCH ×2 (09:57→18:28)
[2018-03-07] MEDS: HALOPERIDOL 5 MG TABLET PO PRN (15:58)
[2018-03-07] MEDS: LORazepam 2 MG TABLET PO PRN ×2 (15:58→21:20)
[2018-03-07 16:00] VITALS: BP 116/63
[2018-03-07] MEDS: ATORVASTATIN CALCIUM 10 MG TABLET PO SCH (21:09)
[2018-03-07] MEDS: ChlorproMAZINE HCL 100 MG TABLET PO SCH (21:19)
[2018-03-08 08:10] VITALS: BP 107/50
[2018-03-08 09:05] VITALS: BP 112/74
[2018-03-08] MEDS: OXYBUTYNIN CHLORIDE 5 MG TABLET PO SCH ×2 (09:08→18:06)
[2018-03-08] MEDS: DOCUSATE SODIUM 100 MG CAPSULE PO SCH (09:08)
[2018-03-08] MEDS: METOPROLOL TARTRATE 50 MG TABLET PO SCH ×2 (09:08→18:06)
[2018-03-08] MEDS: OMEPRAZOLE 20 MG CAPSULE PO SCH (09:09)
[2018-03-08] MEDS: HALOPERIDOL 5 MG TABLET PO PRN ×2 (09:15→14:51)
[2018-03-08] MEDS: LORazepam 2 MG TABLET PO PRN ×2 (14:51→21:20)
[2018-03-08 16:47] VITALS: BP 108/56
[2018-03-08] MEDS: ATORVASTATIN CALCIUM 10 MG TABLET PO SCH (21:21)
[2018-03-08] MEDS: ChlorproMAZINE HCL 100 MG TABLET PO SCH (21:21)
[2018-03-09] MEDS: DOCUSATE SODIUM 100 MG CAPSULE PO SCH (10:52)
[2018-03-09] MEDS: OMEPRAZOLE 20 MG CAPSULE PO SCH (10:52)
[2018-03-09] MEDS: OXYBUTYNIN CHLORIDE 5 MG TABLET PO SCH (10:53)
[2018-03-09] MEDS: METOPROLOL TARTRATE 50 MG TABLET PO SCH (10:53)
[2018-03-09] MEDS: HALOPERIDOL 5 MG TABLET PO PRN (11:05)
[2018-03-09] MEDS: LORazepam 2 MG TABLET PO PRN (11:05)
[2018-03-09 11:45] VITALS: BP 124/46
== END 2018-03-09 14:10 | disposition home or self-care (01) | DRG 885 ==
LOC: EMS 12:09 → 3EC 03-05 17:57
PROVIDERS: ADMIT Psychiatry & Neurology Psychiatry; ATTEND Psychiatry & Neurology Psychiatry
PROC: 5A09357 Assistance with Respiratory Ventilation, Less than 24 Consecutive Hours, Continuous Positive Airway Pressure (ICD-10-PCS; principal; 2018-03-05)
PROC: 5A09357 Assistance with Respiratory Ventilation, Less than 24 Consecutive Hours, Continuous Positive Airway Pressure (ICD-10-PCS; 2018-03-07)
PROC: 5A09357 Assistance with Respiratory Ventilation, Less than 24 Consecutive Hours, Continuous Positive Airway Pressure (ICD-10-PCS; 2018-03-08)
PROC: 5A09357 Assistance with Respiratory Ventilation, Less than 24 Consecutive Hours, Continuous Positive Airway Pressure (ICD-10-PCS; 2018-03-09)
DX: F25.9 Schizoaffective disorder, unspecified (principal); E11.9 Type 2 diabetes mellitus without complications; R45.851 Suicidal ideations; E55.9 Vitamin D deficiency, unspecified; E78.5 Hyperlipidemia, unspecified; F12.90 Cannabis use, unspecified, uncomplicated; F31.9 Bipolar disorder, unspecified; G47.33 Obstructive sleep apnea (adult) (pediatric); I10 Essential (primary) hypertension; F41.9 Anxiety disorder, unspecified; M19.90 Unspecified osteoarthritis, unspecified site; J44.9 Chronic obstructive pulmonary disease, unspecified; K21.9 Gastro-esophageal reflux disease without esophagitis; K59.09 Other constipation; R32 Unspecified urinary incontinence; F17.210 Nicotine dependence, cigarettes, uncomplicated; Z98.1 Arthrodesis status; Z79.899 Other long term (current) drug therapy; Z88.0 Allergy status to penicillin; Z91.018 Allergy to other foods; Z91.5 Personal history of self-harm
CPT/HCPCS: 84443; 94660; 96372; 99285; G0480; J1200; J1630; J2060

== ENCOUNTER 2018-03-29 12:59 | Emergency (ER) | payer MEDICARE, OTHER ==
[~2018-03-29] VITALS: Ht 167.6 cm; Wt 100.0 kg
[~2018-03-29 12:59] MED LIST changes: +METO50 PO
[2018-03-29 13:31] VITALS: BP 124/78
[2018-03-29 13:39] LABS: GLUCOSE,POINT OF CARE 127 MG/DL (70-110)
[2018-03-29 14:56] LABS: BASOPHILS % (AUTO) 0.4 % (0.0-2.0); EOSINOPHILS % (AUTO) 0.8 % (1.0-6.0); HEMATOCRIT 40.7 % (36-46); HEMOGLOBIN 13.5 g/dL (12.0-16.0); LYMPHOCYTES # (AUTO) 2.3 K/uL (1.0-4.8); LYMPHOCYTES % (AUTO) 18.3 % (22.0-44.0); MEAN CORPUSCULAR HEMOGLOBIN 29.8 pg (26.0-34.0); MEAN CORPUSCULAR HGB CONC 33.1 G/dL (31.0-37.0); MEAN CORPUSCULAR VOLUME 90 fL (80-100); MONOCYTES # (AUTO) 0.6 K/uL (0.1-1.0); MONOCYTES % (AUTO) 5.1 % (2.0-9.0); NEUTROPHILS # (AUTO) 9.4 K/uL (1.8-7.7); NEUTROPHILS % (AUTO) 75.4 % (40.0-70.0); PLATELET COUNT (AUTO) 359 K/uL (150-450); RED BLOOD CELL COUNT(AUTO) 4.53 MIL/uL (4.00-5.20); RED CELL DISTRIBUTION WIDTH 14.1 % (11.5-14.5)
[2018-03-29 15:05] LABS: ANION GAP 7 mmol/L (8-16); CALCIUM, TOTAL 8.4 mg/dL (8.8-10.5); CARBON DIOXIDE 29 mmol/L (22-29); CHLORIDE 105 mmol/L (98-107); CREATININE 0.77 mg/dL (0.60-1.30); GLOMERULAR FILTR. RATE CALC > 60 mL/min (>60); GLUCOSE,RANDOM 88 mg/dL (70-110); POTASSIUM 3.8 mmol/L (3.5-5.1); SODIUM SERUM 141 mmol/L (136-145); UREA NITROGEN, BLOOD 12 mg/dL (7-18)
[2018-03-29 15:11] LABS: ALANINE AMINOTRANSFERASE 16 U/L (12-78); ALBUMIN 3.5 g/dL (3.4-5.0); ALKALINE PHOSPHATASE 137 U/L (46-116); ASPARTATE AMINOTRANSFERASE 18 U/L (15-37); BILIRUBIN,TOTAL 0.2 mg/dL (0.1-1.0); LIPASE 208 U/L (73-393); TOTAL PROTEIN, SERUM 7.5 g/dL (6.4-8.2)
[2018-03-29 15:50] LABS: APPEARANCE,URINE CLEAR (CLEAR); BILIRUBIN,URINE NEGATIVE (NEGATIVE); GLUCOSE, URINE (UA) NEGATIVE (NEGATIVE); KETONES,URINE NEGATIVE (NEGATIVE); LEUKOCYTE ESTERASE ,URINE NEGATIVE (NEGATIVE); NITRATE,URINE NEGATIVE (NEGATIVE); OCCULT BLOOD,URINE NEGATIVE (NEGATIVE); PH,URINE 6.5 (5.0-8.0); PROTEIN,URINE NEGATIVE (NEGATIVE); UROBILINOGEN,URINE 0.2 mg/dL (<=1.0)
== END 2018-03-29 16:50 | disposition left against medical advice (07) ==
LOC: EMS 13:02
DX: Z20.89 Contact with and (suspected) exposure to other communicable diseases (principal); F25.9 Schizoaffective disorder, unspecified; I10 Essential (primary) hypertension; E11.9 Type 2 diabetes mellitus without complications; J45.909 Unspecified asthma, uncomplicated; F41.9 Anxiety disorder, unspecified; F32.9 Major depressive disorder, single episode, unspecified
CPT/HCPCS: 99284

== ENCOUNTER 2018-03-29 18:18 | Emergency (ER) | payer MEDICARE, OTHER ==
[~2018-03-29] VITALS: Ht 167.6 cm; Wt 100.0 kg
[2018-03-29 19:53] VITALS: BP 124/71
== END 2018-03-29 20:39 | disposition home or self-care (01) ==
LOC: EMS 18:24
DX: F25.9 Schizoaffective disorder, unspecified (principal); B86 Scabies; F31.9 Bipolar disorder, unspecified; I10 Essential (primary) hypertension; E11.9 Type 2 diabetes mellitus without complications; J45.909 Unspecified asthma, uncomplicated; F17.210 Nicotine dependence, cigarettes, uncomplicated; Z88.0 Allergy status to penicillin; Z91.018 Allergy to other foods
CPT/HCPCS: 99285; 99406

== ENCOUNTER 2018-04-11 09:25 | Inpatient (IN) | payer MEDICARE, MEDICAID ==
[~2018-04-11] VITALS: Ht 167.6 cm; Wt 99.8 kg
[2018-04-11 11:54] LABS: APPEARANCE,URINE CLOUDY (CLEAR); BILIRUBIN,URINE NEGATIVE (NEGATIVE); GLUCOSE, URINE (UA) NEGATIVE (NEGATIVE); KETONES,URINE NEGATIVE (NEGATIVE); LEUKOCYTE ESTERASE ,URINE TRACE (NEGATIVE); NITRATE,URINE NEGATIVE (NEGATIVE); OCCULT BLOOD,URINE NEGATIVE (NEGATIVE); PROTEIN,URINE NEGATIVE (NEGATIVE); UROBILINOGEN,URINE 0.2 mg/dL (<=1.0)
[2018-04-11 12:04] LABS: BACTERIA,URINE Moderate /HPF (None Seen); HYALINE CASTS, URINE 0-2 /LPF (None Seen); MUCUS,URINE Few LPF (None Seen); RBC,URINE 0-2 /HPF (0-2); SQUAMOUS EPITHELIAL CELL,UR Many /LPF (None Seen)
[2018-04-11 12:16] LABS: AMPHET/METH SCREEN,URINE POSITIVE (NEGATIVE); BARBITURATE SCREEN, URINE NEGATIVE (NEGATIVE); BENZODIAZEPINES SCREEN,URINE NEGATIVE (NEGATIVE); CANNABINOID SCREEN,URINE NEGATIVE (NEGATIVE); COCAINE SCREEN,URINE NEGATIVE (NEGATIVE); METHADONE SCREEN, URINE NEGATIVE (NEGATIVE); OPIATE SCREEN,URINE NEGATIVE (NEGATIVE)
[2018-04-11 12:17] LABS: PHENCYCLIDINE SCREEN,URINE NEGATIVE (NEGATIVE)
[2018-04-11] MEDS ORDERED: LORazepam 2 MG/ML VIAL IM ONE (13:30)
[2018-04-11] MEDS ORDERED: HALOPERIDOL LACTATE 5 MG/ML VIAL IM ONE (13:30)
[2018-04-11] MEDS ORDERED: DiphenhydrAMINE HCL 50 MG/ML VIAL IM ONE (13:30)
[2018-04-11] MEDS ORDERED: ZOLPIDEM TARTRATE 10 MG TABLET PO PRN (14:00)
[2018-04-11 15:14] LABS: BASOPHILS % (AUTO) 0.4 % (0.0-2.0); EOSINOPHILS % (AUTO) 0.7 % (1.0-6.0); HEMATOCRIT 39.4 % (36-46); HEMOGLOBIN 13.1 g/dL (12.0-16.0); LYMPHOCYTES # (AUTO) 1.7 K/uL (1.0-4.8); LYMPHOCYTES % (AUTO) 12.8 % (22.0-44.0); MEAN CORPUSCULAR HEMOGLOBIN 29.3 pg (26.0-34.0); MEAN CORPUSCULAR HGB CONC 33.2 G/dL (31.0-37.0); MEAN CORPUSCULAR VOLUME 88 fL (80-100); MONOCYTES # (AUTO) 0.6 K/uL (0.1-1.0); MONOCYTES % (AUTO) 4.3 % (2.0-9.0); NEUTROPHILS # (AUTO) 10.9 K/uL (1.8-7.7); NEUTROPHILS % (AUTO) 81.8 % (40.0-70.0); PLATELET COUNT (AUTO) 364 K/uL (150-450); RED BLOOD CELL COUNT(AUTO) 4.46 MIL/uL (4.00-5.20); RED CELL DISTRIBUTION WIDTH 14.3 % (11.5-14.5)
[2018-04-11 15:25] LABS: ANION GAP 5 mmol/L (8-16); CALCIUM, TOTAL 8.9 mg/dL (8.8-10.5); CARBON DIOXIDE 28 mmol/L (22-29); CHLORIDE 103 mmol/L (98-107); CREATININE 0.93 mg/dL (0.60-1.30); GLOMERULAR FILTR. RATE CALC > 60 mL/min (>60); GLUCOSE,RANDOM 130 mg/dL (70-110); SODIUM SERUM 136 mmol/L (136-145); UREA NITROGEN, BLOOD 10 mg/dL (7-18)
[2018-04-11 15:31] LABS: ALANINE AMINOTRANSFERASE 15 U/L (12-78); ALBUMIN 3.5 g/dL (3.4-5.0); ALKALINE PHOSPHATASE 153 U/L (46-116); ASPARTATE AMINOTRANSFERASE 18 U/L (15-37); BILIRUBIN,TOTAL 0.3 mg/dL (0.1-1.0); TOTAL PROTEIN, SERUM 7.5 g/dL (6.4-8.2)
[2018-04-11] MEDS: ChlorproMAZINE HCL 100 MG TABLET PO SCH (20:52)
[2018-04-12] VITALS: BP 117/74
[2018-04-12] MEDS ORDERED: -PHARMACY VACCINE NOTE- MISC ONE (00:15)
[2018-04-12] MEDS ORDERED: IBUPROFEN 400 MG TABLET PO PRN ×2 (00:45→09:45)
[2018-04-12] MEDS ORDERED: ACETAMINOPHEN 325 MG TABLET PO PRN ×2 (00:45→09:45)
[2018-04-12] MEDS ORDERED: DENTURE ADHESIVE 68 GM CREAM DT PRN (00:45)
[2018-04-12] MEDS ORDERED: MAGNESIUM HYDROXIDE SUSPENSION 30 ML UDCUP PO PRN (09:45)
[2018-04-12] MEDS ORDERED: ONDANSETRON HCL 4 MG TABLET PO PRN (09:45)
[2018-04-12] MEDS ORDERED: PETROLATUM,WHITE 71 GM JELLY TP PRN (09:45)
[2018-04-12] MEDS ORDERED: MAG HYDROX/AL HYDROX/SIMETH ES 30 ML SUSPENSION UDCUP PO PRN (09:45)
[2018-04-12] MEDS ORDERED: ALBUTEROL SULFATE HFA 90 MCG/PUFF 8 GM INHALER IH PRN (09:45)
[2018-04-12] MEDS ORDERED: DOCUSATE SODIUM 100 MG CAPSULE PO PRN (09:45)
[2018-04-12] MEDS: OXYBUTYNIN CHLORIDE 5 MG TABLET PO SCH ×2 (10:00→16:34)
[2018-04-12] MEDS: METOPROLOL TARTRATE 50 MG TABLET PO SCH ×2 (10:00→16:34)
[2018-04-12] MEDS: DOCUSATE SODIUM 100 MG CAPSULE PO SCH (10:02)
[2018-04-12] MEDS: LORazepam 2 MG TABLET PO PRN ×2 (10:04→16:44)
[2018-04-12] MEDS: OMEPRAZOLE 20 MG CAPSULE PO SCH (10:04)
[2018-04-12] MEDS: HALOPERIDOL 5 MG TABLET PO PRN (16:44)
[2018-04-12 18:28] VITALS: BP 120/77
[2018-04-12] MEDS: ATORVASTATIN CALCIUM 10 MG TABLET PO SCH (22:46)
[2018-04-12] MEDS: ChlorproMAZINE HCL 100 MG TABLET PO SCH (22:46)
[2018-04-13 08:00] VITALS: BP 142/78
[2018-04-13] MEDS: LORazepam 2 MG TABLET PO PRN ×3 (09:10→22:33)
[2018-04-13] MEDS: METOPROLOL TARTRATE 50 MG TABLET PO SCH ×2 (09:10→16:09)
[2018-04-13] MEDS: OMEPRAZOLE 20 MG CAPSULE PO SCH (09:10)
[2018-04-13] MEDS: NICOTINE 14 MG/24 HOUR PATCH TD SCH (09:10)
[2018-04-13] MEDS: DOCUSATE SODIUM 100 MG CAPSULE PO SCH (09:11)
[2018-04-13] MEDS: OXYBUTYNIN CHLORIDE 5 MG TABLET PO SCH ×2 (09:11→16:10)
[2018-04-13] MEDS: HALOPERIDOL 5 MG TABLET PO PRN ×2 (16:09→22:33)
[2018-04-13 16:18] VITALS: BP 119/68
[2018-04-13] MEDS: ATORVASTATIN CALCIUM 10 MG TABLET PO SCH (21:52)
[2018-04-13] MEDS: ChlorproMAZINE HCL 100 MG TABLET PO SCH (21:52)
[2018-04-14] MEDS: DOCUSATE SODIUM 100 MG CAPSULE PO SCH (09:06)
[2018-04-14] MEDS: OXYBUTYNIN CHLORIDE 5 MG TABLET PO SCH (09:06)
[2018-04-14] MEDS: NICOTINE 14 MG/24 HOUR PATCH TD SCH (09:07)
[2018-04-14] MEDS: OMEPRAZOLE 20 MG CAPSULE PO SCH (09:07)
[2018-04-14] MEDS: LORazepam 2 MG TABLET PO PRN (10:05)
[2018-04-14] MEDS: METOPROLOL TARTRATE 50 MG TABLET PO SCH (10:05)
[2018-04-14] MEDS: HALOPERIDOL 5 MG TABLET PO PRN (10:05)
[2018-04-14 13:31] VITALS: BP 124/65
== END 2018-04-14 15:15 | disposition home or self-care (01) | DRG 885 ==
LOC: EMS 09:28 → 3EC 21:30
PROVIDERS: ADMIT Psychiatry & Neurology Psychiatry; ATTEND Psychiatry & Neurology Psychiatry
DX: F25.9 Schizoaffective disorder, unspecified (principal); F31.9 Bipolar disorder, unspecified; D69.6 Thrombocytopenia, unspecified; K21.9 Gastro-esophageal reflux disease without esophagitis; J44.9 Chronic obstructive pulmonary disease, unspecified; I10 Essential (primary) hypertension; E11.9 Type 2 diabetes mellitus without complications; F41.9 Anxiety disorder, unspecified; G47.33 Obstructive sleep apnea (adult) (pediatric); R32 Unspecified urinary incontinence; E78.5 Hyperlipidemia, unspecified; K59.09 Other constipation; E55.9 Vitamin D deficiency, unspecified; D72.829 Elevated white blood cell count, unspecified; F99 Mental disorder, not otherwise specified; F12.90 Cannabis use, unspecified, uncomplicated; F15.10 Other stimulant abuse, uncomplicated; Z88.0 Allergy status to penicillin; Z88.8 Allergy status to other drugs, medicaments and biological substances; Z91.5 Personal history of self-harm; Z87.891 Personal history of nicotine dependence; Z98.1 Arthrodesis status
CPT/HCPCS: 87081; 87086; 94660; 96372; 99285; G0480; J1200; J1630; J2060

== ENCOUNTER 2020-11-26 23:11 | Inpatient (IN) | payer MEDICARE, MEDICAID ==
[~2020-11-26] VITALS: Ht 167.6 cm; Wt 89.4 kg
[~2020-11-26 23:11] MED LIST changes: -CHLO100T24 PO; +DOCU-275 PO; -DSS100 PO
[2020-11-27 01:04] LABS: BASOPHILS % (AUTO) 0.7 % (0.0-2.0); EOSINOPHILS % (AUTO) 0.5 % (1.0-6.0); HEMATOCRIT 39.5 % (36-46); HEMOGLOBIN 13.1 g/dL (12.0-16.0); LYMPHOCYTES # (AUTO) 2.3 K/uL (1.0-4.8); LYMPHOCYTES % (AUTO) 22.9 % (22.0-44.0); MEAN CORPUSCULAR HEMOGLOBIN 31.1 pg (26.0-34.0); MEAN CORPUSCULAR HGB CONC 33.2 G/dL (31.0-37.0); MEAN CORPUSCULAR VOLUME 93 fL (80-100); MONOCYTES # (AUTO) 0.4 K/uL (0.1-1.0); MONOCYTES % (AUTO) 4.1 % (2.0-9.0); NEUTROPHILS # (AUTO) 7.3 K/uL (1.8-7.7); NEUTROPHILS % (AUTO) 71.8 % (40.0-70.0); PLATELET COUNT (AUTO) 273 K/uL (150-450); RED BLOOD CELL COUNT(AUTO) 4.23 MIL/uL (4.00-5.20); RED CELL DISTRIBUTION WIDTH 14.4 % (11.5-14.5)
[2020-11-27 01:16] LABS: AMPHET/METH SCREEN,URINE POSITIVE (NEGATIVE); BARBITURATE SCREEN, URINE NEGATIVE (NEGATIVE); BENZODIAZEPINES SCREEN,URINE NEGATIVE (NEGATIVE); CANNABINOID SCREEN,URINE NEGATIVE (NEGATIVE); COCAINE SCREEN,URINE NEGATIVE (NEGATIVE); METHADONE SCREEN, URINE NEGATIVE (NEGATIVE); OPIATE SCREEN,URINE NEGATIVE (NEGATIVE)
[2020-11-27 01:19] LABS: PHENCYCLIDINE SCREEN,URINE NEGATIVE (NEGATIVE)
[2020-11-27 01:32] LABS: ANION GAP 11 mmol/L (8-16); CALCIUM, TOTAL 9.1 mg/dL (8.8-10.5); CARBON DIOXIDE 28 mmol/L (22-29); CHLORIDE 104 mmol/L (98-107); CREATININE 0.89 mg/dL (0.60-1.30); GLOMERULAR FILTR. RATE CALC > 60 mL/min (>60); GLUCOSE,RANDOM 112 mg/dL (70-110); POTASSIUM 3.2 mmol/L (3.5-5.1); SODIUM SERUM 143 mmol/L (136-145); UREA NITROGEN, BLOOD 8 mg/dL (7-18)
[2020-11-27 01:38] LABS: ALANINE AMINOTRANSFERASE 18 U/L (12-78); ALBUMIN 3.4 g/dL (3.4-5.0); ALKALINE PHOSPHATASE 111 U/L (46-116); ASPARTATE AMINOTRANSFERASE 21 U/L (15-37); TOTAL PROTEIN, SERUM 7.2 g/dL (6.4-8.2)
[2020-11-27 01:39] LABS: ACETAMINOPHEN < 2 mcg/mL (10-30)
[2020-11-27 01:52] LABS: SALICYLATE 2.2 mg/dL (2.8-20.0)
[2020-11-27] MEDS ORDERED: POTASSIUM CHLORIDE 20 MEQ ER TABLET PO ONE (02:00)
[2020-11-27 02:19] LABS: BILIRUBIN,TOTAL 0.1 mg/dL (0.1-1.0)
[2020-11-27 04:09] LABS: COVID AG,FIA SOURCE NASOPHARYNGEAL
[2020-11-27] MEDS ORDERED: ZOLPIDEM TARTRATE 10 MG TABLET PO PRN (07:30)
[2020-11-27] MEDS ORDERED: DENTURE ADHESIVE 68 GM CREAM DT PRN (15:00)
[2020-11-27] MEDS: LORazepam 2 MG TABLET PO PRN (17:25)
[2020-11-27] MEDS: HALOPERIDOL 5 MG TABLET PO PRN (17:25)
[2020-11-27] MEDS: OXYBUTYNIN CHLORIDE 5 MG TABLET PO SCH (17:26)
[2020-11-27] MEDS: METOPROLOL TARTRATE 50 MG TABLET PO SCH (19:09)
[2020-11-27 19:16] VITALS: BP 125/86
[2020-11-27] MEDS: ATORVASTATIN CALCIUM 10 MG TABLET PO SCH ×2 (21:00→21:34)
[2020-11-28 07:10] LABS: GLUCOMETER DEV NAME(LOC) 3E.C; GLUCOSE,POINT OF CARE 105 MG/DL (70-110)
[2020-11-28] MEDS: OXYBUTYNIN CHLORIDE 5 MG TABLET PO SCH ×2 (08:09→16:42)
[2020-11-28] MEDS: OMEPRAZOLE 20 MG CAPSULE PO SCH (08:09)
[2020-11-28] MEDS: METOPROLOL TARTRATE 50 MG TABLET PO SCH ×2 (08:09→16:42)
[2020-11-28] MEDS: DOCUSATE SODIUM 100 MG CAPSULE PO SCH (08:10)
[2020-11-28] MEDS ORDERED: RisperiDONE MICROSPHERES 50 MG/2 ML SYRINGE IM SCH (09:00)
[2020-11-28] MEDS: LORazepam 2 MG TABLET PO PRN ×2 (12:02→16:49)
[2020-11-28 16:22] VITALS: BP 133/78
[2020-11-28 17:08] LABS: GLUCOMETER DEV NAME(LOC) 3E.C; GLUCOSE,POINT OF CARE 106 MG/DL (70-110)
[2020-11-28] MEDS: ATORVASTATIN CALCIUM 10 MG TABLET PO SCH (20:35)
[2020-11-29] MEDS: METOPROLOL TARTRATE 50 MG TABLET PO SCH ×2 (09:57→17:00)
[2020-11-29] MEDS: DOCUSATE SODIUM 100 MG CAPSULE PO SCH (09:57)
[2020-11-29] MEDS: OXYBUTYNIN CHLORIDE 5 MG TABLET PO SCH ×2 (09:57→17:00)
[2020-11-29] MEDS: OMEPRAZOLE 20 MG CAPSULE PO SCH (09:57)
[2020-11-29] MEDS: HALOPERIDOL 5 MG TABLET PO PRN (09:58)
[2020-11-29] MEDS: LORazepam 2 MG TABLET PO PRN ×2 (09:58→17:42)
[2020-11-29 16:53] VITALS: BP 99/85
[2020-11-29 17:15] LABS: GLUCOMETER DEV NAME(LOC) 3E.C; GLUCOSE,POINT OF CARE 98 MG/DL (70-110)
[2020-11-29 17:59] VITALS: BP 116/74
[2020-11-29] MEDS: ATORVASTATIN CALCIUM 10 MG TABLET PO SCH (20:12)
[2020-11-30] MEDS: METOPROLOL TARTRATE 50 MG TABLET PO SCH ×2 (07:45→16:14)
[2020-11-30] MEDS: OXYBUTYNIN CHLORIDE 5 MG TABLET PO SCH ×2 (07:45→16:14)
[2020-11-30] MEDS: DOCUSATE SODIUM 100 MG CAPSULE PO SCH (07:45)
[2020-11-30] MEDS: OMEPRAZOLE 20 MG CAPSULE PO SCH (07:45)
[2020-11-30] MEDS: HALOPERIDOL 5 MG TABLET PO PRN (07:46)
[2020-11-30] MEDS: LORazepam 2 MG TABLET PO PRN ×3 (07:46→21:05)
[2020-11-30 16:07] VITALS: BP 100/70
[2020-11-30 16:39] LABS: GLUCOMETER DEV NAME(LOC) 3E.C; GLUCOSE,POINT OF CARE 192 MG/DL (70-110)
[2020-11-30] MEDS: ATORVASTATIN CALCIUM 10 MG TABLET PO SCH (20:19)
[2020-12-01 08:02] VITALS: BP 104/65
[2020-12-01] MEDS: DOCUSATE SODIUM 100 MG CAPSULE PO SCH (08:21)
[2020-12-01] MEDS: OMEPRAZOLE 20 MG CAPSULE PO SCH (08:22)
[2020-12-01] MEDS: OXYBUTYNIN CHLORIDE 5 MG TABLET PO SCH ×2 (08:22→16:23)
[2020-12-01] MEDS: METOPROLOL TARTRATE 50 MG TABLET PO SCH ×2 (08:23→16:23)
[2020-12-01] MEDS: LORazepam 2 MG TABLET PO PRN ×3 (10:37→19:13)
[2020-12-01] MEDS: HALOPERIDOL 5 MG TABLET PO PRN ×2 (10:39→14:51)
[2020-12-01 16:15] VITALS: BP 123/78
[2020-12-01 16:42] LABS: GLUCOMETER DEV NAME(LOC) 3E.C; GLUCOSE,POINT OF CARE 126 MG/DL (70-110)
[2020-12-01] MEDS: ATORVASTATIN CALCIUM 10 MG TABLET PO SCH (20:08)
[2020-12-02 07:43] LABS: GLUCOMETER DEV NAME(LOC) 3E.C; GLUCOSE,POINT OF CARE 104 MG/DL (70-110)
[2020-12-02 08:13] VITALS: BP 108/65
[2020-12-02] MEDS: OXYBUTYNIN CHLORIDE 5 MG TABLET PO SCH (09:34)
[2020-12-02] MEDS: LORazepam 2 MG TABLET PO PRN (09:36)
[2020-12-02] MEDS: OMEPRAZOLE 20 MG CAPSULE PO SCH (09:36)
[2020-12-02] MEDS: METOPROLOL TARTRATE 50 MG TABLET PO SCH (09:37)
[2020-12-02] MEDS: DOCUSATE SODIUM 100 MG CAPSULE PO SCH (09:37)
[2020-12-02] MEDS: HALOPERIDOL 5 MG TABLET PO PRN (09:37)
== END 2020-12-02 12:21 | disposition home or self-care (01) | DRG 885 ==
LOC: EMS 23:12 → 3EC 11-27 09:55
PROVIDERS: ADMIT Psychiatry & Neurology Psychiatry; ATTEND Psychiatry & Neurology Psychiatry
DX: F25.9 Schizoaffective disorder, unspecified (principal); E11.9 Type 2 diabetes mellitus without complications; I10 Essential (primary) hypertension; Z88.0 Allergy status to penicillin; Z88.2 Allergy status to sulfonamides; Z88.8 Allergy status to other drugs, medicaments and biological substances; J44.9 Chronic obstructive pulmonary disease, unspecified; Z90.49 Acquired absence of other specified parts of digestive tract; Z20.822 Contact with and (suspected) exposure to COVID-19; T50.902A Poisoning by unspecified drugs, medicaments and biological substances, intentional self-harm, initial encounter; Y92.89 Other specified places as the place of occurrence of the external cause; G40.909 Epilepsy, unspecified, not intractable, without status epilepticus; M19.90 Unspecified osteoarthritis, unspecified site; F15.10 Other stimulant abuse, uncomplicated; F17.200 Nicotine dependence, unspecified, uncomplicated; K59.00 Constipation, unspecified; G47.33 Obstructive sleep apnea (adult) (pediatric); R32 Unspecified urinary incontinence; F10.129 Alcohol abuse with intoxication, unspecified
CPT/HCPCS: 43760; 87426; 93005; 94660; 99285; G0480; G0481; J2794

== ENCOUNTER 2022-02-20 22:49 | Inpatient (IN) | payer MEDICARE, MEDICAID ==
[~2022-02-20] VITALS: Ht 167.6 cm; Wt 100.7 kg
[~2022-02-20 22:49] MED LIST changes: -DOCU-275 PO; +DOCU-385 PO; -OXYB5 PO; +OXYB5TAB20 PO
[2022-02-20 23:22] LABS: COVID AG,FIA SOURCE NASAL SWAB
[2022-02-20 23:25] LABS: BASOPHILS % (AUTO) 0.5 % (0.0-2.0); EOSINOPHILS % (AUTO) 0.9 % (1.0-6.0); HEMATOCRIT 42.7 % (36-46); HEMOGLOBIN 14.6 g/dL (12.0-16.0); LYMPHOCYTES # (AUTO) 2.1 K/uL (1.0-4.8); LYMPHOCYTES % (AUTO) 22.8 % (22.0-44.0); MEAN CORPUSCULAR HEMOGLOBIN 32.2 pg (26.0-34.0); MEAN CORPUSCULAR HGB CONC 34.1 G/dL (31.0-37.0); MEAN CORPUSCULAR VOLUME 95 fL (80-100); MONOCYTES # (AUTO) 0.4 K/uL (0.1-1.0); MONOCYTES % (AUTO) 4.5 % (2.0-9.0); NEUTROPHILS # (AUTO) 6.6 K/uL (1.8-7.7); NEUTROPHILS % (AUTO) 71.3 % (40.0-70.0); PLATELET COUNT (AUTO) 318 K/uL (150-450); RED BLOOD CELL COUNT(AUTO) 4.52 MIL/uL (4.00-5.20); RED CELL DISTRIBUTION WIDTH 13.9 % (11.5-14.5)
[2022-02-20 23:35] LABS: ANION GAP 14 mmol/L (8-16); CALCIUM, TOTAL 8.5 mg/dL (8.8-10.5); CARBON DIOXIDE 28 mmol/L (22-29); CHLORIDE 101 mmol/L (98-107); CREATININE 0.66 mg/dL (0.60-1.30); GLOMERULAR FILTR. RATE CALC > 60 mL/min (>60); GLUCOSE,RANDOM 139 mg/dL (70-110); POTASSIUM 3.6 mmol/L (3.5-5.1); SODIUM SERUM 143 mmol/L (136-145); UREA NITROGEN, BLOOD 4 mg/dL (7-18)
[2022-02-20 23:36] LABS: PROTHROMBIN TIME 11.1 SEC (9.4-11.6)
[2022-02-20 23:41] LABS: ACETAMINOPHEN < 2 mcg/mL (10-30); ALANINE AMINOTRANSFERASE 17 U/L (12-78); ALBUMIN 3.1 g/dL (3.4-5.0); ALKALINE PHOSPHATASE 149 U/L (46-116); ASPARTATE AMINOTRANSFERASE 36 U/L (15-37); BILIRUBIN,TOTAL 0.1 mg/dL (0.1-1.0); TOTAL PROTEIN, SERUM 7.2 g/dL (6.4-8.2)
[2022-02-20] MEDS ORDERED: MAGNESIUM SULFATE 2 GM/WATER 50 ML IV ONE (23:45)
[2022-02-20 23:48] LABS: SALICYLATE 2.1 mg/dL (2.8-20.0)
[2022-02-21] MEDS ORDERED: ZOLPIDEM TARTRATE 10 MG TABLET PO PRN (01:30)
[2022-02-21 10:23] LABS: APPEARANCE,URINE HAZY (CLEAR); BILIRUBIN,URINE NEGATIVE (NEGATIVE); GLUCOSE, URINE (UA) NEGATIVE (NEGATIVE); KETONES,URINE NEGATIVE (NEGATIVE); LEUKOCYTE ESTERASE ,URINE LARGE (NEGATIVE); NITRATE,URINE NEGATIVE (NEGATIVE); OCCULT BLOOD,URINE NEGATIVE (NEGATIVE); PH,URINE 6.5 (5.0-8.0); PROTEIN,URINE TRACE mg/dL (NEGATIVE); SPECIFIC GRAVITIY, URINE 1.014 (1.003-1.030); UROBILINOGEN,URINE <=1.0 mg/dL (<=1.0)
[2022-02-21 10:35] LABS: BACTERIA,URINE Moderate /HPF (None Seen); RBC,URINE None Seen /HPF (0-2); SQUAMOUS EPITHELIAL CELL,UR Few /LPF (None Seen)
[2022-02-21] MEDS: LORazepam 1 MG TABLET PO PRN ×3 (13:05→20:17)
[2022-02-21] MEDS ORDERED: PNEUMOCOCCAL VACCINE POLYVALENT 0.5 ML VIAL [PPSV23] IM. ONE (20:00)
[2022-02-21 20:06] VITALS: BP 134/83
[2022-02-21] MEDS: HALOPERIDOL 5 MG TABLET PO PRN (20:17)
[2022-02-22] MEDS ORDERED: MAGNESIUM HYDROXIDE SUSPENSION 30 ML UDCUP PO PRN (07:30)
[2022-02-22] MEDS ORDERED: CloNIDine HCL 0.1 MG TABLET PO PRN (07:30)
[2022-02-22] MEDS ORDERED: ALBUTEROL SULFATE HFA 90 MCG/PUFF 8 GM INHALER IH PRN (07:30)
[2022-02-22] MEDS ORDERED: BENZOCAINE/MENTHOL LOZENGE PO PRN (07:30)
[2022-02-22] MEDS ORDERED: DOCUSATE SODIUM 100 MG CAPSULE PO PRN (07:30)
[2022-02-22] MEDS ORDERED: ACETAMINOPHEN 325 MG TABLET PO PRN (07:30)
[2022-02-22] MEDS ORDERED: OMEPRAZOLE 20 MG CAPSULE PO PRN (07:30)
[2022-02-22] MEDS ORDERED: ONDANSETRON HCL 4 MG TABLET PO PRN (07:30)
[2022-02-22] MEDS ORDERED: BACITRACIN 28 GM OINTMENT TP PRN (07:30)
[2022-02-22] MEDS ORDERED: PETROLATUM,WHITE 28 GM JELLY TP PRN (07:30)
[2022-02-22] MEDS: PLECANATIDE 3 MG PO SCH (08:06)
[2022-02-22] MEDS: HALOPERIDOL 5 MG TABLET PO PRN ×2 (08:07→13:36)
[2022-02-22] MEDS: CHOLECALCIFEROL (VIT D3) 2,000 UNITS [50 MCG] TABLET PO SCH (08:07)
[2022-02-22] MEDS: LORazepam 1 MG TABLET PO PRN ×2 (08:07→11:41)
[2022-02-22] MEDS: ASPIRIN 81 MG CHEWABLE TABLET PO SCH (08:07)
[2022-02-22] MEDS: METOPROLOL TARTRATE 50 MG TABLET PO SCH ×2 (08:07→17:54)
[2022-02-22] MEDS: OXYBUTYNIN CHLORIDE 5 MG TABLET PO SCH ×2 (08:09→17:56)
[2022-02-22 08:19] VITALS: BP 114/63
[2022-02-22] MEDS ORDERED: *NON-FORMULARY MED [ENTER DRUG, DOSE, FREQ IN COMMENTS] CLINICAL ONE (09:00)
[2022-02-22] MEDS ORDERED: TRULANCE 3 MG PO SCH (09:00)
[2022-02-22] MEDS: GABAPENTIN 400 MG CAPSULE PO SCH ×2 (13:37→17:54)
[2022-02-22] MEDS ORDERED: PALIPERIDONE PALMITATE 234 MG/1.5 ML SYRINGE IM SCH (16:00)
[2022-02-22 17:45] VITALS: BP 130/98
[2022-02-22] MEDS: ATORVASTATIN CALCIUM 10 MG TABLET PO SCH (21:00)
[2022-02-22] MEDS: ChlorproMAZINE HCL 100 MG TABLET PO SCH (21:00)
[2022-02-23] MEDS: CHOLECALCIFEROL (VIT D3) 2,000 UNITS [50 MCG] TABLET PO SCH (08:19)
[2022-02-23] MEDS: LORazepam 1 MG TABLET PO PRN ×2 (08:19→15:30)
[2022-02-23] MEDS: HALOPERIDOL 5 MG TABLET PO PRN ×2 (08:19→15:30)
[2022-02-23] MEDS: PLECANATIDE 3 MG PO SCH (08:20)
[2022-02-23] MEDS: OXYBUTYNIN CHLORIDE 5 MG TABLET PO SCH ×2 (08:20→16:42)
[2022-02-23] MEDS: ASPIRIN 81 MG CHEWABLE TABLET PO SCH (08:21)
[2022-02-23] MEDS: GABAPENTIN 400 MG CAPSULE PO SCH ×3 (08:21→16:42)
[2022-02-23] MEDS: FLUoxetine HCL 20 MG CAPSULE PO SCH (08:22)
[2022-02-23] MEDS: METOPROLOL TARTRATE 50 MG TABLET PO SCH ×2 (08:23→16:42)
[2022-02-23] MEDS: FOLIC ACID 1 MG TABLET PO SCH (08:24)
[2022-02-23] MEDS ORDERED: THIAMINE 100 MG/ML 2 ML VIAL IM SCH (09:00)
[2022-02-23] MEDS: LOPERAMIDE HCL 2 MG CAPSULE PO PRN (11:42)
[2022-02-23 15:30] VITALS: BP 117/62
[2022-02-23] MEDS: IBUPROFEN 600 MG TABLET PO PRN (15:30)
[2022-02-23 16:01] VITALS: BP 112/65
[2022-02-23] MEDS: ATORVASTATIN CALCIUM 10 MG TABLET PO SCH (20:29)
[2022-02-23] MEDS: ChlorproMAZINE HCL 100 MG TABLET PO SCH (20:29)
[2022-02-24 08:28] VITALS: BP 128/81
[2022-02-24] MEDS: FLUoxetine HCL 20 MG CAPSULE PO SCH (09:39)
[2022-02-24] MEDS: ASPIRIN 81 MG CHEWABLE TABLET PO SCH (09:39)
[2022-02-24] MEDS: FOLIC ACID 1 MG TABLET PO SCH (09:41)
[2022-02-24] MEDS: METOPROLOL TARTRATE 50 MG TABLET PO SCH ×2 (09:44→16:58)
[2022-02-24] MEDS: OXYBUTYNIN CHLORIDE 5 MG TABLET PO SCH ×2 (09:44→17:00)
[2022-02-24] MEDS: PLECANATIDE 3 MG PO SCH (09:44)
[2022-02-24] MEDS: CHOLECALCIFEROL (VIT D3) 2,000 UNITS [50 MCG] TABLET PO SCH (09:45)
[2022-02-24] MEDS: GABAPENTIN 400 MG CAPSULE PO SCH ×3 (09:45→16:58)
[2022-02-24] MEDS: THIAMINE 100 MG TABLET PO SCH (09:51)
[2022-02-24] MEDS: IBUPROFEN 600 MG TABLET PO PRN (09:51)
[2022-02-24] MEDS: LOPERAMIDE HCL 2 MG CAPSULE PO PRN (12:39)
[2022-02-24 16:28] VITALS: BP 124/85
[2022-02-24] MEDS: MAG HYDROX/AL HYDROX/SIMETH ES 30 ML SUSPENSION UDCUP PO PRN (16:58)
[2022-02-24] MEDS: HALOPERIDOL 5 MG TABLET PO PRN (19:00)
[2022-02-24] MEDS: LORazepam 1 MG TABLET PO PRN (19:00)
[2022-02-24] MEDS: ChlorproMAZINE HCL 100 MG TABLET PO SCH (21:09)
[2022-02-24] MEDS: ATORVASTATIN CALCIUM 10 MG TABLET PO SCH (21:09)
[2022-02-25 09:18] VITALS: BP 120/72
[2022-02-25] MEDS: PLECANATIDE 3 MG PO SCH (09:38)
[2022-02-25] MEDS: HALOPERIDOL 5 MG TABLET PO PRN ×2 (09:39→17:45)
[2022-02-25] MEDS: OXYBUTYNIN CHLORIDE 5 MG TABLET PO SCH ×2 (09:39→16:40)
[2022-02-25] MEDS: LORazepam 1 MG TABLET PO PRN ×2 (09:39→17:45)
[2022-02-25] MEDS: FOLIC ACID 1 MG TABLET PO SCH (09:39)
[2022-02-25] MEDS: ASPIRIN 81 MG CHEWABLE TABLET PO SCH (09:40)
[2022-02-25] MEDS: THIAMINE 100 MG TABLET PO SCH (09:40)
[2022-02-25] MEDS: MAG HYDROX/AL HYDROX/SIMETH ES 30 ML SUSPENSION UDCUP PO PRN ×2 (09:40→17:46)
[2022-02-25] MEDS: CHOLECALCIFEROL (VIT D3) 2,000 UNITS [50 MCG] TABLET PO SCH (09:40)
[2022-02-25] MEDS: GABAPENTIN 400 MG CAPSULE PO SCH ×3 (09:41→16:40)
[2022-02-25] MEDS: METOPROLOL TARTRATE 50 MG TABLET PO SCH ×2 (09:42→16:40)
[2022-02-25] MEDS: FLUoxetine HCL 20 MG CAPSULE PO SCH (09:51)
[2022-02-25] MEDS: LOPERAMIDE HCL 2 MG CAPSULE PO PRN (11:29)
[2022-02-25 17:45] VITALS: BP 128/69
[2022-02-25] MEDS: ATORVASTATIN CALCIUM 10 MG TABLET PO SCH (20:31)
[2022-02-25] MEDS: ChlorproMAZINE HCL 100 MG TABLET PO SCH (20:31)
[2022-02-26 08:24] VITALS: BP 105/65
[2022-02-26] MEDS: OXYBUTYNIN CHLORIDE 5 MG TABLET PO SCH (08:53)
[2022-02-26] MEDS: PLECANATIDE 3 MG PO SCH (08:53)
[2022-02-26] MEDS: CHOLECALCIFEROL (VIT D3) 2,000 UNITS [50 MCG] TABLET PO SCH (08:53)
[2022-02-26] MEDS: IBUPROFEN 600 MG TABLET PO PRN (08:53)
[2022-02-26] MEDS: FOLIC ACID 1 MG TABLET PO SCH (08:53)
[2022-02-26] MEDS: GABAPENTIN 400 MG CAPSULE PO SCH ×2 (08:54→12:58)
[2022-02-26] MEDS: FLUoxetine HCL 20 MG CAPSULE PO SCH (08:54)
[2022-02-26] MEDS: ASPIRIN 81 MG CHEWABLE TABLET PO SCH (08:54)
[2022-02-26] MEDS: THIAMINE 100 MG TABLET PO SCH (08:54)
[2022-02-26] MEDS: METOPROLOL TARTRATE 50 MG TABLET PO SCH (08:54)
[2022-02-26] MEDS ORDERED: CHOL200059 PO (10:53)
[2022-02-26] MEDS ORDERED: FOLI-130 PO (10:53)
[2022-02-26] MEDS ORDERED: ASPI81 PO (10:53)
[2022-02-26] MEDS ORDERED: ATOR10TA84 PO (10:53)
[2022-02-26] MEDS ORDERED: THIA100T80 PO (10:53)
[2022-02-26] MEDS ORDERED: GABA-1201 PO (10:53)
[2022-02-26] MEDS ORDERED: METO50 PO (10:53)
[2022-02-26] MEDS ORDERED: OXYB5TAB20 PO ×2 (10:53)
[2022-02-26] MEDS ORDERED: PALI234D IM (20:44)
[2022-02-26] MEDS ORDERED: FLUO-177 PO (20:44)
== END 2022-02-26 12:00 | disposition home or self-care (01) | DRG 885 ==
LOC: EMS 22:53 → 3EC 02-21 01:28
PROVIDERS: ADMIT Psychiatry & Neurology Psychiatry; ATTEND Psychiatry & Neurology Psychiatry
DX: F25.9 Schizoaffective disorder, unspecified (principal); R07.89 Other chest pain; Z20.822 Contact with and (suspected) exposure to COVID-19; E11.9 Type 2 diabetes mellitus without complications; F10.10 Alcohol abuse, uncomplicated; F15.10 Other stimulant abuse, uncomplicated; G40.909 Epilepsy, unspecified, not intractable, without status epilepticus; G47.33 Obstructive sleep apnea (adult) (pediatric); G89.29 Other chronic pain; I10 Essential (primary) hypertension; J44.9 Chronic obstructive pulmonary disease, unspecified; K59.00 Constipation, unspecified; M19.90 Unspecified osteoarthritis, unspecified site; R32 Unspecified urinary incontinence; Z90.49 Acquired absence of other specified parts of digestive tract; Z91.51 Personal history of suicidal behavior; Z98.1 Arthrodesis status; Z72.0 Tobacco use; Z71.6 Tobacco abuse counseling; Z88.0 Allergy status to penicillin; Z88.8 Allergy status to other drugs, medicaments and biological substances
CPT/HCPCS: 80053; 81001; 85025; 85610; 87086; 93005; 94660; 99285; G0480; G0481; J3411; J3475; Q0162; Q9967

== ENCOUNTER 2024-05-18 13:02 | Inpatient (IN) | payer MEDICARE, MEDICAID ==
[~2024-05-18] VITALS: Ht 160 cm; Wt 101.6 kg
[~2024-05-18 13:02] MED LIST changes: +ASPI81 PO; +ATOR10TA PO; -ATOR10TA84 PO; +CHOL200059 PO; -DOCU-385 PO; +FLUO-177 PO; +FOLI-130 PO; +GABA-1201 PO; -OMEP20 PO; +PALI234D IM; +THIA100T80 PO
[2024-05-18] MEDS: LORazepam 1 MG TABLET PO ONE (14:02)
[2024-05-18 14:17] LABS: BASOPHILS % (AUTO) 0.9 % (0.0-2.0); EOSINOPHILS % (AUTO) 1.8 % (1.0-6.0); HEMATOCRIT 37.7 % (36-46); HEMOGLOBIN 12.5 g/dL (12.0-16.0); LYMPHOCYTES # (AUTO) 1.9 K/uL (1.0-4.8); LYMPHOCYTES % (AUTO) 27.5 % (22.0-44.0); MEAN CORPUSCULAR HEMOGLOBIN 32.5 pg (26.0-34.0); MEAN CORPUSCULAR HGB CONC 33.1 G/dL (31.0-37.0); MEAN CORPUSCULAR VOLUME 98 fL (80-100); MONOCYTES # (AUTO) 0.4 K/uL (0.1-1.0); MONOCYTES % (AUTO) 6.3 % (2.0-9.0); NEUTROPHILS # (AUTO) 4.5 K/uL (1.8-7.7); NEUTROPHILS % (AUTO) 63.5 % (40.0-70.0); PLATELET COUNT (AUTO) 201 K/uL (150-450); RED BLOOD CELL COUNT(AUTO) 3.84 MIL/uL (4.00-5.20); RED CELL DISTRIBUTION WIDTH 12.7 % (11.5-14.5)
[2024-05-18 14:33] LABS: ALCOHOL, BLOOD (SERUM) 51 mg/dL (0-10)
[2024-05-18 14:37] LABS: ALCOHOL, URINE DRUG SCREEN POSITIVE (NEGATIVE); AMPHET/METH SCREEN,URINE POSITIVE (NEGATIVE); BARBITURATE SCREEN, URINE NEGATIVE (NEGATIVE); BENZODIAZEPINES SCREEN,URINE NEGATIVE (NEGATIVE); CANNABINOID SCREEN,URINE POSITIVE (NEGATIVE); COCAINE SCREEN,URINE NEGATIVE (NEGATIVE); METHADONE SCREEN, URINE NEGATIVE (NEGATIVE); OPIATE SCREEN,URINE NEGATIVE (NEGATIVE); PHENCYCLIDINE SCREEN,URINE NEGATIVE (NEGATIVE)
[2024-05-18 14:47] LABS: ANION GAP 11 mmol/L (8-16); CALCIUM, TOTAL 8.4 mg/dL (8.8-10.5); CARBON DIOXIDE 27 mmol/L (22-29); CHLORIDE 99 mmol/L (98-107); CREATININE 0.57 mg/dL (0.60-1.30); GLOMERULAR FILTR. RATE CALC > 60 mL/min (>60); GLUCOSE,RANDOM 106 mg/dL (70-110); POTASSIUM 3.6 mmol/L (3.5-5.1); SODIUM SERUM 137 mmol/L (136-145); UREA NITROGEN, BLOOD 2 mg/dL (7-18)
[2024-05-18 16:25] LABS: COVID AG,FIA SOURCE NASAL SWAB
[2024-05-18 16:43] LABS: SARS-COV2 (COVID) ANTIGEN,FIA Negative (Negative)
[2024-05-18] MEDS ORDERED: LURA40TA4 PO (18:55)
[2024-05-18] MEDS ORDERED: OMEP20CA12 PO (18:55)
[2024-05-18] MEDS ORDERED: ASPI-1450 PO (18:55)
[2024-05-18] MEDS ORDERED: CYAN100099 PO (18:55)
[2024-05-18] MEDS ORDERED: CHLO100T36 PO (18:55)
[2024-05-18] MEDS ORDERED: TRAZ-283 PO (18:55)
[2024-05-18] MEDS ORDERED: LORA10TA7 PO (18:55)
[2024-05-18] MEDS ORDERED: GABA800T9 PO (18:55)
[2024-05-18] MEDS ORDERED: METO-391 PO (18:55)
[2024-05-18] MEDS ORDERED: CHLO50TA53 PO (18:55)
[2024-05-18] MEDS ORDERED: ATOR20TA65 PO (18:55)
[2024-05-18] MEDS: LORazepam 2 MG TABLET PO PRN (21:40)
[2024-05-18] MEDS: HALOPERIDOL 5 MG TABLET PO PRN (21:40)
[2024-05-18 22:47] VITALS: PULSE 84; RESP 16; O2SAT 95
[2024-05-18 22:49] VITALS: BP 118/76; PULSE 76; RESP 18; TEMP 97.3
[2024-05-18] MEDS ORDERED: MAGNESIUM HYDROXIDE SUSPENSION 30 ML UDCUP PO PRN (23:30)
[2024-05-18] MEDS ORDERED: MAG HYDROX/ALUMINUM HYD/SIMETH ES 30 ML SUSPENSION UDCUP PO PRN (23:30)
[2024-05-18] MEDS ORDERED: BENZOCAINE/MENTHOL LOZENGE PO PRN (23:30)
[2024-05-18] MEDS ORDERED: PETROLATUM,WHITE 28 GM JELLY TP PRN (23:30)
[2024-05-18] MEDS ORDERED: IBUPROFEN 600 MG TABLET PO PRN (23:30)
[2024-05-18] MEDS ORDERED: DOCUSATE SODIUM 100 MG CAPSULE PO PRN (23:30)
[2024-05-18] MEDS ORDERED: CloNIDine HCL 0.1 MG TABLET PO PRN (23:30)
[2024-05-18] MEDS ORDERED: ACETAMINOPHEN 325 MG TABLET PO PRN (23:30)
[2024-05-18] MEDS ORDERED: ONDANSETRON HCL 4 MG TABLET PO PRN (23:30)
[2024-05-18] MEDS ORDERED: LOPERAMIDE HCL 2 MG CAPSULE PO PRN (23:30)
[2024-05-18] MEDS ORDERED: BACITRACIN 28 GM OINTMENT TP PRN (23:30)
[2024-05-18] MEDS ORDERED: OMEPRAZOLE 20 MG CAPSULE PO PRN (23:30)
[2024-05-19] VITALS (7 sets, daily range): BP systolic 153–155; BP diastolic 78–88; PULSE 72–105; RESP 14–18; TEMP 97.2–98.2; O2SAT 93–95
[2024-05-19] MEDS ORDERED: LORATADINE 10 MG TABLET PO PRN (06:45)
[2024-05-19] MEDS: ATORVASTATIN CALCIUM 20 MG TABLET PO SCH (11:59)
[2024-05-19] MEDS: METOPROLOL SUCCINATE 50 MG ER TABLET PO SCH (11:59)
[2024-05-19] MEDS: ASPIRIN 81 MG CHEWABLE TABLET PO SCH (12:00)
[2024-05-19] MEDS: ZOLPIDEM TARTRATE 10 MG TABLET PO PRN (21:29)
[2024-05-20 02:08] VITALS: PULSE 68; RESP 16; O2SAT 94
[2024-05-20 04:41] VITALS: PULSE 70; RESP 16; O2SAT 94
[2024-05-20 07:00] VITALS: PULSE 82; PULSE 86; RESP 13; RESP 18; O2SAT 94; O2SAT 95
[2024-05-20 08:06] VITALS: BP 110/76; PULSE 68; RESP 18; TEMP 97.5
[2024-05-20] MEDS: ALBUTEROL SULFATE HFA 90 MCG/PUFF 8 GM INHALER IH PRN (11:43)
== END 2024-05-20 17:15 | disposition home or self-care (01) | DRG 885 ==
LOC: EMS 13:10 → 3EC 22:18 → UNDOADMIN 22:18 → 3EX 05-19 18:30
PROVIDERS: ADMIT Psychiatry & Neurology Psychiatry; ATTEND Psychiatry & Neurology Psychiatry
DX: F25.9 Schizoaffective disorder, unspecified (principal); F31.9 Bipolar disorder, unspecified; F15.10 Other stimulant abuse, uncomplicated; F10.10 Alcohol abuse, uncomplicated; E11.9 Type 2 diabetes mellitus without complications; J44.9 Chronic obstructive pulmonary disease, unspecified; I10 Essential (primary) hypertension; Z20.822 Contact with and (suspected) exposure to COVID-19; G40.909 Epilepsy, unspecified, not intractable, without status epilepticus; K59.00 Constipation, unspecified; G47.33 Obstructive sleep apnea (adult) (pediatric); Z88.0 Allergy status to penicillin; Z88.8 Allergy status to other drugs, medicaments and biological substances; Z91.018 Allergy to other foods; Z90.49 Acquired absence of other specified parts of digestive tract
CPT/HCPCS: 80048; 80307; 85025; 87081; 94660; 99285; G0378; G0480; J3535